=== PATIENT | male | born 1980 | race Caucasian/White ===

== ENCOUNTER 2019-12-21 23:02 | Inpatient (IN) | payer OTHER, SELFPAY ==
[2019-12-21 23:05] VITALS: BP 112/68; PULSE 104; RESP 32; TEMP 37; O2SAT 100; BMI 29.2
--- NOTE | 2019-12-21 23:09 | XR_ITS ---
EXAMINATION: XR CHEST CLINICAL INFORMATION: Shortness of breath. COMPARISON: CT chest 10/17/2019. Chest x-ray 10/16/2019 TECHNIQUE: Frontal view of the chest was obtained. 11:27 PM FINDINGS: There are vague rounded and linear opacities over the right upper lung which also has a metallic disc like object that is likely external to the patient. This is likely related to the oxygenation tubing which is seen crossing the right upper chest. The lungs are otherwise normally aerated. No pleural effusion. No pulmonary vascular congestion. Cardiac and mediastinal contours are normal. IMPRESSION: Radiopacities over the right upper lung suspected to be external to the patient. Repeat PA lateral chest would be helpful for further evaluation.
[2019-12-21 23:26] LABS: Basophils Absolute Auto 0.2 X10*3/uL (0.0-0.2); Basophils Percent Auto 1.4 % (0-2); Eosinophils Absolute Auto 1.7 X10*3/uL (0.0-0.4); Hematocrit 46.9 % (42-52); Hemoglobin 15.7 g/dl (14.0-18.0); Imm Gran Abs Auto 0.06 X10*3/uL (0.00-0.03); Imm Gran Pct Auto 0.5 % (0.0-0.4); Lymphocytes Absolute Auto 2.8 X10*3/uL (1.2-4.9); Lymphocytes Percent Auto 24.3 % (20-40); MANUAL DIFF FLAG NO; Mean Corpuscular HGB Conc 33.5 g/dl (31.0-36.0); Mean Corpuscular Hemoglobin 29.5 pg (27.0-33.0); Mean Platelet Volume 10.2 fL (9.4-12.4); Monocytes Absolute Auto 0.8 X10*3/uL (0.1-1.2); Monocytes Percent Auto 6.8 % (2-11); Platelet Count 315 X10*3/uL (160-400); Red Blood Count 5.33 X10*6/uL (4.60-5.80); Red Cell Distribution Width 12.6 % (11.0-16.0); White Blood Count 11.6 X10*3/uL (4.8-10.8)
[2019-12-21 23:48] VITALS: O2SAT 99
[2019-12-22] VITALS (7 sets, daily range): BP systolic 102–149; BP diastolic 60–80; PULSE 87–131; RESP 16–28; TEMP 36.3–36.8; O2SAT 94–98
[2019-12-22] MEDS: levalbuterol HCL 1.25 MG/3 ML VIAL.NEB 5 MG INHALE (00:19)
--- NOTE | 2019-12-22 00:23 | ED_ITS ---
HPI - Chest Pain General Chief Complaint: Dyspnea Stated Complaint: Sob Time Seen by Provider: 12/21/19 23:09 Source: patient and EMS Mode of arrival: EMS Limitations: no limitations History of Present Illness HPI narrative: patient's history of severe asthma been here frequently for status asthmaticus today he was doing fine just prior to arrival felt very short of breath tripoding at home EMS gave him 3 DuoNeb treatments back to back and 0.3 mg of epinephrine IM and placed on CPAP complaint: chest discomfort Onset: during rest Quality: tightness Relieving factors: nothing Related Data Allergies Allergy/AdvReac Type Severity Reaction Status Date / Time ibuprofen [IBUPROFEN] Allergy Intermediate ASTHMA Unverified 11/25/19 18:18 EXACERBATION shellfish derived Allergy Mild SWELLING Unverified 11/25/19 18:18 aspirin [ASA] Allergy Unknown DIFFICULTY Unverified 11/25/19 18:18 BREATHING nsaids Allergy Unknown Uncoded 09/23/19 00:00 nucala Allergy Unknown shortness Uncoded 09/23/19 00:00 of breath shellfish Allergy Unknown anaphylaxis Uncoded 09/23/19 00:00 Review of Systems Review of Systems: REVIEW OF SYSTEMS: Pertinent positives and negatives are stated above in the history. GEN: no fevers, chills, fatigue HEENT: no nasal congestion, sore throat, ear pain NEURO: no headache, dizziness, focal weakness PULM: for HPI CV: no chest pain, palpitations, LE edema ABD: no abdominal pain, nausea, vomiting, diarrhea : no dysuria, urgency, frequency SKIN: no rash ROS otherwise negative x 10 PMFSH Past Medical History Medical History Anxiety Asthma PTSD (post-traumatic stress disorder) Surgical History History of amputation Social History Social History Advance Directives: No Advance Directives Information Provided: No Physical Exam Vital Signs: Vital Signs: Vital Signs Temp Pulse Resp BP Pulse Ox 12/22/19 00:06 107 H 16 102/78 98 12/21/19 23:05 98.6 F 104 H 32 H 112/68 100 Body Mass Index 29.2 Appearance: Alert. Oriented X3. severe respiratory distress. using accessory respiratory muscle Eyes: Pupils equal, round and reactive to light. ENT: Pharynx normal. Neck: Normal inspection. Neck supple. CVS: Normal heart rate and rhythm. Pulses normal. Respiratory: severe respiratory distress on CPAP unable to speak very poor air entry with wheezing and rhonchi no rales Abdomen: Soft and nontender. Skin: Skin warm and dry. Normal skin color. Normal skin turgor. Extremities: No lower extremity edema. Good range of movement left BKA Neuro: Oriented X 3. No motor deficit. No sensory deficit. Course Course Course Narrative: patient received 3 DuoNeb treatments by EMS and 0.3 mg of epi and placed on CPAP prior to arrival after this treatment patient felt started feeling much better placed on CPAP on 30% when he arrived to the ER was given IV Decadron 10 mg Xopenex 5 mg and feeling much better now on 3 L of nasal cannula oxygen saturating 97% will admit patient for further evaluation. Patient's chest x-ray is negative for any infiltrate. Will do the COVID testing although patient does not have any recent contact with any sick patient and previous COVID testing x2 were negative MDM - Chest Pain Lab Data Result diagrams: 12/21/19 23:19 12/22/19 00:31 Labs: Lab Results 12/21/19 12/21/19 Range/Units 23:19 23:19 WBC 11.6 H (4.8-10.8) X10*3/uL RBC 5.33 (4.60-5.80) X10*6/uL Hgb 15.7 (14.0-18.0) g/dl Hct 46.9 (42-52) % MCV 88.0 (80-98) fL MCH 29.5 (27.0-33.0) pg MCHC 33.5 (31.0-36.0) g/dl RDW 12.6 (11.0-16.0) % Plt Count 315 (160-400) X10*3/uL MPV 10.2 (9.4-12.4) fL Immature Gran % (Auto) 0.5 H (0.0-0.4) % Neut % (Auto) 52.0 (45-73) % Lymph % (Auto) 24.3 (20-40) % [place] % (Auto) 6.8 (2-11) % Eos % (Auto) 15.0 H (0-4) % Baso % (Auto) 1.4 (0-2) % Lymph # (Auto) 2.8 (1.2-4.9) X10*3/uL [place] # (Auto) 0.8 (0.1-1.2) X10*3/uL Eos # (Auto) 1.7 H (0.0-0.4) X10*3/uL Baso # (Auto) 0.2 (0.0-0.2) X10*3/uL Abs Immat Gran (auto) 0.06 H (0.00-0.03) X10*3/uL Absolute Neuts (auto) 6.0 (2.0-8.3) X10*3/uL Absolute Nucleated RBC 0.000 (0.0-0.012) X10*3/uL Nucleated RBC % (auto) 0.0 (0.0-0.2) /100WBC Sodium Cancelled Potassium Cancelled Chloride Cancelled Carbon Dioxide Cancelled Anion Gap Cancelled BUN Cancelled Creatinine Cancelled Estim Creat Clear Calc Cancelled Estimated GFR Cancelled Random Glucose Cancelled Calcium Cancelled Critical Care Time Critical Care Time Critical Care Time: Yes Total Critical Care Time: 35 Attestation: Time is exclusive of separately billable procedures. Time includes: direct pa tient care, patient reassessment, coordination of patient care, interpretation of data (laboratory data, pulse oximetry, arterial blood gases and chest xrays), review of patient's medical records, medical consultation and documentation of patient care. Procedures excluded from critical care time: central intravenous line placement and electrocardiography. Discharge Plan Discharge Clinical Impression: Asthmaticus, status Qualifiers: Asthma severity: severe Asthma persistence: unspecified Qualified Code(s): J45.902 - Unspecified asthma with status asthmaticus Patient Disposition: Admitted As Inpatient
[2019-12-22] MEDS: Magnesium Sulfate/H2O 2 GM/50 ML PIGGYBACK IV (00:35)
[2019-12-22] MEDS: 0.9 % Sodium Chloride 1,000 ML 999 ML IVCONT ×2 (00:35)
[2019-12-22] MEDS: dexAMETHasone sod phosphate 4 MG/ML VIAL 10 MG IVPUSH (00:38)
[2019-12-22 01:27] LABS: Anion Gap 15 (12-20); Blood Urea Nitrogen 17 mg/dL (9-16); Calcium 9.4 mg/dL (8.4-10.2); Carbon Dioxide 23 mmol/L (22-29); Chloride 104 mmol/L (96-108); Creatinine Clr Calc Pharmacy 128.7; Estimated Glomerular Filt Rate > 60; Glucose Random 107 mg/dL (60-115); Potassium 3.7 mmol/l (3.3-5.1); Sodium 138 mmol/L (135-145)
--- NOTE | 2019-12-22 04:02 | PC.NURSE ---
patient sleeping at this time. skin p/w/d. airway patent.
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
[2019-12-22] MEDS: cefTRIAXone sodium 1 GM in 0.9 % Sodium Chloride 100 ML IV (09:03)
--- NOTE | 2019-12-22 09:09 | MHC.CM.PN ---
Male 39 DX Asthma exacerbation. Lives alone. WC bound. Independent ADLs father assists PRN. DP home no services family transport.
[2019-12-22] MEDS: ondansetron HCL 4 MG/2 ML VIAL IVPUSH (09:10)
[2019-12-22] MEDS: levalbuterol HCL 1.25 MG/3 ML VIAL.NEB INHALE ×4 (11:35→19:11)
--- NOTE | 2019-12-22 13:10 | PM.EVENT ---
Event Note Event Note: patient came with shortness of breath and found to have asthma exacerbation: seen and examined today patient says shortness of breath improving, seems slightly anxious. Physical exam: Cvs: rrr, [id number] , no murmur res: Fair air entry, still has some wheezing abd: no rebound or guarding ,nt, bs present. ext pulses present , no cyanosis neuro: axo3 , nonfocal. assessment and plan coordinated in H&P: asthma exacerbation/ continue nebs, steroids Anxiety shaw: P.r.n. ati ativan if needed
[2019-12-22] MEDS: LORazepam 2 MG/ML VIAL 0.5 MG IVPUSH (13:57)
[2019-12-22 15:17] LABS: SARS COV2 PCR INHOUSE NEGATIVE (Negative)
[2019-12-22] MEDS: LORazepam 2 MG/ML VIAL 1 MG IVPUSH (19:40)
[2019-12-22] MEDS: Morphine Sulfate 4 MG/ML CARTRIDGE IVPUSH (20:15)
[2019-12-22] MEDS: Albuterol Sulfate (0.083%) 2.5 MG/3 ML VIAL.NEB INHALE (20:41)
[2019-12-23] VITALS (10 sets, daily range): BP systolic 108–138; BP diastolic 68–98; PULSE 68–119; RESP 18–22; TEMP 36.3–36.6; O2SAT 94–100
[2019-12-23] MEDS: LORazepam 2 MG/ML VIAL 0.5 MG IVPUSH ×4 (00:48→22:15)
[2019-12-23] MEDS: levalbuterol HCL 1.25 MG/3 ML VIAL.NEB INHALE ×5 (00:53→20:47)
[2019-12-23] MEDS: Morphine Sulfate 4 MG/ML CARTRIDGE 3 MG IVPUSH (04:42)
[2019-12-23 05:38] LABS: ABG PCO2 42 mmhg (32-45); HCO3 ABG 27 mmol/l (22-26); PO2 ABG 54 mmhg (83-108); Pt Ventilation O2% 40%; pH ABG 7.41 (7.35-7.45)
[2019-12-23 05:39] LABS: Base Excess ABG 1.4; Blood Gas Serial # 5396
--- NOTE | 2019-12-23 06:28 | PC.NURSE ---
PATIENT VERY ANXIOUS AND C/O DIFFICULTY BREATHING THROUGHOUT SHIFT. DR KEANE NOTIFIED. PT GIVEN ATIVAN FOR ANXIETY AND MORPHINE FOR BREATHING, BOTH WITH POSITIVE EFFECT. PT ALSO REQUESTING IV FLUIDS AND ABG'S DURING THE NIGHT. ABG'S ORDERED THIS MORNING - PT UPDATED ON RESULTS. PT IS VERY ANXIOUS/FEARFUL ABOUT HIS POTENTIAL DECLINE.
[2019-12-23 06:33] LABS: MANUAL DIFF FLAG NO
[2019-12-23 06:50] LABS: Basophils Absolute Auto 0.1 X10*3/uL (0.0-0.2); Basophils Percent Auto 0.6 % (0-2); Eosinophils Absolute Auto 0.3 X10*3/uL (0.0-0.4); Hematocrit 46.1 % (42-52); Hemoglobin 15.2 g/dl (14.0-18.0); Imm Gran Abs Auto 0.09 X10*3/uL (0.00-0.03); Imm Gran Pct Auto 0.7 % (0.0-0.4); Lymphocytes Absolute Auto 3.8 X10*3/uL (1.2-4.9); Lymphocytes Percent Auto 30.2 % (20-40); Mean Corpuscular Hemoglobin 29.5 pg (27.0-33.0); Mean Corpuscular Volume 89.5 fL (80-98); Mean Platelet Volume 10.6 fL (9.4-12.4); Monocytes Absolute Auto 1.1 X10*3/uL (0.1-1.2); Monocytes Percent Auto 8.6 % (2-11); Neutrophils Absolute Auto 7.2 X10*3/uL (2.0-8.3); Neutrophils Percent Auto 57.9 % (45-73); Platelet Count 310 X10*3/uL (160-400); Red Blood Count 5.15 X10*6/uL (4.60-5.80); White Blood Count 12.4 X10*3/uL (4.8-10.8)
[2019-12-23 07:08] LABS: Anion Gap 14 (12-20); Blood Urea Nitrogen 11 mg/dL (9-16); Calcium 9.4 mg/dL (8.4-10.2); Carbon Dioxide 26 mmol/L (22-29); Chloride 109 mmol/L (96-108); Creatinine Clr Calc Pharmacy 133.8; Estimated Glomerular Filt Rate > 60; Glucose Random 86 mg/dL (60-115); Sodium 145 mmol/L (135-145)
[2019-12-23] MEDS: cefTRIAXone sodium 1 GM in 0.9 % Sodium Chloride 100 ML IV (07:41)
[2019-12-23 10:21] LABS: Procalcitonin 0.05 ng/mL
[2019-12-23] MEDS: Loratadine 10 MG TABLET PO (11:38)
--- NOTE | 2019-12-23 11:54 | MHC.CLN ---
WILL START REGULAR DIET PT WITHOUT HX DM
--- NOTE | 2019-12-23 12:26 | PM.IMPN ---
Subjective Subjective Date of Service: 12/23/19 Interval History: Dyspnea improved Undergoing lung biopsy at [facility] next week. 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 Improved on CPAP overnight. Still does not have home CPAP Constitutional Constitutional: Denies fever(s) Cardiovascular Cardiovascular: Denies chest pain and Reports dyspnea Respiratory Respiratory: Reports cough, Reports dyspnea and Reports wheezing Gastrointestinal Gastrointestinal: Denies abdominal pain Allergic/Immunologic Allergic/Immunologic: Reports wheezing Physical Exam Vital Signs: Vital Signs: Vital Signs Temp Pulse Resp BP Pulse Ox 12/23/19 11:27 87 18 129/76 97 12/23/19 08:05 97.4 F 12/23/19 07:14 114 H 20 132/98 H 94 12/23/19 04:42 22 H 12/23/19 03:29 97.5 F 90 20 128/85 96 12/23/19 00:00 97.7 F 119 H 20 138/75 97 12/22/19 20:25 97.9 F 122 H 20 136/79 94 12/22/19 20:15 20 12/22/19 19:27 98.1 F 131 H 28 H 149/66 H 95 12/22/19 15:15 98.2 F 103 H 18 126/60 95 Body Mass Index 29.2 Const: General: no acute distress Chest: Chest palpation & inspection: normal inspection of the chest Resp: Effort & Inspection: normal respiratory effort, audible wheezes and no respiratory distress Cardio: Rate: regular rate Rhythm: regular rhythm GI: Inspection: Yes normal to inspection Palpation (GI): Soft to palpation and nontender Extrem: General: Yes no clubbing, cyanosis or edema Objective Data Current Medications Generic Name Dose Route Start Last Admin Trade Name Freq PRN Reason Stop Dose Admin Ceftriaxone Sodium 1 gm/ 100 mls @ 200 mls/hr 12/22/19 08:00 12/23/19 08:50 Sodium Chloride IV Infused Q24H [facility] Infusion Ipratropium [place] 2 puff 12/22/19 20:00 12/23/19 11:31 Ipratropium [place] 1 Puff/17 Mcg Inhaler INHALE Not Given RQ4H WHILE AWAKE [facility] Levalbuterol HCl 1.25 mg 12/22/19 12:00 12/23/19 11:24 Levalbuterol Hcl 1.25 Mg/3 Ml Vial.Neb INHALE 1.25 mg RQ4H WHILE AWAKE [facility] Administration Levalbuterol HCl 1.25 mg 12/22/19 08:09 12/23/19 00:53 Levalbuterol Hcl 1.25 Mg/3 Ml Vial.Neb INHALE 1.25 mg Q3H PRN Administration Shortness of Breath/Wheezing Loratadine 10 mg 12/23/19 11:15 12/23/19 11:38 Loratadine 10 Mg Tablet PO 10 mg DAILY BATSHEVA Administration Lorazepam 0.5 mg 12/23/19 00:29 12/23/19 07:43 Lorazepam 2 Mg/Ml Vial IVPUSH 0.5 mg Q6H PRN Administration Anxiety Methylprednisolone Sodium Succinate 40 mg 12/23/19 11:15 12/23/19 11:38 Methylprednisolone Sod Succ/Pf 40 Mg/Ml Vial IVPUSH 40 mg Q12H [facility]ATSHEVA Administration Tiotropium [place] 1 puff 12/23/19 11:20 Tiotropium [place] 18 Mcg Cap.W.Dev INHALE RDAILY [facility] Labs CBC & Chem 7: 12/23/19 05:42 12/23/19 05:42 Labs: Laboratory Results - last 24 hr 12/22/19 12/23/19 12/23/19 14:07 05:20 05:42 MCV 89.5 MCH 29.5 MCHC 33.0 RDW 13.0 Plt Count 310 MPV 10.6 Immature Gran % (Auto) 0.7 H Neut % (Auto) 57.9 Lymph % (Auto) 30.2 [place] % (Auto) 8.6 Eos % (Auto) 2.0 Baso % (Auto) 0.6 Lymph # (Auto) 3.8 [place] # (Auto) 1.1 Eos # (Auto) 0.3 Baso # (Auto) 0.1 Abs Immat Gran (auto) 0.09 H Absolute Neuts (auto) 7.2 Absolute Nucleated RBC 0.000 Nucleated RBC % (auto) 0.0 ABG pH 7.41 ABG pCO2 42 ABG pO2 54 L ABG HCO3 27 H ABG O2 Saturation 90.0 ABG Base Excess 1.4 Oxygen Given 40% Anion Gap Estim Creat Clear Calc Estimated GFR Random Glucose Calcium Procalcitonin Coronavirus (PCR) NEGATIVE 12/23/19 12/23/19 05:42 05:42 MCV MCH MCHC RDW Plt Count MPV Immature Gran % (Auto) Neut % (Auto) Lymph % (Auto) [place] % (Auto) Eos % (Auto) Baso % (Auto) Lymph # (Auto) [place] # (Auto) Eos # (Auto) Baso # (Auto) Abs Immat Gran (auto) Absolute Neuts (auto) Absolute Nucleated RBC Nucleated RBC % (auto) ABG pH ABG pCO2 ABG pO2 ABG HCO3 ABG O2 Saturation ABG Base Excess Oxygen Given Anion Gap 14 Estim Creat Clear Calc 133.8 Estimated GFR > 60 Random Glucose 86 Calcium 9.4 Procalcitonin 0.05 Coronavirus (PCR) Progress Note: A&P (1) Asthma exacerbation: Status: Acute Assessment and Plan: hospital d#3 39yo M c paraparesis, neurogenic bladder, severe allergic asthma admitted for exacerbation # severe asthma exacerbation - IV glucocorticoid, nebulized KATHERYN/SAHIL, antihistamine; continue inhaled LAMA - no evidence of bacterial PNA, will d/c ceftriaxone # acute/chronic hypoxic respiratory failure - try to get qualified for CPAP while inpt # possible bronchiolitis - planned lung biopsy at [facility] next week # anxiety - prn lorazepam
[2019-12-24 04:00] VITALS: BP 128/79; PULSE 76; RESP 18; TEMP 36.4; O2SAT 98
[2019-12-24] MEDS: levalbuterol HCL 1.25 MG/3 ML VIAL.NEB INHALE ×2 (05:21→08:34)
[2019-12-24] MEDS: LORazepam 2 MG/ML VIAL 0.5 MG IVPUSH ×2 (05:31→17:10)
[2019-12-24 07:43] VITALS: BP 123/83; PULSE 99; RESP 20; TEMP 36.6; O2SAT 98
[2019-12-24] MEDS: Loratadine 10 MG TABLET PO (09:10)
--- NOTE | 2019-12-24 11:05 | P.PNIM_ITS ---
Subjective Subjective Date of Service: 12/24/19 Interval History: Dyspnea improved, still wheezing. Constitutional Constitutional: Denies fever(s) Cardiovascular Cardiovascular: Denies chest pain and Reports dyspnea Respiratory Respiratory: Reports cough, Reports dyspnea and Reports wheezing Gastrointestinal Gastrointestinal: Denies abdominal pain Allergic/Immunologic Allergic/Immunologic: Reports wheezing Physical Exam Vital Signs: Vital Signs: Vital Signs Temp Pulse Resp BP Pulse Ox 12/24/19 07:43 97.8 F 99 20 123/83 98 12/24/19 04:00 97.6 F 76 18 128/79 98 12/23/19 23:37 97.7 F 68 18 108/68 100 12/23/19 19:57 97.8 F 77 18 130/78 98 12/23/19 15:26 79 18 134/83 98 12/23/19 11:27 87 18 129/76 97 Body Mass Index 29.2 Const: General: no acute distress Chest: Chest palpation & inspection: normal inspection of the chest Resp: Effort & Inspection: normal respiratory effort, audible wheezes and no respiratory distress; prolonged expiratory phase Cardio: Rate: regular rate Rhythm: regular rhythm GI: Inspection: Yes normal to inspection Palpation (GI): Soft to palpation and nontender Extrem: General: Yes no clubbing, cyanosis or edema Objective Data Current Medications Generic Name Dose Route Start Last Admin Trade Name Freq PRN Reason Stop Dose Admin Ipratropium [place] 2 puff 12/22/19 20:00 12/24/19 09:56 Ipratropium [place] 1 Puff/17 Mcg Inhaler INHALE Not Given RQ4H WHILE AWAKE [facility]HE[facility] Levalbuterol HCl 1.25 mg 12/22/19 12:00 12/24/19 08:34 Levalbuterol Hcl 1.25 Mg/3 Ml Vial.Neb INHALE 1.25 mg RQ4H WHILE AWAKE BATSHEVA Administration Levalbuterol HCl 1.25 mg 12/22/19 08:09 12/24/19 05:21 Levalbuterol Hcl 1.25 Mg/3 Ml Vial.Neb INHALE 1.25 mg Q3H PRN Administration Shortness of Breath/Wheezing Loratadine 10 mg 12/23/19 11:15 12/24/19 09:10 Loratadine 10 Mg Tablet PO 10 mg DAILY BATSHEVA Administration Lorazepam 0.5 mg 12/23/19 00:29 12/24/19 05:31 Lorazepam 2 Mg/Ml Vial IVPUSH 0.5 mg Q6H PRN Administration Anxiety Methylprednisolone Sodium Succinate 40 mg 12/23/19 11:15 12/23/19 22:16 Methylprednisolone Sod Succ/Pf 40 Mg/Ml Vial IVPUSH 40 mg Q12H BATSHEVA Administration Tiotropium [place] 1 puff 12/23/19 11:20 12/24/19 08:37 Tiotropium [place] 18 Mcg Cap.W.Dev INHALE Not Given RDAILY [facility] Labs CBC & Chem 7: 12/23/19 05:42 12/23/19 05:42 Assessment and Plan (1) Asthma exacerbation: Status: Acute Assessment and Plan: hospital d#34 39yo M c paraparesis, neurogenic bladder, severe allergic asthma, 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
[2019-12-24 11:50] VITALS: BP 122/80; PULSE 85; RESP 20; TEMP 36.4; O2SAT 94
--- NOTE | 2019-12-24 13:06 | MHC.CM.PN ---
DP Home no services family transfer
[2019-12-24 14:59] VITALS: BP 116/71; PULSE 96; RESP 18; TEMP 36.6; O2SAT 96
[2019-12-24] MEDS: Ipratropium Bromide 1 PUFF/17 MCG INHALER 2 PUFF INHALE (19:37)
[2019-12-24 19:48] VITALS: BP 126/75; PULSE 80; RESP 16; TEMP 36.6; O2SAT 97
--- NOTE | 2019-12-24 22:25 | PC.NURSE ---
Overnight oximetry started at 2200.
[2019-12-25] VITALS (7 sets, daily range): BP systolic 127–137; BP diastolic 67–84; PULSE 60–85; RESP 18–20; TEMP 36.2–36.7; O2SAT 92–97
[2019-12-25] MEDS: LORazepam 2 MG/ML VIAL 0.5 MG IVPUSH ×2 (06:23→22:51)
[2019-12-25] MEDS: Loratadine 10 MG TABLET PO (08:14)
[2019-12-25] MEDS: predniSONE 20 MG TABLET 40 MG PO ×2 (10:54→17:12)
[2019-12-25] MEDS: levalbuterol HCL 1.25 MG/3 ML VIAL.NEB INHALE ×3 (11:23→19:16)
--- NOTE | 2019-12-25 14:02 | HO.PM.IMPN ---
Subjective Subjective Date of Service: 12/25/19 Interval History: Dyspnea and wheezing improved. Constitutional Constitutional: Denies fever(s) Cardiovascular Cardiovascular: Denies chest pain and Reports dyspnea Respiratory Respiratory: Reports cough, Reports dyspnea and Reports wheezing Gastrointestinal Gastrointestinal: Denies abdominal pain Allergic/Immunologic Allergic/Immunologic: Reports wheezing Physical Exam Vital Signs: Vital Signs: Vital Signs Temp Pulse Resp BP Pulse Ox 12/25/19 12:00 97.2 F 60 18 133/76 97 12/25/19 07:42 98.1 F 78 20 134/84 95 12/25/19 04:00 97.5 F 73 18 132/84 94 12/25/19 00:00 97.5 F 76 18 127/71 92 12/24/19 19:48 97.8 F 80 16 126/75 97 12/24/19 14:59 97.9 F 96 18 116/71 96 Body Mass Index 29.2 Const: General: no acute distress Chest: Chest palpation & inspection: normal inspection of the chest Resp: Effort & Inspection: normal respiratory effort, very soft end-exp wheeze bilateral upper lung busch; prolonged expiratory phase Cardio: Rate: regular rate Rhythm: regular rhythm GI: Inspection: Yes normal to inspection Palpation (GI): Soft to palpation and nontender Extrem: General: Yes no clubbing, cyanosis or edema Objective Data Current Medications Generic Name Dose Route Start Last Admin Trade Name Freq PRN Reason Stop Dose Admin Ipratropium [place] 2 puff 12/22/19 20:00 12/25/19 11:38 Ipratropium [place] 1 Puff/17 Mcg Inhaler INHALE Not Given RQ4H WHILE AWAKE [facility] Levalbuterol HCl 1.25 mg 12/22/19 12:00 12/25/19 11:23 Levalbuterol Hcl 1.25 Mg/3 Ml Vial.Neb INHALE 1.25 mg RQ4H WHILE AWAKE BATSHEVA Administration Levalbuterol HCl 1.25 mg 12/22/19 08:09 12/24/19 05:21 Levalbuterol Hcl 1.25 Mg/3 Ml Vial.Neb INHALE 1.25 mg Q3H PRN Administration Shortness of Breath/Wheezing Loratadine 10 mg 12/23/19 11:15 12/25/19 08:14 Loratadine 10 Mg Tablet PO 10 mg DAILY BATSHEVA Administration Lorazepam 0.5 mg 12/23/19 00:29 12/25/19 06:23 Lorazepam 2 Mg/Ml Vial IVPUSH 0.5 mg Q6H PRN Administration Anxiety Prednisone 40 mg 12/25/19 10:05 12/25/19 10:54 Prednisone 20 Mg Tablet PO 40 mg BIDWM BATSHEVA Administration Tiotropium [place] 1 puff 12/23/19 11:20 12/25/19 11:32 Tiotropium [place] 18 Mcg Cap.W.Dev INHALE 1 puff RDAILY BATSHEVA Administration Labs CBC & Chem 7: 12/23/19 05:42 12/23/19 05:42 Assessment and Plan (1) Asthma exacerbation: Status: Acute Assessment and Plan: hospital d#4 39yo M c paraparesis, neurogenic bladder, severe allergic asthma, 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
[2019-12-26 03:34] VITALS: BP 137/79; PULSE 71; RESP 20; TEMP 36.6; O2SAT 94
[2019-12-26] MEDS: levalbuterol HCL 1.25 MG/3 ML VIAL.NEB INHALE (07:08)
[2019-12-26] MEDS: Ipratropium Bromide 1 PUFF/17 MCG INHALER 2 PUFF INHALE (07:52)
[2019-12-26 08:00] VITALS: BP 126/88; PULSE 86; RESP 20; TEMP 36.5; O2SAT 98
[2019-12-26] MEDS: Loratadine 10 MG TABLET PO (08:59)
[2019-12-26] MEDS: predniSONE 20 MG TABLET 40 MG PO (08:59)
--- NOTE | 2019-12-26 10:02 | P.DS_ITS ---
DS: Providers Provider Date of admission: 12/22/19 03:57 Primary care physician: Madhu Rascon MD DS: Diagnosis Discharge Diagnosis (1) Asthma exacerbation: Status: Acute Problem details: resolved (2) Allergic asthma: Status: Acute (3) Acute respiratory failure with hypoxia: Status: Acute DS: Summary Hospital Course Hospital Course: from admission history and physical by hospitalist Isabella Mccray MD, 12/22/19: This is a 39-year-old male with recurrent frequent admissions for asthma exacerbation, with past medical history of asthma, chemical lung injury, spinal cord injury with paraplegia, anxiety who presents to the hospital with complaints of shortness of breath and wheezing. pt reports sx started later in the day, associated with wheezing, coughing and sputum production. no fever or chills, no n/v, abd pain, diarrhea or constipation,no urinary sx. pt reports that he also had a panic attack when he reallized he had difficulty breathing and couldnt reach his phone or find it to call ambulance. he was placed on CPAP in ED and reports his sx to have significantly improved. On arrival to the ED, pt had a temp of 98.6, pulse... ...of 104, rr of 32, bp of 112/68, on bipap The patient was admitted to the [facility] [place] and placed on IV steroid and nebulized bronchodilators and weaned off of BiPAP support to room air. Overnight oximetry was performed and the patient did not have desaturations that met qualifications for outpatient CPAP/BiPAP but a formal PSG is recommended to be done as an outpatient off of steroids. The patient improved to point where his breathing was unlabored and there was no wheezing. Steroids were tapered and the patient was discharged home on 6 more days of prednisone taper. 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 Time Spent with Patient Time attestation: Total time spent providing and/or coordinating discharge services: 40 Physical Exam Vital Signs: Vital Signs: Vital Signs Temp Pulse Resp BP Pulse Ox 12/26/19 08:00 97.7 F 86 20 126/88 98 12/26/19 03:34 97.9 F 71 20 137/79 94 12/25/19 23:11 98.1 F 79 20 135/78 95 12/25/19 19:36 97.6 F 85 18 132/67 96 12/25/19 15:29 98.1 F 68 18 137/81 97 12/25/19 12:00 97.2 F 60 18 133/76 97 Body Mass Index 29.2 Const: General: no acute distress and acute distress Resp: Effort & Inspection: normal respiratory effort and able to speak in complete sentences Auscultation: no rales and no wheezes Cardio: Rate: regular rate Rhythm: regular rhythm Neuro: Other: paraplegia Extrem: Other: L BKA Discharge Plan Discharge Patient Disposition: Home, Self-Care Referrals: Madhu Rascon MD [Primary Care Provider] - Discharge Medications: New Spiriva with HandiHaler 18 mcg Capsule, W/Inhalation Device 18 mcg inhalation RDAILY Qty: 30 RF: 0 prednisone 20 mg Tablet 40 mg PO .see instructions Qty: 7 RF: 0 Banophen Anti-Itch 2-0.1 % Cream 1 appl topical TID PRN (Reason: itching) Qty: 60 RF: 0 cetirizine 10 mg tablet 10 mg PO DAILY Qty: 30 RF: 0 prazosin 1 mg capsule 1 mg PO BEDTIME Qty: 30 RF: 0 albuterol sulfate 2.5 mg /3 mL (0.083 %) solution for nebulization 2.5 mg inhalation Q4-6H PRN (Reason: shortness of breath or wheezing) Qty: 3 RF: 0 albuterol sulfate 90 mcg/actuation HFA aerosol inhaler 2 puff inhalation Q4-6H PRN (Reason: shortness of breath or wheezing) Qty: 8.5 RF: 0 sertraline 25 mg tablet 25 mg PO DAILY Qty: 30 RF: 0 Benadryl Extra Strength 2-0.1 % cream 1 applic topical TID PRN (Reason: itching) Qty: 28.3 RF: 0 Discharge Orders: Discharge Order (Routine); Ordered 12/26/19 Ordered By: Kennedy Perez Diet: advance to your usual diet Activity on Discharge: As tolerated Stand Alone Forms: Community Support Visit Report Forms: Patient Portal Discharge page Care Plan Goals: relief of shortness of breath and wheezing Health Concerns: allergic asthma, 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
== END 2019-12-26 11:00 | disposition home or self-care (01) | DRG 202 ==
LOC: HO.ED 12-22 04:34 → HO.IMC 12-22 06:06
PROVIDERS: Internal Medicine; Admitting Provider Internal Medicine; Emergency Provider Internal Medicine; PCP Internal Medicine Endocrinology, Diabetes & Metabolism; Visit Provider Family Medicine
DX: J45.901 Unspecified asthma with (acute) exacerbation (principal); J96.21 Acute and chronic respiratory failure with hypoxia; G82.20 Paraplegia, unspecified; Z20.828 Contact with and (suspected) exposure to other viral communicable diseases; F43.10 Post-traumatic stress disorder, unspecified; J42 Unspecified chronic bronchitis; Z88.6 Allergy status to analgesic agent
CPT/HCPCS: 36415; 36600; 71045; 80048; 82803; 84145; 85025; 87635; 94660; 94664; 96361; 96365; 96375; 99285; J1100; J2060; J2270; J2405; J2920; J3475

== ENCOUNTER 2020-11-02 16:33 | Inpatient (IN) | payer OTHER, MEDICARE, SELFPAY ==
[2020-11-02] VITALS (8 sets, daily range): BP systolic 102–149; BP diastolic 63–76; PULSE 78–135; RESP 10–18; TEMP 36–36.4; O2SAT 89–97; BMI 26.4
--- NOTE | ~2020-11-02 | XR_ITS ---
EXAMINATION: XR CHEST CLINICAL INFORMATION: Shortness of breath COMPARISON: Chest x-ray December 21, 2019. CT of chest October 17, 2019 TECHNIQUE: Frontal portable view of the chest was obtained. 5:00 PM FINDINGS: Surgical suture chain in the right midlung. Blunting of right costophrenic angle probably due to pleural thickening. No acute airspace disease. No pulmonary vascular congestion. The cardiac and mediastinal contours are normal. Heart size is normal. Orthopedic hardware in the lower thoracic upper lumbar spine. XR/XR chest 1V IMPRESSION: Postsurgical changes of right lung. No acute abnormality of the chest.
--- NOTE | ~2020-11-02 | CT_ITS ---
EXAMINATION: CT CHEST WITHOUT CONTRAST CLINICAL INFORMATION: Shortness of breath. Low O2 saturation. COMPARISON: Most recent chest radiograph done earlier the same day. CT chest dated 10/17/2019. TECHNIQUE: Multidetector volumetric CT imaging of the chest was done. Axial MIP volume rendering provided. Sagittal and coronal reformatted images were obtained. This CT examination was performed using dose optimization techniques as appropriate, variously including the following: *Automated exposure control *Adjustment of mA and/or kV according to patient size (this includes techniques or standardized protocols for targeted exams where dose is matched to indication/reason for exam; i.e. 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 No associated soft tissue mass or fluid collection. Stable linear scarring versus atelectasis within the posterior right lung base. There is new focal tree-in-bud nodularity within the medial aspect of the left upper lobe (axial image 104/603). Stable 0.3 cm subpleural nodule along the apex of the left major fissure. Stable 0.4 cm subpleural nodule medially within the right upper lobe (axial image 196/603). Multiple additional stable bilateral subpleural pulmonary nodules. The central airways are patent. MEDIASTINUM: No cardiomegaly. No pericardial effusion. No thoracic aortic dilatation. No superior mediastinal or hilar lymphadenopathy. PLEURA: No pleural effusion or pneumothorax. AXILLA: No lymphadenopathy. UPPER ABDOMEN: Unremarkable. OSSEOUS STRUCTURES: Unremarkable. CT/CT chest wo con IMPRESSION: 1. Postsurgical change within the lateral aspect of the right lower lobe. No associated soft tissue mass or fluid collection. 2. Stable linear scarring versus atelectasis within the posterior right lower lobe. Stable bilateral small pulmonary nodules, unchanged. No new large pulmonary nodule or mass. 3. New focal tree-in-bud nodularity within the medial aspect of the left upper lobe. Findings could represent an infectious or inflammatory process and continued attention on follow-up is recommended. 4. No lymphadenopathy.
--- NOTE | 2020-11-02 16:44 | ECG_ITS ---
Test Reason : DYSPNEA Blood Pressure : / mmHG Vent. Rate : 132 BPM Atrial Rate : 132 BPM P-R Int : 152 ms QRS Dur : 072 ms QT Int : 288 ms P-R-T Axes : 084 020 056 degrees QTc Int : 426 ms Sinus tachycardia Otherwise normal ECG When compared with ECG of 13-OCT-2019 01:35, No significant change was found Referred By: Margarette Hill Electronically Signed By:SAMI VOSS
[2020-11-02 16:57] LABS: MANUAL DIFF FLAG NO
[2020-11-02 17:04] LABS: Basophils Absolute Auto 0.1 X10*3/uL (0.0-0.2); Basophils Percent Auto 1.1 % (0-2); Eosinophils Absolute Auto 0.7 X10*3/uL (0.0-0.4); Eosinophils Percent Auto 6.7 % (0-4); Hemoglobin 15.6 g/dl (14.0-18.0); Imm Gran Abs Auto 0.06 X10*3/uL (0.00-0.03); Imm Gran Pct Auto 0.6 % (0.0-0.4); Lymphocytes Absolute Auto 2.1 X10*3/uL (1.2-4.9); Lymphocytes Percent Auto 20.4 % (20-40); Mean Corpuscular HGB Conc 34.7 g/dl (31.0-36.0); Mean Corpuscular Hemoglobin 29.6 pg (27.0-33.0); Mean Corpuscular Volume 85.4 fL (80-98); Mean Platelet Volume 10.1 fL (9.4-12.4); Monocytes Absolute Auto 0.5 X10*3/uL (0.1-1.2); Neutrophils Percent Auto 66.2 % (45-73); Platelet Count 271 X10*3/uL (160-400); Red Blood Count 5.27 X10*6/uL (4.60-5.80); Red Cell Distribution Width 12.6 % (11.0-16.0); White Blood Count 10.5 X10*3/uL (4.8-10.8)
--- NOTE | 2020-11-02 17:05 | ED.SOB ---
HPI - SOB/Dyspnea General Chief Complaint: Dyspnea Stated Complaint: asthma Time Seen by Provider: 11/02/20 16:52 Source: patient Mode of arrival: EMS Limitations: physical limitation (LLE BKA amputee) History of Present Illness HPI Narrative: Patient is a 40-year-old male with a past medical history of left lower extremity BKA, severe allergic asthma with multiple intubations, neurogenic bladder and anxiety who presents with shortness of breath. Patient states he is not vaccinated for COVID. Patient states he has at home this afternoon inside and outside, very humid today, he suddenly started getting short of breath. He tried all of his at home medications, albuterol inhaler x3, Atrovent x1, with no relief so he called 911. In the ambulance, the patient was given 4 g of magnesium, 160 Solu-Medrol, and a neb tx, was placed on 10L non rebreather and came in satting at 93%. Patient denies chest pain but feels tight , he states he feels he has his anxiety under control. He denies any cough, fevers or congestion. Related Data Home Medications Medication Instructions Recorded Confirmed hydroxyzine HCl 50 mg tablet 50 mg PO TID PRN 11/02/20 11/02/20 mometasone 1 inh INHALATION DAILY 11/02/20 11/02/20 prednisone 10 mg tablet 10 mg PO DAILY 11/02/20 11/02/20 tiotropium bromide 1.25 2 puff INHALATION DAILY 11/02/20 11/02/20 mcg/actuation mist for inhalation Previous Rx's Medication Instructions Recorded albuterol sulfate 90 mcg/actuation 2 puff INHALATION Q4-6H PRN #8.5 g 12/26/19 aerosol inhaler cetirizine 10 mg tablet 10 mg PO DAILY #30 tab 12/26/19 Allergies Allergy/AdvReac Type Severity Reaction Status Date / Time ibuprofen [IBUPROFEN] Allergy Intermediate Difficulty Verified 11/02/20 19:52 Breathing shellfish derived Allergy Mild SWELLING Verified 11/02/20 19:52 aspirin [ASA] Allergy Unknown DIFFICULTY Verified 11/02/20 19:52 BREATHING albuterol AdvReac Mild Gas Verified 11/02/20 19:52 exchange problems sertraline AdvReac Nausea Verified 11/02/20 20:15 nsaids Allergy Unknown Difficulty Uncoded 11/02/20 19:52 Breathing nucala Allergy Unknown shortness Uncoded 11/02/20 19:52 of breath Review of Systems Review of Systems: Yes all other systems are reviewed and are negative [facility] Past Medical History Medical History Acute respiratory failure with hypoxia Allergic asthma Anxiety Asthma Asthmaticus, status PTSD (post-traumatic stress disorder) Surgical History History of amputation Social History Social History Household Members: Other Housing: House Do you presently have visiting nurse or other home services: No Patient Tobacco Use Status: Never used Tobacco Second Hand Smoke Exposure: Yes Substance Use Type: Marijuana Advance Directives: No Advance Directives Information Provided: No service: Yes Current occupational status: unemployed Physical Exam Vital Signs: Vital Signs: Last Vital Signs Temp 97.6 F 11/02/20 22:33 Pulse 90 11/02/20 22:33 Resp 13 11/02/20 22:33 BP 102/69 11/02/20 20:32 Pulse Ox 94 11/02/20 22:33 Oxygen Flow Rate 10 11/02/20 16:37 Body Mass Index 26.4 Const: General: cooperative, healthy appearing, comfortable and anxious Nutritional Appearance: average body habitus Orientation/consciousness: patient oriented x3 Limitations: physical limitations HENMT: Head: Yes normal to inspection Eyes: General: appearance normal, both eyes and all related structures Pupils: Equal, round and reactive pupils present EOM: EOMs intact bilaterally Neck: Neck: Yes normal visual inspection, Yes full ROM, Yes trachea midline and Yes supple Chest: Chest palpation & inspection: normal inspection of the chest Resp: Other: During my exam, patient was on 8 L NRB satting at 92% Effort & Inspection: abnormal respiratory effort (Minimally increased effort) and able to speak in complete sentences Auscultation: wheezes and diminished lung sounds (tight) diffuse Cardio: Rate: tachycardic Rhythm: regular rhythm Heart sounds: normal S1 and S2 GI: Inspection: Yes normal to inspection Palpation (GI): Soft to palpation and nontender Neuro: General: patient oriented x3 Cranial nerves: Yes Equal, round and reactive pupils present Extrem: General: Yes normal to inspection (LLE BKA) and Yes no pedal edema Course Course Course Narrative: Patient is a 40-year-old male with a past medical history of left lower extremity BKA, severe allergic asthma with multiple intubations, neurogenic bladder and anxiety who presents with shortness of breath. Vital Signs revealed tachycardic at 01:35, respiratory rate 18, 93% on 8 L NRB, minimal respiratory effort, likely underlying anxiety component. Will give additional Solu-Medrol dose as well as 50 mcg fentnyl and get labs, EKG, ABG and chest x-ray. Reevaluation(s) Reevaluation #1: Patient is satting at 88% on 2 L nasal cannula, heart rate has come down to 115 beats per minute, will give patient hour long treatment and reassess. Time: 17:58 Reevaluation #2: Will get dry CT of chest patient has slightly bumped white blood cell count but the first one was WNL then pt was given solumedrol and it went up. It is unclear why a 2nd CBC was drawn, duplicate. Other labs notable for D-dimer negative, ABG 7.46/31/55/22/-0.2, chemistry within normal limits, troponin negative, BNP negative, UA negative, covid negative, flu negative, RSV negative. Time: 18:51 Reevaluation #3: Lactate is bumped however, could be due to low O2 saturation. I do not believe this is sepsis, I am not giving sepsis fluids or antibiotics at this time. Patient is lying in bed, breathing easily, relaxed, satting at 94% on 2 L. I will await the results of the CT scan as long as there is no pneumonia, I will discharge. Time: 19:49 Additional Reevaluation(s): 8:05pm: CT scan resulted, shows pneumonia, will give 1 g of ceftriaxone but I am not giving sepsis fluids because I still do not believe this is true sepsis. Pt unable to tolerate being off oxygen, due to this and his history of multiple intubations, plan is for admission. Text to hospitalist for admission. 10:09pm repeat lactate is 5.0, relayed information to Dr José, she will start fluids now. MDM - SOB/Dyspnea Lab Data Attestation: I reviewed the patient's lab results. Result diagrams: 11/02/20 18:11 11/02/20 16:52 Labs: Lab Results 11/02/20 11/02/20 11/02/20 Range/Units 16:49 16:52 16:52 WBC 10.5 (4.8-10.8) X10*3/uL RBC 5.27 (4.60-5.80) X10*6/uL Hgb 15.6 (14.0-18.0) g/dl Hct 45.0 (42-52) % MCV 85.4 (80-98) fL MCH 29.6 (27.0-33.0) pg MCHC 34.7 (31.0-36.0) g/dl RDW 12.6 (11.0-16.0) % Plt Count 271 (160-400) X10*3/uL MPV 10.1 (9.4-12.4) fL Immature Gran % (Auto) 0.6 H (0.0-0.4) % Neut % (Auto) 66.2 (45-73) % Lymph % (Auto) 20.4 (20-40) % [place] % (Auto) 5.0 (2-11) % Eos % (Auto) 6.7 H (0-4) % Baso % (Auto) 1.1 (0-2) % Lymph # (Auto) 2.1 (1.2-4.9) X10*3/uL [place] # (Auto) 0.5 (0.1-1.2) X10*3/uL Eos # (Auto) 0.7 H (0.0-0.4) X10*3/uL Baso # (Auto) 0.1 (0.0-0.2) X10*3/uL Abs Immat Gran (auto) 0.06 H (0.00-0.03) X10*3/uL Absolute Neuts (auto) 7.0 (2.0-8.3) X10*3/uL Absolute Nucleated RBC 0.000 (0.0-0.012) X10*3/uL Nucleated RBC % (auto) 0.0 (0.0-0.2) /100WBC PT (9.9-13.0) SEC INR (0.9-1.1) APTT (24.1-38.0) SEC D-Dimer NG/ML O2 Saturation % ABG pH at Pt Temp (7.35-7.45) ABG pH (Temp Correct) (7.35-7.45) ABG pCO2 at Pt Temp (32-45) mmHg ABG pCO2 (Temp Corrct (32-45) mmHg ABG pO2 at Pt Temp (83-108) mmHg ABG pO2 (Temp Correct (83-108) ABG HCO3 (22-26) mmol/L ABG Base Excess (Actual) mmol/L Sodium 142 (135-145) mmol/L Potassium 3.9 (3.3-5.1) mmol/L Chloride 110 H (96-108) mmol/L Carbon Dioxide 22 (22-29) mmol/L Anion Gap 14 (12-20) BUN 14 (9-16) mg/dL Creatinine 0.83 (0.5-1.4) mg/dL Estim Creat Clear Calc 144.2 Estimated GFR > 60 Random Glucose 131 H D (60-115) mg/dL Lactic Acid (0.5-2.0) mmol/L Lactic Acid Fup @ 2Hr (0.5-2.0) mmol/L Calcium 8.9 (8.4-10.2) mg/dL Troponin I High Sens (<3.5-35.0) ng/L B-Natriuretic Peptide (<100) pg/mL Urine Color Urine Appearance Urine pH (5.0-8.0) Ur Specific [place] (1.005-1.025) Urine Protein (NEG-TRACE) MG/DL Urine Glucose (UA) (NEG) MG/DL Urine Ketones (NEG) MG/DL Urine Blood (NEG) Urine Nitrite (NEG) Ur Leukocyte Esterase (NEG) Coronavirus (PCR) NEGATIVE (Negative) Influenza Type A (PCR) NEGATIVE (Negative) Influenza Type B (PCR) NEGATIVE (Negative) RSV RNA Qual (PCR) NEGATIVE (Negative) 11/02/20 11/02/20 11/02/20 Range/Units 16:52 17:53 18:11 WBC 13.3 H (4.8-10.8) X10*3/uL RBC 5.23 (4.60-5.80) X10*6/uL Hgb 15.8 (14.0-18.0) g/dl Hct 44.8 (42-52) % MCV 85.7 (80-98) fL MCH 30.2 (27.0-33.0) pg MCHC 35.3 (31.0-36.0) g/dl RDW 12.8 (11.0-16.0) % Plt Count 268 (160-400) X10*3/uL MPV 10.1 (9.4-12.4) fL Immature Gran % (Auto) 0.7 H (0.0-0.4) % Neut % (Auto) 87.5 H (45-73) % Lymph % (Auto) 6.5 L (20-40) % [place] % (Auto) 2.6 (2-11) % Eos % (Auto) 1.9 (0-4) % Baso % (Auto) 0.8 (0-2) % Lymph # (Auto) 0.9 L (1.2-4.9) X10*3/uL [place] # (Auto) 0.3 (0.1-1.2) X10*3/uL Eos # (Auto) 0.3 (0.0-0.4) X10*3/uL Baso # (Auto) 0.1 (0.0-0.2) X10*3/uL Abs Immat Gran (auto) 0.09 H (0.00-0.03) X10*3/uL Absolute Neuts (auto) 11.6 H (2.0-8.3) X10*3/uL Absolute Nucleated RBC 0.000 (0.0-0.012) X10*3/uL Nucleated RBC % (auto) 0.0 (0.0-0.2) /100WBC PT (9.9-13.0) SEC INR (0.9-1.1) APTT (24.1-38.0) SEC D-Dimer NG/ML O2 Saturation 88.0 % ABG pH at Pt Temp 7.45 (7.35-7.45) ABG pH (Temp Correct) 7.46 H (7.35-7.45) ABG pCO2 at Pt Temp 31 L (32-45) mmHg ABG pCO2 (Temp Corrct 31 L (32-45) mmHg ABG pO2 at Pt Temp 55 L (83-108) mmHg ABG pO2 (Temp Correct 55 L (83-108) ABG HCO3 22 (22-26) mmol/L ABG Base Excess (Actual) -0.2 mmol/L Sodium (135-145) mmol/L Potassium (3.3-5.1) mmol/L Chloride (96-108) mmol/L Carbon Dioxide (22-29) mmol/L Anion Gap (12-20) BUN (9-16) mg/dL Creatinine (0.5-1.4) mg/dL Estim Creat Clear Calc Estimated GFR Random Glucose (60-115) mg/dL Lactic Acid (0.5-2.0) mmol/L Lactic Acid Fup @ 2Hr (0.5-2.0) mmol/L Calcium (8.4-10.2) mg/dL Troponin I High Sens < 3.5 (<3.5-35.0) ng/L B-Natriuretic Peptide 19 (<100) pg/mL Urine Color Urine Appearance Urine pH (5.0-8.0) Ur Specific [place] (1.005-1.025) Urine Protein (NEG-TRACE) MG/DL Urine Glucose (UA) (NEG) MG/DL Urine Ketones (NEG) MG/DL Urine Blood (NEG) Urine Nitrite (NEG) Ur Leukocyte Esterase (NEG) Coronavirus (PCR) (Negative) Influenza Type A (PCR) (Negative) Influenza Type B (PCR) (Negative) RSV RNA Qual (PCR) (Negative) 11/02/20 11/02/20 11/02/20 Range/Units 18:11 19:10 20:48 WBC (4.8-10.8) X10*3/uL RBC (4.60-5.80) X10*6/uL Hgb (14.0-18.0) g/dl Hct (42-52) % MCV (80-98) fL MCH (27.0-33.0) pg MCHC (31.0-36.0) g/dl RDW (11.0-16.0) % Plt Count (160-400) X10*3/uL MPV (9.4-12.4) fL Immature Gran % (Auto) (0.0-0.4) % Neut % (Auto) (45-73) % Lymph % (Auto) (20-40) % [place] % (Auto) (2-11) % Eos % (Auto) (0-4) % Baso % (Auto) (0-2) % Lymph # (Auto) (1.2-4.9) X10*3/uL [place] # (Auto) (0.1-1.2) X10*3/uL Eos # (Auto) (0.0-0.4) X10*3/uL Baso # (Auto) (0.0-0.2) X10*3/uL Abs Immat Gran (auto) (0.00-0.03) X10*3/uL Absolute Neuts (auto) (2.0-8.3) X10*3/uL Absolute Nucleated RBC (0.0-0.012) X10*3/uL Nucleated RBC % (auto) (0.0-0.2) /100WBC PT 11.0 (9.9-13.0) SEC INR 1.0 (0.9-1.1) APTT 32.4 (24.1-38.0) SEC D-Dimer < 200 NG/ML O2 Saturation % ABG pH at Pt Temp (7.35-7.45) ABG pH (Temp Correct) (7.35-7.45) ABG pCO2 at Pt Temp (32-45) mmHg ABG pCO2 (Temp Corrct (32-45) mmHg ABG pO2 at Pt Temp (83-108) mmHg ABG pO2 (Temp Correct (83-108) ABG HCO3 (22-26) mmol/L ABG Base Excess (Actual) mmol/L Sodium (135-145) mmol/L Potassium (3.3-5.1) mmol/L Chloride (96-108) mmol/L Carbon Dioxide (22-29) mmol/L Anion Gap (12-20) BUN (9-16) mg/dL Creatinine (0.5-1.4) mg/dL Estim Creat Clear Calc Estimated GFR Random Glucose (60-115) mg/dL Lactic Acid 2.2 H* (0.5-2.0) mmol/L Lactic Acid Fup @ 2Hr (0.5-2.0) mmol/L Calcium (8.4-10.2) mg/dL Troponin I High Sens (<3.5-35.0) ng/L B-Natriuretic Peptide (<100) pg/mL Urine Color YELLOW Urine Appearance CLEAR Urine pH 5.5 (5.0-8.0) Ur Specific [place] >= 1.030 H (1.005-1.025) Urine Protein NEG (NEG-TRACE) MG/DL Urine Glucose (UA) NEG (NEG) MG/DL Urine Ketones NEG (NEG) MG/DL Urine Blood NEG (NEG) Urine Nitrite NEG (NEG) Ur Leukocyte Esterase NEG (NEG) Coronavirus (PCR) (Negative) Influenza Type A (PCR) (Negative) Influenza Type B (PCR) (Negative) RSV RNA Qual (PCR) (Negative) 11/02/20 Range/Units 21:24 WBC (4.8-10.8) X10*3/uL RBC (4.60-5.80) X10*6/uL Hgb (14.0-18.0) g/dl Hct (42-52) % MCV (80-98) fL MCH (27.0-33.0) pg MCHC (31.0-36.0) g/dl RDW (11.0-16.0) % Plt Count (160-400) X10*3/uL MPV (9.4-12.4) fL Immature Gran % (Auto) (0.0-0.4) % Neut % (Auto) (45-73) % Lymph % (Auto) (20-40) % [place] % (Auto) (2-11) % Eos % (Auto) (0-4) % Baso % (Auto) (0-2) % Lymph # (Auto) (1.2-4.9) X10*3/uL [place] # (Auto) (0.1-1.2) X10*3/uL Eos # (Auto) (0.0-0.4) X10*3/uL Baso # (Auto) (0.0-0.2) X10*3/uL Abs Immat Gran (auto) (0.00-0.03) X10*3/uL Absolute Neuts (auto) (2.0-8.3) X10*3/uL Absolute Nucleated RBC (0.0-0.012) X10*3/uL Nucleated RBC % (auto) (0.0-0.2) /100WBC PT (9.9-13.0) SEC INR (0.9-1.1) APTT (24.1-38.0) SEC D-Dimer NG/ML O2 Saturation % ABG pH at Pt Temp (7.35-7.45) ABG pH (Temp Correct) (7.35-7.45) ABG pCO2 at Pt Temp (32-45) mmHg ABG pCO2 (Temp Corrct (32-45) mmHg ABG pO2 at Pt Temp (83-108) mmHg ABG pO2 (Temp Correct (83-108) ABG HCO3 (22-26) mmol/L ABG Base Excess (Actual) mmol/L Sodium (135-145) mmol/L Potassium (3.3-5.1) mmol/L Chloride (96-108) mmol/L Carbon Dioxide (22-29) mmol/L Anion Gap (12-20) BUN (9-16) mg/dL Creatinine (0.5-1.4) mg/dL Estim Creat Clear Calc Estimated GFR Random Glucose (60-115) mg/dL Lactic Acid (0.5-2.0) mmol/L Lactic Acid Fup @ 2Hr 5.0 H* (0.5-2.0) mmol/L Calcium (8.4-10.2) mg/dL Troponin I High Sens (<3.5-35.0) ng/L B-Natriuretic Peptide (<100) pg/mL Urine Color Urine Appearance Urine pH (5.0-8.0) Ur Specific [place] (1.005-1.025) Urine Protein (NEG-TRACE) MG/DL Urine Glucose (UA) (NEG) MG/DL Urine Ketones (NEG) MG/DL Urine Blood (NEG) Urine Nitrite (NEG) Ur Leukocyte Esterase (NEG) Coronavirus (PCR) (Negative) Influenza Type A (PCR) (Negative) Influenza Type B (PCR) (Negative) RSV RNA Qual (PCR) (Negative) Imaging Data Chest x-ray: Attestation: I personally reviewed and interpreted this imaging study as follows: Radiologist's impression: [address] [address] XRay Report Signed Patient: Tk Castro MR#: [id number] : 1980 Acct:[id number] Age/Sex: 40 / M ADM Date: 11/02/20 Loc: HO.ED Attending Dr: Ordering Physician: Margarette Hill PA-C Date of Service: 11/02/20 Procedure(s): XR chest 1V Accession Number(s): [id number] cc: Margarette Hill PA-C~ EXAMINATION: XR CHEST CLINICAL INFORMATION: Shortness of breath COMPARISON: Chest x-ray December 21, 2019. CT of chest October 17, 2019 TECHNIQUE: Frontal portable view of the chest was obtained. 5:00 PM FINDINGS: Surgical suture chain in the right midlung. Blunting of right costophrenic angle probably due to pleural thickening. No acute airspace disease. No pulmonary vascular congestion. The cardiac and mediastinal contours are normal. Heart size is normal. Orthopedic hardware in the lower thoracic upper lumbar spine. XR/XR chest 1V IMPRESSION: Postsurgical changes of right lung. No acute abnormality of the chest. ? Dictated By: SUNSHINE REED MD Signed By: <Electronically signed by SUNSHINE REED MD in OV> 11/02/20 1724 DD/ 1644 TD/TT:? Rig Operator: GUERA ECG Data Attestation: I personally reviewed and interpreted this ECG as follows: Interpretation: Sinus tachycardia with a rate of 136 beats per minute, no ST elevation or T-wave changes Discharge Plan Discharge Clinical Impression: Asthma exacerbation, Acute respiratory failure with hypoxia, Community acquired pneumonia Patient Disposition: Admitted As Inpatient Interventions: Admission Worksheet (ED) Last Done: 11/02/20 23:14 Discharge Date/Time: 11/02/20 23:43
[2020-11-02] MEDS: methylPREDNISolone Sod Succ 125 MG/2 ML VIAL IVPUSH (17:19)
[2020-11-02 17:20] LABS: Anion Gap 14 (12-20); Blood Urea Nitrogen 14 mg/dL (9-16); Calcium 8.9 mg/dL (8.4-10.2); Carbon Dioxide 22 mmol/L (22-29); Chloride 110 mmol/L (96-108); Creatinine Clr Calc Pharmacy 144.2; Estimated Glomerular Filt Rate > 60; Glucose Random 131 mg/dL (60-115); Potassium 3.9 mmol/L (3.3-5.1); Sodium 142 mmol/L (135-145)
[2020-11-02] MEDS: fentaNYL citrate/PF 100 MCG/2 ML VIAL 50 MCG IVPUSH (17:20)
[2020-11-02 17:28] LABS: B Type Natriuretic Peptide 19 pg/mL (<100); Troponin-I High Sensitivity < 3.5 ng/L (<3.5-35.0)
[2020-11-02] MEDS: Albuterol Sulfate (0.083%) 2.5 MG/3 ML VIAL.NEB 10 MG INHALE (17:50)
[2020-11-02 17:57] LABS: ABG Refer to POC result
[2020-11-02 17:58] LABS: ABG Base Excess -0.2 mmol/L; ABG HCO3 22 mmol/L (22-26); ABG pCO2 31 mmHg (32-45); ABG pCO2 TC 31 mmHg (32-45); ABG pH 7.45 (7.35-7.45); ABG pH TC 7.46 (7.35-7.45); ABG pO2 55 mmHg (83-108); ABG pO2 TC 55 (83-108)
[2020-11-02 18:16] LABS: MANUAL DIFF FLAG NO
[2020-11-02 18:23] LABS: Basophils Absolute Auto 0.1 X10*3/uL (0.0-0.2); Basophils Percent Auto 0.8 % (0-2); Eosinophils Absolute Auto 0.3 X10*3/uL (0.0-0.4); Eosinophils Percent Auto 1.9 % (0-4); Hematocrit 44.8 % (42-52); Hemoglobin 15.8 g/dl (14.0-18.0); Imm Gran Abs Auto 0.09 X10*3/uL (0.00-0.03); Imm Gran Pct Auto 0.7 % (0.0-0.4); Lymphocytes Absolute Auto 0.9 X10*3/uL (1.2-4.9); Lymphocytes Percent Auto 6.5 % (20-40); Mean Corpuscular HGB Conc 35.3 g/dl (31.0-36.0); Mean Corpuscular Hemoglobin 30.2 pg (27.0-33.0); Mean Corpuscular Volume 85.7 fL (80-98); Mean Platelet Volume 10.1 fL (9.4-12.4); Monocytes Absolute Auto 0.3 X10*3/uL (0.1-1.2); Monocytes Percent Auto 2.6 % (2-11); Neutrophils Absolute Auto 11.6 X10*3/uL (2.0-8.3); Neutrophils Percent Auto 87.5 % (45-73); Platelet Count 268 X10*3/uL (160-400); Red Blood Count 5.23 X10*6/uL (4.60-5.80); Red Cell Distribution Width 12.8 % (11.0-16.0); White Blood Count 13.3 X10*3/uL (4.8-10.8)
[2020-11-02 18:34] LABS: Partial Thromboplastin Time 32.4 SEC (24.1-38.0)
[2020-11-02 18:43] LABS: Influenza A PCR NEGATIVE (Negative); Influenza B PCR NEGATIVE (Negative); Resp Syncy Virus RNA Qual PCR NEGATIVE (Negative); SARS COV2 PCR INHOUSE NEGATIVE (Negative)
[2020-11-02 18:54] LABS: D Dimer < 200 NG/ML
[2020-11-02 19:41] LABS: Lactic Acid 2.2 mmol/L (0.5-2.0)
--- NOTE | 2020-11-02 19:47 | PC.NURSE ---
Pt aaox4, resting on stretcher in NAD, breathing with ease on RA but O2 sats 90% on RA. Pt placed on NC at 3L and sats 94% on this. Melinda PA to bedside and titrates pt to 2L NC and sats at 93%, Melinda aware and is ok with this O2 sat, states she is ok with pt O2 sat 92% or greater. Pt reports he feels significantly better than on arrival. Pt denies pain/discomfort. Pt requesting PO fluids, this RN to provide per request. Pt stretcher in low locked position, rails raised, call azevedo within reach. Pt ST on bedside gang tailer.
--- NOTE | 2020-11-02 20:21 | PHA.MEDREC ---
Pharmacy Consult ? Medication Reconciliation Pharmacy has completed the medication reconciliation using the external [facility] history. Serene Levy, PharmD [phone]
[2020-11-02] MEDS: cefTRIAXone sodium 1 GM in 0.9 % Sodium Chloride 50 ML IV (20:33)
[2020-11-02 20:59] LABS: Glucose Urine UA NEG (NEG); Leukocyte Esterase Urine NEG (NEG); Nitrite Urine NEG (NEG); PH 5.5 (5.0-8.0); Specific Gravity - Urine >= 1.030 (1.005-1.025); Urine Blood NEG (NEG); Urine Ketones NEG (NEG); Urine Protein NEG (NEG-TRACE)
[2020-11-02 21:01] LABS: Appearance Urine CLEAR; Color Urine YELLOW
[2020-11-02 21:15] LABS: Reflex Lactate? Lactic Acid Added
--- NOTE | 2020-11-02 22:30 | P.HPHOSP_ITS ---
History of Present Illness Date of Service: 11/02/20 Chief Complaint: asthma exacerbation This is a 32-year-old male with past medical history of asthma exacerbation, and acute on chronic respiratory failure presents to the hospital with complaints of shortness of breath. Patient reports shortness of breath, cough, sputum production that started today. He reports that his asthma is been control for the past 8 months but he had exacerbation today. Has fever with no chills, no abdominal pain nausea or vomiting, no diarrhea constipation, no urinary symptoms. No weakness numbness or tingling. No headache or change in vision. No chest pain, no palpitations. On arrival to the ED patient found to have temp of 97.6?, heart rate of 135, respiratory rate of 18, blood pressure 149/76, satting 93% on non-rebreather, For WBC count of 10.5 initially, pH of 7.46, lactic acid of 2.2, UA negative, COVID-19 RSV, and influenza negative Chest CT shows a postsurgical change within the lateral aspect of the mole right lower lobe, new focal tree-in-bud nodularity within the medial aspect of the left upper lobe, findings could represent an infectious or inflammatory process Given his history of severe asthma exacerbation needing intubation in the past patient will be admitted for management and monitoring Review of Systems Review of Systems: Yes all other systems are reviewed and are negative [facility] Medical History Acute respiratory failure with hypoxia Allergic asthma Anxiety Asthma Asthmaticus, status PTSD (post-traumatic stress disorder) Surgical History History of amputation Social History Household Members: None Housing: House Do you presently have visiting nurse or other home services: No Patient Tobacco Use Status: Never used Tobacco Smoked in Last 30 Days: No Second Hand Smoke Exposure: No Substance Use Type: Marijuana Substance Use Frequency: Occasionally Currently Displaying Signs/Symptoms of Drug Intoxication Withdrawal: No Any prior treatment program specific to substance use: No Have you been hit, kicked, punched, or otherwise hurt by someone within the past year? If so, by whom?: No Do you feel safe in your current relationship?: Yes Is there a partner from a previous relationship who is making you feel unsafe now?: No Are you made to feel afraid or neglected: No Advance Directives: No Advance Directives Information Provided: No Do you have thoughts of harming others: None Do you have a plan to hurt others: No Plan Recently lost weight without trying: No Eating poorly because of decreased appetite: No Nutrition Risks: No Nutritional Risk Poor oral hygiene: No service: Yes Current occupational status: unemployed Meds Allergies Allergy/AdvReac Type Severity Reaction Status Date / Time ibuprofen [IBUPROFEN] Allergy Intermediate Difficulty Verified 11/02/20 19:52 Breathing shellfish derived Allergy Mild SWELLING Verified 11/02/20 19:52 aspirin [ASA] Allergy Unknown DIFFICULTY Verified 11/02/20 19:52 BREATHING albuterol AdvReac Mild Gas Verified 11/02/20 19:52 exchange problems sertraline AdvReac Nausea Verified 11/02/20 20:15 nsaids Allergy Unknown Difficulty Uncoded 11/02/20 19:52 Breathing nucala Allergy Unknown shortness Uncoded 11/02/20 19:52 of breath Active Medications: Current Medications Generic Name Dose Route Start Last Admin Trade Name Freq PRN Reason Stop Dose Admin Acetaminophen 650 mg 11/02/20 22:11 Acetaminophen 325 Mg Tablet PO Q6H PRN Pain, Mild (Pain Scale 1-3) Albuterol Sulfate 2 puff 11/02/20 22:11 Albuterol Sulfate 90 Mcg 8 Gm Inhaler INHALE Q4H PRN shortness of breath or wheezing Albuterol/Ipratropium 3 ml 11/03/20 08:00 Albuterol/Iprat 2.5/0.5mg 3 Ml Ampul.Neb INHALE RQ4H WHILE AWAKE BATSHEVA Albuterol/Ipratropium 3 ml 11/02/20 22:11 Albuterol/Iprat 2.5/0.5mg 3 Ml Ampul.Neb INHALE RQ4H PRN Shortness of Breath/Wheezing Docusate Sodium 100 mg 11/02/20 22:11 Docusate Sodium 100 Mg Capsule PO DAILY PRN Constipation Enoxaparin Sodium 40 mg 11/02/20 22:15 Enoxaparin Sodium 40 Mg/0.4 Ml Syringe SUBCUT Q24H [facility]ATSHE[facility] Hydroxyzine HCl 50 mg 11/02/20 22:11 Hydroxyzine Hcl 50 Mg Tablet PO TID PRN Itching Lactated Ringer's 1,000 mls @ 100 mls/hr 11/02/20 22:15 Lr IVCONT .Q10H [facility] Ceftriaxone Sodium 1 gm/ 50 mls @ 100 mls/hr 11/03/20 20:00 Sodium Chloride IV Q24H [facility] Azithromycin 500 mg/ Sodium 250 mls @ 125 mls/hr 11/02/20 22:15 Chloride IV Q24H [facility] Loratadine 10 mg 11/03/20 09:00 Loratadine 10 Mg Tablet PO DAILY [facility] Methylprednisolone Sodium Succinate 40 mg 11/02/20 22:15 Methylprednisolone Sod Succ 40 Mg/Ml Vial IVPUSH Q12H [facility] Non-Formulary Medication 1 inhalation 11/03/20 09:00 Mometasone INHALE DAILY [facility] Ondansetron HCl 4 mg 11/02/20 22:11 Ondansetron Hcl 4 Mg/2 Ml Vial IVPUSH Q8H PRN Nausea and Vomiting Pharmacy Consult 1 each 11/02/20 19:53 Consult Rx Perform Med Rec MISCELLANE ONCE PRN Consult order Sodium Chloride 3 ml 11/03/20 00:00 0.9 % Sodium Chloride Flush 3 Ml Syringe IVFLUSH QSHIFT [facility] Tiotropium [place] 2 puff 11/03/20 08:00 Tiotropium [place] 18 Mcg Cap.W.Dev INHALE RDAILY [facility] Home Medications Medication Instructions Recorded Confirmed Last Taken Type hydroxyzine HCl 50 mg tablet 50 mg PO TID PRN 11/02/20 11/02/20 Unknown History mometasone 1 inh INHALATION DAILY 11/02/20 11/02/20 Unknown History prednisone 10 mg tablet 10 mg PO DAILY 11/02/20 11/02/20 Unknown History tiotropium bromide 1.25 2 puff INHALATION DAILY 11/02/20 11/02/20 Unknown History mcg/actuation mist for inhalation Physical Exam Vital Signs and Narrative: Vital Signs: Last Vital Signs Pulse 100 11/02/20 20:32 Resp 12 11/02/20 20:32 BP 102/69 11/02/20 20:32 Pulse Ox 95 11/02/20 20:32 Oxygen Flow Rate 10 11/02/20 16:37 Body Mass Index 26.4 Const: General: cooperative and no acute distress Orientation/consciousnes s: patient oriented x3 Eyes: General: appearance normal, both eyes and all related structures Pupils: Equal, round and reactive pupils present Resp: Other: Minimal expiratory wheezing Effort & Inspection: normal respiratory effort and abnormal respiratory pattern Cardio: Rate: regular rate Rhythm: regular rhythm GI: Palpation (GI): Soft to palpation Auscultation: normal bowel sounds Skin: General skin exam: no rashes or lesions noted Neuro: General: patient oriented x3 Cranial nerves: Yes Equal, round and reactive pupils present Cognition (Neuro): normal cognition Extrem: Other: Bilateral lower extremity amputation Results Labs CBC and Chem 7: 11/02/20 18:11 11/02/20 16:52 Labs: Laboratory Results - last 24 hr 11/02/20 11/02/20 11/02/20 16:49 16:52 16:52 MCV 85.4 MCH 29.6 MCHC 34.7 RDW 12.6 Plt Count 271 MPV 10.1 Immature Gran % (Auto) 0.6 H Neut % (Auto) 66.2 Lymph % (Auto) 20.4 [place] % (Auto) 5.0 Eos % (Auto) 6.7 H Baso % (Auto) 1.1 Lymph # (Auto) 2.1 [place] # (Auto) 0.5 Eos # (Auto) 0.7 H Baso # (Auto) 0.1 Abs Immat Gran (auto) 0.06 H Absolute Neuts (auto) 7.0 Absolute Nucleated RBC 0.000 Nucleated RBC % (auto) 0.0 PT INR APTT D-Dimer O2 Saturation ABG pH at Pt Temp ABG pH (Temp Correct) ABG pCO2 at Pt Temp ABG pCO2 (Temp Corrct ABG pO2 at Pt Temp ABG pO2 (Temp Correct ABG HCO3 ABG Base Excess (Actual) Anion Gap 14 Estim Creat Clear Calc 144.2 Estimated GFR > 60 Random Glucose 131 H D Lactic Acid Lactic Acid Fup @ 2Hr Calcium 8.9 Troponin I High Sens B-Natriuretic Peptide Urine Color Urine Appearance Urine pH Ur Specific [place] Urine Protein Urine Glucose (UA) Urine Ketones Urine Blood Urine Nitrite Ur Leukocyte Esterase Coronavirus (PCR) NEGATIVE Influenza Type A (PCR) NEGATIVE Influenza Type B (PCR) NEGATIVE RSV RNA Qual (PCR) NEGATIVE 11/02/20 11/02/20 11/02/20 16:52 17:53 18:11 MCV 85.7 MCH 30.2 MCHC 35.3 RDW 12.8 Plt Count 268 MPV 10.1 Immature Gran % (Auto) 0.7 H Neut % (Auto) 87.5 H Lymph % (Auto) 6.5 L [place] % (Auto) 2.6 Eos % (Auto) 1.9 Baso % (Auto) 0.8 Lymph # (Auto) 0.9 L [place] # (Auto) 0.3 Eos # (Auto) 0.3 Baso # (Auto) 0.1 Abs Immat Gran (auto) 0.09 H Absolute Neuts (auto) 11.6 H Absolute Nucleated RBC 0.000 Nucleated RBC % (auto) 0.0 PT INR APTT D-Dimer O2 Saturation 88.0 ABG pH at Pt Temp 7.45 ABG pH (Temp Correct) 7.46 H ABG pCO2 at Pt Temp 31 L ABG pCO2 (Temp Corrct 31 L ABG pO2 at Pt Temp 55 L ABG pO2 (Temp Correct 55 L ABG HCO3 22 ABG Base Excess (Actual) -0.2 Anion Gap Estim Creat Clear Calc Estimated GFR Random Glucose Lactic Acid Lactic Acid Fup @ 2Hr Calcium Troponin I High Sens < 3.5 B-Natriuretic Peptide 19 Urine Color Urine Appearance Urine pH Ur Specific [place] Urine Protein Urine Glucose (UA) Urine Ketones Urine Blood Urine Nitrite Ur Leukocyte Esterase Coronavirus (PCR) Influenza Type A (PCR) Influenza Type B (PCR) RSV RNA Qual (PCR) 11/02/20 11/02/20 11/02/20 18:11 19:10 20:48 MCV MCH MCHC RDW Plt Count MPV Immature Gran % (Auto) Neut % (Auto) Lymph % (Auto) [place] % (Auto) Eos % (Auto) Baso % (Auto) Lymph # (Auto) [place] # (Auto) Eos # (Auto) Baso # (Auto) Abs Immat Gran (auto) Absolute Neuts (auto) Absolute Nucleated RBC Nucleated RBC % (auto) PT 11.0 INR 1.0 APTT 32.4 D-Dimer < 200 O2 Saturation ABG pH at Pt Temp ABG pH (Temp Correct) ABG pCO2 at Pt Temp ABG pCO2 (Temp Corrct ABG pO2 at Pt Temp ABG pO2 (Temp Correct ABG HCO3 ABG Base Excess (Actual) Anion Gap Estim Creat Clear Calc Estimated GFR Random Glucose Lactic Acid 2.2 H* Lactic Acid Fup @ 2Hr Calcium Troponin I High Sens B-Natriuretic Peptide Urine Color YELLOW Urine Appearance CLEAR Urine pH 5.5 Ur Specific [place] >= 1.030 H Urine Protein NEG Urine Glucose (UA) NEG Urine Ketones NEG Urine Blood NEG Urine Nitrite NEG Ur Leukocyte Esterase NEG Coronavirus (PCR) Influenza Type A (PCR) Influenza Type B (PCR) RSV RNA Qual (PCR) 11/02/20 21:24 MCV MCH MCHC RDW Plt Count MPV Immature Gran % (Auto) Neut % (Auto) Lymph % (Auto) [place] % (Auto) Eos % (Auto) Baso % (Auto) Lymph # (Auto) [place] # (Auto) Eos # (Auto) Baso # (Auto) Abs Immat Gran (auto) Absolute Neuts (auto) Absolute Nucleated RBC Nucleated RBC % (auto) PT INR APTT D-Dimer O2 Saturation ABG pH at Pt Temp ABG pH (Temp Correct) ABG pCO2 at Pt Temp ABG pCO2 (Temp Corrct ABG pO2 at Pt Temp ABG pO2 (Temp Correct ABG HCO3 ABG Base Excess (Actual) Anion Gap Estim Creat Clear Calc Estimated GFR Random Glucose Lactic Acid Lactic Acid Fup @ 2Hr 5.0 H* Calcium Troponin I High Sens B-Natriuretic Peptide Urine Color Urine Appearance Urine pH Ur Specific [place] Urine Protein Urine Glucose (UA) Urine Ketones Urine Blood Urine Nitrite Ur Leukocyte Esterase Coronavirus (PCR) Influenza Type A (PCR) Influenza Type B (PCR) RSV RNA Qual (PCR) Imaging Radiologist's Impressions: Impressions Chest X-Ray 11/02/20 16:44 IMPRESSION: Postsurgical changes of right lung. No acute abnormality of the chest. Chest CT 11/02/20 18:49 IMPRESSION: 1. Postsurgical change within the lateral aspect of the right lower lobe. No associated soft tissue mass or fluid collection. 2. Stable linear scarring versus atelectasis within the posterior right lower lobe. Stable bilateral small pulmonary nodules, unchanged. No new large pulmonary nodule or mass. 3. New focal tree-in-bud nodularity within the medial aspect of the left upper lobe. Findings could represent an infectious or inflammatory process and continued attention on follow-up is recommended. 4. No lymphadenopathy. Assessment and Plan (1) Community acquired pneumonia: Status: Acute (2) Acute respiratory failure with hypoxia: Status: Acute (3) Allergic asthma: Status: Acute (4) Anxiety: Status: Acute 40-year-old male with past medical history of asthma who presents to the hospital with complaints of shortness of breath, cough, sputum production found to have pneumonia # acute hypoxic respiratory failure - secondary to pneumonia as well as asthma exacerbation - will start him on IV antibiotics - Solu-Medrol - DuoNeb - titrate oxygen office tolerated # community-acquired pneumonia - has mild leukocytosis, afebrile, elevated lactic acid most likely secondary to breathing treatment - IV antibiotics - follow cultures # asthma exacerbation - has history of severe asthma exacerbations eating and patient in the past - will start him on Solu-Medrol 40 b.i.d. - DuoNeb p.r.n. and scheduled - patient also has history of severe anxiety during and around his asthma attack will give morphine and Ativan p.r.n. as appropriate # anxiety - continue Atarax - p.r.n. Ativan if needed DVT prophylaxis: Lovenox Quality Stroke Does the patient have a stroke diagnosis?: No VTE Prior VTE?: No VTE Risk Level:: Medical - moderate - high VTE Device Contraindication: Treatment Not Indicated VTE Drug Contraindication: N/A - Med Ordered
[2020-11-02] MEDS: Azithromycin 500 MG in 0.9 % Sodium Chloride 250 ML 125 MG IV (22:39)
[2020-11-02] MEDS: methylPREDNISolone Sod Succ 40 MG/ML VIAL IVPUSH (22:39)
[2020-11-02 23:28] LABS: Reflex Lactate? 2 Y
[2020-11-03] VITALS (19 sets, daily range): BP systolic 112–157; BP diastolic 64–93; PULSE 69–141; RESP 18–24; TEMP 36.2–36.9; O2SAT 87–98
[2020-11-03] MEDS: Lactated Ringers 1,000 ML 100 ML IVCONT ×2 (00:31→10:21)
[2020-11-03 00:45] LABS: ~Lactic Acid-LAB USE ONLY 4.4 mmol/L (0.5-2.0)
[2020-11-03] MEDS: Albuterol/Iprat 2.5/0.5MG 3 ML AMPUL.NEB INHALE ×3 (03:47→11:37)
[2020-11-03] MEDS: hydrOXYzine HCL 50 MG TABLET PO ×2 (04:16→19:36)
[2020-11-03] MEDS: Morphine Sulfate 4 MG/ML CARTRIDGE IVPUSH ×2 (04:40→05:54)
[2020-11-03] MEDS: LORazepam 2 MG/ML VIAL 0.5 MG IVPUSH (04:40)
[2020-11-03] MEDS: methylPREDNISolone Sod Succ 40 MG/ML VIAL IVPUSH ×3 (05:58→22:30)
[2020-11-03 06:16] LABS: MANUAL DIFF FLAG NO
[2020-11-03] MEDS: LORazepam 2 MG/ML VIAL 1 MG IVPUSH (06:37)
[2020-11-03 06:38] LABS: Basophils Percent Auto 0.2 % (0-2); Hematocrit 45.2 % (42-52); Hemoglobin 15.3 g/dl (14.0-18.0); Imm Gran Pct Auto 1.1 % (0.0-0.4); Lymphocytes Absolute Auto 0.7 X10*3/uL (1.2-4.9); Lymphocytes Percent Auto 8.3 % (20-40); Mean Corpuscular HGB Conc 33.8 g/dl (31.0-36.0); Mean Corpuscular Hemoglobin 29.4 pg (27.0-33.0); Mean Corpuscular Volume 86.8 fL (80-98); Mean Platelet Volume 10.1 fL (9.4-12.4); Monocytes Absolute Auto 0.3 X10*3/uL (0.1-1.2); Monocytes Percent Auto 2.8 % (2-11); Neutrophils Absolute Auto 7.7 X10*3/uL (2.0-8.3); Neutrophils Percent Auto 87.6 % (45-73); Platelet Count 292 X10*3/uL (160-400); Red Blood Count 5.21 X10*6/uL (4.60-5.80); White Blood Count 8.8 X10*3/uL (4.8-10.8)
[2020-11-03 07:03] LABS: Anion Gap 13 (12-20); Blood Urea Nitrogen 16 mg/dL (9-16); Calcium 9.4 mg/dL (8.4-10.2); Carbon Dioxide 22 mmol/L (22-29); Chloride 114 mmol/L (96-108); Creatinine Clr Calc Pharmacy 153.4; Estimated Glomerular Filt Rate > 60; Glucose Random 124 mg/dL (60-115); Potassium 4.4 mmol/L (3.3-5.1); Sodium 145 mmol/L (135-145)
[2020-11-03] MEDS: Morphine Sulfate 2 MG/ML CARTRIDGE IVPUSH ×3 (08:24→17:31)
[2020-11-03] MEDS: Loratadine 10 MG TABLET PO (08:25)
[2020-11-03 10:56] LABS: ABG Base Excess -2.9 mmol/L; ABG HCO3 21 mmol/L (22-26); ABG pCO2 36 mmHg (32-45); ABG pCO2 TC 41 mmHg (32-45); ABG pH 7.37 (7.35-7.45); ABG pH TC 7.33 (7.35-7.45); ABG pO2 83 mmHg (83-108); ABG pO2 TC 100 (83-108)
--- NOTE | 2020-11-03 11:41 | P.PNIM_ITS ---
Subjective Subjective Date of Service: 11/03/20 Interval History: Seen and examined this morning Reports shortness of breath, productive cough Denies fever, chills Review of Systems Review of Systems: Yes all other systems are reviewed and are negative Constitutional Constitutional: Denies chills and Denies fever(s) Cardiovascular Cardiovascular: Denies chest pain and Reports dyspnea Respiratory Respiratory: Reports cough and Reports dyspnea Gastrointestinal Gastrointestinal: Denies abdominal pain Physical Exam Vital Signs: Vital Signs: Last Vital Signs Temp 98.5 F 11/03/20 07:47 Pulse 132 H 11/03/20 11:40 Resp 24 H 11/03/20 07:47 BP 120/93 H 11/03/20 07:47 Pulse Ox 90 L 11/03/20 10:00 Oxygen Flow Rate 10 11/02/20 16:37 Body Mass Index 26.4 Const: General: alert and awake Nutritional Appearance: well nourished Orientation/consciousness: patient oriented x3 HENMT: Head: Yes normocephalic and Yes atraumatic Eyes: Sclerae: sclerae normal Resp: Other: b/l diffuse wheezing Effort & Inspection: tachypneic Cardio: Rate: tachycardic Heart sounds: S1 normal heart sound present and S2 normal heart sound present GI: Palpation (GI): Soft to palpation and nontender Neuro: General: patient oriented x3 Cranial nerves: Yes CN's II-XII intact bilaterally and Yes Bilaterally intact EOM present Objective Data Current Medications Generic Name Dose Route Start Last Admin Trade Name Freq PRN Reason Stop Dose Admin Acetaminophen 650 mg 11/02/20 22:11 Acetaminophen 325 Mg Tablet PO Q6H PRN Pain, Mild (Pain Scale 1-3) Albuterol Sulfate 2 puff 11/02/20 22:11 Albuterol Sulfate 90 Mcg 8 Gm Inhaler INHALE Q4H PRN shortness of breath or wheezing Albuterol/Ipratropium 3 ml 11/03/20 08:00 11/03/20 11:37 Albuterol/Iprat 2.5/0.5mg 3 Ml Ampul.Neb INHALE 3 ml RQ4H WHILE AWAKE BATSHEVA Administration Albuterol/Ipratropium 3 ml 11/02/20 22:11 Albuterol/Iprat 2.5/0.5mg 3 Ml Ampul.Neb INHALE RQ4H PRN Shortness of Breath/Wheezing Docusate Sodium 100 mg 11/02/20 22:11 Docusate Sodium 100 Mg Capsule PO DAILY PRN Constipation Enoxaparin Sodium 40 mg 11/02/20 22:15 11/02/20 22:39 Enoxaparin Sodium 40 Mg/0.4 Ml Syringe SUBCUT Not Given Q24H BATSHEVA Guaifenesin/Dextromethorphan 10 ml 11/03/20 08:23 Guaifenesin Dm 200/20/10 Ml 10 Ml Syrup PO Q6H PRN cough Hydroxyzine HCl 50 mg 11/02/20 22:11 11/03/20 04:16 Hydroxyzine Hcl 50 Mg Tablet PO 50 mg TID PRN Administration Itching Lactated Ringer's 1,000 mls @ 100 mls/hr 11/02/20 22:15 11/03/20 10:21 Lr IVCONT 100 mls/hr .Q10H BATSHEVA Administration Ceftriaxone Sodium 1 gm/ 50 mls @ 100 mls/hr 11/03/20 20:00 Sodium Chloride IV Q24H BATSHEVA Azithromycin 500 mg/ Sodium 250 mls @ 125 mls/hr 11/02/20 22:15 11/03/20 01:09 Chloride IV Infused Q24H [facility] Infusion Loratadine 10 mg 11/03/20 09:00 11/03/20 08:25 Loratadine 10 Mg Tablet PO 10 mg DAILY BATSHEVA Administration Methylprednisolone Sodium Succinate 40 mg 11/03/20 14:00 Methylprednisolone Sod Succ 40 Mg/Ml Vial IVPUSH Q8H [facility] Morphine Sulfate 2 mg 11/03/20 11:07 11/03/20 11:30 Morphine Sulfate 2 Mg/Ml Cartridge IVPUSH 2 mg Q2H PRN Administration respiratory distress Protocol Non-Formulary Medication 1 inhalation 11/03/20 09:00 Mometasone INHALE DAILY [facility] Ondansetron HCl 4 mg 11/02/20 22:11 Ondansetron Hcl 4 Mg/2 Ml Vial IVPUSH Q8H PRN Nausea and Vomiting Pharmacy Consult 1 each 11/02/20 19:53 Consult Rx Perform Med Rec MISCELLANE ONCE PRN Consult order Sodium Chloride 3 ml 11/03/20 00:00 11/03/20 07:34 0.9 % Sodium Chloride Flush 3 Ml Syringe IVFLUSH Not Given QSHIFT [facility] Tiotropium [place] 2 puff 11/03/20 08:00 11/03/20 07:47 Tiotropium [place] 18 Mcg Cap.W.Dev INHALE 2 puff RDAILY BATSHEVA Administration Labs CBC & Chem 7: 11/03/20 05:59 11/03/20 05:59 Labs: Laboratory Results - last 24 hr 11/02/20 11/02/20 11/02/20 16:49 16:52 16:52 MCV 85.4 MCH 29.6 MCHC 34.7 RDW 12.6 Plt Count 271 MPV 10.1 Immature Gran % (Auto) 0.6 H Neut % (Auto) 66.2 Lymph % (Auto) 20.4 [place] % (Auto) 5.0 Eos % (Auto) 6.7 H Baso % (Auto) 1.1 Lymph # (Auto) 2.1 [place] # (Auto) 0.5 Eos # (Auto) 0.7 H Baso # (Auto) 0.1 Abs Immat Gran (auto) 0.06 H Absolute Neuts (auto) 7.0 Absolute Nucleated RBC 0.000 Nucleated RBC % (auto) 0.0 PT INR APTT D-Dimer O2 Saturation ABG pH at Pt Temp ABG pH (Temp Correct) ABG pCO2 at Pt Temp ABG pCO2 (Temp Corrct ABG pO2 at Pt Temp ABG pO2 (Temp Correct ABG HCO3 ABG Base Excess (Actual) Anion Gap 14 Estim Creat Clear Calc 144.2 Estimated GFR > 60 Random Glucose 131 H D Lactic Acid Lactic Acid Fup @ 2Hr Lactic Acid Fup @ 4Hr Calcium 8.9 Troponin I High Sens B-Natriuretic Peptide Urine Color Urine Appearance Urine pH Ur Specific [place] Urine Protein Urine Glucose (UA) Urine Ketones Urine Blood Urine Nitrite Ur Leukocyte Esterase Coronavirus (PCR) NEGATIVE Influenza Type A (PCR) NEGATIVE Influenza Type B (PCR) NEGATIVE RSV RNA Qual (PCR) NEGATIVE 11/02/20 11/02/20 11/02/20 16:52 17:53 18:11 MCV 85.7 MCH 30.2 MCHC 35.3 RDW 12.8 Plt Count 268 MPV 10.1 Immature Gran % (Auto) 0.7 H Neut % (Auto) 87.5 H Lymph % (Auto) 6.5 L [place] % (Auto) 2.6 Eos % (Auto) 1.9 Baso % (Auto) 0.8 Lymph # (Auto) 0.9 L [place] # (Auto) 0.3 Eos # (Auto) 0.3 Baso # (Auto) 0.1 Abs Immat Gran (auto) 0.09 H Absolute Neuts (auto) 11.6 H Absolute Nucleated RBC 0.000 Nucleated RBC % (auto) 0.0 PT INR APTT D-Dimer O2 Saturation 88.0 ABG pH at Pt Temp 7.45 ABG pH (Temp Correct) 7.46 H ABG pCO2 at Pt Temp 31 L ABG pCO2 (Temp Corrct 31 L ABG pO2 at Pt Temp 55 L ABG pO2 (Temp Correct 55 L ABG HCO3 22 ABG Base Excess (Actual) -0.2 Anion Gap Estim Creat Clear Calc Estimated GFR Random Glucose Lactic Acid Lactic Acid Fup @ 2Hr Lactic Acid Fup @ 4Hr Calcium Troponin I High Sens < 3.5 B-Natriuretic Peptide 19 Urine Color Urine Appearance Urine pH Ur Specific [place] Urine Protein Urine Glucose (UA) Urine Ketones Urine Blood Urine Nitrite Ur Leukocyte Esterase Coronavirus (PCR) Influenza Type A (PCR) Influenza Type B (PCR) RSV RNA Qual (PCR) 11/02/20 11/02/20 11/02/20 18:11 19:10 20:48 MCV MCH MCHC RDW Plt Count MPV Immature Gran % (Auto) Neut % (Auto) Lymph % (Auto) [place] % (Auto) Eos % (Auto) Baso % (Auto) Lymph # (Auto) [place] # (Auto) Eos # (Auto) Baso # (Auto) Abs Immat Gran (auto) Absolute Neuts (auto) Absolute Nucleated RBC Nucleated RBC % (auto) PT 11.0 INR 1.0 APTT 32.4 D-Dimer < 200 O2 Saturation ABG pH at Pt Temp ABG pH (Temp Correct) ABG pCO2 at Pt Temp ABG pCO2 (Temp Corrct ABG pO2 at Pt Temp ABG pO2 (Temp Correct ABG HCO3 ABG Base Excess (Actual) Anion Gap Estim Creat Clear Calc Estimated GFR Random Glucose Lactic Acid 2.2 H* Lactic Acid Fup @ 2Hr Lactic Acid Fup @ 4Hr Calcium Troponin I High Sens B-Natriuretic Peptide Urine Color YELLOW Urine Appearance CLEAR Urine pH 5.5 Ur Specific [place] >= 1.030 H Urine Protein NEG Urine Glucose (UA) NEG Urine Ketones NEG Urine Blood NEG Urine Nitrite NEG Ur Leukocyte Esterase NEG Coronavirus (PCR) Influenza Type A (PCR) Influenza Type B (PCR) RSV RNA Qual (PCR) 11/02/20 11/02/20 11/03/20 21:24 23:58 05:59 MCV 86.8 MCH 29.4 MCHC 33.8 RDW 13.0 Plt Count 292 MPV 10.1 Immature Gran % (Auto) 1.1 H Neut % (Auto) 87.6 H Lymph % (Auto) 8.3 L [place] % (Auto) 2.8 Eos % (Auto) 0.0 Baso % (Auto) 0.2 Lymph # (Auto) 0.7 L [place] # (Auto) 0.3 Eos # (Auto) 0.0 Baso # (Auto) 0.0 Abs Immat Gran (auto) 0.10 H Absolute Neuts (auto) 7.7 Absolute Nucleated RBC 0.000 Nucleated RBC % (auto) 0.0 PT INR APTT D-Dimer O2 Saturation ABG pH at Pt Temp ABG pH (Temp Correct) ABG pCO2 at Pt Temp ABG pCO2 (Temp Corrct ABG pO2 at Pt Temp ABG pO2 (Temp Correct ABG HCO3 ABG Base Excess (Actual) Anion Gap Estim Creat Clear Calc Estimated GFR Random Glucose Lactic Acid Lactic Acid Fup @ 2Hr 5.0 H* Lactic Acid Fup @ 4Hr 4.4 H* Calcium Troponin I High Sens B-Natriuretic Peptide Urine Color Urine Appearance Urine pH Ur Specific [place] Urine Protein Urine Glucose (UA) Urine Ketones Urine Blood Urine Nitrite Ur Leukocyte Esterase Coronavirus (PCR) Influenza Type A (PCR) Influenza Type B (PCR) RSV RNA Qual (PCR) 11/03/20 11/03/20 05:59 10:49 MCV MCH MCHC RDW Plt Count MPV Immature Gran % (Auto) Neut % (Auto) Lymph % (Auto) [place] % (Auto) Eos % (Auto) Baso % (Auto) Lymph # (Auto) [place] # (Auto) Eos # (Auto) Baso # (Auto) Abs Immat Gran (auto) Absolute Neuts (auto) Absolute Nucleated RBC Nucleated RBC % (auto) PT INR APTT D-Dimer O2 Saturation 95.0 ABG pH at Pt Temp 7.37 ABG pH (Temp Correct) 7.33 L ABG pCO2 at Pt Temp 36 ABG pCO2 (Temp Corrct 41 ABG pO2 at Pt Temp 83 ABG pO2 (Temp Correct 100 ABG HCO3 21 L ABG Base Excess (Actual) -2.9 Anion Gap 13 Estim Creat Clear Calc 153.4 Estimated GFR > 60 Random Glucose 124 H Lactic Acid Lactic Acid Fup @ 2Hr Lactic Acid Fup @ 4Hr Calcium 9.4 Troponin I High Sens B-Natriuretic Peptide Urine Color Urine Appearance Urine pH Ur Specific [place] Urine Protein Urine Glucose (UA) Urine Ketones Urine Blood Urine Nitrite Ur Leukocyte Esterase Coronavirus (PCR) Influenza Type A (PCR) Influenza Type B (PCR) RSV RNA Qual (PCR) Assessment and Plan (1) Community acquired pneumonia: Status: Acute (2) Acute respiratory failure with hypoxia: Status: Acute Assessment and Plan: 40-year-old male with 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 r/t service in [facility] who presents to the hospital with complaints of shortness of breath, cough, sputum production found to have pneumonia sepsis secondary to pneumonia meets sepsis criteria with leukocytosis and tachycardia elevated lactic acid secondary to breathing treatments not sepsis sepsis focused exam completed Follow-up blood cultures acute hypoxic respiratory failure r/t community-acquired pneumonia and asthma exacerbation currently on 8L NC -Wean oxygen as tolerated Acute exacerbation of asthma/constrictive bronchiolitis past h/o severe exacerbation requiring intubation s/p lung bx at [facility] last year - will increase frequency of Solu-Medrol from bid to q8h - DuoNeb p.r.n. and scheduled - prn morphine for work of breathing - close monitoring of respiratory status CAP -continue IV ceftriaxone/azithromycin anxiety - continue Atarax DVT prophylaxis: Lovenox attending: Dr. Dodd Quality Stroke Does the patient have a stroke diagnosis?: No VTE Prior VTE?: No VTE Risk Level:: Medical - moderate - high VTE Device Contraindication: Treatment Not Indicated VTE Drug Contraindication: N/A - Med Ordered
--- NOTE | 2020-11-03 12:19 | PC.NURSE ---
Addendum entered by Lety Dennis RN 11/03/20 18:19: 1300- Pt O2 80-85% on CPAP at 9L, HR 137. Pt does not feel like he is in increased respiratory distress. Overall pt feels that the CPAP has improved his breathing. Renea Valente made aware. Dr. Dodd at bedside. Respiratory at bedside to attempt to transition to high flow. Pt did not tolerate high flow. Placed back on CPAP, given scheduled breathing treatment. Pt resting comfortably now. Original Note: 0730- Pt c/o of SOB and increased trouble breathing. Pt stated, starting to see stars . Pt given scheduled updraft treatment. Respiratory at bedside. After treatment, vitals as followed temp 98.5, pulse 131, resp rate 24, BP 120/93, O2 88% 2L NC. Pt feeling slightly better after breathing treatment. Renea Valente [employer] made aware. O2 increased to 3L and one time dose of morphine given for respiratory distress. Renea Valente and Dr. Dodd at bedside. O2 low 80s 3L, increased to 6L via NC stating 86%. Pt placed on continouous O2 monitoring. Respiratory in the room, placed oxymizer 8L pt at 90%. Pt feeling better at this time. 1030- Pt still struggling to breath, SOB. Per patient. doesn't feel worse but minimal improvement . 91/93% on 8L oxymizer. Not due for morpine or updraft treatment. Renea Valente updated. Dr. Dodd at bedside. ABGs ordered. Respiratory to complete. Pts HR 130s, Dr. Dodd aware, no new orders. 1100- Respiratory placed pt on CPAP. Pt given PRN morphine at 1130. Pt O2 88-90% on CPAP. 1230- Pt still appears SOB, HR 125, O2 90% on CPAP. Pt has no complaints at this time.
[2020-11-03 13:58] LABS: ABG Refer to POC result
[2020-11-03] MEDS: 0.9 % Sodium Chloride Flush 3 ML SYRINGE IVFLUSH ×2 (14:32→22:31)
[2020-11-03] MEDS: Ipratropium Bromide 0.5 MG/2.5 ML SOLUTION INHALE ×2 (15:11→20:21)
--- NOTE | 2020-11-03 16:19 | MHC.CM.PN ---
EMR REVIWED, PT ADMITTED W/CAP, ACUTE RESPIRATORY FAILURE AND ACUTE EXAC OF ASTHMA/BRONCHIOLITIS. CM MET W/PT WHO REPORTS HE LIVES ALONE, IS INDEPENDENT W/ALL CARE, HAS A RIGHT BKA W/PROSTHETIC, A W/C AND HOME MODIFICATIONS, NO HOME SERVICES. 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 PT DOES NOT HAVE A NEBULIZER AT HOME, IF TX'S ARE ORDERED UPON D/C PT WILL NEED RESPIRATORY TO SET PT UP W/EQUIPMENT. D/C PLAN: HOME SELF-CARE, PT TO ARRANGE TRANSPORT PCP: REY LORA AT [facility] PULMONOLGIST: [facility]: AT [facility] NEEDED
[2020-11-03] MEDS: cefTRIAXone sodium 1 GM in 0.9 % Sodium Chloride 50 ML IV (19:36)
[2020-11-03] MEDS: Azithromycin 500 MG in 0.9 % Sodium Chloride 250 ML 125 MG IV (22:30)
[2020-11-04] VITALS (15 sets, daily range): BP systolic 117–139; BP diastolic 68–83; PULSE 54–120; RESP 16–95; TEMP 36.3–37.3; O2SAT 18–99
[2020-11-04] MEDS: methylPREDNISolone Sod Succ 40 MG/ML VIAL IVPUSH ×3 (05:51→22:28)
[2020-11-04] MEDS: Morphine Sulfate 2 MG/ML CARTRIDGE IVPUSH ×3 (05:51→19:28)
[2020-11-04] MEDS: Lactated Ringers 1,000 ML 100 ML IVCONT ×3 (05:51→14:28)
[2020-11-04] MEDS: Ipratropium Bromide 0.5 MG/2.5 ML SOLUTION INHALE ×4 (05:52→19:23)
[2020-11-04 07:10] LABS: Hematocrit 42.2 % (42-52); Mean Corpuscular HGB Conc 33.2 g/dl (31.0-36.0); Mean Corpuscular Hemoglobin 29.3 pg (27.0-33.0); Mean Corpuscular Volume 88.3 fL (80-98); Mean Platelet Volume 10.5 fL (9.4-12.4); Platelet Count 252 X10*3/uL (160-400); Red Blood Count 4.78 X10*6/uL (4.60-5.80); Red Cell Distribution Width 13.2 % (11.0-16.0); White Blood Count 13.4 X10*3/uL (4.8-10.8)
[2020-11-04 07:24] LABS: Anion Gap 15 (12-20); Blood Urea Nitrogen 17 mg/dL (9-16); Calcium 8.8 mg/dL (8.4-10.2); Carbon Dioxide 21 mmol/L (22-29); Chloride 109 mmol/L (96-108); Creatinine Clr Calc Pharmacy 153.4; Estimated Glomerular Filt Rate > 60; Glucose Random 113 mg/dL (60-115); Potassium 4.2 mmol/L (3.3-5.1); Sodium 141 mmol/L (135-145)
[2020-11-04] MEDS: hydrOXYzine HCL 50 MG TABLET PO ×2 (09:25→20:08)
[2020-11-04] MEDS: Loratadine 10 MG TABLET PO (09:25)
--- NOTE | 2020-11-04 12:30 | P.PNIM_ITS ---
Subjective Subjective Date of Service: 11/04/20 Interval History: Seen and examined this morning Tolerated CPAP overnight. Reports improvement in shortness of breath. No significant coughing Review of Systems Review of Systems: Yes all other systems are reviewed and are negative Constitutional Constitutional: Denies chills and Denies fever(s) Cardiovascular Cardiovascular: Denies chest pain Respiratory Respiratory: Denies cough Gastrointestinal Gastrointestinal: Denies abdominal pain Physical Exam Vital Signs: Vital Signs: Last Vital Signs Temp 97.3 F 11/04/20 11:49 Pulse 75 11/04/20 11:49 Resp 20 11/04/20 11:49 BP 119/72 11/04/20 11:49 Pulse Ox 96 11/04/20 11:49 Oxygen Flow Rate 10 11/02/20 16:37 Body Mass Index 26.4 Const: General: alert and awake Nutritional Appearance: well nourished Orientation/consciousness: patient oriented x3 HENMT: Head: Yes normocephalic and Yes atraumatic Eyes: Sclerae: sclerae normal Resp: Other: Still with significant b/l wheezing but improved from yesterday. appears more comfortable Cardio: Rate: tachycardic Heart sounds: S1 normal heart sound present and S2 normal heart sound present GI: Palpation (GI): Soft to palpation and nontender Neuro: General: patient oriented x3 Cranial nerves: Yes CN's II-XII intact bilaterally and Yes Bilaterally intact EOM present Extrem: Other: left bka Objective Data Current Medications Generic Name Dose Route Start Last Admin Trade Name Freq PRN Reason Stop Dose Admin Acetaminophen 650 mg 11/02/20 22:11 Acetaminophen 325 Mg Tablet PO Q6H PRN Pain, Mild (Pain Scale 1-3) Albuterol Sulfate 2 puff 11/02/20 22:11 Albuterol Sulfate 90 Mcg 8 Gm Inhaler INHALE Q4H PRN shortness of breath or wheezing Albuterol/Ipratropium 3 ml 11/02/20 22:11 Albuterol/Iprat 2.5/0.5mg 3 Ml Ampul.Neb INHALE RQ4H PRN Shortness of Breath/Wheezing Docusate Sodium 100 mg 11/02/20 22:11 Docusate Sodium 100 Mg Capsule PO DAILY PRN Constipation Enoxaparin Sodium 40 mg 11/02/20 22:15 11/03/20 22:35 Enoxaparin Sodium 40 Mg/0.4 Ml Syringe SUBCUT Not Given Q24H BATSHEVA Guaifenesin/Dextromethorphan 10 ml 11/03/20 08:23 Guaifenesin Dm 200/20/10 Ml 10 Ml Syrup PO Q6H PRN cough Hydroxyzine HCl 50 mg 11/02/20 22:11 11/04/20 09:25 Hydroxyzine Hcl 50 Mg Tablet PO 50 mg TID PRN Administration Itching Lactated Ringer's 1,000 mls @ 100 mls/hr 11/02/20 22:15 11/04/20 09:25 Lr IVCONT 100 mls/hr .Q10H BATSHEVA Administration Ceftriaxone Sodium 1 gm/ 50 mls @ 100 mls/hr 11/03/20 20:00 11/03/20 21:08 Sodium Chloride IV Infused Q24H BATSHEVA Infusion Azithromycin 500 mg/ Sodium 250 mls @ 125 mls/hr 11/02/20 22:15 11/04/20 01:02 Chloride IV Infused Q24H BATSHEVA Infusion Ipratropium [place] 0.5 mg 11/03/20 16:00 11/04/20 11:18 Ipratropium [place] 0.5 Mg/2.5 Ml Solution INHALE 0.5 mg RQ4H WHILE AWAKE BATSHEVA Administration Levalbuterol HCl 1.25 mg 11/03/20 16:00 11/04/20 11:18 Levalbuterol Hcl 1.25 Mg/0.5 Ml Vial.Neb INHALE 1.25 mg RQ4H WHILE AWAKE BATSHEVA Administration Loratadine 10 mg 11/03/20 09:00 11/04/20 09:25 Loratadine 10 Mg Tablet PO 10 mg DAILY BATSHEVA Administration Methylprednisolone Sodium Succinate 40 mg 11/03/20 14:00 11/04/20 05:51 Methylprednisolone Sod Succ 40 Mg/Ml Vial IVPUSH 40 mg Q8H BATSHEVA Administration Morphine Sulfate 2 mg 11/03/20 11:07 11/04/20 10:48 Morphine Sulfate 2 Mg/Ml Cartridge IVPUSH 2 mg Q2H PRN Administration respiratory distress Protocol Non-Formulary Medication 1 inhalation 11/03/20 09:00 Mometasone INHALE DAILY BATSHEVA Ondansetron HCl 4 mg 11/02/20 22:11 Ondansetron Hcl 4 Mg/2 Ml Vial IVPUSH Q8H PRN Nausea and Vomiting Pharmacy Consult 1 each 11/02/20 19:53 Consult Rx Perform Med Rec MISCELLANE ONCE PRN Consult order Sodium Chloride 3 ml 11/03/20 00:00 11/04/20 09:22 0.9 % Sodium Chloride Flush 3 Ml Syringe IVFLUSH Not Given QSHIFT [facility] Tiotropium [place] 2 puff 11/03/20 08:00 11/04/20 08:46 Tiotropium [place] 18 Mcg Cap.W.Dev INHALE 2 puff RDAILY [facility] Administration Labs CBC & Chem 7: 11/04/20 06:21 11/04/20 06:21 Labs: Laboratory Results - last 24 hr 11/04/20 11/04/20 06:21 06:21 MCV 88.3 MCH 29.3 MCHC 33.2 RDW 13.2 Plt Count 252 MPV 10.5 Absolute Nucleated RBC 0.000 Nucleated RBC % (auto) 0.0 Anion Gap 15 Estim Creat Clear Calc 153.4 Estimated GFR > 60 Random Glucose 113 Calcium 8.8 D Microbiology Microbiology Results: Microbiology 11/02/20 19:10 Blood Culture - Preliminary Blood - Venous No growth after 24 hours. 11/02/20 19:10 Blood Culture - Preliminary Blood - Venous No growth after 24 hours. 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 r/t service in [facility] who presents to the hospital with complaints of shortness of breath, cough, sputum production found to have pneumonia sepsis secondary to pneumonia meets sepsis criteria with leukocytosis and tachycardia elevated lactic acid secondary to breathing treatments not sepsis sepsis focused exam completed BCx neg x 24 hours acute hypoxic respiratory failure r/t community-acquired pneumonia and asthma exacerbation required CPAP overnight, now on 7L NC -Wean oxygen as tolerated Acute exacerbation of asthma/constrictive bronchiolitis past h/o severe exacerbation requiring intubation s/p lung bx at [facility] last year - continue Solu-Medrol - breathing treatments changed to Xopenex, Atrovent - prn morphine for work of breathing - close monitoring of respiratory status CAP -continue IV ceftriaxone/azithromycin started on 11/02 -bcx neg to date anxiety - continue Atarax prn DVT prophylaxis: Lovenox attending: Dr. Patterson Quality Stroke Does the patient have a stroke diagnosis?: No VTE Prior VTE?: No VTE Risk Level:: Medical - moderate - high VTE Device Contraindication: Treatment Not Indicated VTE Drug Contraindication: N/A - Med Ordered
[2020-11-04 13:41] LABS: Lactic Acid 3.2 mmol/L (0.5-2.0)
[2020-11-04 15:14] LABS: Reflex Lactate? Lactic Acid Added
[2020-11-04 16:09] LABS: ~Lactic Acid-LAB USE ONLY 2.1 mmol/L (0.5-2.0)
[2020-11-04 16:11] LABS: Cancel Lactic Acid Canceled
[2020-11-04 16:12] LABS: Reflex Lactate? 2 N
[2020-11-04] MEDS: cefTRIAXone sodium 1 GM in 0.9 % Sodium Chloride 50 ML IV (19:28)
[2020-11-04] MEDS: 0.9 % Sodium Chloride Flush 3 ML SYRINGE IVFLUSH (20:10)
[2020-11-04] MEDS: Azithromycin 500 MG in 0.9 % Sodium Chloride 250 ML 125 MG IV (22:28)
[2020-11-05] VITALS (12 sets, daily range): BP systolic 122–149; BP diastolic 60–80; PULSE 85–117; RESP 14–21; TEMP 36.3–36.9; O2SAT 90–100
[2020-11-05] MEDS: Lactated Ringers 1,000 ML 100 ML IVCONT (01:12)
[2020-11-05] MEDS: Morphine Sulfate 2 MG/ML CARTRIDGE IVPUSH ×4 (03:38→22:32)
[2020-11-05] MEDS: hydrOXYzine HCL 50 MG TABLET PO ×3 (03:45→22:32)
[2020-11-05] MEDS: Albuterol/Iprat 2.5/0.5MG 3 ML AMPUL.NEB INHALE (03:48)
--- NOTE | 2020-11-05 04:47 | PC.NURSE ---
Pt was had 02 sat of 88% Respiratory was contacted. Respiratory said that it was ok for him to be at that level and will notify morning doctor
[2020-11-05] MEDS: methylPREDNISolone Sod Succ 40 MG/ML VIAL IVPUSH ×2 (05:58→20:43)
[2020-11-05] MEDS: Ipratropium Bromide 0.5 MG/2.5 ML SOLUTION INHALE ×4 (08:22→20:31)
[2020-11-05] MEDS: 0.9 % Sodium Chloride Flush 3 ML SYRINGE IVFLUSH ×2 (09:03→16:41)
[2020-11-05] MEDS: Fluticasone Propionate Nasal 16 GM SPRAY 1 SPRAY NOSTRIL-B (09:03)
[2020-11-05] MEDS: Loratadine 10 MG TABLET PO (09:03)
--- NOTE | 2020-11-05 11:07 | HO.PM.IMPN ---
Subjective Subjective Date of Service: 11/05/20 Interval History: Seen and examined this morning pt reports having panic attack overnight. feeling better this morning Review of Systems Review of Systems: Yes all other systems are reviewed and are negative Constitutional Constitutional: Denies chills and Denies fever(s) Cardiovascular Cardiovascular: Denies chest pain Gastrointestinal Gastrointestinal: Denies abdominal pain Physical Exam Vital Signs: Vital Signs: Last Vital Signs Temp 98.5 F 11/05/20 07:42 Pulse 98 11/05/20 08:25 Resp 21 H 11/05/20 07:42 BP 137/73 11/05/20 07:42 Pulse Ox 94 11/05/20 07:42 Oxygen Flow Rate 10 11/02/20 16:37 Body Mass Index 26.4 Const: General: alert and awake Nutritional Appearance: well nourished Orientation/consciousness: patient oriented x3 HENMT: Head: Yes normocephalic and Yes atraumatic Eyes: Sclerae: sclerae normal Resp: Other: still with b/l wheezing, prolonged expiratory phase, improving Effort & Inspection: tachypneic Cardio: Rate: tachycardic Heart sounds: S1 normal heart sound present and S2 normal heart sound present GI: Palpation (GI): Soft to palpation and nontender Neuro: General: patient oriented x3 Cranial nerves: Yes CN's II-XII intact bilaterally and Yes Bilaterally intact EOM present Extrem: Other: left bka Objective Data Current Medications Generic Name Dose Route Start Last Admin Trade Name Freq PRN Reason Stop Dose Admin Acetaminophen 650 mg 11/02/20 22:11 Acetaminophen 325 Mg Tablet PO Q6H PRN Pain, Mild (Pain Scale 1-3) Albuterol Sulfate 2 puff 11/02/20 22:11 Albuterol Sulfate 90 Mcg 8 Gm Inhaler INHALE Q4H PRN shortness of breath or wheezing Albuterol/Ipratropium 3 ml 11/02/20 22:11 11/05/20 03:48 Albuterol/Iprat 2.5/0.5mg 3 Ml Ampul.Neb INHALE 3 ml RQ4H PRN Administration Shortness of Breath/Wheezing Docusate Sodium 100 mg 11/02/20 22:11 Docusate Sodium 100 Mg Capsule PO DAILY PRN Constipation Enoxaparin Sodium 40 mg 11/02/20 22:15 11/04/20 22:28 Enoxaparin Sodium 40 Mg/0.4 Ml Syringe SUBCUT Not Given Q24H BATSHEVA Fluticasone Propionate 1 spray 11/04/20 12:40 11/05/20 09:03 Fluticasone Propionate Nasal 16 Gm [place] NOSTRIL-B 1 spray DAILY PRN Administration Congestion Guaifenesin/Dextromethorphan 10 ml 11/03/20 08:23 Guaifenesin Dm 200/20/10 Ml 10 Ml Syrup PO Q6H PRN cough Hydroxyzine HCl 50 mg 11/02/20 22:11 11/05/20 03:45 Hydroxyzine Hcl 50 Mg Tablet PO 50 mg TID PRN Administration Itching Ceftriaxone Sodium 1 gm/ 50 mls @ 100 mls/hr 11/03/20 20:00 11/04/20 20:10 Sodium Chloride IV Infused Q24H BATSHEVA Infusion Azithromycin 500 mg/ Sodium 250 mls @ 125 mls/hr 11/02/20 22:15 11/05/20 01:12 Chloride IV Infused Q24H BATSHEVA Infusion Ipratropium [place] 0.5 mg 11/03/20 16:00 11/05/20 08:22 Ipratropium [place] 0.5 Mg/2.5 Ml Solution INHALE 0.5 mg RQ4H WHILE AWAKE BATSHEVA Administration Levalbuterol HCl 1.25 mg 11/03/20 16:00 11/05/20 08:22 Levalbuterol Hcl 1.25 Mg/0.5 Ml Vial.Neb INHALE 1.25 mg RQ4H WHILE AWAKE BATSHEVA Administration Loratadine 10 mg 11/03/20 09:00 11/05/20 09:03 Loratadine 10 Mg Tablet PO 10 mg DAILY BATSHEVA Administration Morphine Sulfate 2 mg 11/03/20 11:07 11/05/20 09:03 Morphine Sulfate 2 Mg/Ml Cartridge IVPUSH 2 mg Q2H PRN Administration respiratory distress Protocol Non-Formulary Medication 1 inhalation 11/03/20 09:00 Mometasone INHALE DAILY BATSHEVA Ondansetron HCl 4 mg 11/02/20 22:11 Ondansetron Hcl 4 Mg/2 Ml Vial IVPUSH Q8H PRN Nausea and Vomiting Pharmacy Consult 1 each 11/02/20 19:53 Consult Rx Perform Med Rec MISCELLANE ONCE PRN Consult order Sodium Chloride 3 ml 11/03/20 00:00 08/29/21 09:03 0.9 % Sodium Chloride Flush 3 Ml Syringe IVFLUSH 3 ml QSHIFT BATSHEVA Administration Tiotropium [place] 2 puff 11/03/20 08:00 11/05/20 08:26 Tiotropium [place] 18 Mcg Cap.W.Dev INHALE 2 puff RDAILY BATSHEVA Administration Labs CBC & Chem 7: 11/04/20 06:21 11/04/20 06:21 Labs: Laboratory Results - last 24 hr 11/04/20 11/04/20 13:02 15:36 Lactic Acid 3.2 H* Lactic Acid Fup @ 2Hr 2.1 H* Microbiology Microbiology Results: Microbiology 11/02/20 19:10 Blood Culture - Preliminary Blood - Venous No growth after 48 hours. 11/02/20 19:10 Blood Culture - Preliminary Blood - Venous No growth after 48 hours. 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 slowly improving past h/o severe exacerbation requiring intubation s/p lung bx at [facility] last year - will titrate down Solu-Medrol from q8h to q12h - continue Xopenex, Atrovent breathing treatments - prn morphine for work of breathing - close monitoring of respiratory status CAP -continue IV ceftriaxone/azithromycin started on 11/02 -bcx neg to date anxiety - continue Atarax prn DVT prophylaxis: Lovenox attending: Dr. Patterson Quality Stroke Does the patient have a stroke diagnosis?: No VTE Prior VTE?: No VTE Risk Level:: Medical - moderate - high VTE Device Contraindication: Treatment Not Indicated VTE Drug Contraindication: N/A - Med Ordered
[2020-11-05] MEDS: cefTRIAXone sodium 1 GM in 0.9 % Sodium Chloride 50 ML IV (20:36)
[2020-11-05] MEDS: Azithromycin 500 MG in 0.9 % Sodium Chloride 250 ML 125 MG IV (22:32)
[2020-11-06 03:38] VITALS: BP 133/74; PULSE 74; RESP 14; TEMP 36.1; O2SAT 94
[2020-11-06] MEDS: guaiFENesin DM 200/20/10 ML 10 ML SYRUP PO (07:14)
[2020-11-06] MEDS: Ipratropium Bromide 0.5 MG/2.5 ML SOLUTION INHALE ×2 (07:14→11:09)
[2020-11-06] MEDS: Morphine Sulfate 2 MG/ML CARTRIDGE IVPUSH (07:14)
[2020-11-06] MEDS: Loratadine 10 MG TABLET PO (07:15)
[2020-11-06] MEDS: 0.9 % Sodium Chloride Flush 3 ML SYRINGE IVFLUSH (07:15)
[2020-11-06] MEDS: methylPREDNISolone Sod Succ 40 MG/ML VIAL IVPUSH (07:15)
[2020-11-06] MEDS: hydrOXYzine HCL 50 MG TABLET PO (07:15)
[2020-11-06 07:17] VITALS: PULSE 92; RESP 22; O2SAT 89
[2020-11-06 07:49] VITALS: BP 130/86; PULSE 99; RESP 16; TEMP 36.4; O2SAT 96
--- NOTE | 2020-11-06 10:11 | PM.DS ---
DS: Providers Provider Date of Service: 11/06/20 Date of admission: 11/02/20 22:07 Primary care physician: Unknown Physician Attending physician on discharge: Kirk Dodd Discharging clinician: Candi Khalil DS: Diagnosis Discharge Diagnosis (1) Community acquired pneumonia: Status: Acute (2) Acute respiratory failure with hypoxia: Status: Acute (3) Allergic asthma: Status: Acute DS: Medications Discharge Medications Home Medications: Home Medications Medication Instructions Recorded Confirmed hydroxyzine HCl 50 mg tablet 50 mg PO TID PRN 11/02/20 11/02/20 mometasone 1 inh INHALATION DAILY 11/02/20 11/02/20 tiotropium bromide 1.25 2 puff INHALATION DAILY 11/02/20 11/02/20 mcg/actuation mist for inhalation Previous Rx's Medication Instructions Recorded albuterol sulfate 90 mcg/actuation 2 puff INHALATION Q4-6H PRN #8.5 g 12/26/19 aerosol inhaler cetirizine 10 mg tablet 10 mg PO DAILY #30 tab 12/26/19 azithromycin 500 mg tablet 500 mg PO DAILY 5 Days #5 tab 11/06/20 cefuroxime axetil 500 mg tablet 500 mg PO BID #10 tab 11/06/20 prednisone 10 mg tablet 40 mg PO DAILY #16 tab 11/06/20 DS: Summary Hospital Course Hospital Course: HP as per admitting provider This is a 32-year-old male with past medical history of asthma exacerbation, and acute on chronic respiratory failure presents to the hospital with complaints of shortness of breath.? Patient reports shortness of breath, cough, sputum production that started today.? He reports that his asthma is been control for the past 8 months but he had exacerbation today.? Has fever with no chills, no abdominal pain nausea or vomiting, no diarrhea constipation, no urinary symptoms.? No weakness numbness or tingling.? No headache or change in vision.? No chest pain, no palpitations. On arrival to the ED patient found to have temp of 97.6?, heart rate of 135, respiratory rate of 18, blood pressure 149/76, satting 93% on non-rebreather, For WBC count of 10.5 initially, pH of 7.46, lactic acid of 2.2, UA negative, COVID-19 RSV, and influenza negative Chest CT shows a postsurgical change within the lateral aspect of the mole right lower lobe, new focal tree-in-bud nodularity within the medial aspect of the left upper lobe, findings could represent an infectious or inflammatory process Given his history of severe asthma exacerbation needing intubation in the past patient will be admitted for management and monitoring . Patient was admitted with acute hypoxic respiratory failure secondary to community-acquired pneumonia and asthma exacerbation. He was initially placed on a non-rebreather, COVID, RSV and influenza was negative. Chest CT showed new focal tree-in-bud nodularities in the left upper lobe. He was started on Rocephin and azithromycin, scheduled IV steroids and DuoNebs. Patient did well and was subsequently taken off oxygen and maintain his oxygen saturation above 93%. Patient reported that he is feeling better and he is comfortable going home today. Will send home on short prednisone taper and he will complete 5 more days of antibiotics for community-acquired pneumonia. Time Spent with Patient Time attestation: Total time spent providing and/or coordinating discharge services: Discharge coordination time: Greater than 30 minutes Quality: Stroke Does the patient have a stroke diagnosis?: No Physical Exam Vital Signs: Vital Signs: Last Vital Signs Temp 97.5 F 11/06/20 07:49 Pulse 99 11/06/20 07:49 Resp 16 11/06/20 07:49 BP 130/86 11/06/20 07:49 Pulse Ox 96 11/06/20 07:49 Oxygen Flow Rate 10 11/02/20 16:37 Body Mass Index 26.4 Appearing in no acute distress head is normocephalic atraumatic eyes pupils are PERRLA sclera is anicteric mouth throat mucous membranes are intact and moist neck is supple no lymphadenopathy, no JVD noted lung sounds ezp wheezes heart regular rate rhythm, clear S1, S2 positive bowel sounds, abdomen is soft, nontender neuro patient is alert x3, no focal deficits DS: Data Data Completed and Pending Completed studies during hospitalization [Text1]: Procedures Assistance with Respiratory Ventilation, Less than 24 Consecutive Hours, Continuous Positive Airway Pressure (12/22/19) Labs on day of discharge: Preliminary micro results at discharge 11/02/20 19:10 Blood Culture - Preliminary Blood - Venous No growth after 48 hours. 11/02/20 19:10 Blood Culture - Preliminary Blood - Venous No growth after 48 hours. Discharge Plan Discharge Anticipated Discharge Date/Time: 11/06/20 10:02 Patient Disposition: Home, Self-Care Discharge Diagnosis: Community-acquired pneumonia Asthma exacerbation Referrals: Physician,Unknown [Primary Care Provider] - 1 Week Discharge Medications: New azithromycin 500 mg tablet 500 mg PO DAILY 5 Days Qty: 5 RF: 0 cefuroxime axetil 500 mg tablet 500 mg PO BID Qty: 10 RF: 0 prednisone 10 mg tablet 40 mg PO DAILY Qty: 16 RF: 0 Continued cetirizine 10 mg tablet 10 mg PO DAILY Qty: 30 RF: 0 albuterol sulfate 90 mcg/actuation HFA aerosol inhaler 2 puff inhalation Q4-6H PRN (Reason: shortness of breath or wheezing) Qty: 8.5 RF: 0 hydroxyzine HCl 50 mg Tablet 50 mg PO TID PRN (Reason: Itching) RF: 0 mometasone 220 mcg/ actuation (30) Aerosol Powdr Breath Activated 1 inh INHALATION DAILY RF: 0 tiotropium bromide 1.25 mcg/actuation Mist 2 puff INHALATION DAILY RF: 0 Discontinued prednisone 10 mg Tablet 10 mg PO DAILY RF: 0 Discharge Orders: Discharge Order (Routine); Ordered 11/06/20 Ordered By: Candi Khalil Diet: advance to usual diet Activity on Discharge: As tolerated Stand Alone Forms: Patient Portal Discharge page Care Plan Goals: complete resolution of asthma exacerbation symptoms Health Concerns: community-acquired pneumonia, asthma exacerbation Plan of Treatment: continue taking antibiotics as prescribed for 5 more days take prednisone taper for 4 days Assessment: see discharge summary
[2020-11-06 11:12] VITALS: PULSE 67; O2SAT 97
--- NOTE | 2020-11-06 11:20 | MHC.CM.PN ---
PT CLEARED TO MO HOME WITH NO SERVICES HOWEVER HE WILL NEED ALBUTEROL TREATMENTS AND DOES NOT HAVE A NEBULIZER. MINDY CONTACTED RT WHO REPORTED THEY USUALLY SET IT UP THROUGH [facility] HOWEVER THE PT ONLY HAS [facility] INS[facility] LISTED WHICH WOULD NOT COVER THIS THROUGH THAT COMPANY. PER PT CHART, HE US[facility]. MINDY MET WITH PT WHO CONFIRMS HE DOES USE THAT PHARMACY. HE SAYS HE BELIEVES HE ALSO HAS ANOTHER TYPE OF INSURANCE BUT DOES NOT KNOW FOR SURE WHAT IT IS. MINDY CALLED MAYRA IN REGISTRATION AND SHE WAS ABLE TO FIND PTS MEDICARE INFORMATION. MINDY CALLED RT BACK TO INFORM THEM OF ABOVE AND THEY INDICATED THEY WOULD ARRANGE THE NEBULIZER BUT IT COULD BE UP TO TWO DAYS TO HAVE IT DELIVERED TO THE PTS HOME. THIS INFORMATION WAS RELAYED TO PA.
== END 2020-11-06 11:55 | disposition home or self-care (01) | DRG 193 ==
LOC: HO.ED 20:02 → HO.S3 22:30
PROVIDERS: Physician Assistant; Physician Assistant Medical; Admitting Provider Internal Medicine; Emergency Provider Emergency Medicine; Visit Provider Family Medicine
DX: J18.9 Pneumonia, unspecified organism (principal); J96.01 Acute respiratory failure with hypoxia; J45.901 Unspecified asthma with (acute) exacerbation; D72.829 Elevated white blood cell count, unspecified; F41.9 Anxiety disorder, unspecified; Z89.512 Acquired absence of left leg below knee; Z20.822 Contact with and (suspected) exposure to COVID-19; Z88.6 Allergy status to analgesic agent; Z79.52 Long term (current) use of systemic steroids; Z79.899 Other long term (current) drug therapy
CPT/HCPCS: 0241U; 36415; 36600; 71045; 71250; 80048; 81003; 82803; 83605; 83880; 84484; 85025; 85027; 85379; 85610; 85730; 87040; 93005; 94640; 94644; 94660; 99285; J0456; J0696; J2060; J2270; J2920; J2930; J3010

== ENCOUNTER 2020-12-21 16:00 | Inpatient (IN) | payer OTHER, SELFPAY ==
[2020-12-21] VITALS (8 sets, daily range): BP systolic 96–130; BP diastolic 64–87; PULSE 105–124; RESP 10–16; TEMP 37.1; O2SAT 89–99; BMI 26.4
--- NOTE | ~2020-12-21 | XR_ITS ---
EXAMINATION: XR CHEST CLINICAL INFORMATION: Dyspnea COMPARISON: November 02, 2020 TECHNIQUE: AP portable view of the chest was obtained. FINDINGS: There is hyperinflation of the lungs with flattening of the diaphragms. There is prominence of the central vessels with diminished vascularity peripherally within the lungs consistent with COPD. Status post previous right lung surgery with suture line in place. No acute parenchymal disease identified. There is chronic pleural-parenchymal disease at the right base. Heart normal size. No evidence of pulmonary edema. Metallic hardware seen within the lumbar spine. XR/XR chest 1V IMPRESSION: COPD. No acute disease.
--- NOTE | 2020-12-21 16:05 | ECG_ITS ---
Test Reason : DYSPNEA Blood Pressure : / mmHG Vent. Rate : 112 BPM Atrial Rate : 112 BPM P-R Int : 152 ms QRS Dur : 084 ms QT Int : 342 ms P-R-T Axes : 076 031 061 degrees QTc Int : 466 ms Sinus tachycardia RSR' or QR pattern in V1 suggests right ventricular conduction delay Low voltage QRS Borderline ECG Heart rate has decreased Referred By: Park Cody Electronically Signed By:KENDELL QIU MD
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
[2020-12-21] MEDS: 0.9 % Sodium Chloride 500 ML IV (16:42)
[2020-12-21] MEDS: fentaNYL citrate/PF 100 MCG/2 ML VIAL 50 MCG IVPUSH (16:42)
--- NOTE | 2020-12-21 16:50 | PC.NURSE ---
Pt states he's feeling better but that he'll likely want to stay overnight. requesting that NRB continue because he feels the O2 more . RR is deep and unlabored. pt is calm. skin pwd. st on monitor.
[2020-12-21 17:13] LABS: MANUAL DIFF FLAG NO
[2020-12-21 17:20] LABS: Basophils Absolute Auto 0.1 X10*3/uL (0.0-0.2); Basophils Percent Auto 1.5 % (0-2); Eosinophils Absolute Auto 0.8 X10*3/uL (0.0-0.4); Hematocrit 36.9 % (42-52); Hemoglobin 12.5 g/dl (14.0-18.0); Imm Gran Abs Auto 0.06 X10*3/uL (0.00-0.03); Imm Gran Pct Auto 0.7 % (0.0-0.4); Lymphocytes Absolute Auto 0.9 X10*3/uL (1.2-4.9); Lymphocytes Percent Auto 10.9 % (20-40); Mean Corpuscular HGB Conc 33.9 g/dl (31.0-36.0); Mean Corpuscular Hemoglobin 29.4 pg (27.0-33.0); Mean Corpuscular Volume 86.8 fL (80-98); Mean Platelet Volume 10.5 fL (9.4-12.4); Monocytes Absolute Auto 0.3 X10*3/uL (0.1-1.2); Monocytes Percent Auto 3.7 % (2-11); Neutrophils Percent Auto 73.2 % (45-73); Platelet Count 178 X10*3/uL (160-400); Red Blood Count 4.25 X10*6/uL (4.60-5.80); Red Cell Distribution Width 12.2 % (11.0-16.0); White Blood Count 8.2 X10*3/uL (4.8-10.8)
[2020-12-21 17:30] LABS: COVID-19 Test Negative (Negative)
[2020-12-21 17:32] LABS: Alanine Aminotransferase 12 U/L (0-40); Albumin Level 3.5 g/dL (3.5-5.0); Alkaline Phosphatase 55 U/L (39-117); Anion Gap 8 (12-20); Aspartate Amino Transferase 11 U/L (5-37); Bilirubin Direct 0.2 mg/dL (0.0-0.5); Bilirubin Total 0.3 mg/dL (0.0-1.0); Blood Urea Nitrogen 9 mg/dL (9-16); Carbon Dioxide 22 mmol/L (22-29); Chloride 116 mmol/L (96-108); Estimated Glomerular Filt Rate > 60; Glucose Random 96 mg/dL (60-115); Potassium 3.1 mmol/L (3.3-5.1); Sodium 143 mmol/L (135-145); Total Protein 5.2 g/dL (6.5-8.0)
[2020-12-21 17:39] LABS: Calcium 7.3 mg/dL (8.4-10.2)
[2020-12-21 17:56] LABS: Venous Blood Gas Refer to POC result
[2020-12-21 17:56] LABS: VBG Base Excess -1.7 mmol/L; VBG HCO3 21 mmol/L (22-26); VBG pCO2 33 mmHg; VBG pH 7.41 (7.32-7.43); VBG pO2 88 mmHg
[2020-12-21] MEDS: Potassium Chloride ER 20 MEQ TAB.ER.PRT 40 MEQ PO (18:13)
[2020-12-21] MEDS: cefTRIAXone sodium 1 GM in 0.9 % Sodium Chloride 50 ML IV (18:15)
[2020-12-21] MEDS: LORazepam 2 MG/ML VIAL 1 MG IVPUSH (18:28)
[2020-12-21] MEDS: Doxycycline Hyclate 100 MG in 0.9 % Sodium Chloride 250 ML 166.67 MG IV (19:31)
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
[2020-12-21] MEDS: Enoxaparin Sodium 40 MG/0.4 ML SYRINGE SUBCUT (20:34)
[2020-12-21] MEDS: Azithromycin 500 MG TABLET PO (20:34)
--- NOTE | 2020-12-21 21:06 | PC.NURSE ---
Hospitalist at bed side.
[2020-12-21] MEDS: Albuterol/Iprat 2.5/0.5MG 3 ML AMPUL.NEB INHALE (21:09)
--- NOTE | 2020-12-21 21:18 | PC.NURSE ---
RT at bed side to give duoneb.
[2020-12-21] MEDS: methylPREDNISolone Sod Succ 40 MG/ML VIAL IVPUSH (22:04)
[2020-12-22] VITALS (27 sets, daily range): BP systolic 90–163; BP diastolic 61–98; PULSE 97–154; RESP 10–48; TEMP 36.2–36.7; O2SAT 85–99; BMI 26.4
[2020-12-22] MEDS: Morphine Sulfate 2 MG/ML CARTRIDGE IVPUSH ×4 (04:23→23:07)
[2020-12-22] MEDS: methylPREDNISolone Sod Succ 40 MG/ML VIAL 60 MG IVPUSH ×4 (04:30→22:38)
[2020-12-22] MEDS: fentaNYL citrate/PF 100 MCG/2 ML VIAL 25 MCG IVPUSH ×2 (04:33→04:36)
[2020-12-22] MEDS: Magnesium Sulfate/D5W 1 GM/100 ML PIGGYBACK IV (04:33)
[2020-12-22] MEDS: 0.9 % Sodium Chloride 1,000 ML 999 ML IV (04:38)
--- NOTE | 2020-12-22 05:07 | PC.NURSE ---
Late entry: This RN was notified @ 0415 that pt was reporting severe SOB. Initial attempts to contact the hospitalist via phone were unsuccessful. RT immediately notified. ER MD notified. Pt tripoding in bed, tachypneic @ 48, tachycardic @ 150 bpm, hypoxic @ 80% while on NC, diaphoretic, unable to speak at all. Pt placed on a NRB @ 15 lpm. Lung sounds extremely tight with poor air movement and expiratory wheezing. Per ER MD, to prepare for intubation in case pt did not turn around with other interventions. (RSI medications pulled and drawn up, later wasted and documented as not given in MAR) Pt medicated with: 0423 Morphine 2 mg IVP 0430 Solumedrol 60 mg IVP (0400 scheduled dose documented against as pt received this order) 0433 Magnesium 1 gm IV infusion 0433 Fentanyl 25 mcg 0436 Fentanyl 25 mcg 0438 NS 1 li bolus @ 0500, pt able to speak in full sentences, reports mostly relief of SOB. RT switching pt to a venti mask @ 55%, pt maintaining an O2 sat of 99% at this time. Pt explains that despite resting throughout the night on a NC in no respiratory distress, he woke suddenly @ 0415 with severe SOB. Pt states that he has a hx of severe bronchospasm while sleeping. Hospitalist to enter all orders for verbal medications. Pt aware of plan to continue awaiting bed assignment. Continue to monitor.
--- NOTE | 2020-12-22 05:50 | PC.NURSE ---
PT rang call azevedo at appox 0410. This nurse came to the room to find the PT hunched over with labored and rapid breathing. PT was tachycardic and diaphoretic. Reported SOB and dyspnea. PT O2 was found to be at 80% on 3 L/min via NC. PT stated that he could not breathe. PT switched to nonrebreather at 15 L/min. Hospitalist and ED provider were called to the room. This nurse went to the [facility] to override and pull 2 mg Morphine, 1 mg magnesium, and 60 mg Solu-Medrol. PT O2 sat continued to improve with multiple breathing treatments delivered by RT. PT current O2 sat is 94% on venturi mask with 14-55 flow rate. PT resting comfortably in bed. Denies any pain or SOB.
[2020-12-22 07:29] LABS: Basophils Percent Auto 0.2 % (0-2); Eosinophils Percent Auto 0.1 % (0-4); Hematocrit 42.2 % (42-52); Hemoglobin 14.4 g/dl (14.0-18.0); Imm Gran Abs Auto 0.16 X10*3/uL (0.00-0.03); Imm Gran Pct Auto 0.9 % (0.0-0.4); Lymphocytes Absolute Auto 0.7 X10*3/uL (1.2-4.9); Lymphocytes Percent Auto 3.7 % (20-40); MANUAL DIFF FLAG SCAN; Mean Corpuscular HGB Conc 34.1 g/dl (31.0-36.0); Mean Corpuscular Hemoglobin 29.6 pg (27.0-33.0); Mean Corpuscular Volume 86.7 fL (80-98); Mean Platelet Volume 10.5 fL (9.4-12.4); Monocytes Absolute Auto 0.7 X10*3/uL (0.1-1.2); Neutrophils Absolute Auto 16.4 X10*3/uL (2.0-8.3); Neutrophils Percent Auto 91.1 % (45-73); Platelet Count 199 X10*3/uL (160-400); Red Blood Count 4.87 X10*6/uL (4.60-5.80); Red Cell Distribution Width 12.3 % (11.0-16.0); SCAN SMEAR FLAG 1
[2020-12-22 07:57] LABS: Anion Gap 14 (12-20); Blood Urea Nitrogen 14 mg/dL (9-16); Calcium 8.8 mg/dL (8.4-10.2); Carbon Dioxide 19 mmol/L (22-29); Chloride 111 mmol/L (96-108); Creatinine Clr Calc Pharmacy 163.9; Estimated Glomerular Filt Rate > 60; Glucose Random 145 mg/dL (60-115); Potassium 3.8 mmol/L (3.3-5.1); Sodium 140 mmol/L (135-145)
[2020-12-22 08:09] LABS: SLIDE REVIEW VERIFIED
[2020-12-22] MEDS: Albuterol/Iprat 2.5/0.5MG 3 ML AMPUL.NEB INHALE ×6 (08:36→22:59)
[2020-12-22] MEDS: Cholecalciferol (Vitamin D3) 25 MCG TABLET PO (10:35)
[2020-12-22] MEDS: Ascorbic Acid 500 MG TABLET PO (10:35)
[2020-12-22] MEDS: Magnesium Oxide 400 MG TABLET PO (10:35)
[2020-12-22] MEDS: Loratadine 10 MG TABLET PO (10:36)
[2020-12-22] MEDS: 0.9 % Sodium Chloride Flush 3 ML SYRINGE IVFLUSH ×2 (10:45→18:19)
[2020-12-22] MEDS: hydrOXYzine HCL 50 MG TABLET PO (10:54)
--- NOTE | 2020-12-22 11:27 | PC.NURSE ---
pt reports feeling really sob, ls tight in all busch, no improvement after the morphine/atarax, on his second breathing tx sinus tach on the monitor, sating at 94% with due neb, trie-poding, breathing at 16, abd muscle using as well srephaine pa aware
--- NOTE | 2020-12-22 11:47 | PC.NURSE ---
respiratory at bedside attempting bipap, pt not responding to bipap at this time, volume levels high dr stemp at bedside
[2020-12-22] MEDS: Midazolam HCl/PF 2 MG/2 ML VIAL 1 MG IVPUSH (12:01)
--- NOTE | 2020-12-22 12:02 | PC.NURSE ---
pt on bipb at 01/01/15peep/90% oxygen pt reports feeling better, more relaxed, he still elevated at 136, sating at 98%, still trie-poding
--- NOTE | 2020-12-22 12:05 | PC.NURSE ---
new bipap settings 25/10/15/70% pt tolerating well
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
--- NOTE | 2020-12-22 13:00 | PC.NURSE ---
pj from respiratory attempted to take the pt off the bipap, off did not tolerate well, plan to admit to icu now current bipap settings 25/10/15/30% oxygen
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
--- NOTE | 2020-12-22 14:38 | PC.NURSE ---
report given to jen yeh rn
[2020-12-22] MEDS: LORazepam 2 MG/ML VIAL 1 MG IVPUSH ×2 (18:21→18:52)
[2020-12-22] MEDS: hydrOXYzine HCL 50 MG/ML VIAL 25 MG IM (19:44)
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
[2020-12-22] MEDS: Enoxaparin Sodium 40 MG/0.4 ML SYRINGE SUBCUT (22:39)
[2020-12-22] MEDS: Azithromycin 500 MG TABLET PO (22:39)
[2020-12-23] VITALS (26 sets, daily range): BP systolic 108–151; BP diastolic 70–97; PULSE 75–132; RESP 12–22; TEMP 36.1–36.9; O2SAT 90–98
[2020-12-23] MEDS: 0.9 % Sodium Chloride Flush 3 ML SYRINGE IVFLUSH ×3 (03:57→20:25)
[2020-12-23] MEDS: methylPREDNISolone Sod Succ 40 MG/ML VIAL 60 MG IVPUSH ×4 (05:16→23:47)
[2020-12-23] MEDS: Morphine Sulfate 2 MG/ML CARTRIDGE IVPUSH ×3 (05:27→23:55)
[2020-12-23] MEDS: Albuterol/Iprat 2.5/0.5MG 3 ML AMPUL.NEB INHALE ×5 (05:38→19:19)
[2020-12-23] MEDS: Loratadine 10 MG TABLET PO (09:00)
[2020-12-23] MEDS: Cholecalciferol (Vitamin D3) 25 MCG TABLET PO (09:00)
[2020-12-23] MEDS: Magnesium Oxide 400 MG TABLET PO (09:00)
[2020-12-23] MEDS: Ascorbic Acid 500 MG TABLET PO (09:00)
[2020-12-23] MEDS: clonazePAM 0.5 MG TABLET 0.25 MG PO ×3 (10:43→20:24)
--- NOTE | 2020-12-23 11:35 | PC.NURSE ---
assumed care at approx 0700 pt alert on first contact, rr even unlabored on bipap, able to tolerate taking mask off intermittently. seen by customer success manager this am as well as public relations account supervisor. ?being downgraded to imc later today. pt able to 1 assist pivot to bedside recliner, advanced to nc w rt s/p breathing tx. tolerating po, took all hs meds. father at bedside for visitation. calm and cooperative w this rn, robin for dc needs.
[2020-12-23] MEDS: guaiFENesin 100 MG/5 ML LIQUID PO (13:43)
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
[2020-12-23] MEDS: Enoxaparin Sodium 40 MG/0.4 ML SYRINGE SUBCUT (20:24)
[2020-12-23] MEDS: Azithromycin 500 MG TABLET PO (20:24)
[2020-12-24] VITALS (12 sets, daily range): BP systolic 116–140; BP diastolic 67–85; PULSE 84–111; RESP 18–24; TEMP 36.2–37.2; O2SAT 90–99; BMI 25.4
[2020-12-24] MEDS: LORazepam 2 MG/ML VIAL 1 MG IVPUSH ×2 (01:14→16:19)
[2020-12-24] MEDS: methylPREDNISolone Sod Succ 40 MG/ML VIAL 60 MG IVPUSH ×4 (04:55→22:48)
[2020-12-24] MEDS: Morphine Sulfate 2 MG/ML CARTRIDGE IVPUSH ×2 (06:07→19:53)
[2020-12-24 07:21] LABS: Hematocrit 43.5 % (42-52); Hemoglobin 14.7 g/dl (14.0-18.0); Mean Corpuscular HGB Conc 33.8 g/dl (31.0-36.0); Mean Corpuscular Hemoglobin 29.1 pg (27.0-33.0); Mean Platelet Volume 10.9 fL (9.4-12.4); Platelet Count 240 X10*3/uL (160-400); Red Blood Count 5.06 X10*6/uL (4.60-5.80); Red Cell Distribution Width 12.5 % (11.0-16.0); White Blood Count 12.3 X10*3/uL (4.8-10.8)
[2020-12-24 07:48] LABS: Anion Gap 15 (12-20); Blood Urea Nitrogen 16 mg/dL (9-16); Calcium 9.6 mg/dL (8.4-10.2); Carbon Dioxide 25 mmol/L (22-29); Chloride 107 mmol/L (96-108); Creatinine Clr Calc Pharmacy 149.6; Estimated Glomerular Filt Rate > 60; Glucose Random 120 mg/dL (60-115); Potassium 3.8 mmol/L (3.3-5.1); Sodium 143 mmol/L (135-145)
[2020-12-24] MEDS: Albuterol/Iprat 2.5/0.5MG 3 ML AMPUL.NEB INHALE ×4 (08:47→20:01)
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
[2020-12-24] MEDS: Cholecalciferol (Vitamin D3) 25 MCG TABLET PO (09:33)
[2020-12-24] MEDS: Ascorbic Acid 500 MG TABLET PO (09:33)
[2020-12-24] MEDS: Loratadine 10 MG TABLET PO (09:33)
[2020-12-24] MEDS: clonazePAM 0.5 MG TABLET 0.25 MG PO ×3 (09:33→19:48)
[2020-12-24] MEDS: Magnesium Oxide 400 MG TABLET PO (09:33)
[2020-12-24] MEDS: 0.9 % Sodium Chloride Flush 3 ML SYRINGE IVFLUSH ×3 (09:34→22:49)
--- NOTE | 2020-12-24 11:34 | MHC.CM.PN ---
PT REPORTS HE LIVES ALONE AND IS INDEPENDENT WITH SELF CARE PT REPORTS HE HAS NO SERVICES PT HAS A WHEEL CHAIR, PROSTHETICS, AND HOME MODIFICATIONS. PT WAS SUPPOSED TO GET A NEBULIZER UPON HIS LAST DC HOWEVER REPORTS HE HAS NOT YET RECEIVED IT. CM WILL ADDRESS THIS WITH RT AND MD. PT HAS A HCP ON FILE AND CONFIRMS HIS PCP IS REY AKBAR. CURRENT DC PLAN IS HOME WITH NO SERVICES PT WILL SELF ARRANGE TRANSPORT
[2020-12-24] MEDS: Azithromycin 500 MG TABLET PO (19:48)
[2020-12-24] MEDS: Enoxaparin Sodium 40 MG/0.4 ML SYRINGE SUBCUT (19:48)
[2020-12-25] VITALS (8 sets, daily range): BP systolic 122–140; BP diastolic 73–87; PULSE 68–101; RESP 16–20; TEMP 36.5–37; O2SAT 96–98
[2020-12-25] MEDS: methylPREDNISolone Sod Succ 40 MG/ML VIAL 60 MG IVPUSH (04:19)
[2020-12-25] MEDS: Morphine Sulfate 2 MG/ML CARTRIDGE IVPUSH (04:19)
[2020-12-25] MEDS: Albuterol/Iprat 2.5/0.5MG 3 ML AMPUL.NEB INHALE ×3 (04:42→11:10)
--- NOTE | 2020-12-25 08:59 | P.DS_ITS ---
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 Patient reports that he started having shortness of breath this morning; unable to catch breath; denies any fever chills cough or sputum production. Denies any numbness tingling or focal weakness. Denies any chest pain palpitations. Review of all other systems is negative except mentioned above ER course: Per ER team and the patient was found by the EMS patient was saturating 89% on room air; patient was given nebulizations and subsequently brought to the hospital.? Patient noted to have wheezing, received steroids and magnesium.? Chest x-ray showed no acute findings; labs were essentially benign except for mild hypokalemia 3.1.? Which is been repleted. Admitted to the hospital for further management . Acute hypoxic respiratory failure secondary to asthma exacerbation Initially on Bipap in the ICU, switch to NRB then NC, now on room air. Treated with scheduled duonebs, solumedrol 60 QID, Azithromycin On prednisone 10mg daily at home, will add 40mg for 4 days then resume 10mg daily. Azithromycin for 3 more days Time Spent with Patient Time attestation: Total time spent providing and/or coordinating discharge services: Discharge coordination time: Greater than 30 minutes Quality: Stroke Does the patient have a stroke diagnosis?: No Physical Exam Vital Signs: Vital Signs: Last Vital Signs Temp 97.7 F 12/25/20 07:59 Pulse 98 12/25/20 08:49 Resp 20 12/25/20 07:59 BP 140/87 H 12/25/20 07:59 Pulse Ox 96 12/25/20 07:59 Body Mass Index 25.4 Appearing in no acute distress head is normocephalic atraumatic eyes pupils are PERRLA sclera is anicteric mouth throat mucous membranes are intact and moist neck is supple no lymphadenopathy, no JVD noted lung sounds mild expiratory wheeze heart regular rate rhythm, clear S1, S2 positive bowel sounds, abdomen is soft, nontender neuro patient is alert x3, no focal deficits DS: Data Data Completed and Pending Completed studies during hospitalization [Text1]: Procedures Assistance with Respiratory Ventilation, Less than 24 Consecutive Hours, Continuous Positive Airway Pressure (11/02/20) Labs on day of discharge: Preliminary micro results at discharge 12/21/20 17:39 Blood Culture - Preliminary Blood - Venous No growth after 48 hours. 12/21/20 17:06 Blood Culture - Preliminary Blood - Venous No growth after 48 hours. Discharge Plan Discharge Anticipated Discharge Date/Time: 12/25/20 08:50 Patient Disposition: Home, Self-Care Discharge Diagnosis: Asthma exacerbation Referrals: Madhu Rascon [employer] [Primary Care Provider] - 1 Week Discharge Medications: New azithromycin 500 mg Tablet 500 mg PO Q24H Qty: 3 RF: 0 Continued albuterol sulfate 90 mcg/actuation HFA aerosol inhaler 2 puff inhalation Q4-6H PRN (Reason: shortness of breath or wheezing) Qty: 8.5 RF: 0 hydroxyzine HCl 50 mg Tablet 50 mg PO TID PRN (Reason: Itching) RF: 0 mometasone 220 mcg/ actuation (30) Aerosol Powdr Breath Activated 1 inh INHALATION DAILY RF: 0 cetirizine 10 mg Tablet 10 mg PO DAILY RF: 0 ascorbic acid (vitamin C) [Vitamin C] 500 mg Tablet 500 mg PO DAILY RF: 0 zinc sulfate 220 mg Capsule 220 mg PO DAILY RF: 0 chlorpheniramine-acetaminophen 2-325 mg Tablet 2 tab PO Q4-6H PRN (Reason: Cold Symptoms) RF: 0 cholecalciferol (vitamin D3) [Vitamin D3] 25 mcg (1,000 unit) Tablet 25 mcg PO DAILY RF: 0 acetylcysteine [NAC] 600 mg Capsule 600 mg PO DAILY RF: 0 magnesium oxide 400 mg magnesium Tablet 400 mg PO DAILY RF: 0 albuterol sulfate 2.5 mg/0.5 mL solution for nebulization 2.5 mg inhalation QID PRN (Reason: bronchospasm) RF: 0 Spiriva Respimat 2.5 mcg/actuation Mist 2 puff INHALATION DAILY RF: 0 prednisone 10 mg Tablet 10 mg PO DAILY Qty: 42 RF: 0 Discharge Orders: Discharge Order (Routine); Ordered 12/25/20 Ordered By: Candi Khalil Diet: advance to usual diet Activity on Discharge: As tolerated Stand Alone Forms: Patient Portal Discharge page Care Plan Goals: Resolution of asthma symptoms Health Concerns: Follow-up with her primary care provider as needed Plan of Treatment: Take medications as prescribed Assessment: see discharge summary
--- NOTE | 2020-12-25 10:13 | MHC.CM.PN ---
pt dcd home no skillled services ordered by
[2020-12-25] MEDS: Ascorbic Acid 500 MG TABLET PO (10:18)
[2020-12-25] MEDS: clonazePAM 0.5 MG TABLET 0.25 MG PO (10:18)
[2020-12-25] MEDS: 0.9 % Sodium Chloride Flush 3 ML SYRINGE IVFLUSH (10:18)
[2020-12-25] MEDS: Cholecalciferol (Vitamin D3) 25 MCG TABLET PO (10:18)
[2020-12-25] MEDS: Magnesium Oxide 400 MG TABLET PO (10:19)
[2020-12-25] MEDS: Loratadine 10 MG TABLET PO (10:19)
== END 2020-12-25 12:30 | disposition home or self-care (01) | DRG 202 ==
LOC: HO.ED 18:19 → HO.EDOVER 20:04 → HO.S3 12-22 12:14 → HO.ICU 12-22 13:15 → HO.IMC 12-23 18:29
PROVIDERS: Anesthesiology; Admitting Provider Hospitalist; Emergency Provider Emergency Medicine; PCP Nurse Practitioner Family; Visit Provider Nurse Practitioner Acute Care
DX: J45.901 Unspecified asthma with (acute) exacerbation (principal); J96.01 Acute respiratory failure with hypoxia; F41.9 Anxiety disorder, unspecified; E87.6 Hypokalemia; J68.4 Chronic respiratory conditions due to chemicals, gases, fumes and vapors; Z89.512 Acquired absence of left leg below knee; Z20.822 Contact with and (suspected) exposure to COVID-19; Z88.6 Allergy status to analgesic agent; Z79.899 Other long term (current) drug therapy
CPT/HCPCS: 36415; 71045; 80048; 80076; 82803; 83605; 85025; 85027; 87040; 87635; 93005; 94640; 94660; 96361; 96365; 96367; 96375; 99285; 99291; J0696; J1650; J2060; J2250; J2270; J2920; J3010; J3475

== ENCOUNTER 2021-01-26 23:21 | Emergency (ER) | payer OTHER, MEDICARE, SELFPAY ==
--- NOTE | 2021-01-26 | ECG_ITS ---
Test Reason : SOB Blood Pressure : / mmHG Vent. Rate : 107 BPM Atrial Rate : 107 BPM P-R Int : 168 ms QRS Dur : 074 ms QT Int : 332 ms P-R-T Axes : 070 008 036 degrees QTc Int : 443 ms Sinus tachycardia RSR' or QR pattern in V1 suggests right ventricular conduction delay Otherwise normal ECG When compared with ECG of 21-DEC-2020 17:10, No significant change was found Referred By: Ruthie Rosales Electronically Signed By:KENDELL QIU MD
[2021-01-26 23:32] VITALS: BP 128/56; BP 132/86; PULSE 105; PULSE 112; RESP 20; TEMP 36.8; O2SAT 93; O2SAT 99; BMI 27.1
--- NOTE | 2021-01-26 23:33 | ED.SOB ---
HPI - SOB/Dyspnea General Chief Complaint: Dyspnea Stated Complaint: resp distress Time Seen by Provider: 01/26/21 23:29 Source: patient and EMS Mode of arrival: EMS Limitations: no limitations History of Present Illness HPI Narrative: Patient's emergency room complaining of an asthma exacerbation. Patient has been evaluated multiple times for asthma. Prior to arrival, patient tried albuterol treatments and nebulizations without any relief. EMS gave him Solu-Medrol, magnesium, several nebulization treatments. Patient now saturating 94% on arrival, speaking full sentences. Patient states that he feels much better than before the ambulance arrived. Patient denies any fever chills, no shortness of breath at this time, no chest pain. Related Data Home Medications Medication Instructions Recorded Confirmed hydroxyzine HCl 50 mg tablet 50 mg PO TID PRN 11/02/20 12/21/20 mometasone 1 inh INHALATION DAILY 11/02/20 12/21/20 acetylcysteine 600 mg capsule (NAC) 600 mg PO DAILY 12/21/20 12/21/20 albuterol sulfate 2.5 mg/0.5 mL 2.5 mg INHALATION QID PRN 12/21/20 12/21/20 solution for nebulization ascorbic acid (vitamin C) 500 mg 500 mg PO DAILY 12/21/20 12/21/20 tablet (Vitamin C) cetirizine 10 mg tablet 10 mg PO DAILY 12/21/20 12/21/20 chlorpheniramine-acetaminophen 2 2 tab PO Q4-6H PRN 12/21/20 12/21/20 mg-325 mg tablet cholecalciferol (vitamin D3) 25 25 mcg PO DAILY 12/21/20 12/21/20 mcg (1,000 unit) tablet (Vitamin D3) magnesium oxide 400 mg PO DAILY 12/21/20 12/21/20 tiotropium bromide 2.5 2 puff INHALATION DAILY 12/21/20 12/21/20 mcg/actuation mist for inhalation (Spiriva Respimat) zinc sulfate 220 mg capsule 220 mg PO DAILY 12/21/20 12/21/20 Previous Rx's Medication Instructions Recorded albuterol sulfate 90 mcg/actuation 2 puff INHALATION Q4-6H PRN #8.5 g 12/26/19 aerosol inhaler azithromycin 500 mg tablet 500 mg PO Q24H #3 tab 12/25/20 lorazepam 1 mg tablet 1 mg PO TID PRN #9 tab 12/25/20 prednisone 10 mg tablet 10 mg PO DAILY #42 tab 12/25/20 prednisone 50 mg tablet 50 mg PO DAILY #5 tab 01/27/21 Allergies Allergy/AdvReac Type Severity Reaction Status Date / Time ibuprofen [IBUPROFEN] Allergy Intermediate Difficulty Verified 01/26/21 23:36 Breathing shellfish derived Allergy Mild SWELLING Verified 01/26/21 23:36 aspirin [ASA] Allergy Unknown DIFFICULTY Verified 01/26/21 23:36 BREATHING albuterol AdvReac Mild Gas Verified 01/26/21 23:36 exchange problems sertraline AdvReac Nausea Verified 01/26/21 23:36 nsaids Allergy Unknown Difficulty Uncoded 01/26/21 23:36 Breathing nucala Allergy Unknown shortness Uncoded 01/26/21 23:36 of breath Review of Systems Review of Systems: Constitutional : No Weight loss, No Fever, No Chills, No Night Sweats, No Fatigue, No Malaise ENT/Mouth : No Hearing loss, No Ear Pain, No Nasal Congestion, No Sinus Pain, No Hoarseness, No sore throat, No Rhinorrhea, No Swallowing Difficulty Eyes: No Eye Pain, No Swelling, No Redness, No Foreign Body, No Discharge, No Vision Changes Cardiovascular : No Chest Pain, No SOB, No Dyspnea on Exertion, No Orthopnea, No Edema, No Palpitations Respiratory : No Cough, No Sputum, complaining of Wheezing, No Smoke Exposure, complaining of Dyspnea which improved Gastrointestinal : No Nausea, No Vomiting, No Diarrhea, No Constipation, No abdominal Pain, No Hematochezia, No Melena Genitourinary : no irregular bleeding, No Dysuria, No Urinary Frequency, No Hematuria, No Urinary Incontinence, No Urgency, No Flank Pain, No Urinary Flow Changes, No Hesitancy Musculoskeletal : No joint pain, No Myalgias, No Joint Swelling Skin : No Skin Lesions, No rash Neuro : No Weakness, No Numbness, No Paresthesias, No Loss of Consciousness, No Dizziness, No Headache Psych : No Anxiety/Panic, No Depression, No SI/HI/AH/VH, No Social Issues, Heme/Lymph: No Bruising, No Bleeding,No Lymphadenopathy Endocrine : No Polyuria, No Polydipsia, No Temperature Intolerance PMFSH Past Medical History Medical History Acute respiratory failure with hypoxia Allergic asthma Anxiety Asthma Asthmaticus, status PTSD (post-traumatic stress disorder) Surgical History History of amputation Social History Social History Household Members: Other Household Members Other:: 2 dogs Housing: House Do you presently have visiting nurse or other home services: No Alcohol intake: current Alcohol intake frequency: holidays/special occasions only Patient Tobacco Use Status: Never used Tobacco Second Hand Smoke Exposure: No Substance Use Type: Marijuana Advance Directives: No Advance Directives Information Provided: No service: Yes Current occupational status: retired and disabled Physical Exam Vital Signs: Vital Signs: Last Vital Signs Temp 98.3 F 01/26/21 23:32 Pulse 107 H 01/26/21 23:37 Resp 20 01/26/21 23:32 BP 132/86 01/26/21 23:32 Pulse Ox 93 01/26/21 23:32 Body Mass Index 27.1 Const: Other: Appearance: Alert. Oriented X3. No acute distress. Eyes: Pupils equal, round and reactive to light. ENT: Pharynx normal. Neck: Normal inspection. Neck supple. No lymph nodes noted. No crepitus CVS: Normal heart rate and rhythm. Pulses normal. Normal S1 and S2 Respiratory: No respiratory distress. Saturating 95% on room air, very mild bilateral wheezing, speaking in full sentences Abdomen: Soft and nontender. No rigidity. No distention. Skin: Skin warm and dry. Normal skin color. Normal skin turgor. Extremities: No lower extremity edema. No lower extremity edema. No Lacerations. No Rash Neuro: Oriented X 3. No motor deficit. No sensory deficit. Moving all extermities. No slurred speech. Course Course Course Narrative: In the emergency room patient received 3 treatments of DuoNeb and 1 of albuterol. Patient is now on room air, saturating 98%. Due to patient's amputation we cannot do an ambulation trial. Patient states that he feels much better, and states that he feels well enough to home. Patient states that he has enough albuterol both palms and nebulization treatments at home. MDM - SOB/Dyspnea ECG Data Attestation: I personally reviewed and interpreted this ECG as follows: (Heart rate 70, sinus rhythm, no ST segment depression or elevation, no T-wave inversion, QTC 443) Discharge Plan Discharge Clinical Impression: Asthma with exacerbation Qualifiers: Asthma severity: unspecified severity Asthma persistence: unspecified Qualified Code(s): J45.901 - Unspecified asthma with (acute) exacerbation Patient Disposition: Home, Self-Care Instructions: Asthma (ED) Additional Instructions: Please follow-up with your primary care physician tomorrow. Also, please follow up with pulmonology. you have any worsening or new symptoms, please return to the emergency room or call 911 Prescriptions: New prednisone 50 mg tablet 50 mg PO DAILY Qty: 5 RF: 0 No Action albuterol sulfate 90 mcg/actuation HFA aerosol inhaler 2 puff inhalation Q4-6H PRN (Reason: shortness of breath or wheezing) Qty: 8.5 RF: 0 hydroxyzine HCl 50 mg Tablet 50 mg PO TID PRN (Reason: Itching) RF: 0 mometasone 220 mcg/ actuation (30) Aerosol Powdr Breath Activated 1 inh INHALATION DAILY RF: 0 cetirizine 10 mg Tablet 10 mg PO DAILY RF: 0 ascorbic acid (vitamin C) [Vitamin C] 500 mg Tablet 500 mg PO DAILY RF: 0 zinc sulfate 220 mg Capsule 220 mg PO DAILY RF: 0 chlorpheniramine-acetaminophen 2-325 mg Tablet 2 tab PO Q4-6H PRN (Reason: Cold Symptoms) RF: 0 cholecalciferol (vitamin D3) [Vitamin D3] 25 mcg (1,000 unit) Tablet 25 mcg PO DAILY RF: 0 acetylcysteine [NAC] 600 mg Capsule 600 mg PO DAILY RF: 0 magnesium oxide 400 mg magnesium Tablet 400 mg PO DAILY RF: 0 albuterol sulfate 2.5 mg/0.5 mL solution for nebulization 2.5 mg inhalation QID PRN (Reason: bronchospasm) RF: 0 Spiriva Respimat 2.5 mcg/actuation Mist 2 puff INHALATION DAILY RF: 0 azithromycin 500 mg Tablet 500 mg PO Q24H Qty: 3 RF: 0 prednisone 10 mg Tablet 10 mg PO DAILY Qty: 42 RF: 0 lorazepam 1 mg tablet 1 mg PO TID PRN (Reason: anxiety) Qty: 9 RF: 0 Referrals: Marcus Khalil MD [Physician] - 2 days
[2021-01-26 23:37] VITALS: PULSE 107; O2SAT 94
[2021-01-27] MEDS: Albuterol Sulfate (0.083%) 2.5 MG/3 ML VIAL.NEB INHALE ×2 (00:39→00:40)
[2021-01-27] MEDS: Albuterol/Iprat 2.5/0.5MG 3 ML AMPUL.NEB INHALE (00:39)
[2021-01-27] MEDS: methylPREDNISolone Sod Succ 125 MG/2 ML VIAL IVPUSH (05:07)
== END 2021-01-27 05:10 | disposition home or self-care (01) ==
PROVIDERS: Emergency Provider Emergency Medicine; PCP Nurse Practitioner Family
DX: J45.901 Unspecified asthma with (acute) exacerbation (principal)
CPT/HCPCS: 93005; 94640; 94644; 96374; 99283; 99285; J2930

== ENCOUNTER 2021-01-27 17:38 | Inpatient (IN) | payer OTHER, SELFPAY ==
[2021-01-27] VITALS (7 sets, daily range): BP systolic 116–137; BP diastolic 73–88; PULSE 83–109; RESP 14–20; TEMP 36.3–36.6; O2SAT 88–96; BMI 27.1; BMI 25.6
--- NOTE | ~2021-01-27 | XR_ITS ---
EXAMINATION: XR chest 1V CLINICAL INFORMATION: Shortness of breath COMPARISON: December 2020 TECHNIQUE: XR chest 1V Tubes and lines: None Lungs and pleura: Blunting of right costophrenic angle suggesting small pleural effusion unchanged. Heart and mediastinum: The mediastinum is within normal limits.. Bones/soft tissue: Skeletal structures included are normal for patient's age. XR/XR chest 1V IMPRESSION: Redemonstration of blunting of right costophrenic angle suggesting small right pleural effusion. Lungs otherwise remain clear.
--- NOTE | 2021-01-27 17:46 | ED.SOB ---
HPI - SOB/Dyspnea General Chief Complaint: Dyspnea <RICHA Oliveira - Last Filed: 01/27/21 21:37> Stated Complaint: Diff Breathing <RICHA Oliveira - Last Filed: 01/27/21 21:37> Time Seen by Provider: 01/27/21 17:46 <RICHA Oliveira - Last Filed: 01/27/21 21:37> Source: patient <RICHA Oliveira - Last Filed: 01/27/21 21:37> Mode of arrival: ambulatory <RICHA Oliveira Last Filed: 01/27/21 21:37> Limitations: no limitations <RICHA Oliveira Last Filed: 01/27/21 21:37> History of Present Illness HPI Narrative: ?41-year-old male with a past medical history of left lower extremity BKA, severe allergic asthma with multiple intubations, constrictive bronchitis, neurogenic bladder, PTSD and anxiety who presents with shortness of breath X1 day .Prior to arrival, patient tried albuterol treatments and nebulizations without any relief. Patient also tells me he was seen here yesterday, for the same complaint. He states he felt better when he was discharged, but he started getting worse this morning. Patient also mentions that he is feeling extremely anxious at this time. Patient tells me that he had a little bit of a cough this morning, with no sputum production. He is not vaccinated against COVID-19. He denies fevers, chills, nausea, vomiting, abdominal pain, chest pain. <RICHA Oliveira - Last Filed: 01/27/21 21:37> MD elicited complaint: shortness of breath <RICHA Oliveira Last Filed: 01/27/21 21:37> Pertinent past history: asthma and other (constrictive bronchitis) <RICHA Oliveira Last Filed: 01/27/21 21:37> Onset (ago): day(s) (1) <RICHA Oliveira Last Filed: 01/27/21 21:37> Timing: constant <RICHA Oliveira Last Filed: 01/27/21 21:37> Severity: severe <RICHA Oliveira - Last Filed: 01/27/21 21:37> Exacerbating factors: nothing <RICHA Oliveira - Last Filed: 01/27/21 21:37> Relieving factors: nothing <RICHA Oliveira - Last Filed: 01/27/21 21:37> Known history of: asthma and other (constrictive bronchitis ) <RICHA Oliveira - Last Filed: 01/27/21 21:37> Associated symptoms: denies other symptoms <RICHA Oliveira - Last Filed: 01/27/21 21:37> Treatment prior to arrival: other (albuterol, nebulizing treatment ) <RICHA Oliveira - Last Filed: 01/27/21 21:37> Related Data Home Medications: Home Medications Medication Instructions Recorded Confirmed hydroxyzine HCl 50 mg tablet 50 mg PO TID PRN 11/02/20 01/27/21 mometasone 1 inh INHALATION DAILY 11/02/20 01/27/21 ascorbic acid (vitamin C) 500 mg 500 mg PO DAILY 12/21/20 01/27/21 tablet (Vitamin C) cetirizine 10 mg tablet 10 mg PO DAILY 12/21/20 01/27/21 cholecalciferol (vitamin D3) 25 25 mcg PO DAILY 12/21/20 01/27/21 mcg (1,000 unit) tablet (Vitamin D3) magnesium oxide 400 mg PO DAILY 12/21/20 01/27/21 zinc sulfate 220 mg capsule 220 mg PO DAILY 12/21/20 01/27/21 alprazolam 0.5 mg tablet 1 mg PO TID PRN 01/28/21 01/28/21 levalbuterol HCl 0.63 mg/3 mL 0.63 mg INHALATION Q4H PRN 01/28/21 01/28/21 solution for nebulization tiotropium bromide 18 mcg capsule 1 cap INHALATION DAILY 01/28/21 01/28/21 with inhalation device (Spiriva with HandiHaler) Previous Rx's Medication Instructions Recorded albuterol sulfate 90 mcg/actuation 2 puff INHALATION Q4-6H PRN #8.5 g 12/26/19 aerosol inhaler prednisone 10 mg tablet 10 mg PO DAILY #42 tab 12/25/20 <RICHA Oliveira Last Filed: 01/27/21 21:37> Allergies/Adverse Reactions: Allergies Allergy/AdvReac Type Severity Reaction Status Date / Time ibuprofen [IBUPROFEN] Allergy Intermediate Difficulty Verified 01/26/21 23:36 Breathing shellfish derived Allergy Mild SWELLING Verified 01/26/21 23:36 aspirin [ASA] Allergy Unknown DIFFICULTY Verified 01/26/21 23:36 BREATHING albuterol AdvReac Mild Gas Verified 01/26/21 23:36 exchange problems sertraline AdvReac Nausea Verified 01/26/21 23:36 nsaids Allergy Unknown Difficulty Uncoded 01/26/21 23:36 Breathing nucala Allergy Unknown shortness Uncoded 01/26/21 23:36 of breath <RICHA Oliveira Last Filed: 01/27/21 21:37> Review of Systems Review of Systems: Constitutional : No Fever, No Chills ENT/Mouth : No sore throat, No Rhinorrhea, No Swallowing Difficulty Eyes: No Eye Pain, No Swelling, No Redness Cardiovascular : No Chest Pain, positive SOB, No Orthopnea, positive Edema Respiratory : No Cough, No Sputum, No Wheezing, positive dyspnea Gastrointestinal : No Nausea, No Vomiting, No Diarrhea, No abdominal Pain, No Hematochezia, No Melena Genitourinary : No Dysuria, No Urinary Frequency, No Hematuria Musculoskeletal : No joint pain, No Myalgias Skin : No Skin Lesions, No rash Neuro : No Weakness, No Numbness, No Dizziness, No Headache Psych : + Anxiety/Panic, No Depression All other systems reviewed and are negative <RICHA Oliveira Last Filed: 01/27/21 21:37> PMF Past Medical History Attestation statement: The following information was validated with the patient. <RICHA Oliveira Last Filed: 01/27/21 21:37> Source: old records reviewed and nursing notes reviewed <RICHA Oliveira Last Filed: 01/27/21 21:37> Medical History: Medical History Acute respiratory failure with hypoxia Allergic asthma Anxiety Asthma Asthmaticus, status PTSD (post-traumatic stress disorder) <RICHA Oliveira - Last Filed: 01/27/21 21:37> Surgical History: Surgical History History of amputation <RICHA Oliveira - Last Filed: 01/27/21 21:37> Social History Social History: Social History Household Members: Other Household Members Other:: Dogs Housing: House Do you presently have visiting nurse or other home services: No Alcohol intake: current Alcohol intake frequency: holidays/special occasions only Patient Tobacco Use Status: Never used Tobacco Second Hand Smoke Exposure: No Use of substances other than those prescribed or required for medical reasons: Yes Substance Use Type: Marijuana Substance Use Frequency: Occasionally Last Used Substance: Just Prior to Admission Currently Displaying Signs/Symptoms of Drug Intoxication Withdrawal: No Have you been hit, kicked, punched, or otherwise hurt by someone within the past year? If so, by whom?: No Do you feel safe in your current relationship?: No Current Relationship Is there a partner from a previous relationship who is making you feel unsafe now?: No Are you made to feel afraid or neglected: No Advance Directives: No Advance Directives Information Provided: No Do you have thoughts of harming others: None Do you have a plan to hurt others: No Plan Recently lost weight without trying: No How much weight loss: Unsure Eating poorly because of decreased appetite: No Nutrition screen score: 2 Nutrition Risks: No Nutritional Risk service: Yes Current occupational status: retired and disabled <RICHA Oliveira - Last Filed: 01/27/21 21:37> Physical Exam Vital Signs: Vital Signs: Last Vital Signs Temp 98.5 F 01/28/21 08:00 Pulse 127 H 01/28/21 08:00 Resp 20 01/28/21 08:00 BP 156/90 H 01/28/21 08:00 Pulse Ox 95 01/28/21 08:00 Oxygen Flow Rate 2 01/27/21 17:46 Body Mass Index 27.1 Vital signs upon my examination reveal tachypnea 22, tachycardia 110 and hypoxia he is 94% on 2 L NC. Patient doesn't use oxygen at home. <RICHA Oliveira - Last Filed: 01/27/21 21:37> Vital Signs: Last Vital Signs Temp 98.5 F 01/28/21 08:00 Pulse 127 H 01/28/21 08:00 Resp 20 01/28/21 08:00 BP 156/90 H 01/28/21 08:00 Pulse Ox 95 01/28/21 08:00 Oxygen Flow Rate 2 01/27/21 17:46 Body Mass Index 27.1 <Stephon Klein MD - Last Filed: 01/27/21 22:10> Vital Signs: Last Vital Signs Temp 98.5 F 01/28/21 08:00 Pulse 127 H 01/28/21 08:00 Resp 01/28/21 08:00 BP 156/90 H 01/28/21 08:00 Pulse Ox 95 01/28/21 08:00 Oxygen Flow Rate 2 01/27/21 17:46 Body Mass Index 27.1 <RICHA Costa - Last Filed: 01/28/21 11:41> Appearance: Alert.? Oriented X3.? + mild respiratory distress.?+ anxious + accesory muscle use for breathing Head: Normocephalic, atraumatic, no step-offs or deformities Eyes: Pupils equal, round and reactive to light.? ENT: Pharynx normal.? Neck: Normal inspection.? Neck supple.? CVS: Normal heart rate and rhythm.? Pulses normal.? Respiratory: No respiratory distress.? + decreased breath sounds bilaterally + fine crackles in RLL + wheezing throughout all lung busch .? Abdomen: Soft and nontender.? Skin: Skin warm and dry.? Normal skin color.? Normal skin turgor.? Extremities: No lower extremity edema.? No calf ttp. 5/5 strength to bilateral upper and lower extremities Back: No midline tenderness, no C-spine tenderness, full range of motion, no CVA tenderness bilaterally Neuro: Oriented X 3.? No motor deficit.? No sensory deficit. <RICHA Oliveira - Last Filed: 01/27/21 21:37> Course Course Course Narrative: patient seen and examined - agree with assessment and plan <RICHA Costa - Last Filed: 01/28/21 11:41> Reevaluation(s) Reevaluation #1: Slight leukocytosis noted, no acute electrolyte abnormalities. COVID negative. Chest x-ray shows blunting of the right costophrenic angle, suggesting a small right pleural effusion. I will reach out to hospitalist for admission. As patient will likely require IV steroids. And he is still feeling very short of breath. <RICHA Oliveira - Last Filed: 01/27/21 21:37> Time: 19:29 <RICHA Oliveira - Last Filed: 01/27/21 21:37> Reevaluation #2: BNP 10, unlikley CHF. D-dimer negative will admit patient at this time for acute hypoxic respiratory failure <RICHA Oliveira - Last Filed: 01/27/21 21:37> Time: 20:17 <RICHA Oliveira - Last Filed: 01/27/21 21:37> MDM - SOB/Dyspnea MDM Narrative Medical decision making narrative: 1748 41-year-old M with a PMH of left lower extremity BKA, severe allergic asthma requiring multiple intubations, constrictive bronchitis, neurogenic bladder, PTSD and anxiety presents with SOB & anxiety X1 day .Prior to arrival, patient tried albuterol treatments and nebulizations without relief. Patient seen here yesterday, for the same complaint. Not vaccinated against COVID-19. Uses O2 at home mostly for nebulizing treatments, but not usually. Upon physical examination patient is in mild respiratory distress,w/ accessory muscle use he is tachypneic, and speaking in short sentences. He is saturating 94% on 2 L of oxygen. Bilateral lungs with wheezing throughout, fine crackles noted to the right lower lobe, diminished lung sounds bilaterally. S1 and S2 appreciated free of murmurs. Abdomen soft nontender nondistended. Bilateral upper extremities 5/5 strength. Pupils equal round and reactive to light. Extraocular movements intact. Pharynx normal with moist mucous membranes. Patient appears very anxious Plan at this time is to obtain basic labs, COVID, chest x-ray. He will be given Solu-Medrol, magnesium, albuterol. He will also be given 0.5 mg of Ativan for anxiety. <RICHA Oliveira - Last Filed: 01/27/21 21:37> Medical Records Attestation: I reviewed the patient's medical records. <RICHA Oliveira - Last Filed: 01/27/21 21:37> Lab Data Attestation: I reviewed the patient's lab results. <RICHA Oliveira - Last Filed: 01/27/21 21:37> Result diagrams: : 01/28/21 05:49 01/28/21 05:49 <RICHA Oliveira - Last Filed: 01/27/21 21:37> Labs: Lab Results 01/27/21 01/27/21 01/27/21 Range/Units 18:04 18:11 18:12 WBC 11.3 H (4.8-10.8) X10*3/uL RBC 5.15 (4.60-5.80) X10*6/uL Hgb 15.5 (14.0-18.0) g/dl Hct 44.3 (42.0-52.0) % MCV 86.0 (80.0-98.0) fL MCH 30.1 (27.0-33.0) pg MCHC 35.0 (31.0-36.0) g/dl RDW 12.8 (11.0-16.0) % Plt Count 289 (160-400) X10*3/uL MPV 10.2 (9.4-12.4) fL Immature Gran % (Auto) 1.4 H (0.0-0.4) % Neut % (Auto) 76.7 H (45-73) % Lymph % (Auto) 11.5 L (20-40) % Wheeler % (Auto) 10.0 (2-11) % Eos % (Auto) 0.2 (0-4) % Baso % (Auto) 0.2 (0-2) % Lymph # (Auto) 1.3 (1.2-4.9) X10*3/uL Wheeler # (Auto) 1.1 (0.1-1.2) X10*3/uL Eos # (Auto) 0.0 (0.0-0.4) X10*3/uL Baso # (Auto) 0.0 (0.0-0.2) X10*3/uL Abs Immat Gran (auto) 0.16 H (0.00-0.03) X10*3/uL Absolute Neuts (auto) 8.7 H (2.0-8.3) x10*3/uL Absolute Nucleated RBC 0.000 (0.0-0.012) X10*3/uL Nucleated RBC % (auto) 0.0 (0.0-0.2) /100WBC D-Dimer High Sensitivty NG/ML Sodium 140 (135-145) mmol/L Potassium 4.2 (3.3-5.1) mmol/L Chloride 107 (96-108) mmol/L Carbon Dioxide 22 (22-29) mmol/L Anion Gap 15 (12-20) BUN 10 (9-16) mg/dL Creatinine 0.77 (0.5-1.4) mg/dL Estim Creat Clear Calc 153.9 Estimated GFR > 60 Random Glucose 128 H (60-115) mg/dL Calcium 9.6 (8.4-10.2) mg/dL Magnesium 2.2 (1.6-2.6) mg/dL Total Bilirubin 0.4 (0.0-1.0) mg/dL AST 13 (5-37) U/L ALT 15 (0-40) U/L Alkaline Phosphatase 64 (39-117) U/L Lactate Dehydrogenase 213 (118-273) U/L B-Natriuretic Peptide (<100) pg/mL Total Protein 7.0 D (6.5-8.0) g/dL Albumin 4.6 D (3.5-5.0) g/dL COVID-19 ([facility]) Negative (Negative) COVID-19 Clin Com See Note 01/27/21 01/27/21 Range/Units 18:12 19:46 WBC (4.8-10.8) X10*3/uL RBC (4.60-5.80) X10*6/uL Hgb (14.0-18.0) g/dl Hct (42.0-52.0) % MCV (80.0-98.0) fL MCH (27.0-33.0) pg MCHC (31.0-36.0) g/dl RDW (11.0-16.0) % Plt Count (160-400) X10*3/uL MPV (9.4-12.4) fL Immature Gran % (Auto) (0.0-0.4) % Neut % (Auto) (45-73) % Lymph % (Auto) (20-40) % Wheeler % (Auto) (2-11) % Eos % (Auto) (0-4) % Baso % (Auto) (0-2) % Lymph # (Auto) (1.2-4.9) X10*3/uL Wheeler # (Auto) (0.1-1.2) X10*3/uL Eos # (Auto) (0.0-0.4) X10*3/uL Baso # (Auto) (0.0-0.2) X10*3/uL Abs Immat Gran (auto) (0.00-0.03) X10*3/uL Absolute Neuts (auto) (2.0-8.3) x10*3/uL Absolute Nucleated RBC (0.0-0.012) X10*3/uL Nucleated RBC % (auto) (0.0-0.2) /100WBC D-Dimer High Sensitivty < 150 NG/ML Sodium (135-145) mmol/L Potassium (3.3-5.1) mmol/L Chloride (96-108) mmol/L Carbon Dioxide (22-29) mmol/L Anion Gap (12-20) BUN (9-16) mg/dL Creatinine (0.5-1.4) mg/dL Estim Creat Clear Calc Estimated GFR Random Glucose (60-115) mg/dL Calcium (8.4-10.2) mg/dL Magnesium (1.6-2.6) mg/dL Total Bilirubin (0.0-1.0) mg/dL AST (5-37) U/L ALT (0-40) U/L Alkaline Phosphatase (39-117) U/L Lactate Dehydrogenase (118-273) U/L B-Natriuretic Peptide 10 (<100) pg/mL Total Protein (6.5-8.0) g/dL Albumin (3.5-5.0) g/dL COVID-19 ([facility]) (Negative) COVID-19 Clin Com <RICHA Oliveira - Last Filed: 01/27/21 21:37> Lab Results 01/27/21 01/27/21 01/27/21 Range/Units 18:04 18:11 18:12 WBC 11.3 H (4.8-10.8) X10*3/uL RBC 5.15 (4.60-5.80) X10*6/uL Hgb 15.5 (14.0-18.0) g/dl Hct 44.3 (42.0-52.0) % MCV 86.0 (80.0-98.0) fL MCH 30.1 (27.0-33.0) pg MCHC 35.0 (31.0-36.0) g/dl RDW 12.8 (11.0-16.0) % Plt Count 289 (160-400) X10*3/uL MPV 10.2 (9.4-12.4) fL Immature Gran % (Auto) 1.4 H (0.0-0.4) % Neut % (Auto) 76.7 H (45-73) % Lymph % (Auto) 11.5 L (20-40) % Wheeler % (Auto) 10.0 (2-11) % Eos % (Auto) 0.2 (0-4) % Baso % (Auto) 0.2 (0-2) % Lymph # (Auto) 1.3 (1.2-4.9) X10*3/uL Wheeler # (Auto) 1.1 (0.1-1.2) X10*3/uL Eos # (Auto) 0.0 (0.0-0.4) X10*3/uL Baso # (Auto) 0.0 (0.0-0.2) X10*3/uL Abs Immat Gran (auto) 0.16 H (0.00-0.03) X10*3/uL Absolute Neuts (auto) 8.7 H (2.0-8.3) x10*3/uL Absolute Nucleated RBC 0.000 (0.0-0.012) X10*3/uL Nucleated RBC % (auto) 0.0 (0.0-0.2) /100WBC D-Dimer High Sensitivty NG/ML Sodium 140 (135-145) mmol/L Potassium 4.2 (3.3-5.1) mmol/L Chloride 107 (96-108) mmol/L Carbon Dioxide 22 (22-29) mmol/L Anion Gap 15 (12-20) BUN 10 (9-16) mg/dL Creatinine 0.77 (0.5-1.4) mg/dL Estim Creat Clear Calc 153.9 Estimated GFR > 60 Random Glucose 128 H (60-115) mg/dL Calcium 9.6 (8.4-10.2) mg/dL Magnesium 2.2 (1.6-2.6) mg/dL Total Bilirubin 0.4 (0.0-1.0) mg/dL AST 13 (5-37) U/L ALT 15 (0-40) U/L Alkaline Phosphatase 64 (39-117) U/L Lactate Dehydrogenase 213 (118-273) U/L B-Natriuretic Peptide (<100) pg/mL Total Protein 7.0 D (6.5-8.0) g/dL Albumin 4.6 D (3.5-5.0) g/dL COVID-19 ([facility]) Negative (Negative) COVID-19 Clin Com See Note 01/27/21 01/27/21 Range/Units 18:12 19:46 WBC (4.8-10.8) X10*3/uL RBC (4.60-5.80) X10*6/uL Hgb (14.0-18.0) g/dl Hct (42.0-52.0) % MCV (80.0-98.0) fL MCH (27.0-33.0) pg MCHC (31.0-36.0) g/dl RDW (11.0-16.0) % Plt Count (160-400) X10*3/uL MPV (9.4-12.4) fL Immature Gran % (Auto) (0.0-0.4) % Neut % (Auto) (45-73) % Lymph % (Auto) (20-40) % Wheeler % (Auto) (2-11) % Eos % (Auto) (0-4) % Baso % (Auto) (0-2) % Lymph # (Auto) (1.2-4.9) X10*3/uL Wheeler # (Auto) (0.1-1.2) X10*3/uL Eos # (Auto) (0.0-0.4) X10*3/uL Baso # (Auto) (0.0-0.2) X10*3/uL Abs Immat Gran (auto) (0.00-0.03) X10*3/uL Absolute Neuts (auto) (2.0-8.3) x10*3/uL Absolute Nucleated RBC (0.0-0.012) X10*3/uL Nucleated RBC % (auto) (0.0-0.2) /100WBC D-Dimer High Sensitivty < 150 NG/ML Sodium (135-145) mmol/L Potassium (3.3-5.1) mmol/L Chloride (96-108) mmol/L Carbon Dioxide (22-29) mmol/L Anion Gap (12-20) BUN (9-16) mg/dL Creatinine (0.5-1.4) mg/dL Estim Creat Clear Calc Estimated GFR Random Glucose (60-115) mg/dL Calcium (8.4-10.2) mg/dL Magnesium (1.6-2.6) mg/dL Total Bilirubin (0.0-1.0) mg/dL AST (5-37) U/L ALT (0-40) U/L Alkaline Phosphatase (39-117) U/L Lactate Dehydrogenase (118-273) U/L B-Natriuretic Peptide 10 (<100) pg/mL Total Protein (6.5-8.0) g/dL Albumin (3.5-5.0) g/dL COVID-19 ([facility]) (Negative) COVID-19 Clin Com <Stephon Klein MD - Last Filed: 01/27/21 22:10> Lab Results 01/27/21 01/27/21 01/27/21 Range/Units 18:04 18:11 18:12 WBC 11.3 H (4.8-10.8) X10*3/uL RBC 5.15 (4.60-5.80) X10*6/uL Hgb 15.5 (14.0-18.0) g/dl Hct 44.3 (42.0-52.0) % MCV 86.0 (80.0-98.0) fL MCH 30.1 (27.0-33.0) pg MCHC 35.0 (31.0-36.0) g/dl RDW 12.8 (11.0-16.0) % Plt Count 289 (160-400) X10*3/uL MPV 10.2 (9.4-12.4) fL Immature Gran % (Auto) 1.4 H (0.0-0.4) % Neut % (Auto) 76.7 H (45-73) % Lymph % (Auto) 11.5 L (20-40) % Wheeler % (Auto) 10.0 (2-11) % Eos % (Auto) 0.2 (0-4) % Baso % (Auto) 0.2 (0-2) % Lymph # (Auto) 1.3 (1.2-4.9) X10*3/uL Wheeler # (Auto) 1.1 (0.1-1.2) X10*3/uL Eos # (Auto) 0.0 (0.0-0.4) X10*3/uL Baso # (Auto) 0.0 (0.0-0.2) X10*3/uL Abs Immat Gran (auto) 0.16 H (0.00-0.03) X10*3/uL Absolute Neuts (auto) 8.7 H (2.0-8.3) x10*3/uL Absolute Nucleated RBC 0.000 (0.0-0.012) X10*3/uL Nucleated RBC % (auto) 0.0 (0.0-0.2) /100WBC D-Dimer High Sensitivty NG/ML Sodium 140 (135-145) mmol/L Potassium 4.2 (3.3-5.1) mmol/L Chloride 107 (96-108) mmol/L Carbon Dioxide 22 (22-29) mmol/L Anion Gap 15 (12-20) BUN 10 (9-16) mg/dL Creatinine 0.77 (0.5-1.4) mg/dL Estim Creat Clear Calc 153.9 Estimated GFR > 60 Random Glucose 128 H (60-115) mg/dL Calcium 9.6 (8.4-10.2) mg/dL Magnesium 2.2 (1.6-2.6) mg/dL Total Bilirubin 0.4 (0.0-1.0) mg/dL AST 13 (5-37) U/L ALT 15 (0-40) U/L Alkaline Phosphatase 64 (39-117) U/L Lactate Dehydrogenase 213 (118-273) U/L B-Natriuretic Peptide (<100) pg/mL Total Protein 7.0 D (6.5-8.0) g/dL Albumin 4.6 D (3.5-5.0) g/dL COVID-19 ([facility]) Negative (Negative) COVID-19 Clin Com See Note 01/27/21 01/27/21 Range/Units 18:12 19:46 WBC (4.8-10.8) X10*3/uL RBC (4.60-5.80) X10*6/uL Hgb (14.0-18.0) g/dl Hct (42.0-52.0) % MCV (80.0-98.0) fL MCH (27.0-33.0) pg MCHC (31.0-36.0) g/dl RDW (11.0-16.0) % Plt Count (160-400) X10*3/uL MPV (9.4-12.4) fL Immature Gran % (Auto) (0.0-0.4) % Neut % (Auto) (45-73) % Lymph % (Auto) (20-40) % Wheeler % (Auto) (2-11) % Eos % (Auto) (0-4) % Baso % (Auto) (0-2) % Lymph # (Auto) (1.2-4.9) X10*3/uL Wheeler # (Auto) (0.1-1.2) X10*3/uL Eos # (Auto) (0.0-0.4) X10*3/uL Baso # (Auto) (0.0-0.2) X10*3/uL Abs Immat Gran (auto) (0.00-0.03) X10*3/uL Absolute Neuts (auto) (2.0-8.3) x10*3/uL Absolute Nucleated RBC (0.0-0.012) X10*3/uL Nucleated RBC % (auto) (0.0-0.2) /100WBC D-Dimer High Sensitivty < 150 NG/ML Sodium (135-145) mmol/L Potassium (3.3-5.1) mmol/L Chloride (96-108) mmol/L Carbon Dioxide (22-29) mmol/L Anion Gap (12-20) BUN (9-16) mg/dL Creatinine (0.5-1.4) mg/dL Estim Creat Clear Calc Estimated GFR Random Glucose (60-115) mg/dL Calcium (8.4-10.2) mg/dL Magnesium (1.6-2.6) mg/dL Total Bilirubin (0.0-1.0) mg/dL AST (5-37) U/L ALT (0-40) U/L Alkaline Phosphatase (39-117) U/L Lactate Dehydrogenase (118-273) U/L B-Natriuretic Peptide 10 (<100) pg/mL Total Protein (6.5-8.0) g/dL Albumin (3.5-5.0) g/dL COVID-19 ([facility]) (Negative) COVID-19 Clin Com <RICHA Costa - Last Filed: 01/28/21 11:41> Imaging Data Chest x-ray: Attestation: I personally reviewed and interpreted this imaging study as follows: <RICHA Oliveira Last Filed: 01/27/21 21:37> Radiologist's impression: XR/XR chest 1V IMPRESSION: Redemonstration of blunting of right costophrenic angle suggesting small right pleural effusion. Lungs otherwise remain clear <RICHA Oliveira Last Filed: 01/27/21 21:37> Critical Care Time Critical Care Time Critical Care Time: No <RICHA Oliveira Last Filed: 01/27/21 21:37> Discharge Plan Discharge Clinical Impression: Acute respiratory failure with hypoxia <RICHA Oliveira Last Filed: 01/27/21 21:37> Patient Disposition: Admitted As Inpatient <RICHA Oliveira Last Filed: 01/27/21 21:37> Interventions: Admission Worksheet (ED) Last Done: 01/27/21 23:15 <RICHA Oliveira Last Filed: 01/27/21 21:37> Discharge Date/Time: 01/27/21 23:16 <RICHA Oliveira - Last Filed: 01/27/21 21:37>
[2021-01-27] MEDS: Albuterol Sulfate (0.083%) 2.5 MG/3 ML VIAL.NEB 10 MG INHALE (18:06)
[2021-01-27] MEDS: methylPREDNISolone Sod Succ 125 MG/2 ML VIAL IVPUSH (18:13)
[2021-01-27] MEDS: LORazepam 2 MG/ML VIAL 0.5 MG IVPUSH (18:13)
[2021-01-27] MEDS: Magnesium Sulfate/H2O 2 GM/50 ML PIGGYBACK IV (18:14)
[2021-01-27 18:21] LABS: MANUAL DIFF FLAG NO
[2021-01-27 18:36] LABS: Basophils Percent Auto 0.2 % (0-2); Eosinophils Percent Auto 0.2 % (0-4); Hematocrit 44.3 % (42.0-52.0); Hemoglobin 15.5 g/dl (14.0-18.0); Imm Gran Abs Auto 0.16 X10*3/uL (0.00-0.03); Imm Gran Pct Auto 1.4 % (0.0-0.4); Lymphocytes Absolute Auto 1.3 X10*3/uL (1.2-4.9); Lymphocytes Percent Auto 11.5 % (20-40); Mean Corpuscular Hemoglobin 30.1 pg (27.0-33.0); Mean Platelet Volume 10.2 fL (9.4-12.4); Monocytes Absolute Auto 1.1 X10*3/uL (0.1-1.2); Neutrophils Absolute Auto 8.7 x10*3/uL (2.0-8.3); Neutrophils Percent Auto 76.7 % (45-73); Platelet Count 289 X10*3/uL (160-400); Red Blood Count 5.15 X10*6/uL (4.60-5.80); Red Cell Distribution Width 12.8 % (11.0-16.0); White Blood Count 11.3 X10*3/uL (4.8-10.8)
[2021-01-27 18:46] LABS: Alanine Aminotransferase 15 U/L (0-40); Albumin Level 4.6 g/dL (3.5-5.0); Alkaline Phosphatase 64 U/L (39-117); Anion Gap 15 (12-20); Aspartate Amino Transferase 13 U/L (5-37); Bilirubin Total 0.4 mg/dL (0.0-1.0); Blood Urea Nitrogen 10 mg/dL (9-16); Calcium 9.6 mg/dL (8.4-10.2); Carbon Dioxide 22 mmol/L (22-29); Chloride 107 mmol/L (96-108); Creatinine Clr Calc Pharmacy 153.9; Estimated Glomerular Filt Rate > 60; Glucose Random 128 mg/dL (60-115); Magnesium 2.2 mg/dL (1.6-2.6); Potassium 4.2 mmol/L (3.3-5.1); Sodium 140 mmol/L (135-145)
[2021-01-27 18:48] LABS: COVID-19 Test Negative (Negative)
--- NOTE | 2021-01-27 19:38 | PC.NURSE ---
Per PA, pt documented as being on room air @ 1818. Per PA, pt has not been on room air since his arrival. Pt remains on a NC @ this time @ 2 lpm.
--- NOTE | 2021-01-27 19:49 | PC.NURSE ---
D dimer lab drawn. PT resting in bed comfortably. Finishing neb treatment. PT is still on O2 2L/min via NC.
[2021-01-27 19:54] LABS: Lactate Dehydrogenase 213 U/L (118-273)
[2021-01-27 19:59] LABS: B Type Natriuretic Peptide 10 pg/mL (<100)
[2021-01-27 20:13] LABS: D Dimer High Sensitivity < 150 NG/ML
[2021-01-27] MEDS: Heparin Sodium,Porcine 5,000 UNIT/ML VIAL 5000 UNIT SUBCUT (22:02)
--- NOTE | 2021-01-27 22:21 | P.HPHOSP_ITS ---
History of Present Illness Date of Service: 01/27/21 Chief Complaint: SOB This is a 32-year-old male with past medical history of asthma exacerbation, and acute on chronic respiratory failure who is very well known to this service presents to the hospital with complaints of shortness of breath. Patient reports symptoms for the past 2 days, cough, wheezing, sputum production, no fever or chills, no chest pain, no abdominal pain nausea or vomiting. He initially presented to the hospital the night prior, was treated with Solu- Medrol, given prednisone and sent home but comes back stating that his symptoms did not improve. Has no diarrhea constipation, no urinary symptoms. On arrival to the ED patient hemodynamically stable found to have hypoxia with an 80% oxygen on room air. Patient's labs are significant for WBC count of 11.3 otherwise unremarkable. COVID negative. BNP negative, D-dimer negative, sign chest x-ray shows redemonstration of blunting of right costophrenic angle suggesting small right pleural effusion. Patient given breathing treatment, Solu-Medrol will be admitted for further man agement Review of Systems Review of Systems: Yes all other systems are reviewed and are negative [facility] Medical History Acute respiratory failure with hypoxia Allergic asthma Anxiety Asthma Asthmaticus, status PTSD (post-traumatic stress disorder) Pertinent family history: No family history of cardiovascular disease Surgical History History of amputation Social History Household Members: Other Household Members Other:: Dogs Housing: House Do you presently have visiting nurse or other home services: No Alcohol intake: current Alcohol intake frequency: holidays/special occasions only Patient Tobacco Use Status: Never used Tobacco Second Hand Smoke Exposure: No Use of substances other than those prescribed or required for medical reasons: Yes Substance Use Type: Marijuana Substance Use Frequency: Occasionally Last Used Substance: Just Prior to Admission Currently Displaying Signs/Symptoms of Drug Intoxication Withdrawal: No Have you been hit, kicked, punched, or otherwise hurt by someone within the past year? If so, by whom?: No Do you feel safe in your current relationship?: No Current Relationship Is there a partner from a previous relationship who is making you feel unsafe now?: No Are you made to feel afraid or neglected: No Advance Directives: No Advance Directives Information Provided: No Do you have thoughts of harming others: None Do you have a plan to hurt others: No Plan Recently lost weight without trying: No How much weight loss: Unsure Eating poorly because of decreased appetite: No Nutrition screen score: 2 Nutrition Risks: No Nutritional Risk service: Yes Current occupational status: retired and disabled Meds Allergies Allergy/AdvReac Type Severity Reaction Status Date / Time ibuprofen [IBUPROFEN] Allergy Intermediate Difficulty Verified 01/26/21 23:36 Breathing shellfish derived Allergy Mild SWELLING Verified 01/26/21 23:36 aspirin [ASA] Allergy Unknown DIFFICULTY Verified 01/26/21 23:36 BREATHING albuterol AdvReac Mild Gas Verified 01/26/21 23:36 exchange problems sertraline AdvReac Nausea Verified 01/26/21 23:36 nsaids Allergy Unknown Difficulty Uncoded 01/26/21 23:36 Breathing nucala Allergy Unknown shortness Uncoded 01/26/21 23:36 of breath Active Medications: Current Medications Acetaminophen (Acetaminophen 325 Mg Tablet) 650 mg PO Q6H PRN PRN Reason: Pain, Mild (Pain Scale 1-3) Albuterol/Ipratropium (Albuterol/Iprat 2.5/0.5mg 3 Ml Ampul.Neb) 3 ml INHALE Q4H PRN PRN Reason: Shortness of Breath/Wheezing Albuterol/Ipratropium (Albuterol/Iprat 2.5/0.5mg 3 Ml Ampul.Neb) 3 ml INHALE RQ4H WHILE AWAKE [facility] Docusate Sodium (Docusate Sodium 100 Mg Capsule) 100 mg PO DAILY PRN PRN Reason: Constipation Heparin Sodium (Porcine) (Heparin Sodium,Porcine 5,000 Unit/Ml Vial) 5,000 unit SUBCUT Q12H [facility] Last Admin: 01/27/21 22:02 Dose: 5,000 unit Documented by: Methylprednisolone Sodium Succinate (Methylprednisolone Sod Succ 40 Mg/Ml Vial) 40 mg IVPUSH Q12H BATSHEVA Ondansetron HCl (Ondansetron Hcl 4 Mg/2 Ml Vial) 4 mg IVPUSH Q8H PRN PRN Reason: Nausea and Vomiting Pharmacy Consult (Consult Rx Perform Med Rec) 1 each MISCELLANE ONCE PRN PRN Reason: Consult order Sodium Chloride (0.9 % Sodium Chloride Flush 3 Ml Syringe) 3 ml IVFLUSH HIFT [facility] Home Medications Medication Instructions Recorded Confirmed Last Taken Type hydroxyzine HCl 50 mg tablet 50 mg PO TID PRN 11/02/20 01/27/21 Unknown History mometasone 1 inh INHALATION DAILY 11/02/20 01/27/21 Unknown History acetylcysteine 600 mg capsule (NAC) 600 mg PO DAILY 12/21/20 01/27/21 12/21/20 History albuterol sulfate 2.5 mg/0.5 mL 2.5 mg INHALATION QID PRN 12/21/20 01/27/21 Unknown History solution for nebulization ascorbic acid (vitamin C) 500 mg 500 mg PO DAILY 12/21/20 01/27/21 12/21/20 History tablet (Vitamin C) cetirizine 10 mg tablet 10 mg PO DAILY 12/21/20 01/27/21 12/21/20 History cholecalciferol (vitamin D3) 25 25 mcg PO DAILY 12/21/20 01/27/21 12/21/20 History mcg (1,000 unit) tablet (Vitamin D3) magnesium oxide 400 mg PO DAILY 12/21/20 01/27/21 12/21/20 History tiotropium bromide 2.5 2 puff INHALATION DAILY 12/21/20 01/27/21 12/21/20 History mcg/actuation mist for inhalation (Spiriva Respimat) zinc sulfate 220 mg capsule 220 mg PO DAILY 12/21/20 01/27/21 12/21/20 History Physical Exam Vital Signs and Narrative: Vital Signs: Last Vital Signs Temp 97.9 F 01/27/21 17:46 Pulse 90 01/27/21 21:55 Resp 16 01/27/21 21:55 BP 116/77 01/27/21 21:55 Pulse Ox 96 01/27/21 21:55 Oxygen Flow Rate 2 01/27/21 17:46 Body Mass Index 27.1 Const: Other: Appears comfortable in no respiratory distress General: cooperative and no acute distress Orientation/consciousness: patient oriented x3 Eyes: General: appearance normal, both eyes and all related structures Resp: Other: Expiratory wheezing Effort & Inspection: normal respiratory effort Cardio: Rate: regular rate Rhythm: regular rhythm GI: Palpation (GI): Soft to palpation Auscultation: normal bowel sounds Skin: General skin exam: no rashes or lesions noted Neuro: General: patient oriented x3 Cognition (Neuro): normal cognition Extrem: General: Yes normal to inspection and Yes no pedal edema Results Labs CBC and Chem 7: 01/27/21 18:12 01/27/21 18:11 Labs: Laboratory Results - last 24 hr 01/27/21 01/27/21 01/27/21 18:04 18:11 18:12 MCV 86.0 MCH 30.1 MCHC 35.0 RDW 12.8 Plt Count 289 MPV 10.2 Immature Gran % (Auto) 1.4 H Neut % (Auto) 76.7 H Lymph % (Auto) 11.5 L [place] % (Auto) 10.0 Eos % (Auto) 0.2 Baso % (Auto) 0.2 Lymph # (Auto) 1.3 [place] # (Auto) 1.1 Eos # (Auto) 0.0 Baso # (Auto) 0.0 Abs Immat Gran (auto) 0.16 H Absolute Neuts (auto) 8.7 H Absolute Nucleated RBC 0.000 Nucleated RBC % (auto) 0.0 D-Dimer High Sensitivty Anion Gap 15 Estim Creat Clear Calc 153.9 Estimated GFR > 60 Random Glucose 128 H Calcium 9.6 Magnesium 2.2 Total Bilirubin 0.4 AST 13 ALT 15 Alkaline Phosphatase 64 Lactate Dehydrogenase 213 B-Natriuretic Peptide Total Protein 7.0 D Albumin 4.6 D COVID-19 (OZIEL) Negative COVID-19 Clin Com See Note 01/27/21 01/27/21 18:12 19:46 MCV MCH MCHC RDW Plt Count MPV Immature Gran % (Auto) Neut % (Auto) Lymph % (Auto) [place] % (Auto) Eos % (Auto) Baso % (Auto) Lymph # (Auto) [place] # (Auto) Eos # (Auto) Baso # (Auto) Abs Immat Gran (auto) Absolute Neuts (auto) Absolute Nucleated RBC Nucleated RBC % (auto) D-Dimer High Sensitivty < 150 Anion Gap Estim Creat Clear Calc Estimated GFR Random Glucose Calcium Magnesium Total Bilirubin AST ALT Alkaline Phosphatase Lactate Dehydrogenase B-Natriuretic Peptide 10 Total Protein Albumin COVID-19 (OZIEL) COVID-19 Clin Com Imaging Radiologist's Impressions: Impressions Chest X-Ray 01/27/21 17:49 IMPRESSION: Redemonstration of blunting of right costophrenic angle suggesting small right pleural effusion. Lungs otherwise remain clear. Assessment and Plan (1) Acute respiratory failure with hypoxia: Status: Acute (2) Asthma exacerbation: Status: Acute 41-year-old male with past medical history Of asthma presents to the hospital with complaints of shortness of breath found to be hypoxic # acute hypoxic respiratory failure - secondary to asthma exacerbation, no evidence of PE as D-dimer is negative, no evidence of pneumonia on chest x-ray. COVID negative. BNP negative - Solu-Medrol for asthma exacerbation, breathing treatment, oxygen as required - titrate oxygen off as tolerated # asthma exacerbation - will start him on Solu-Medrol b.i.d. - DuoNeb p.r.n. as well as scheduled - oxygen as needed # severe anxiety - patient is known to the service and usually develops severe anxiety around his asthma attack - will do p.r.n. Ativan and morphine as needed DVT prophylaxis: [employer] Quality Stroke Does the patient have a stroke diagnosis?: No VTE Prior VTE?: No VTE Risk Level:: Medical - moderate - high VTE Device Contraindication: Treatment Not Indicated VTE Drug Contraindication: N/A - Med Ordered
--- NOTE | 2021-01-27 22:54 | PC.NURSE ---
Report given to RN on IMC.
[2021-01-28] VITALS (14 sets, daily range): BP systolic 122–156; BP diastolic 67–90; PULSE 88–148; RESP 13–22; TEMP 36.4–36.9; O2SAT 90–97
[2021-01-28] MEDS: Albuterol/Iprat 2.5/0.5MG 3 ML AMPUL.NEB INHALE ×6 (00:13→19:38)
[2021-01-28] MEDS: 0.9 % Sodium Chloride Flush 3 ML SYRINGE IVFLUSH ×4 (00:21→19:28)
[2021-01-28] MEDS: hydrOXYzine HCL 50 MG TABLET PO (02:09)
[2021-01-28] MEDS: Morphine Sulfate 4 MG/ML CARTRIDGE IVPUSH (02:10)
[2021-01-28] MEDS: LORazepam 2 MG/ML VIAL 0.5 MG IVPUSH (02:16)
--- NOTE | 2021-01-28 02:34 | PC.NURSE ---
Around 1:10 pt started complaining of increasing SOB. O2 increased to 3L via nasal canula and then changed to venti 3L 35%. Pt was satting at 93% without change along with an increasing heart rate Respiratory took a look and began duoneb treatment. Overnight hospitalist notified about changes and came to see pt. Orders for Ativan, Morphine, and atarax were put in and given. pt. O2 maintains at 93% O2 and HR 141 currently
[2021-01-28] MEDS: methylPREDNISolone Sod Succ 40 MG/ML VIAL IVPUSH ×2 (06:11→18:30)
[2021-01-28 06:17] LABS: Basophils Absolute Auto 0.1 X10*3/uL (0.0-0.2); Basophils Percent Auto 0.5 % (0-2); Eosinophils Absolute Auto 0.1 X10*3/uL (0.0-0.4); Eosinophils Percent Auto 0.6 % (0-4); Hematocrit 47.9 % (42.0-52.0); Hemoglobin 16.2 g/dl (14.0-18.0); Imm Gran Abs Auto 0.14 X10*3/uL (0.00-0.03); Imm Gran Pct Auto 0.9 % (0.0-0.4); Lymphocytes Absolute Auto 3.3 X10*3/uL (1.2-4.9); Lymphocytes Percent Auto 21.9 % (20-40); MANUAL DIFF FLAG SCAN; Mean Corpuscular HGB Conc 33.8 g/dl (31.0-36.0); Mean Corpuscular Hemoglobin 29.6 pg (27.0-33.0); Mean Corpuscular Volume 87.6 fL (80.0-98.0); Mean Platelet Volume 10.1 fL (9.4-12.4); Monocytes Absolute Auto 1.8 X10*3/uL (0.1-1.2); Monocytes Percent Auto 11.8 % (2-11); Neutrophils Absolute Auto 9.5 x10*3/uL (2.0-8.3); Neutrophils Percent Auto 64.3 % (45-73); Platelet Count 335 X10*3/uL (160-400); Red Blood Count 5.47 X10*6/uL (4.60-5.80); SCAN SMEAR FLAG 1; White Blood Count 14.8 X10*3/uL (4.8-10.8)
[2021-01-28 06:43] LABS: SLIDE REVIEW VERIFIED
--- NOTE | 2021-01-28 06:44 | P.EN_ITS ---
Event Note Date of Service: 01/28/21 Event Note: Her after being admitted, patient developed severe respiratory dis tress, sitting in bed, tachypneic, tachycardic. Initially given morphine hydroxyzine with some relief, the patient is very anxious, given 1 dose of IV Ativan. Patient placed on CPAP temp early as this method has helped before and he has improved significantly.
[2021-01-28 06:47] LABS: Anion Gap 15 (12-20); Blood Urea Nitrogen 11 mg/dL (9-16); Calcium 9.5 mg/dL (8.4-10.2); Carbon Dioxide 23 mmol/L (22-29); Chloride 110 mmol/L (96-108); Creatinine Clr Calc Pharmacy 137.8; Estimated Glomerular Filt Rate > 60; Glucose Random 107 mg/dL (60-115); Potassium 4.1 mmol/L (3.3-5.1); Sodium 144 mmol/L (135-145)
[2021-01-28] MEDS: Heparin Sodium,Porcine 5,000 UNIT/ML VIAL 5000 UNIT SUBCUT (09:50)
--- NOTE | 2021-01-28 10:50 | HO.PM.IMPN ---
Subjective Subjective Date of Service: 01/28/21 Interval History: placed on CPAP overnight for dyspnea, tachypnea feels better now coughing yellow sputum Review of Systems Review of Systems: Yes all other systems are reviewed and are negative Physical Exam Vital Signs: Vital Signs: Last Vital Signs Temp 98.5 F 01/28/21 08:00 Pulse 127 H 01/28/21 08:00 Resp 20 01/28/21 08:00 BP 156/90 H 01/28/21 08:00 Pulse Ox 95 01/28/21 08:00 Oxygen Flow Rate 2 01/27/21 17:46 Body Mass Index 25.6 Gen: anxious HEENT: sclera anicteric, moist mucus membranes Neck: supple Lungs: soft end-exp wheezes at bases bilaterally Heart: regular rate and rhythm, no murmurs Abd: soft, non-tender, non-distended Ext: no edema Skin: warm/well-perfused Neuro: alert and oriented x3, no focal findings Psych: appropriate affect Objective Data Active Medications Acetaminophen (Acetaminophen 325 Mg Tablet) 650 mg PO Q6H PRN PRN Reason: Pain, Mild (Pain Scale 1-3) Albuterol/Ipratropium (Albuterol/Iprat 2.5/0.5mg 3 Ml Ampul.Neb) 3 ml INHALE Q4H PRN PRN Reason: Shortness of Breath/Wheezing Last Admin: 01/28/21 01:52 Dose: 3 ml Documented by: YOSVANY Albuterol/Ipratropium (Albuterol/Iprat 2.5/0.5mg 3 Ml Ampul.Neb) 3 ml INHALE RQ4H WHILE AWAKE [facility] Last Admin: 01/28/21 07:57 Dose: Not Given Documented by: FIORELLA Non-Admin Reason: given at 0555 Docusate Sodium (Docusate Sodium 100 Mg Capsule) 100 mg PO DAILY PRN PRN Reason: Constipation Heparin Sodium (Porcine) (Heparin Sodium,Porcine 5,000 Unit/Ml Vial) 5,000 unit SUBCUT Q12H [facility] Last Admin: 01/28/21 09:50 Dose: 5,000 unit Documented by: KENIA Hydroxyzine HCl (Hydroxyzine Hcl 50 Mg Tablet) 50 mg PO Q6H PRN PRN Reason: anxiety/restlessness Last Admin: 01/28/21 02:09 Dose: 50 mg Documented by: FERNANDO Lorazepam (Lorazepam 2 Mg/Ml Vial) 0.5 mg IVPUSH Q4H PRN PRN Reason: Anxiety Last Admin: 01/28/21 02:16 Dose: 0.5 mg Documented by: FERNANDO Methylprednisolone Sodium Succinate (Methylprednisolone Sod Succ 40 Mg/Ml Vial) 40 mg IVPUSH Q12H [facility] Last Admin: 01/28/21 06:11 Dose: 40 mg Documented by: FERNANDO Morphine Sulfate (Morphine Sulfate 4 Mg/Ml Cartridge) 4 mg IVPUSH Q4H PRN; Protocol PRN Reason: shortness of breathj Ondansetron HCl (Ondansetron Hcl 4 Mg/2 Ml Vial) 4 mg IVPUSH Q8H PRN PRN Reason: Nausea and Vomiting Pharmacy Consult (Consult Rx Perform Med Rec) 1 each MISCELLANE ONCE PRN PRN Reason: Consult order Sodium Chloride (0.9 % Sodium Chloride Flush 3 Ml Syringe) 3 ml IVFLUSH QSHIFT [facility] Last Admin: 01/28/21 09:52 Dose: 3 ml Documented by: KENIA Labs CBC & Chem 7: 01/28/21 05:49 01/28/21 05:49 Labs: Laboratory Results - last 24 hr 01/27/21 01/27/21 01/27/21 18:04 18:11 18:12 MCV 86.0 MCH 30.1 MCHC 35.0 RDW 12.8 Plt Count 289 MPV 10.2 Immature Gran % (Auto) 1.4 H Neut % (Auto) 76.7 H Lymph % (Auto) 11.5 L [place] % (Auto) 10.0 Eos % (Auto) 0.2 Baso % (Auto) 0.2 Lymph # (Auto) 1.3 [place] # (Auto) 1.1 Eos # (Auto) 0.0 Baso # (Auto) 0.0 Abs Immat Gran (auto) 0.16 H Absolute Neuts (auto) 8.7 H Absolute Nucleated RBC 0.000 Nucleated RBC % (auto) 0.0 Smear Tech's Comments D-Dimer High Sensitivty Anion Gap 15 Estim Creat Clear Calc 153.9 Estimated GFR > 60 Random Glucose 128 H Calcium 9.6 Magnesium 2.2 Total Bilirubin 0.4 AST 13 ALT 15 Alkaline Phosphatase 64 Lactate Dehydrogenase 213 B-Natriuretic Peptide Total Protein 7.0 D Albumin 4.6 D COVID-19 (OZIEL) Negative COVID-19 Clin Com See Note 01/27/21 01/27/21 01/28/21 18:12 19:46 05:49 MCV 87.6 MCH 29.6 MCHC 33.8 RDW 13.0 Plt Count 335 MPV 10.1 Immature Gran % (Auto) 0.9 H Neut % (Auto) 64.3 Lymph % (Auto) 21.9 [place] % (Auto) 11.8 H Eos % (Auto) 0.6 Baso % (Auto) 0.5 Lymph # (Auto) 3.3 [place] # (Auto) 1.8 H Eos # (Auto) 0.1 Baso # (Auto) 0.1 Abs Immat Gran (auto) 0.14 H Absolute Neuts (auto) 9.5 H Absolute Nucleated RBC 0.000 Nucleated RBC % (auto) 0.0 Smear Tech's Comments VERIFIED D-Dimer High Sensitivty < 150 Anion Gap Estim Creat Clear Calc Estimated GFR Random Glucose Calcium Magnesium Total Bilirubin AST ALT Alkaline Phosphatase Lactate Dehydrogenase B-Natriuretic Peptide 10 Total Protein Albumin COVID-19 (OZIEL) COVID-19 Clin Com 01/28/21 05:49 MCV MCH MCHC RDW Plt Count MPV Immature Gran % (Auto) Neut % (Auto) Lymph % (Auto) [place] % (Auto) Eos % (Auto) Baso % (Auto) Lymph # (Auto) [place] # (Auto) Eos # (Auto) Baso # (Auto) Abs Immat Gran (auto) Absolute Neuts (auto) Absolute Nucleated RBC Nucleated RBC % (auto) Smear Tech's Comments D-Dimer High Sensitivty Anion Gap 15 Estim Creat Clear Calc 137.8 Estimated GFR > 60 Random Glucose 107 Calcium 9.5 Magnesium Total Bilirubin AST ALT Alkaline Phosphatase Lactate Dehydrogenase B-Natriuretic Peptide Total Protein Albumin COVID-19 (OZIEL) COVID-19 [facility] Assessment and Plan (1) Acute respiratory failure with hypoxia: Status: Resolved (2) Asthma exacerbation: Status: Acute Assessment and Plan: hospital d#2 41yo M with allergic asthma, 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
--- NOTE | 2021-01-28 11:26 | PHA.MEDREC ---
Pharmacy Consult ? Medication Reconciliation Pharmacy has completed the medication reconciliation. Pt switched from lorazepam to alprazolam and from albuterol nebs to levalbuterol nebs due to high heart rate
[2021-01-28 11:30] LABS: Procalcitonin 0.02 ng/mL
--- NOTE | 2021-01-28 12:48 | MHC.CM.PN ---
CM MET WITH PT WHO REPORTS NOTHING HAS CHANGED SINCE HIS LAST ADMISSION EXCEPT HIS PCP. HE REPORTS HE HAD REQUESTED TO CHANGE PROVIDERS AND AFTER THAT THE MD HE WAS SEEING DROPPED HIM . PT REPORTS HE WAS ABLE TO MAKE A NEW PT APPT WITH DR BULL WHO IS ALSO AT THE [place]. PT LIVES ALONE AND IS FULLY INDEPENDENT PT HAS A FULLY ACCESSIBLE HOME AND USES A WHEEL CHAIR WELL OXYGEN AT NIGHT. PT WAS INFORMED A NEBULIZER WOULD BE DELIVERED TO HIM TWO ADMISSIONS AGO HOWEVER REPORTS HE STILL HAS NOT RECEIVED ONE. HE REPORTS SOMEONE BROUGHT AN AEROGEN NEBULIZER TO HIS ROOM LAST NIGHT AND HE IS HOPING HE WILL GET SOMETHING LIKE THAT AT [place]. PT HAS A HCP ON FILE NAMING HIS FATHER HIS AGENT. PT CONFIRMS THIS IS UP TO DATE. MEDICARE AND [employer] RIGHT[employer] DELIVERED CURRENT [place] PLAN IS HOME WITH NO SERVICES AND A NEBULIZER FAMILY TO TRANSPORT
[2021-01-28 13:42] LABS: Adenovirus PCR Not Detected (Not Detect.); Bordetella parapertussis PCR Not Detected (Not Detect.); Bordetella pertussis PCR Not Detected (Not Detect.); Chlamydia pneumoniae PCR Not Detected (Not Detect.); Coronavirus 229E PCR Not Detected (Not Detect.); Coronavirus HKU1 PCR Not Detected (Not Detect.); Coronavirus NL63 PCR Not Detected (Not Detect.); Coronavirus OC43 PCR Not Detected (Not Detect.); Human metapneumovirus PCR Not Detected (Not Detect.); Influenza A PCR Not Detected (Not Detect.); Influenza B PCR Not Detected (Not Detect.); Mycoplasma pneumoniae PCR Not Detected (Not Detect.); Parainfluenza 1 PCR Not Detected (Not Detect.); Parainfluenza 2 PCR Not Detected (Not Detect.); Parainfluenza 3 PCR Not Detected (Not Detect.); Parainfluenza 4 PCR Not Detected (Not Detect.); RSV PCR Not Detected (Not Detect.); Rhino/Enterovirus PCR Not Detected (Not Detect.); SARS-CoV-2 PCR Not Detected (Not Detect.)
[2021-01-29] VITALS (11 sets, daily range): BP systolic 125–149; BP diastolic 71–81; PULSE 79–121; RESP 18–20; TEMP 36.4–37; O2SAT 94–99
[2021-01-29] MEDS: Albuterol/Iprat 2.5/0.5MG 3 ML AMPUL.NEB INHALE ×6 (02:55→19:06)
[2021-01-29] MEDS: Morphine Sulfate 4 MG/ML CARTRIDGE IVPUSH ×2 (02:55→15:03)
[2021-01-29] MEDS: LORazepam 2 MG/ML VIAL 0.5 MG IVPUSH ×2 (03:06→16:13)
[2021-01-29] MEDS: methylPREDNISolone Sod Succ 40 MG/ML VIAL IVPUSH (03:11)
[2021-01-29] MEDS: Ascorbic Acid 500 MG TABLET PO (10:00)
[2021-01-29] MEDS: Magnesium Oxide 400 MG TABLET PO (10:00)
[2021-01-29] MEDS: 0.9 % Sodium Chloride Flush 3 ML SYRINGE IVFLUSH ×3 (10:00→20:19)
[2021-01-29] MEDS: Zinc Sulfate 220 MG CAPSULE PO (10:00)
--- NOTE | 2021-01-29 11:56 | P.PNIM_ITS ---
Subjective Subjective Date of Service: 01/29/21 Interval History: breathing + anxiety improved Review of Systems Review of Systems: Yes all other systems are reviewed and are negative Physical Exam Vital Signs: Vital Signs: Last Vital Signs Temp 97.6 F 01/29/21 11:14 Pulse 89 01/29/21 11:27 Resp 18 01/29/21 11:14 BP 125/72 01/29/21 11:14 Pulse Ox 94 01/29/21 11:14 Oxygen Flow Rate 2 01/27/21 17:46 Body Mass Index 25.6 Gen: anxious HEENT: sclera anicteric, moist mucus membranes Neck: supple Lungs: soft end-exp wheezes at bases bilaterally Heart: regular rate and rhythm, no murmurs Abd: soft, non-tender, non-distended Ext: no edema, L BKA Skin: warm/well-perfused Neuro: alert and oriented x3, no focal findings Psych: appropriate affect Objective Data Active Medications Acetaminophen (Acetaminophen 325 Mg Tablet) 650 mg PO Q6H PRN PRN Reason: Pain, Mild (Pain Scale 1-3) Albuterol/Ipratropium (Albuterol/Iprat 2.5/0.5mg 3 Ml Ampul.Neb) 3 ml INHALE Q4H PRN PRN Reason: Shortness of Breath/Wheezing Last Admin: 01/29/21 02:55 Dose: 3 ml Documented by: SAVAGE Albuterol/Ipratropium (Albuterol/Iprat 2.5/0.5mg 3 Ml Ampul.Neb) 3 ml INHALE RQ4H WHILE AWAKE [facility] Last Admin: 01/29/21 11:25 Dose: 3 ml Documented by: NEHA Ascorbic Acid (Ascorbic Acid 500 Mg Tablet) 500 mg PO DAILY [facility] Last Admin: 01/29/21 10:00 Dose: 500 mg Documented by: PK Docusate Sodium (Docusate Sodium 100 Mg Capsule) 100 mg PO DAILY PRN PRN Reason: Constipation Enoxaparin Sodium (Enoxaparin Sodium 40 Mg/0.4 Ml Syringe) 40 mg SUBCUT Q24H [facility] Last Admin: 01/29/21 11:32 Dose: Not Given Documented by: PK Non-Admin Reason: Patient Refused Hydroxyzine HCl (Hydroxyzine Hcl 50 Mg Tablet) 50 mg PO Q6H PRN PRN Reason: anxiety/restlessness Last Admin: 01/28/21 02:09 Dose: 50 mg Documented by: FERNANDO Lorazepam (Lorazepam 2 Mg/Ml Vial) 0.5 mg IVPUSH Q4H PRN PRN Reason: Anxiety Last Admin: 01/29/21 03:06 Dose: 0.5 mg Documented by: SAVAGE Magnesium Oxide (Magnesium Oxide 400 Mg Tablet) 400 mg PO DAILY [facility] Last Admin: 01/29/21 10:00 Dose: 400 mg Documented by: PK Morphine Sulfate (Morphine Sulfate 4 Mg/Ml Cartridge) 4 mg IVPUSH Q4H PRN; Protocol PRN Reason: shortness of breathj Last Admin: 01/29/21 02:55 Dose: 4 mg Documented by: SAVAGE Ondansetron HCl (Ondansetron Hcl 4 Mg/2 Ml Vial) 4 mg IVPUSH Q8H PRN PRN Reason: Nausea and Vomiting Pharmacy Consult (Consult Rx Perform Med Rec) 1 each MISCELLANE ONCE PRN PRN Reason: Consult order Prednisone (Prednisone 20 Mg Tablet) 40 mg PO DAILY [facility] Sodium Chloride (0.9 % Sodium Chloride Flush 3 Ml Syringe) 3 ml IVFLUSH QSHIFT [facility] Last Admin: 01/29/21 10:00 Dose: 3 ml Documented by: PK Tiotropium [place] (Tiotropium [place] 18 Mcg Cap.W.Dev) 1 puff INHALE DAILY [facility] Last Admin: 01/29/21 07:55 Dose: 1 puff Documented by: NEHA Zinc Sulfate (Zinc Sulfate 220 Mg Capsule) 220 mg PO DAILY [facility] Last Admin: 01/29/21 10:00 Dose: 220 mg Documented by: PK Labs CBC & Chem 7: 01/28/21 05:49 01/28/21 05:49 Labs: Laboratory Results - last 24 hr 01/28/21 13:08 Respiratory Panel Reeder See Note Adenovirus (Rapid PCR) Not Detected B.pert (TEM-PCR) Not Detected B.parapertussis DNA PCR Not Detected C. pneumoniae DNA (PCR) Not Detected Coronavirus OC43 (PCR) Not Detected Coronavirus HKU1 (PCR) Not Detected Coronavirus 229E (PCR) Not Detected Coronavirus NL63 (PCR) Not Detected Human Metapneumovir PCR Not Detected Influenza A (RT-PCR) Not Detected Influenza B (RT-PCR) Not Detected M. 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
[2021-01-30] MEDS: methylPREDNISolone Sod Succ 125 MG/2 ML VIAL 60 MG IVPUSH (00:26)
[2021-01-30] MEDS: Albuterol/Iprat 2.5/0.5MG 3 ML AMPUL.NEB INHALE ×3 (00:26→11:16)
[2021-01-30] MEDS: Morphine Sulfate 4 MG/ML CARTRIDGE IVPUSH (00:27)
[2021-01-30] MEDS: LORazepam 2 MG/ML VIAL 0.5 MG IVPUSH (00:28)
[2021-01-30 04:00] VITALS: BP 137/76; PULSE 85; RESP 18; TEMP 37.1; O2SAT 97
[2021-01-30 07:45] VITALS: PULSE 78; O2SAT 93
[2021-01-30 07:51] VITALS: BP 142/72; PULSE 84; RESP 18; TEMP 36.5; O2SAT 94
[2021-01-30] MEDS: Zinc Sulfate 220 MG CAPSULE PO (09:10)
[2021-01-30] MEDS: 0.9 % Sodium Chloride Flush 3 ML SYRINGE IVFLUSH (09:10)
[2021-01-30] MEDS: Ascorbic Acid 500 MG TABLET PO (09:10)
[2021-01-30] MEDS: Magnesium Oxide 400 MG TABLET PO (09:11)
[2021-01-30] MEDS: predniSONE 20 MG TABLET 40 MG PO (09:11)
[2021-01-30 11:18] VITALS: PULSE 75; O2SAT 95
[2021-01-30 11:27] VITALS: BP 135/74; PULSE 90; RESP 18; TEMP 36.5; O2SAT 94
--- NOTE | 2021-01-30 12:48 | W.MHC.F2F ---
Service Date Service Date: 01/30/21 Encounter Date of encounter: 01/30/21 Reasons for Services Reason for residential: medication treatment, teach disease management and other Reason for physical therapy: home safety and mobility, therapeutic exercises, gait/transfer training, assess need for DME, ADL training, energy conservation and other (respiratory assessment/pulmonary rehabilitation) MD Overseeing Care: Earle Montano Homebound: Leaving the home is medically contraindicated at this time without the asist of a device and/or another person due th the listed conditions above and below. Reason homebound: shortness of breath with minimal effort and weakness related to hospital stay Certification: Based on the above findings, I certify that this patient is confined to the home and needs intermittent residential care, physical therapy and/or speech therapy, or continues to need occupational therapy. The patient is under my care, and I have initiated the establishment of the plan of care. The patient will be followed by a physician who will periodically review the plan of care.
--- NOTE | 2021-01-30 12:50 | P.DS_ITS ---
DS: Providers Provider Date of Service: 01/30/21 Date of admission: 01/27/21 20:58 Primary care physician: Earle Montano DS: Diagnosis Discharge Diagnosis (1) Acute respiratory failure with hypoxia: Status: Resolved (2) Asthma exacerbation: Status: Acute DS: Summary Hospital Course Hospital Course: from admission H+P by hospitalist Isabella Mccray, 01/27/21: This is a 32-year-old male with past medical history of asthma exacerbation, and acute on chronic respiratory failure who is very well known to this service presents to the hospital with complaints of shortness of breath.? Patient reports symptoms for the past 2 days, cough, wheezing, sputum production, no fever or chills, no chest pain, no abdominal pain nausea or vomiting.? He initially presented to the hospital the night prior, was treated with Solu- Medrol, given prednisone and sent home but comes back stating that his symptoms did not improve.? Has no diarrhea constipation, no urinary symptoms. On arrival to the ED patient hemodynamically stable found to have hypoxia with an 80% oxygen on room air.? Patient's labs are significant for WBC count of 11.3 otherwise unremarkable.? COVID negative.? BNP negative, D-dimer negative, sign chest x-ray shows rede monstration of blunting of right costophrenic angle suggesting small right pleural effusion. 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 He was treated with IV, then PO steroids, along with nebulizer treatments. He was weaned off of oxygen. Nebulizer was prescribed for home use and set up through Respiratory Therapy. He will have to reschedule his sleep study, which he missed due to the admission. VNA services will be arranged for respiratory symptom monitoring and pulmonary rehabilitation. Time Spent with Patient Time attestation: Total time spent providing and/or coordinating discharge services: Discharge coordination time: Greater than 30 minutes Quality: Stroke Does the patient have a stroke diagnosis?: No Physical Exam Vital Signs: Vital Signs: Last Vital Signs Temp 97.7 F 01/30/21 11:27 Pulse 90 01/30/21 11:27 Resp 18 01/30/21 11:27 BP 135/74 01/30/21 11:27 Pulse Ox 94 11/23/21 11:27 Oxygen Flow Rate 2 01/27/21 17:46 Body Mass Index 25.6 Gen: anxious HEENT: sclera anicteric, moist mucus membranes Neck: supple Lungs: soft end-exp wheezes at bases bilaterally Heart: regular rate and rhythm, no murmurs Abd: soft, non-tender, non-distended Ext: no edema, L BKA Skin: warm/well-perfused Neuro: alert and oriented x3, paraplegia Psych: appropriate affect DS: Data Data Completed and Pending Completed studies during hospitalization [Text1]: Procedures Assistance with Respiratory Ventilation, Less than 24 Consecutive Hours, Continuous Positive Airway Pressure (12/21/20) Discharge Plan Discharge Patient Disposition: Home Health Service Discharge Diagnosis: asthma exacerbation Referrals: Razia Davenport [Outside] - 1 Week Earle Montano [Primary Care Provider] - 1 Week Discharge Medications: New prednisone 10 mg tablet See Rx Instructions .ROUTE .COMPLEX Qty: 15 RF: 0 Continued albuterol sulfate 90 mcg/actuation HFA aerosol inhaler 2 puff inhalation Q4-6H PRN (Reason: shortness of breath or wheezing) Qty: 8.5 RF: 0 hydroxyzine HCl 50 mg Tablet 50 mg PO TID PRN (Reason: Itching) RF: 0 mometasone 220 mcg/ actuation (30) Aerosol Powdr Breath Activated 1 inh INHALATION DAILY RF: 0 cetirizine 10 mg Tablet 10 mg PO DAILY RF: 0 ascorbic acid (vitamin C) [Vitamin C] 500 mg Tablet 500 mg PO DAILY RF: 0 zinc sulfate 220 mg Capsule 220 mg PO DAILY RF: 0 cholecalciferol (vitamin D3) [Vitamin D3] 25 mcg (1,000 unit) Tablet 25 mcg PO DAILY RF: 0 magnesium oxide 400 mg magnesium Tablet 400 mg PO DAILY RF: 0 levalbuterol HCl 0.63 mg/3 mL solution for nebulization 0.63 mg inhalation Q4H PRN (Reason: Shortness Of Breath Or Wheezing) RF: 0 Spiriva with HandiHaler 18 mcg capsule, w/inhalation device 1 cap inhalation DAILY RF: 0 alprazolam 0.5 mg tablet 1 mg PO TID PRN (Reason: Anxiety) RF: 0 Discontinued prednisone 10 mg Tablet 10 mg PO DAILY Qty: 42 RF: 0 Discharge Orders: Discharge Order (Routine); Ordered 01/30/21 Ordered By: Kennedy Perez Diet: advance to usual diet Activity on Discharge: As tolerated Stand Alone Forms: Patient Portal Discharge page Care Plan Goals: lung health Health Concerns: asthma exacerbation Plan of Treatment: take prednisone taper as follows: 40 mg (4 tabs) daily x 2 days, then 20 mg (2 tabs) daily x 2 days, then 10 mg (1 tab) daily x 2 days, then 5 mg (half tab) daily x 2 days use levalbuterol solution via nebulizer reschedule your sleep study see your primary care doctor in 1 week Assessment: See Discharge Summary Patient Instructions: Asthma (DC)
== END 2021-01-30 13:49 | disposition home health service (06) | DRG 202 ==
LOC: HO.ED 20:19 → HO.EDOVER 21:08 → HO.IMC 22:19
PROVIDERS: Physician Assistant; Admitting Provider Internal Medicine; Emergency Provider Emergency Medicine; PCP Internal Medicine; Visit Provider Family Medicine
DX: J45.901 Unspecified asthma with (acute) exacerbation (principal); J96.01 Acute respiratory failure with hypoxia; Z89.512 Acquired absence of left leg below knee; Z99.81 Dependence on supplemental oxygen; F41.9 Anxiety disorder, unspecified; Z88.6 Allergy status to analgesic agent; Z79.899 Other long term (current) drug therapy
CPT/HCPCS: 36415; 71045; 80048; 80053; 83615; 83735; 83880; 84145; 85025; 85379; 87633; 87635; 94640; 94644; 94645; 94660; 96365; 96366; 96375; 99285; J2060; J2270; J2920; J2930; J3475

== ENCOUNTER 2021-02-14 04:07 | Emergency (ER) | payer OTHER, SELFPAY ==
--- NOTE | ~2021-02-14 | XR_ITS ---
EXAMINATION: XR CHEST CLINICAL INFORMATION: Shortness of breath COMPARISON: 01/27/2021 TECHNIQUE: Frontal view of the chest was obtained. FINDINGS: Low lung volumes. Chain sutures present within the right midlung. No focal consolidation. No pleural effusion or pneumothorax. Normal heart size and pulmonary vascularity. No acute or suspicious osseous abnormalities. XR/XR chest 1V IMPRESSION: No acute findings
[2021-02-14 04:15] VITALS: BP 117/86; BP 132/78; PULSE 101; PULSE 110; RESP 12; TEMP 37.1; O2SAT 97; O2SAT 98; BMI 26.9
--- NOTE | 2021-02-14 04:32 | ED.SOB ---
HPI - SOB/Dyspnea General Chief Complaint: Dyspnea Stated Complaint: SOB,ASTHMA EXACERBATION Time Seen by Provider: 02/14/21 04:26 Related Data Home Medications Medication Instructions Recorded Confirmed hydroxyzine HCl 50 mg tablet 50 mg PO TID PRN 11/02/20 01/27/21 mometasone 1 inh INHALATION DAILY 11/02/20 01/27/21 ascorbic acid (vitamin C) 500 mg 500 mg PO DAILY 12/21/20 01/27/21 tablet (Vitamin C) cetirizine 10 mg tablet 10 mg PO DAILY 12/21/20 01/27/21 cholecalciferol (vitamin D3) 25 25 mcg PO DAILY 12/21/20 01/27/21 mcg (1,000 unit) tablet (Vitamin D3) magnesium oxide 400 mg PO DAILY 12/21/20 01/27/21 zinc sulfate 220 mg capsule 220 mg PO DAILY 12/21/20 01/27/21 alprazolam 0.5 mg tablet 1 mg PO TID PRN 01/28/21 01/28/21 levalbuterol HCl 0.63 mg/3 mL 0.63 mg INHALATION Q4H PRN 01/28/21 01/28/21 solution for nebulization tiotropium bromide 18 mcg capsule 1 cap INHALATION DAILY 01/28/21 01/28/21 with inhalation device (Spiriva with HandiHaler) Previous Rx's Medication Instructions Recorded albuterol sulfate 90 mcg/actuation 2 puff INHALATION Q4-6H PRN #8.5 g 12/26/19 aerosol inhaler prednisone 10 mg tablet See Rx Instructions .ROUTE 01/30/21 .COMPLEX #15 tab prednisone 20 mg tablet 40 mg PO DAILY 5 Days #10 tab 02/14/21 Allergies Allergy/AdvReac Type Severity Reaction Status Date / Time ibuprofen [IBUPROFEN] Allergy Intermediate Difficulty Verified 02/14/21 04:26 Breathing shellfish derived Allergy Mild SWELLING Verified 02/14/21 04:26 aspirin [ASA] Allergy Unknown DIFFICULTY Verified 02/14/21 04:26 BREATHING albuterol AdvReac Mild Gas Verified 02/14/21 04:26 exchange problems sertraline AdvReac Nausea Verified 01/26/21 23:36 nsaids Allergy Unknown Difficulty Uncoded 02/14/21 04:26 Breathing nucala Allergy Unknown shortness Uncoded 02/14/21 04:26 of breath PMFSH Past Medical History Medical History Acute respiratory failure with hypoxia Allergic asthma Anxiety Asthma Asthmaticus, status PTSD (post-traumatic stress disorder) Surgical History History of amputation Social History Social History Household Members: Other Household Members Other:: Dogs Housing: House Do you presently have visiting nurse or other home services: No Alcohol intake: current Alcohol intake frequency: holidays/special occasions only Patient Tobacco Use Status: Never used Tobacco Second Hand Smoke Exposure: No Substance Use Type: Marijuana Advance Directives: No Advance Directives Information Provided: No service: Yes Current occupational status: retired and disabled Physical Exam Vital Signs: Vital Signs: Last Vital Signs Temp 98.7 F 02/14/21 04:15 Pulse 98 02/14/21 04:37 Resp 12 02/14/21 04:15 BP 132/78 02/14/21 04:15 Pulse Ox 97 02/14/21 04:15 Oxygen Flow Rate 15 02/14/21 04:15 BMI result Body Mass Index 26.9 MDM - SOB/Dyspnea MDM Narrative Medical decision making narrative: Patient having extreme wheezing. Short of breath initially. Given a continuous neb. Steroid. Monitor in the emergency department for approximately 2 hours. Symptomatic improved dramatically. Patient is speaking in complete sentences. Wants to go home. Chest x-ray was negative for any acute evidence of pneumonia. Patient's moving good amount air. Lungs are clear now. COVID test flu RSV was negative. Will discharge patient home on steroid. Patient told worsening condition return immediately. Close follow-up advised. In stable condition. Medical Records Attestation: I reviewed the patient's medical records. Lab Data Attestation: I reviewed the patient's lab results. Result diagrams: 02/14/21 05:03 02/14/21 05:03 Labs: Lab Results 02/14/21 02/14/21 02/14/21 Range/Units 05:03 05:03 05:03 WBC 10.5 (4.8-10.8) X10*3/uL RBC 5.05 (4.60-5.80) X10*6/uL Hgb 15.1 (14.0-18.0) g/dl Hct 45.2 (42.0-52.0) % MCV 89.5 (80.0-98.0) fL MCH 29.9 (27.0-33.0) pg MCHC 33.4 (31.0-36.0) g/dl RDW 13.0 (11.0-16.0) % Plt Count 210 D (160-400) X10*3/uL MPV 9.9 (9.4-12.4) fL Immature Gran % (Auto) 0.9 H (0.0-0.4) % Neut % (Auto) 78.5 H (45-73) % Lymph % (Auto) 9.2 L (20-40) % Spink % (Auto) 4.0 (2-11) % Eos % (Auto) 6.6 H (0-4) % Baso % (Auto) 0.8 (0-2) % Lymph # (Auto) 1.0 L (1.2-4.9) X10*3/uL Spink # (Auto) 0.4 (0.1-1.2) X10*3/uL Eos # (Auto) 0.7 H (0.0-0.4) X10*3/uL Baso # (Auto) 0.1 (0.0-0.2) X10*3/uL Abs Immat Gran (auto) 0.09 H (0.00-0.03) X10*3/uL Absolute Neuts (auto) 8.3 (2.0-8.3) x10*3/uL Absolute Nucleated RBC 0.000 (0.0-0.012) X10*3/uL Nucleated RBC % (auto) 0.0 (0.0-0.2) /100WBC Sodium 141 (135-145) mmol/L Potassium 4.3 (3.3-5.1) mmol/L Chloride 108 (96-108) mmol/L Carbon Dioxide 21 L (22-29) mmol/L Anion Gap 16 (12-20) BUN 13 (9-16) mg/dL Creatinine 0.82 (0.5-1.4) mg/dL Estim Creat Clear Calc 144.5 Estimated GFR > 60 Random Glucose 129 H (60-115) mg/dL Calcium 10.1 D (8.4-10.2) mg/dL Troponin I High Sens < 3.5 (<3.5-35.0) ng/L B-Natriuretic Peptide < 10 (<100) pg/mL Influenza Type A (PCR) (Negative) Influenza Type B (PCR) (Negative) RSV RNA Qual (PCR) (Negative) SARS-CoV-2 RNA (RT-PCR) (Negative) 02/14/21 Range/Units Unknown WBC (4.8-10.8) X10*3/uL RBC (4.60-5.80) X10*6/uL Hgb (14.0-18.0) g/dl Hct (42.0-52.0) % MCV (80.0-98.0) fL MCH (27.0-33.0) pg MCHC (31.0-36.0) g/dl RDW (11.0-16.0) % Plt Count (160-400) X10*3/uL MPV (9.4-12.4) fL Immature Gran % (Auto) (0.0-0.4) % Neut % (Auto) (45-73) % Lymph % (Auto) (20-40) % Spink % (Auto) (2-11) % Eos % (Auto) (0-4) % Baso % (Auto) (0-2) % Lymph # (Auto) (1.2-4.9) X10*3/uL Spink # (Auto) (0.1-1.2) X10*3/uL Eos # (Auto) (0.0-0.4) X10*3/uL Baso # (Auto) (0.0-0.2) X10*3/uL Abs Immat Gran (auto) (0.00-0.03) X10*3/uL Absolute Neuts (auto) (2.0-8.3) x10*3/uL Absolute Nucleated RBC (0.0-0.012) X10*3/uL Nucleated RBC % (auto) (0.0-0.2) /100WBC Sodium (135-145) mmol/L Potassium (3.3-5.1) mmol/L Chloride (96-108) mmol/L Carbon Dioxide (22-29) mmol/L Anion Gap (12-20) BUN (9-16) mg/dL Creatinine (0.5-1.4) mg/dL Estim Creat Clear Calc Estimated GFR Random Glucose (60-115) mg/dL Calcium (8.4-10.2) mg/dL Troponin I High Sens (<3.5-35.0) ng/L B-Natriuretic Peptide (<100) pg/mL Influenza Type A (PCR) NEGATIVE (Negative) Influenza Type B (PCR) NEGATIVE (Negative) RSV RNA Qual (PCR) NEGATIVE (Negative) SARS-CoV-2 RNA (RT-PCR) NEGATIVE (Negative) Discharge Plan Discharge Clinical Impression: Asthma exacerbation Patient Disposition: Home, Self-Care Instructions: Asthma (ED) Prescriptions: New prednisone 20 mg tablet 40 mg PO DAILY 5 Days Qty: 10 RF: 0 No Action albuterol sulfate 90 mcg/actuation HFA aerosol inhaler 2 puff inhalation Q4-6H PRN (Reason: shortness of breath or wheezing) Qty: 8.5 RF: 0 hydroxyzine HCl 50 mg Tablet 50 mg PO TID PRN (Reason: Itching) RF: 0 mometasone 220 mcg/ actuation (30) Aerosol Powdr Breath Activated 1 inh INHALATION DAILY RF: 0 cetirizine 10 mg Tablet 10 mg PO DAILY RF: 0 ascorbic acid (vitamin C) [Vitamin C] 500 mg Tablet 500 mg PO DAILY RF: 0 zinc sulfate 220 mg Capsule 220 mg PO DAILY RF: 0 cholecalciferol (vitamin D3) [Vitamin D3] 25 mcg (1,000 unit) Tablet 25 mcg PO DAILY RF: 0 magnesium oxide 400 mg magnesium Tablet 400 mg PO DAILY RF: 0 levalbuterol HCl 0.63 mg/3 mL solution for nebulization 0.63 mg inhalation Q4H PRN (Reason: Shortness Of Breath Or Wheezing) RF: 0 Spiriva with HandiHaler 18 mcg capsule, w/inhalation device 1 cap inhalation DAILY RF: 0 alprazolam 0.5 mg tablet 1 mg PO TID PRN (Reason: Anxiety) RF: 0 prednisone 10 mg tablet See Rx Instructions .ROUTE .COMPLEX Qty: 15 RF: 0 Referrals: Physician,Unknown J [Primary Care Provider] - 2 days (Please get your COVID vaccine. Close follow-up with your primary physician even if you feel better. Worsening condition return to the emergency department.)
[2021-02-14 04:37] VITALS: PULSE 98; O2SAT 96
[2021-02-14] MEDS: methylPREDNISolone Sod Succ 125 MG/2 ML VIAL IVPUSH (04:44)
[2021-02-14] MEDS: Magnesium Sulfate/H2O 2 GM/50 ML PIGGYBACK IV (04:44)
[2021-02-14 05:19] LABS: Basophils Absolute Auto 0.1 X10*3/uL (0.0-0.2); Basophils Percent Auto 0.8 % (0-2); Eosinophils Absolute Auto 0.7 X10*3/uL (0.0-0.4); Eosinophils Percent Auto 6.6 % (0-4); Hematocrit 45.2 % (42.0-52.0); Hemoglobin 15.1 g/dl (14.0-18.0); Imm Gran Abs Auto 0.09 X10*3/uL (0.00-0.03); Imm Gran Pct Auto 0.9 % (0.0-0.4); Lymphocytes Percent Auto 9.2 % (20-40); Mean Corpuscular HGB Conc 33.4 g/dl (31.0-36.0); Mean Corpuscular Hemoglobin 29.9 pg (27.0-33.0); Mean Corpuscular Volume 89.5 fL (80.0-98.0); Mean Platelet Volume 9.9 fL (9.4-12.4); Monocytes Absolute Auto 0.4 X10*3/uL (0.1-1.2); Neutrophils Absolute Auto 8.3 x10*3/uL (2.0-8.3); Neutrophils Percent Auto 78.5 % (45-73); Platelet Count 210 X10*3/uL (160-400); Red Blood Count 5.05 X10*6/uL (4.60-5.80); White Blood Count 10.5 X10*3/uL (4.8-10.8)
[2021-02-14 05:20] LABS: MANUAL DIFF FLAG NO
[2021-02-14 05:34] LABS: Anion Gap 16 (12-20); Blood Urea Nitrogen 13 mg/dL (9-16); Calcium 10.1 mg/dL (8.4-10.2); Carbon Dioxide 21 mmol/L (22-29); Chloride 108 mmol/L (96-108); Creatinine Clr Calc Pharmacy 144.5; Estimated Glomerular Filt Rate > 60; Glucose Random 129 mg/dL (60-115); Potassium 4.3 mmol/L (3.3-5.1); Sodium 141 mmol/L (135-145)
[2021-02-14 05:42] LABS: B Type Natriuretic Peptide < 10 pg/mL (<100); Troponin-I High Sensitivity < 3.5 ng/L (<3.5-35.0)
[2021-02-14 05:51] LABS: Influenza A PCR NEGATIVE (Negative); Influenza B PCR NEGATIVE (Negative); Resp Syncy Virus RNA Qual PCR NEGATIVE (Negative); SARS COV2 PCR INHOUSE NEGATIVE (Negative)
[2021-02-14 06:43] VITALS: BP 117/75; PULSE 113; RESP 20; O2SAT 96
== END 2021-02-14 06:54 | disposition home or self-care (01) ==
PROVIDERS: Emergency Provider Emergency Medicine Emergency Medical Services
DX: J45.901 Unspecified asthma with (acute) exacerbation (principal); Z20.822 Contact with and (suspected) exposure to COVID-19
CPT/HCPCS: 0241U; 36415; 71045; 80048; 83880; 84484; 85025; 94640; 96365; 96366; 96375; 99284; J2930; J3475

== ENCOUNTER 2021-02-14 18:33 | Inpatient (IN) | payer OTHER, SELFPAY ==
--- NOTE | ~2021-02-14 | XR_ITS ---
EXAMINATION: XR CHEST CLINICAL INFORMATION: Shortness of breath COMPARISON: 02/14/2021 TECHNIQUE: Frontal view of the chest was obtained. FINDINGS: There is no convincing evidence for an acute finding. No obvious failure or infiltrate. No effusion. Density once again seen right midlung. Not significantly changed. At the cardiac silhouette is comparable. XR/XR chest 1V IMPRESSION: No convincing evidence for an acute process.
[2021-02-14 18:36] VITALS: BP 154/80; PULSE 111; RESP 24; TEMP 36.8; O2SAT 94; BMI 26.4
--- NOTE | 2021-02-14 18:52 | ED_ITS ---
HPI - Asthma General Chief Complaint: Asthma Stated Complaint: asthma Source: patient Mode of arrival: wheelchair Limitations: no limitations History of Present Illness HPI Narrative: 41-year-old male presents for asthma exacerbation. MD complaint: asthma attack and shortness of breath Onset (ago): day(s) Severity: moderate and similar to prior Associated symptoms: dry cough Asthma History: childhood onset, history of frequent attacks, history of prior ED visit, previously intubated and followed by specialist Treatments Prior to Arrival: inhaled bronchodilator, inhaled steroid, IV steroid and oxygen Related Data Current Asthma Therapy: inhaled bronchodilator, inhaled steroid and recent oral steroid Home Medications Medication Instructions Recorded Confirmed ascorbic acid (vitamin C) 500 mg 500 mg PO DAILY 12/21/20 02/14/21 tablet (Vitamin C) cetirizine 10 mg tablet 10 mg PO DAILY 12/21/20 02/14/21 cholecalciferol (vitamin D3) 25 25 mcg PO DAILY 12/21/20 02/14/21 mcg (1,000 unit) tablet (Vitamin D3) magnesium oxide 400 mg PO DAILY 12/21/20 02/14/21 zinc sulfate 220 mg capsule 220 mg PO DAILY 12/21/20 02/14/21 alprazolam 0.5 mg tablet 0.5 mg PO TID PRN 01/28/21 02/14/21 levalbuterol HCl 0.63 mg/3 mL 0.63 mg INHALATION Q4H PRN 01/28/21 02/14/21 solution for nebulization tiotropium bromide 18 mcg capsule 1 cap INHALATION DAILY 01/28/21 02/14/21 with inhalation device (Spiriva with HandiHaler) albuterol sulfate 3 mg INHALATION QID PRN 02/14/21 02/14/21 Previous Rx's Medication Instructions Recorded albuterol sulfate 90 mcg/actuation 2 puff INHALATION Q4-6H PRN #8.5 g 12/26/19 aerosol inhaler Allergies Allergy/AdvReac Type Severity Reaction Status Date / Time ibuprofen [IBUPROFEN] Allergy Intermediate Difficulty Verified 02/14/21 18:36 Breathing shellfish derived Allergy Mild SWELLING Verified 02/14/21 18:36 aspirin [ASA] Allergy Unknown DIFFICULTY Verified 02/14/21 18:36 BREATHING albuterol AdvReac Mild Gas Verified 02/14/21 18:36 exchange problems sertraline AdvReac Nausea Verified 02/14/21 18:36 nsaids Allergy Unknown Difficulty Uncoded 02/14/21 04:26 Breathing nucala Allergy Unknown shortness Uncoded 02/14/21 04:26 of breath Review of Systems Review of Systems: Constitutional: No Fever, No Chills ENT/Mouth: No Hoarseness, No sore throat, No Rhinorrhea Eyes: No Redness, No Discharge, No Vision Changes Cardiovascular: No Chest Pain, positive SOB, positive Dyspnea on Exertion, No Edema Respiratory: positive Cough, No Sputum, positive Wheezing, Gastrointestinal: No Nausea, No Vomiting, No Diarrhea, No abdominal Pain Genitourinary: No Dysuria, No Hematuria Musculoskeletal: No joint pain, No Myalgias Skin: No rash Neuro: No Weakness, No Numbness, No Headache Psych: Positive anxiety, depression Heme/Lymph: No Bruising, No Bleeding Endocrine: No Polyuria, No Polydipsia Yes all other systems are reviewed and are negative PMFSH Past Medical History Attestation statement: The following information was validated with the patient. Source: old records reviewed Medical History Acute respiratory failure with hypoxia Allergic asthma Anxiety Asthma Asthmaticus, status PTSD (post-traumatic stress disorder) Surgical History History of amputation Social History Social History Household Members: Other Household Members Other:: Dogs Housing: House Do you presently have visiting nurse or other home services: No Alcohol intake: current Alcohol intake frequency: holidays/special occasions o nly Patient Tobacco Use Status: Never used Tobacco Second Hand Smoke Exposure: No Substance Use Type: Marijuana Advance Directives: No Advance Directives Information Provided: Yes service: Yes Current occupational status: retired and disabled Physical Exam Vital Signs: Vital Signs: Last Vital Signs Temp 98.3 F 02/14/21 18:36 Pulse 109 H 02/14/21 20:48 Resp 10 L 02/14/21 20:48 BP 154/80 H 02/14/21 18:36 Pulse Ox 99 02/14/21 23:14 BMI result Body Mass Index 26.4 Appearance: Alert. Oriented X3. Moderate respiratory distress. Eyes: Pupils equal, round and reactive to light. EOMI. Sclera nonicteric. ENT: Pharynx normal. Dry mucous membranes. Neck: Normal inspection. Neck supple. CVS: Tachycardic heart rate and rhythm. Apical pulse equal pulses to extremities. Respiratory: Moderate respiratory distress. Poor air flow, expiratory wheezing, no tracheal stridor. Abdomen: Soft and nontender. Skin: Skin warm and dry. Normal skin color. Normal skin turgor. Extremities: No lower extremity edema. Moves all extremities against resistance. Neuro: No motor deficit. No sensory deficit. Cranial nerves 2-12 intact. Course Course Course Narrative: 41-year-old male presents with asthma exacerbation. Has a significant and serious history of asthma exacerbation with multiple intubations. Presents in respiratory distress tachypneic at 32 breaths per mi nute, poor air flow, O2 sat upon my initial evaluation was 89% on room air, patient in orthoptic position. Able to speak with 1 or 2 word answers. Order for albuterol hour long, and dexamethasone. Patient was discharged from this facility earlier today for asthma exacerbation. Was given Solu-Medrol, magnesium and albuterol treatments with a normal chest x-ray. Will wait for magnesium levels to return before ordering Mag. 7:45 p.m. patient stating feel anxious. Given 0.5 mg of IV push Ativan. Patient does have a significant history of asthma exacerbation with intubation. 8:04 p.m. discussion with hospitalist regarding plan of care. Plan is to admit for asthma exacerbation. 8:25 p.m. order for 2 mg of Ativan and 4 mg of morphine. Patient states that anxiety is continuing and that his chest feels tight. 8:39 p.m. 2nd hour long albuterol. Patient does feel relief from the chest tightness and feels that he is not as short of breath after Ativan and morphine administration. 9:10 p.m. patient is sleeping, easily arousable, even unlabored respirations with expiratory wheezing throughout. States feel much better, no longer has chest tightness. 9:52 p.m. patient is sleeping, easily arousable, O2 sat 97% on 4 L. even unlabored respirations with expiratory wheezing throughout. 10:40 p.m. patient is sleeping. Even unlabored respirations. 97% on 4 L. respiration rate 18. Consultations Consultation #1: [email or web address] Time: 20:04 MDM - Asthma Differential Diagnosis Differential diagnosis: Likely Acute exacerbation, Acute asthmatic bronchitis and ARDS Medical Records Attestation: I reviewed the patient's medical records. Lab Data Attestation: I reviewed the patient's lab results. Result diagrams: 02/14/21 19:10 02/14/21 19:10 Labs: Lab Results 02/14/21 02/14/21 02/14/21 Range/Units 19:10 19:10 19:10 WBC 10.6 (4.8-10.8) X10*3/uL RBC 4.78 (4.60-5.80) X10*6/uL Hgb 14.4 (14.0-18.0) g/dl Hct 42.2 (42.0-52.0) % MCV 88.3 (80.0-98.0) fL MCH 30.1 (27.0-33.0) pg MCHC 34.1 (31.0-36.0) g/dl RDW 13.0 (11.0-16.0) % Plt Count 240 (160-400) X10*3/uL MPV 10.1 (9.4-12.4) fL Immature Gran % (Auto) 0.8 H (0.0-0.4) % Neut % (Auto) 89.2 H (45-73) % Lymph % (Auto) 5.1 L (20-40) % Rogers % (Auto) 4.7 (2-11) % Eos % (Auto) 0.0 (0-4) % Baso % (Auto) 0.2 (0-2) % Lymph # (Auto) 0.5 L (1.2-4.9) X10*3/uL Rogers # (Auto) 0.5 (0.1-1.2) X10*3/uL Eos # (Auto) 0.0 (0.0-0.4) X10*3/uL Baso # (Auto) 0.0 (0.0-0.2) X10*3/uL Abs Immat Gran (auto) 0.09 H (0.00-0.03) X10*3/uL Absolute Neuts (auto) 9.4 H (2.0-8.3) x10*3/uL Absolute Nucleated RBC 0.000 (0.0-0.012) X10*3/uL Nucleated RBC % (auto) 0.0 (0.0-0.2) /100WBC Sodium 143 (135-145) mmol/L Potassium 4.3 (3.3-5.1) mmol/L Chloride 107 (96-108) mmol/L Carbon Dioxide 25 (22-29) mmol/L Anion Gap 15 (12-20) BUN 14 (9-16) mg/dL Creatinine 0.95 (0.5-1.4) mg/dL Estim Creat Clear Calc 124.7 Estimated GFR > 60 Random Glucose 122 H (60-115) mg/dL Calcium 10.1 (8.4-10.2) mg/dL Magnesium 2.3 (1.6-2.6) mg/dL Troponin I High Sens < 3.5 (<3.5-35.0) ng/L Imaging Data Chest x-ray: Attestation: I personally reviewed and interpreted this imaging study as follows: Radiologist's impression: EXAMINATION: XR CHEST CLINICAL INFORMATION: Shortness of breath COMPARISON: 02/14/2021 TECHNIQUE: Frontal view of the chest was obtained. FINDINGS: There is no convincing evidence for an acute finding. No obvious failure or infiltrate. No effusion. Density once again seen right midlung. Not significantly changed. At the cardiac silhouette is comparable. XR/XR chest 1V IMPRESSION: No convincing evidence for an acute process. ECG Data Attestation: I personally reviewed and interpreted this ECG as follows: ECG interpretation date: 02/14/21 ECG interpretation time: 19:11 Prior ECG tracings: available for review Interpretation: Vent. Rate : 099 BPM ? ? Atrial Rate : 099 BPM ?? P-R Int : 150 ms? QRS Dur : 076 ms ? ? QT Int : 338 ms ? ? ? P-R-T Axes : 072 060 067 degrees ?? QTc Int : 433 ms ? Normal sinus rhythm Septal infarct , age undetermined Abnormal ECG When compared with ECG of 26-JAN-2021 23:30, Septal infarct is now Present Critical Care Time Critical Care Time Critical Care Time: Yes Total Critical Care Time: 120 Attestation: I have personally provided critical care time exclusive of time spent on separately billable procedures. Time includes review of laboratory data, radiology results, discussion with consultants, and monitoring for potential decompensation. Interventions were performed as documented. Discharge Plan Discharge Clinical Impression: Asthma exacerbation Qualifiers: Asthma severity: moderate Asthma persistence: persistent Qualified Code(s): J45.41 - Moderate persistent asthma with (acute) exacerbation Patient Disposition: Admitted As Inpatient
--- NOTE | 2021-02-14 19:02 | ECG_ITS ---
Test Reason : ASTHMA Blood Pressure : / mmHG Vent. Rate : 099 BPM Atrial Rate : 099 BPM P-R Int : 150 ms QRS Dur : 076 ms QT Int : 338 ms P-R-T Axes : 072 060 067 degrees QTc Int : 433 ms Normal sinus rhythm Septal infarct , age undetermined Abnormal ECG When compared with ECG of 26-JAN-2021 23:30, Septal infarct is now Present Referred By: Meche Spencer Electronically Signed By:Dakota Carmona
[2021-02-14] MEDS: dexAMETHasone sod phosphate 4 MG/ML VIAL 6 MG IVPUSH (19:12)
[2021-02-14 19:17] LABS: MANUAL DIFF FLAG NO
[2021-02-14 19:19] LABS: Basophils Percent Auto 0.2 % (0-2); Hematocrit 42.2 % (42.0-52.0); Hemoglobin 14.4 g/dl (14.0-18.0); Imm Gran Abs Auto 0.09 X10*3/uL (0.00-0.03); Imm Gran Pct Auto 0.8 % (0.0-0.4); Lymphocytes Absolute Auto 0.5 X10*3/uL (1.2-4.9); Lymphocytes Percent Auto 5.1 % (20-40); Mean Corpuscular HGB Conc 34.1 g/dl (31.0-36.0); Mean Corpuscular Hemoglobin 30.1 pg (27.0-33.0); Mean Corpuscular Volume 88.3 fL (80.0-98.0); Mean Platelet Volume 10.1 fL (9.4-12.4); Monocytes Absolute Auto 0.5 X10*3/uL (0.1-1.2); Monocytes Percent Auto 4.7 % (2-11); Neutrophils Absolute Auto 9.4 x10*3/uL (2.0-8.3); Neutrophils Percent Auto 89.2 % (45-73); Platelet Count 240 X10*3/uL (160-400); Red Blood Count 4.78 X10*6/uL (4.60-5.80); White Blood Count 10.6 X10*3/uL (4.8-10.8)
[2021-02-14] MEDS: Albuterol Sulfate (0.083%) 2.5 MG/3 ML VIAL.NEB 10 MG INHALE ×2 (19:24→20:43)
[2021-02-14 19:27] VITALS: PULSE 101; RESP 10; O2SAT 94
[2021-02-14 19:33] LABS: Anion Gap 15 (12-20); Blood Urea Nitrogen 14 mg/dL (9-16); Calcium 10.1 mg/dL (8.4-10.2); Carbon Dioxide 25 mmol/L (22-29); Chloride 107 mmol/L (96-108); Creatinine Clr Calc Pharmacy 124.7; Estimated Glomerular Filt Rate > 60; Glucose Random 122 mg/dL (60-115); Magnesium 2.3 mg/dL (1.6-2.6); Potassium 4.3 mmol/L (3.3-5.1); Sodium 143 mmol/L (135-145)
[2021-02-14] MEDS: LORazepam 2 MG/ML VIAL 0.5 MG IVPUSH (20:15)
--- NOTE | 2021-02-14 20:15 | P.HPHOSP_ITS ---
History of Present Illness Date of Service: 02/14/21 Chief Complaint: shortness of breath 41-year-old male with a past medical history of anxiety, asthma, history of status asthmaticus, PTSD, history of amputation presented to the hospital today with a chief complaint of shortness of breath. Patient reports that he has been having shortness of breath over the past few days; which has been not improving with his home inhalers; came to the ER this morning after receiving the treatment he felt better and went home; soon after he went home he started to feel shortness of breath again and he tried to uses home nebulizers with no improvement hence presented to the ER for further evaluation. Denies any fever chills. Denies any chest pain palpitations. Denies any numbness tingling or focal weakness. Review of all other systems is negative except mentioned above ER course: Per ER team patient on presentation noted to be in mild distress; given magnesium, nebulizers, steroids home. Also received Ativan for anxiety. Patient respiratory is mildly improved. admitted to the hospital for further management. [facility] Medical History Acute respiratory failure with hypoxia Allergic asthma Anxiety Asthma Asthmaticus, status PTSD (post-traumatic stress disorder) Pertinent family history: Reviewed Surgical History History of amputation Social History Household Members: Other Household Members Other:: Dogs Housing: House Do you presently have visiting nurse or other home services: No Alcohol intake: current Alcohol intake frequency: holidays/special occasions only Patient Tobacco Use Status: Never used Tobacco Second Hand Smoke Exposure: No Substance Use Type: Marijuana Advance Directives: No Advance Directives Information Provided: Yes service: Yes Current occupational status: retired and disabled Meds Allergies Allergy/AdvReac Type Severity Reaction Status Date / Time ibuprofen [IBUPROFEN] Allergy Intermediate Difficulty Verified 02/14/21 18:36 Breathing shellfish derived Allergy Mild SWELLING Verified 02/14/21 18:36 aspirin [ASA] Allergy Unknown DIFFICULTY Verified 02/14/21 18:36 BREATHING albuterol AdvReac Mild Gas Verified 02/14/21 18:36 exchange problems sertraline AdvReac Nausea Verified 02/14/21 18:36 nsaids Allergy Unknown Difficulty Uncoded 02/14/21 04:26 Breathing nucala Allergy Unknown shortness Uncoded 02/14/21 04:26 of breath Active Medications: Current Medications Magnesium Sulfate (Magnesium Sulfate/H2o) 2 gm in 50 mls @ 25 mls/hr IV ONCE ONE Stop: 02/14/21 22:01 Home Medications Medication Instructions Recorded Confirmed Last Taken Type hydroxyzine HCl 50 mg tablet 50 mg PO TID PRN 11/02/20 01/27/21 Unknown History mometasone 1 inh INHALATION DAILY 11/02/20 01/27/21 Unknown History ascorbic acid (vitamin C) 500 mg 500 mg PO DAILY 12/21/20 01/27/21 12/21/20 History tablet (Vitamin C) cetirizine 10 mg tablet 10 mg PO DAILY 12/21/20 01/27/21 12/21/20 History cholecalciferol (vitamin D3) 25 25 mcg PO DAILY 12/21/20 01/27/21 12/21/20 History mcg (1,000 unit) tablet (Vitamin D3) magnesium oxide 400 mg PO DAILY 12/21/20 01/27/21 12/21/20 History zinc sulfate 220 mg capsule 220 mg PO DAILY 12/21/20 01/27/21 12/21/20 History alprazolam 0.5 mg tablet 1 mg PO TID PRN 01/28/21 01/28/21 Unknown History levalbuterol HCl 0.63 mg/3 mL 0.63 mg INHALATION Q4H PRN 01/28/21 01/28/21 Unknown History solution for nebulization tiotropium bromide 18 mcg capsule 1 cap INHALATION DAILY 01/28/21 01/28/21 Unknown History with inhalation device (Spiriva with HandiHaler) Physical Exam Vital Signs and Narrative: Vital Signs: Last Vital Signs Temp 98.3 F 02/14/21 18:36 Pulse 101 H 02/14/21 19:27 Resp 10 L 02/14/21 19:27 BP 154/80 H 02/14/21 18:36 Pulse Ox 94 02/14/21 18:36 BMI result Body Mass Index 26.4 Gen: Appears be in no acute distress; on supplemental oxygen. Able to speak in full sentences. Appears anxious. HEENT: NCAT, Moist mucosa. Pulmonary: Bilateral wheezes noted. CVS: Normal S1-S2 Abdomen: BS+, Soft, Nontender Extremities: Warm well perfused Neuro: Alert and awake. Results Labs CBC and Chem 7: 02/14/21 19:10 02/14/21 19:10 Labs: Laboratory Results - last 24 hr 02/14/21 02/14/21 19:10 19:10 MCV 88.3 MCH 30.1 MCHC 34.1 RDW 13.0 Plt Count 240 MPV 10.1 Immature Gran % (Auto) 0.8 H Neut % (Auto) 89.2 H Lymph % (Auto) 5.[address] [place] % (Auto) 4.7 Eos % (Auto) 0.0 Baso % (Auto) 0.2 Lymph # (Auto) 0.[address] [place] # (Auto) 0.5 Eos # (Auto) 0.0 Baso # (Auto) 0.0 Abs Immat Gran (auto) 0.09 H Absolute Neuts (auto) 9.4 H Absolute Nucleated RBC 0.000 Nucleated RBC % (auto) 0.0 Anion Gap 15 Estim Creat Clear Calc 124.7 Estimated GFR > 60 Random Glucose 122 H Calcium 10.1 Magnesium 2.3 Imaging Radiologist's Impressions: Impressions Chest X-Ray 02/14/21 19:43 IMPRESSION: No convincing evidence for an acute process. Assessment and Plan (1) Acute respiratory failure with hypoxia: Status: Acute 41-year-old male with a past medical history of anxiety, asthma, history of status asthmaticus, PTSD, history of amputation presented to the hospital today with a chief complaint of shortness of breath. Noted to be in acute asthma exacerbation. Admitted for further management. Acute asthma exacerbation: Patient had prior history of status asthmaticus with intubation history. Patient had severe anxiety adding to his increased shortness of breath. Continue Solu-Medrol 40 mg IV q.6 hourly Nebulizations standing and p.r.n. Morphine p.r.n. for shortness of breath/anxiety Pulmonology consult for further recommendations. Patient will monitor on telemetry. For all other chronic conditions, home medications will be continued DVT prophylaxis: Lovenox Code status: Full code Quality Stroke Does the patient have a stroke diagnosis?: No VTE Prior VTE?: No VTE Risk Level:: Medical - moderate - high VTE Device Contraindication: Treatment Not Indicated VTE Drug Contraindication: N/A - Med Ordered
[2021-02-14] MEDS: Magnesium Sulfate/H2O 2 GM/50 ML PIGGYBACK IV (20:16)
[2021-02-14] MEDS: Morphine Sulfate 4 MG/ML CARTRIDGE IVPUSH (20:28)
[2021-02-14] MEDS: LORazepam 2 MG/ML VIAL 1 MG IVPUSH ×2 (20:29)
[2021-02-14 20:36] LABS: Troponin-I High Sensitivity < 3.5 ng/L (<3.5-35.0)
--- NOTE | 2021-02-14 20:43 | PHA.MEDREC ---
Pharmacy Consult ? Medication Reconciliation Pharmacy has completed the medication reconciliation.
[2021-02-14 20:48] VITALS: PULSE 109; RESP 10; O2SAT 95
[2021-02-14 21:16] LABS: Venous Blood Gas Refer to POC result
[2021-02-14 21:17] LABS: VBG HCO3 25 mmol/L (22-26); VBG pCO2 36 mmHg; VBG pH 7.45 (7.32-7.43); VBG pO2 173 mmHg
[2021-02-14] MEDS: Famotidine 20 MG TABLET PO (21:30)
[2021-02-14] MEDS: Enoxaparin Sodium 40 MG/0.4 ML SYRINGE SUBCUT (21:33)
[2021-02-14 23:14] VITALS: O2SAT 99
[2021-02-15] VITALS (22 sets, daily range): BP systolic 111–139; BP diastolic 61–87; PULSE 73–126; RESP 14–28; TEMP 36.1–36.6; O2SAT 93–100
[2021-02-15] MEDS: methylPREDNISolone Sod Succ 40 MG/ML VIAL IVPUSH ×4 (00:39→17:42)
--- NOTE | 2021-02-15 00:46 | PC.NURSE ---
Pt asleep on stretcher in between care, arousable to voice. Pt aaox4, lethargic, easily returns to sleep when this RN not speaking to patient. Pt VSS on 4L simple mask as NC was causing pt to feel like he had a stuffy nose. Pt was titrated to RA for RA sat eval by this RN, O2 sat 92-93%. Pt denies pain/discomfort at this time. Pt offers no complaints/concerns. Pt is aware and agreeable to plan for admission. Pt's stretcher in lowest locked position, rails raised, call azevedo within reach.
[2021-02-15] MEDS: Morphine Sulfate 4 MG/ML CARTRIDGE IVPUSH (01:09)
[2021-02-15] MEDS: Albuterol Sulfate (0.083%) 2.5 MG/3 ML VIAL.NEB INHALE ×8 (01:20→19:22)
--- NOTE | 2021-02-15 01:27 | PC.NURSE ---
Pt requesting neb tx, RT notified, to bedside
--- NOTE | 2021-02-15 03:03 | PC.NURSE ---
Pt rang call douglas azevedo RN to bedside. Pt is in tripod position on stretcher. Pt reports he has developed a cough, states it feels like I have to recover alot when I'm done coughing. Pt states he feels this cough is coming from his throat, not his chest, is requesting meds to prevent cough. When asked if he feels his breathing is any different from previous, pt reports I feel like it might be a tiny bit better. Pt's VSS on 4L simple mask. Dr Harkins made aware. Plan for cough meds at this time and PRN morphine about 30 minutes after cough meds.
[2021-02-15] MEDS: guaiFENesin 100 MG/5 ML LIQUID PO (03:22)
--- NOTE | 2021-02-15 03:26 | PC.NURSE ---
This RN to bedside to medicate with cough medicine. Pt's O2 sats >/= 95% on 4L simple mask but pt with audible inspiratory and expiratory wheezes while in semifowlers position. pt states I'm confused because my sat is ok but I feel like crap. RT requested to come to bedside.
--- NOTE | 2021-02-15 03:49 | PC.NURSE ---
RT to bedside, administering neb tx. RT requesting q2h neb tx rather than q4h tx. Shahana made aware, changed order.
--- NOTE | 2021-02-15 04:39 | PC.NURSE ---
Pt asleep in NAD, breathing with ease on 4L simple mask, equal chest rise and fall bilaterally. Pt without audible wheezing at this time.
[2021-02-15 06:50] LABS: MANUAL DIFF FLAG NO
[2021-02-15] MEDS: Morphine Sulfate 4 MG/ML CARTRIDGE 1 MG IVPUSH ×3 (06:54→17:47)
[2021-02-15 06:56] LABS: Basophils Percent Auto 0.2 % (0-2); Hematocrit 44.3 % (42.0-52.0); Hemoglobin 14.5 g/dl (14.0-18.0); Imm Gran Abs Auto 0.12 X10*3/uL (0.00-0.03); Imm Gran Pct Auto 0.9 % (0.0-0.4); Lymphocytes Absolute Auto 0.9 X10*3/uL (1.2-4.9); Lymphocytes Percent Auto 6.7 % (20-40); Mean Corpuscular HGB Conc 32.7 g/dl (31.0-36.0); Mean Corpuscular Hemoglobin 29.8 pg (27.0-33.0); Mean Platelet Volume 10.2 fL (9.4-12.4); Monocytes Absolute Auto 0.7 X10*3/uL (0.1-1.2); Monocytes Percent Auto 5.7 % (2-11); Neutrophils Percent Auto 86.5 % (45-73); Platelet Count 242 X10*3/uL (160-400); Red Blood Count 4.87 X10*6/uL (4.60-5.80); Red Cell Distribution Width 13.1 % (11.0-16.0); White Blood Count 12.7 X10*3/uL (4.8-10.8)
--- NOTE | 2021-02-15 06:56 | PC.NURSE ---
Pt ringing azevedo reporting acute SOB, tripoding in bed, expiratory wheezing notd. RT notified but unavailable. This RN medicating with PRN UPD. Pt requesting Morphine for SOB, medicated per MAR and request. Pt reports relief with UPD and Morphine at this time.
[2021-02-15 07:23] LABS: Anion Gap 15 (12-20); Blood Urea Nitrogen 12 mg/dL (9-16); Calcium 9.6 mg/dL (8.4-10.2); Carbon Dioxide 23 mmol/L (22-29); Chloride 107 mmol/L (96-108); Creatinine Clr Calc Pharmacy 146.3; Estimated Glomerular Filt Rate > 60; Glucose Random 127 mg/dL (60-115); Potassium 4.2 mmol/L (3.3-5.1); Sodium 141 mmol/L (135-145)
[2021-02-15 07:24] LABS: Magnesium 2.3 mg/dL (1.6-2.6)
[2021-02-15] MEDS: Ascorbic Acid 500 MG TABLET PO (09:24)
[2021-02-15] MEDS: Loratadine 10 MG TABLET PO (09:24)
[2021-02-15] MEDS: Famotidine 20 MG TABLET PO ×2 (09:24→20:57)
--- NOTE | 2021-02-15 09:24 | MHC.CM.PN ---
pt lives alone in his home, he reports he is independent in his care. he uses a WC and drives a car, WC is at bedside. he has family that live in the area and help him c some of his needs, including transportation home at dc. pt is active ver[facility] brown for which a ref. has been made. dc plan is home vernon brown. cm to cont. to follow.
[2021-02-15] MEDS: Zinc Sulfate 220 MG CAPSULE PO (09:44)
[2021-02-15 10:56] LABS: COVID-19 Test Negative (Negative)
--- NOTE | 2021-02-15 12:32 | HO.PM.IMPN ---
Subjective Subjective Date of Service: 02/15/21 Interval History: Seen in f/u for asthma exacerbation Review of Systems no fever less sob Physical Exam Vital Signs: Vital Signs: Last Vital Signs Temp 97.6 F 02/15/21 09:03 Pulse 89 02/15/21 11:46 Resp 20 02/15/21 11:46 BP 128/70 02/15/21 09:03 Pulse Ox 98 02/15/21 09:03 BMI result Body Mass Index 26.4 Const: Other: General: AO X 3, no acute distress Resp: insp/exp wheezes CVS: S1,S2,RRR GI: +BS, NT, no distention Skin: No rash Neuro: motor grossly intact Psych: appropriate affect Objective Data Active Medications Acetaminophen (Acetaminophen 325 Mg Tablet) 650 mg PO Q6H PRN PRN Reason: Pain, Mild (Pain Scale 1-3) Albuterol Sulfate (Albuterol Sulfate (0.083%) 2.5 Mg/3 Ml Vial.Neb) 2.5 mg INHALE RQ4H WHILE AWAKE [facility] Last Admin: 02/15/21 11:46 Dose: 2.5 mg Documented by: СЕРГЕЙ Albuterol Sulfate (Albuterol Sulfate (0.083%) 2.5 Mg/3 Ml Vial.Neb) 2.5 mg INHALE Q2H PRN PRN Reason: Shortness of Breath/Wheezing Last Admin: 02/15/21 06:51 Dose: 2.5 mg Documented by: GENI Alprazolam (Alprazolam 0.5 Mg Tablet) 0.5 mg PO TID PRN PRN Reason: Anxiety Ascorbic Acid (Ascorbic Acid 500 Mg Tablet) 500 mg PO DAILY [facility] Last Admin: 02/15/21 09:24 Dose: 500 mg Documented by: RASHI Enoxaparin Sodium (Enoxaparin Sodium 40 Mg/0.4 Ml Syringe) 40 mg SUBCUT Q24H [facility] Last Admin: 02/14/21 21:33 Dose: 40 mg Documented by: ONUR Famotidine (Famotidine 20 Mg Tablet) 20 mg PO BID [facility] Last Admin: 02/15/21 09:24 Dose: 20 mg Documented by: RASHI Guaifenesin (Guaifenesin 100 Mg/5 Ml Liquid) 5 ml PO Q6H PRN PRN Reason: Cough Last Admin: 02/15/21 03:22 Dose: 5 ml Documented by: BLAIR Loratadine (Loratadine 10 Mg Tablet) 10 mg PO DAILY [facility] Last Admin: 02/15/21 09:24 Dose: 10 mg Documented by: RASHI Melatonin (Melatonin 3 Mg Tablet) 6 mg PO BEDTIME PRN PRN Reason: Insomnia Methylprednisolone Sodium Succinate (Methylprednisolone Sod Succ 40 Mg/Ml Vial) 40 mg IVPUSH Q6H [facility] Last Admin: 02/15/21 06:26 Dose: 40 mg Documented by: BLAIR Morphine Sulfate (Morphine Sulfate 4 Mg/Ml Cartridge) 1 mg IVPUSH Q4H PRN; Protocol PRN Reason: Pain, SOB Last Admin: 02/15/21 06:54 Dose: 1 mg Documented by: GENI Pharmacy Consult (Consult Rx Perform Med Rec) 1 each MISCELLANE ONCE PRN PRN Reason: Consult order Senna (Sennosides 8.6 Mg Tablet) 17.2 mg PO BEDTIME PRN PRN Reason: Constipation Sodium Chloride (0.9 % Sodium Chloride Flush 3 Ml Syringe) 3 ml IVFLUSH QSHIFT [facility] Last Admin: 02/15/21 10:28 Dose: Not Given Documented by: RASHI Non-Admin Reason: Med Not Available Tiotropium Armstrong (Tiotropium Armstrong 18 Mcg Cap.W.Dev) 1 puff INHALE DAILY [facility] Last Admin: 02/15/21 09:25 Dose: 1 puff Documented by: RASHI Zinc Sulfate (Zinc Sulfate 220 Mg Capsule) 220 mg PO DAILY [facility] Last Admin: 02/15/21 09:44 Dose: 220 mg Documented by: RASIH Labs CBC & Chem 7: 02/15/21 06:37 02/15/21 06:37 Labs: Laboratory Results - last 24 hr 02/14/21 02/14/21 02/14/21 19:10 19:10 19:10 MCV 88.3 MCH 30.1 MCHC 34.1 RDW 13.0 Plt Count 240 MPV 10.1 Immature Gran % (Auto) 0.8 H Neut % (Auto) 89.2 H Lymph % (Auto) 5.1 L [place] % (Auto) 4.7 Eos % (Auto) 0.0 Baso % (Auto) 0.2 Lymph # (Auto) 0.5 L [place] # (Auto) 0.5 Eos # (Auto) 0.0 Baso # (Auto) 0.0 Abs Immat Gran (auto) 0.09 H Absolute Neuts (auto) 9.4 H Absolute Nucleated RBC 0.000 Nucleated RBC % (auto) 0.0 VBG pH VBG pCO2 VBG pO2 VBG HCO3 VBG O2 Saturation VBG Base Excess Anion Gap 15 Estim Creat Clear Calc 124.7 Estimated GFR > 60 Random Glucose 122 H Calcium 10.1 Magnesium 2.3 Troponin I High Sens < 3.5 COVID-19 ([facility]IEL) COVID-19 [employer] [facility] 02/14/21 02/15/21 02/15/21 21:11 06:37 06:37 MCV 91.0 MCH 29.8 MCHC 32.7 RDW 13.1 Plt Count 242 MPV 10.2 Immature Gran % (Auto) 0.9 H Neut % (Auto) 86.5 H Lymph % (Auto) 6.7 L [place] % (Auto) 5.7 Eos % (Auto) 0.0 Baso % (Auto) 0.2 Lymph # (Auto) 0.9 L [place] # (Auto) 0.7 Eos # (Auto) 0.0 Baso # (Auto) 0.0 Abs Immat Gran (auto) 0.12 H Absolute Neuts (auto) 11.0 H Absolute Nucleated RBC 0.000 Nucleated RBC % (auto) 0.0 VBG pH 7.45 H VBG pCO2 36 VBG pO2 173 VBG HCO3 25 VBG O2 Saturation 100.0 VBG Base Excess 2.0 Anion Gap 15 Estim Creat Clear Calc 146.3 Estimated GFR > 60 Random Glucose 127 H Calcium 9.6 Magnesium Troponin I High Sens COVID-19 ([facility]IEL) COVID-19 [employer] 02/15/21 02/15/21 06:37 10:22 MCV MCH MCHC RDW Plt Count MPV Immature Gran % (Auto) Neut % (Auto) Lymph % (Auto) Centre % (Auto) Eos % (Auto) Baso % (Auto) Lymph # (Auto) [place] # (Auto) Eos # (Auto) Baso # (Auto) Abs Immat Gran (auto) Absolute Neuts (auto) Absolute Nucleated RBC Nucleated RBC % (auto) VBG pH VBG pCO2 VBG pO2 VBG HCO3 VBG O2 Saturation VBG Base Excess Anion Gap Estim Creat Clear Calc Estimated GFR Random Glucose Calcium Magnesium 2.3 Troponin I High Sens COVID-19 ([facility]) Negative COVID-19 Clin Com See Note Assessment and Plan (1) Asthma exacerbation: Status: Acute (2) Acute respiratory failure with hypoxia: Status: Acute (3) Community acquired pneumonia: Status: Acute Assessment and Plan: 41-year-old male with a past medical history of anxiety, asthma, history of status asthmaticus, PTSD, history of amputation presented to the hospital today with a chief complaint of shortness of breath. Noted to be in acute asthma exacerbation. Admitted for further management. Acute asthma exacerbation with requirement freqent admissions, mechanical vent, Continue Solu-Medrol 40 mg IV q.6 hourly, change to PO prednisone tomorrow Nebulizations standing and p.r.n. Morphine p.r.n. for shortness of breath/anxiety Pulmonology consult for further recommendations. For all other chronic conditions, home medications will be continued DVT prophylaxis: Lovenox Code status: Full code Quality Stroke Does the patient have a stroke diagnosis?: No VTE Prior VTE?: No VTE Risk Level:: Medical - moderate - high VTE Device Contraindication: Treatment Not Indicated VTE Drug Contraindication: N/A - Med Ordered
[2021-02-15] MEDS: ALPRAZolam 0.5 MG TABLET PO (13:15)
--- NOTE | 2021-02-15 15:27 | P.CONPL_ITS ---
History of Present Illness History of Present Illness Consult date: 02/15/21 Reason for consult: asthma Chief complaint: asthma Narrative: 41-year-old gentleman with underlying history of anxiety asthma, PTSD, multiple prior admissions for asthma exacerbation admitted on 02/14/2021 with an acute asthma exacerbation. Patient has been treated with nebulized bronchodilators and systemic glucocorticoids with significant improvement in his symptoms. He is still has mild within on physical exam, however he states that his dyspnea has improved significantly. He denies cough, sputum production or fevers. Review of Systems Constitutional: Constitutional: Denies daytime sleepiness, Denies excessive sweating, Denies fatigue, Denies fever(s), Denies lethargy, Denies malaise, Denies night sweats, Denies snoring and Denies weight loss Eyes: Eyes: Denies blurry vision and Denies itchy eyes ENT: Denies nasal congestion, Denies post nasal drip, Denies sinus pain, Denies sinus pressure and Denies other ( Thrush) Cardiovascular: Cardiovascular: Denies chest pain, Denies pedal edema, Reports dyspnea, Denies orthopnea and Denies paroxysmal nocturnal dyspnea Respiratory: Respiratory: Denies cough, Denies hemoptysis, Denies excessive phlegm production, Reports dyspnea, Denies snoring and Reports wheezing Gastrointestinal: Gastrointestinal: Denies abdominal pain and Denies heartburn Musculoskeletal: Musculoskeletal: Denies myalgias, Denies arthralgias and D enies joint swelling Integumentary/Breasts: Skin/Breast: Denies rash Neurologic: Denies memory loss and Denies seizure-like activity Psychiatric: Psychiatric: Denies abnormal sleep pattern, Denies anxiety and Denies memory loss Endocrine: Endocrine: Denies excessive sweating, Denies fatigue and Denies heat intolerance Hematologic/Lymphatic: Hematologic/Lymphatic: Denies easy bruising Allergic/Immunologic: Allergic/Immunologic: Denies itchy eyes, Denies seasonal rhinorrhea and Reports wheezing PMFSH Past Medical History Medical History Acute respiratory failure with hypoxia Allergic asthma Anxiety Asthma Asthmaticus, status PTSD (post-traumatic stress disorder) Surgical History Surgical History History of amputation Social History Social History Household Members: Other Household Members Other:: Dogs Housing: House Do you presently have visiting nurse or other home services: No Alcohol intake: current Alcohol intake frequency: holidays/special occasions only Patient Tobacco Use Status: Never used Tobacco Second Hand Smoke Exposure: No Substance Use Type: Marijuana Advance Directives: No Advance Directives Information Provided: Yes service: Yes Current occupational status: retired and disabled Meds Allergies Allergy/AdvReac Type Severity Reaction Status Date / Time ibuprofen [IBUPROFEN] Allergy Intermediate Difficulty Verified 02/14/21 18:36 Breathing shellfish derived Allergy Mild SWELLING Verified 02/14/21 18:36 aspirin [ASA] Allergy Unknown DIFFICULTY Verified 02/14/21 18:36 BREATHING albuterol AdvReac Mild Gas Verified 02/14/21 18:36 exchange problems sertraline AdvReac Nausea Verified 02/14/21 18:36 nsaids Allergy Unknown Difficulty Uncoded 02/14/21 04:26 Breathing nucala Allergy Unknown shortness Uncoded 02/14/21 04:26 of breath Active Medications: Current Medications Acetaminophen (Acetaminophen 325 Mg Tablet) 650 mg PO Q6H PRN PRN Reason: Pain, Mild (Pain Scale 1-3) Albuterol Sulfate (Albuterol Sulfate (0.083%) 2.5 Mg/3 Ml Vial.Neb) 2.5 mg INHALE RQ4H WHILE AWAKE [facility] Last Admin: 02/15/21 15:26 Dose: 2.5 mg Documented by: Albuterol Sulfate (Albuterol Sulfate (0.083%) 2.5 Mg/3 Ml Vial.Neb) 2.5 mg INHALE Q2H PRN PRN Reason: Shortness of Breath/Wheezing Last Admin: 02/15/21 06:51 Dose: 2.5 mg Documented by: Alprazolam (Alprazolam 0.5 Mg Tablet) 0.5 mg PO TID PRN PRN Reason: Anxiety Last Admin: 02/15/21 13:15 Dose: 0.5 mg Documented by: Ascorbic Acid (Ascorbic Acid 500 Mg Tablet) 500 mg PO DAILY [facility] Last Admin: 02/15/21 09:24 Dose: 500 mg Documented by: Enoxaparin Sodium (Enoxaparin Sodium 40 Mg/0.4 Ml Syringe) 40 mg SUBCUT Q24H [facility] Last Admin: 12/08/21 21:33 Dose: 40 mg Documented by: Famotidine (Famotidine 20 Mg Tablet) 20 mg PO BID [facility] Last Admin: 02/15/21 09:24 Dose: 20 mg Documented by: Guaifenesin (Guaifenesin 100 Mg/5 Ml Liquid) 5 ml PO Q6H PRN PRN Reason: Cough Last Admin: 02/15/21 03:22 Dose: 5 ml Documented by: Loratadine (Loratadine 10 Mg Tablet) 10 mg PO DAILY [facility] Last Admin: 02/15/21 09:24 Dose: 10 mg Documented by: Melatonin (Melatonin 3 Mg Tablet) 6 mg PO BEDTIME PRN PRN Reason: Insomnia Methylprednisolone Sodium Succinate (Methylprednisolone Sod Succ 40 Mg/Ml Vial) 40 mg IVPUSH Q6H [facility] Last Admin: 02/15/21 13:00 Dose: 40 mg Documented by: Morphine Sulfate (Morphine Sulfate 4 Mg/Ml Cartridge) 1 mg IVPUSH Q4H PRN; Protocol PRN Reason: Pain, SOB Last Admin: 02/15/21 13:15 Dose: 1 mg Documented by: Pharmacy Consult (Consult Rx Perform Med Rec) 1 each MISCELLANE ONCE PRN PRN Reason: Consult order Senna (Sennosides 8.6 Mg Tablet) 17.2 mg PO BEDTIME PRN PRN Reason: Constipation Sodium Chloride (0.9 % Sodium Chloride Flush 3 Ml Syringe) 3 ml IVFLUSH QSHIFT [facility] Last Admin: 02/15/21 10:28 Dose: Not Given Documented by: Tiotropium [place] (Tiotropium [place] 18 Mcg Cap.W.Dev) 1 puff INHALE DAILY [facility] Last Admin: 02/15/21 09:25 Dose: 1 puff Documented by: Zinc Sulfate (Zinc Sulfate 220 Mg Capsule) 220 mg PO DAILY [facility] Last Admin: 02/15/21 09:44 Dose: 220 mg Documented by: Home Medications Medication Instructions Recorded Confirmed Last Taken Type ascorbic acid (vitamin C) 500 mg 500 mg PO DAILY 12/21/20 02/14/21 02/14/21 History tablet (Vitamin C) cetirizine 10 mg tablet 10 mg PO DAILY 12/21/20 02/14/21 02/14/21 History cholecalciferol (vitamin D3) 25 25 mcg PO DAILY 12/21/20 02/14/21 02/14/21 History mcg (1,000 unit) tablet (Vitamin D3) magnesium oxide 400 mg PO DAILY 12/21/20 02/14/21 02/13/21 History zinc sulfate 220 mg capsule 220 mg PO DAILY 12/21/20 02/14/21 02/14/21 History alprazolam 0.5 mg tablet 0.5 mg PO TID PRN 01/28/21 02/14/21 02/14/21 History levalbuterol HCl 0.63 mg/3 mL 0.63 mg INHALATION Q4H PRN 01/28/21 02/14/21 02/14/21 History solution for nebulization tiotropium bromide 18 mcg capsule 1 cap INHALATION DAILY 01/28/21 02/14/21 02/14/21 History with inhalation device (Spiriva with HandiHaler) albuterol sulfate 3 mg INHALATION QID PRN 02/14/21 02/14/21 02/14/21 History Physical Exam Vital Signs: Vital Signs: Last Vital Signs Temp 97.6 F 02/15/21 09:03 Pulse 91 02/15/21 15:26 Resp 18 02/15/21 15:26 BP 132/87 02/15/21 13:13 Pulse Ox 97 02/15/21 13:13 BMI result Body Mass Index 26.4 Const: General: no acute distress, alert and awake Eyes: Sclerae: sclerae normal EOM: EOMs intact bilaterally Neck: Neck: Yes no lymphadenopathy, Yes trachea midline and Yes supple Resp: Effort & Inspection: normal respiratory effort and no respiratory distress Auscultation: wheezes expiratory wheezes ( Mild bilateral) Cardio: Rate: regular rate Rhythm: regular rhythm Heart sounds: no gallops, no murmurs and no rubs GI: Palpation (GI): Soft to palpation and Other GI palpation findings present ( Nontender) Auscultation: normal bowel sounds Extrem: General: No clubbing and No cyanosis Results Laboratory Findings CBC and BMP: 02/15/21 06:37 02/15/21 06:37 Abnormal lab findings: Abnormal Labs 02/14/21 02/14/21 02/14/21 19:10 19:10 21:11 WBC Immature Gran % (Auto) 0.8 H Neut % (Auto) 89.2 H Lymph % (Auto) 5.1 L Lymph # (Auto) 0.5 L Abs Immat Gran (auto) 0.09 H Absolute Neuts (auto) 9.4 H VBG pH 7.45 H Random Glucose 122 H 02/15/21 02/15/21 06:37 06:37 WBC 12.7 H Immature Gran % (Auto) 0.9 H Neut % (Auto) 86.5 H Lymph % (Auto) 6.7 L Lymph # (Auto) 0.9 L Abs Immat Gran (auto) 0.12 H Absolute Neuts (auto) 11.0 H VBG pH Random Glucose 127 H Assessment and Plan (1) Asthma exacerbation: Qualifiers: Asthma persistence: persistent Asthma severity: moderate Qualified Code(s): J45.41 - Moderate persistent asthma with (acute) exacerbation Status: Acute Impression: 41-year-old gentleman admitted with acute exacerbation of underlying asthma, now with significant improvement with treatment with systemic glucocorticoids and nebulized bronchodilators. Still with some expiratory wheezing. Recommendations: Agree with continuation of nebulized bronchodilators and prednisone taper. Procedures Date of Service Date of Service: 02/15/21
[2021-02-15] MEDS: LORazepam 2 MG/ML VIAL 1 MG IVPUSH (17:56)
[2021-02-15] MEDS: Albuterol Sulfate (0.083%) 2.5 MG/3 ML VIAL.NEB 5 MG INHALE (18:00)
--- NOTE | 2021-02-15 18:07 | PM.EVENT ---
Event Note Date of Service: 02/17/21 Event Note: Patient became very anxious, tachypnic, tachycardia.. given ativan, IV morphine and put on CPAP, and getting Nebs, hold of ABG. And continue to closely monitoring.
--- NOTE | 2021-02-15 19:31 | PC.NURSE ---
report given at this time
[2021-02-15] MEDS: Enoxaparin Sodium 40 MG/0.4 ML SYRINGE SUBCUT (20:55)
[2021-02-16] VITALS (18 sets, daily range): BP systolic 119–143; BP diastolic 63–75; PULSE 56–112; RESP 16–25; TEMP 36.1–36.3; O2SAT 94–100
[2021-02-16] MEDS: 0.9 % Sodium Chloride Flush 3 ML SYRINGE IVFLUSH ×2 (00:01→16:33)
[2021-02-16] MEDS: methylPREDNISolone Sod Succ 40 MG/ML VIAL IVPUSH ×4 (00:01→18:56)
[2021-02-16] MEDS: Albuterol Sulfate (0.083%) 2.5 MG/3 ML VIAL.NEB INHALE ×6 (00:43→19:26)
[2021-02-16] MEDS: Morphine Sulfate 4 MG/ML CARTRIDGE 1 MG IVPUSH ×3 (00:44→19:09)
[2021-02-16] MEDS: LORazepam 2 MG/ML VIAL 1 MG IVPUSH (01:01)
--- NOTE | 2021-02-16 03:05 | PC.NURSE ---
OO35 PATIENT STATED TO FEEL INCREASED SOB, ANXIOUS, HR 120'S, O2 SATS 97% ON 9L/M VENTI MASK. PT SITTING UPRIGHT IN BED, RR 24-26 AND REQUESTING RESP TX. RESPIRATORY CALLED, TREATMENT GIVEN, PLACED ON CPAP, MEDICATED WITH MORPHINE, THEN ATIVAN PER REQUEST. BOTH WITH GOOD EFFECT, HOWEVER, PT REQUESTED 2ND NEBULIZER, RESP CALLED AND CAME AGAIN TO TREAT PT. PATIENT THEN ABLE TO LIE BACK IN BED, HOB RAISED AND REST, HH 99, O2 SATS 98-99%. WILL CONTINUE TO MONITOR CLOSELY. LPN RN HOSPICE IN USE.
[2021-02-16] MEDS: Ascorbic Acid 500 MG TABLET PO (08:18)
[2021-02-16] MEDS: Famotidine 20 MG TABLET PO ×2 (08:18→22:20)
[2021-02-16] MEDS: Zinc Sulfate 220 MG CAPSULE PO (08:18)
[2021-02-16] MEDS: Loratadine 10 MG TABLET PO (08:18)
[2021-02-16] MEDS: ALPRAZolam 0.5 MG TABLET PO (10:27)
--- NOTE | 2021-02-16 14:50 | MHC.CLN ---
NUTRITION PATIENT WITH DIET ORDER FOR GLUTEN FREE. STATED THAT HE IS TRYING DIET TO SEE IF HELPS WITH ASTHMA.
[2021-02-16] MEDS: Enoxaparin Sodium 40 MG/0.4 ML SYRINGE SUBCUT (22:20)
[2021-02-17] VITALS (11 sets, daily range): BP systolic 117–146; BP diastolic 70–91; PULSE 56–92; RESP 16–18; TEMP 36.3–36.7; O2SAT 94–99
[2021-02-17] MEDS: methylPREDNISolone Sod Succ 40 MG/ML VIAL IVPUSH ×4 (00:24→18:36)
[2021-02-17] MEDS: 0.9 % Sodium Chloride Flush 3 ML SYRINGE IVFLUSH ×3 (00:25→18:36)
[2021-02-17] MEDS: Morphine Sulfate 4 MG/ML CARTRIDGE 1 MG IVPUSH (01:46)
[2021-02-17] MEDS: Albuterol Sulfate (0.083%) 2.5 MG/3 ML VIAL.NEB INHALE ×5 (01:48→20:22)
[2021-02-17] MEDS: LORazepam 2 MG/ML VIAL 1 MG IVPUSH ×4 (01:59→18:41)
[2021-02-17] MEDS: Morphine Sulfate 2 MG/ML CARTRIDGE IVPUSH (06:25)
[2021-02-17] MEDS: Sennosides 8.6 MG TABLET 17.2 MG PO (06:27)
[2021-02-17] MEDS: Zinc Sulfate 220 MG CAPSULE PO (07:39)
[2021-02-17] MEDS: Famotidine 20 MG TABLET PO ×2 (07:39→20:08)
[2021-02-17] MEDS: Ascorbic Acid 500 MG TABLET PO (07:39)
[2021-02-17] MEDS: Loratadine 10 MG TABLET PO (07:39)
--- NOTE | 2021-02-17 09:09 | HO.PM.IMPN ---
Subjective Subjective Date of Service: 02/17/21 Interval History: Seen in f/u for asthma exacerbation, still feeling sob not worse, not better compare to yeserday, still on CPAP Review of Systems sob, no cough, no fever no confusion Physical Exam Vital Signs: Vital Signs: Last Vital Signs Temp 97.7 F 02/17/21 07:58 Pulse 92 02/17/21 08:23 Resp 16 02/17/21 08:23 BP 146/89 H 02/17/21 07:58 Pulse Ox 99 02/17/21 07:58 BMI result Body Mass Index 26.4 Const: Other: General: AO X 3, no acute distress Resp: insp/ex wheezes CVS: S1,S2,RRR GI: +BS, NT, no distention Skin: No rash Neuro: motor grossly intact Psych: appropriate affect Objective Data Active Medications Acetaminophen (Acetaminophen 325 Mg Tablet) 650 mg PO Q6H PRN PRN Reason: Pain, Mild (Pain Scale 1-3) Albuterol Sulfate (Albuterol Sulfate (0.083%) 2.5 Mg/3 Ml Vial.Neb) 2.5 mg INHALE RQ4H WHILE AWAKE [facility] Last Admin: 02/17/21 08:22 Dose: 2.5 mg Documented by: NEHA Albuterol Sulfate (Albuterol Sulfate (0.083%) 2.5 Mg/3 Ml Vial.Neb) 2.5 mg INHALE Q2H PRN PRN Reason: Shortness of Breath/Wheezing Last Admin: 02/17/21 01:48 Dose: 2.5 mg Documented by: JOSELO Alprazolam (Alprazolam 0.5 Mg Tablet) 0.5 mg PO TID PRN PRN Reason: Anxiety Last Admin: 02/16/21 10:27 Dose: 0.5 mg Documented by: ROMEL Ascorbic Acid (Ascorbic Acid 500 Mg Tablet) 500 mg PO DAILY [facility] Last Admin: 02/17/21 07:39 Dose: 500 mg Documented by: KAYLA Enoxaparin Sodium (Enoxaparin Sodium 40 Mg/0.4 Ml Syringe) 40 mg SUBCUT Q24H [facility] Last Admin: 02/16/21 22:20 Dose: 40 mg Documented by: MORRIS Famotidine (Famotidine 20 Mg Tablet) 20 mg PO BID [facility] Last Admin: 02/17/21 07:39 Dose: 20 mg Documented by: KAYLA Guaifenesin (Guaifenesin 100 Mg/5 Ml Liquid) 5 ml PO Q6H PRN PRN Reason: Cough Last Admin: 02/15/21 03:22 Dose: 5 ml Documented by: BLAIR Loratadine (Loratadine 10 Mg Tablet) 10 mg PO DAILY [facility] Last Admin: 02/17/21 07:39 Dose: 10 mg Documented by: KAYLA Lorazepam (Lorazepam 2 Mg/Ml Vial) 1 mg IVPUSH Q4H PRN PRN Reason: Anxiety Last Admin: 02/17/21 07:33 Dose: 1 mg Documented by: KAYLA Melatonin (Melatonin 3 Mg Tablet) 6 mg PO BEDTIME PRN PRN Reason: Insomnia Methylprednisolone Sodium Succinate (Methylprednisolone Sod Succ 40 Mg/Ml Vial) 40 mg IVPUSH Q6H [facility] Last Admin: 02/17/21 06:30 Dose: 40 mg Documented by: KAYLA Morphine Sulfate (Morphine Sulfate 4 Mg/Ml Cartridge) 1 mg IVPUSH Q4H PRN; Protocol PRN Reason: Pain, SOB Last Admin: 02/17/21 01:46 Dose: 1 mg Documented by: MORRIS Pharmacy Consult (Consult Rx Perform Med Rec) 1 each MISCELLANE ONCE PRN PRN Reason: Consult order Senna (Sennosides 8.6 Mg Tablet) 17.2 mg PO BEDTIME PRN PRN Reason: Constipation Last Admin: 02/17/21 06:27 Dose: 17.2 mg Documented by: MORRIS Comments: pt didnt take it last night Sodium Chloride (0.9 % Sodium Chloride Flush 3 Ml Syringe) 3 ml IVFLUSH QSHIFT [facility] Last Admin: 02/17/21 07:39 Dose: 3 ml Documented by: KAYLA Tiotropium [place] (Tiotropium [place] 18 Mcg Cap.W.Dev) 1 puff INHALE DAILY [facility] Last Admin: 02/17/21 08:22 Dose: 1 puff Documented by: BRESHALEIGH Zinc Sulfate (Zinc Sulfate 220 Mg Capsule) 220 mg PO DAILY [facility] Last Admin: 02/17/21 07:39 Dose: 220 mg Documented by: KAYLA Labs CBC & Chem 7: 02/15/21 06:37 02/15/21 06:37 Assessment and Plan (1) Asthma exacerbation: Status: Acute (2) Acute respiratory failure with hypoxia: Status: Acute (3) Community acquired pneumonia: Status: Acute Assessment and Plan: 41-year-old male with a past medical history of anxiety, asthma, history of status asthmaticus, PTSD here with acute on chronic resp failure d/t exacerbation of asthma Acute asthma exacerbation, freqent admissions, mechanical vent in the past Continue Solu-Medrol 40 mg IV q.6 hourly, change to PO prednisone later today Nebulizations standing and p.r.n. Morphine p.r.n. for shortness of breath/anxiety For all other chronic conditions, home medications will be continued DVT prophylaxis: Lovenox Code status: Full code Quality Stroke Does the patient have a stroke diagnosis?: No VTE Prior VTE?: No VTE Risk Level:: Medical - moderate - high VTE Device Contraindication: Treatment Not Indicated VTE Drug Contraindication: N/A - Med Ordered
[2021-02-17] MEDS: Morphine Sulfate 4 MG/ML CARTRIDGE 2 MG IVPUSH ×2 (12:34→21:55)
--- NOTE | 2021-02-17 12:50 | MHC.CM.PN ---
CLINICALS SENT TO [facility]IA [facility]. NO PLAN FOR DISCHARGE TODAY
--- NOTE | 2021-02-17 13:03 | HO.PM.IMPN ---
Subjective Subjective Date of Service: 02/17/21 Interval History: late entry for 02/17, f/u on asthma this somebody maintain the anemia will talk about the idea time acute DVT with 6 at high his double problem solved by speech 30 Seen in f/u for asthma exacerbation, still feeling sob not worse, not better compare to yeserday, still on CPAP Review of Systems sob, no cough, no fever no confusion Physical Exam Vital Signs: Vital Signs: Last Vital Signs Temp 97.7 F 02/17/21 11:49 Pulse 67 02/17/21 11:54 Resp 16 02/17/21 11:54 BP 118/70 02/17/21 11:49 Pulse Ox 98 02/17/21 11:49 BMI result Body Mass Index 26.4 Const: Other: General: AO X 3, no acute distress Resp: insp/ex wheezes CVS: S1,S2,RRR GI: +BS, NT, no distention Skin: No rash Neuro: motor grossly intact Psych: appropriate affect Objective Data Active Medications Acetaminophen (Acetaminophen 325 Mg Tablet) 650 mg PO Q6H PRN PRN Reason: Pain, Mild (Pain Scale 1-3) Albuterol Sulfate (Albuterol Sulfate (0.083%) 2.5 Mg/3 Ml Vial.Neb) 2.5 mg INHALE RQ4H WHILE AWAKE [facility] Last Admin: 02/17/21 11:54 Dose: 2.5 mg Documented by: JORGE ALBERTO Albuterol Sulfate (Albuterol Sulfate (0.083%) 2.5 Mg/3 Ml Vial.Neb) 2.5 mg INHALE Q2H PRN PRN Reason: Shortness of Breath/Wheezing Last Admin: 02/17/21 01:48 Dose: 2.5 mg Documented by: JOSELO Alprazolam (Alprazolam 0.5 Mg Tablet) 0.5 mg PO TID PRN PRN Reason: Anxiety Last Admin: 02/16/21 10:27 Dose: 0.5 mg Documented by: ROMEL Ascorbic Acid (Ascorbic Acid 500 Mg Tablet) 500 mg PO DAILY [facility] Last Admin: 02/17/21 07:39 Dose: 500 mg Documented by: KAYLA Enoxaparin Sodium (Enoxaparin Sodium 40 Mg/0.4 Ml Syringe) 40 mg SUBCUT Q24H [facility] Last Admin: 02/16/21 22:20 Dose: 40 mg Documented by: MORRIS Famotidine (Famotidine 20 Mg Tablet) 20 mg PO BID [facility] Last Admin: 02/17/21 07:39 Dose: 20 mg Documented by: KAYLA Guaifenesin (Guaifenesin 100 Mg/5 Ml Liquid) 5 ml PO Q6H PRN PRN Reason: Cough Last Admin: 02/15/21 03:22 Dose: 5 ml Documented by: BLAIR Loratadine (Loratadine 10 Mg Tablet) 10 mg PO DAILY [facility] Last Admin: 02/17/21 07:39 Dose: 10 mg Documented by: KAYLA Lorazepam (Lorazepam 2 Mg/Ml Vial) 1 mg IVPUSH Q4H PRN PRN Reason: Anxiety Last Admin: 02/17/21 12:34 Dose: 1 mg Documented by: KAYLA Melatonin (Melatonin 3 Mg Tablet) 6 mg PO BEDTIME PRN PRN Reason: Insomnia Methylprednisolone Sodium Succinate (Methylprednisolone Sod Succ 40 Mg/Ml Vial) 40 mg IVPUSH Q6H [facility] Last Admin: 02/17/21 12:23 Dose: 40 mg Documented by: KAYLA Morphine Sulfate (Morphine Sulfate 4 Mg/Ml Cartridge) 2 mg IVPUSH Q4H PRN; Protocol PRN Reason: Pain, SOB Last Admin: 02/17/21 12:34 Dose: 2 mg Documented by: KAYLA Pharmacy Consult (Consult Rx Perform Med Rec) 1 each MISCELLANE ONCE PRN PRN Reason: Consult order Senna (Sennosides 8.6 Mg Tablet) 17.2 mg PO BEDTIME PRN PRN Reason: Constipation Last Admin: 02/17/21 06:27 Dose: 17.2 mg Documented by: MORRIS Comments: pt didnt take it last night Sodium Chloride (0.9 % Sodium Chloride Flush 3 Ml Syringe) 3 ml IVFLUSH QSHIFT [facility] Last Admin: 02/17/21 07:39 Dose: 3 ml Documented by: KAYLA Tiotropium [place] (Tiotropium [place] 18 Mcg Cap.W.Dev) 1 puff INHALE DAILY [facility] Last Admin: 02/17/21 08:22 Dose: 1 puff Documented by: BRESHALEIGH Zinc Sulfate (Zinc Sulfate 220 Mg Capsule) 220 mg PO DAILY [facility] Last Admin: 02/17/21 07:39 Dose: 220 mg Documented by: KAYLA Labs CBC & Chem 7: 02/15/21 06:37 02/15/21 06:37 Assessment and Plan (1) Asthma exacerbation: Status: Acute Assessment and Plan: 41-year-old male with a past medical history of anxiety, asthma, history of status asthmaticus, PTSD here with acute on chronic resp failure d/t exacerbation of asthma Acute asthma exacerbation, freqent admissions, mechanical vent in the past Continue Solu-Medrol 40 mg IV q.6 hourly, change to PO prednisone tomorrow Nebulizations standing and p.r.n. Morphine p.r.n. for shortness of breath/anxiety For all other chronic conditions, home medications will be continued DVT prophylaxis: Lovenox Code status: Full code late entry fro 02/17 Quality Stroke Does the patient have a stroke diagnosis?: No VTE Prior VTE?: No VTE Risk Level:: Medical - moderate - high VTE Device Contraindication: Treatment Not Indicated VTE Drug Contraindication: N/A - Med Ordered
[2021-02-17] MEDS: Enoxaparin Sodium 40 MG/0.4 ML SYRINGE SUBCUT (21:56)
[2021-02-18] MEDS: methylPREDNISolone Sod Succ 40 MG/ML VIAL IVPUSH ×2 (00:14→05:42)
[2021-02-18] MEDS: 0.9 % Sodium Chloride Flush 3 ML SYRINGE IVFLUSH ×2 (00:14→08:57)
[2021-02-18 04:00] VITALS: RESP 18
[2021-02-18 04:10] VITALS: RESP 18
[2021-02-18] MEDS: Morphine Sulfate 4 MG/ML CARTRIDGE 2 MG IVPUSH (05:46)
[2021-02-18 08:00] VITALS: BP 176/93; PULSE 80; RESP 18; TEMP 36.2; O2SAT 96
--- NOTE | 2021-02-18 08:39 | PM.DS ---
DS: Providers Provider Date of Service: 02/18/21 Date of admission: 02/14/21 20:02 Primary care physician: Earle Montano Consults: 02/14/21 20:12 Consult to Pulmonology Routine Consulting Provider: Kaila Miranda Reason for consultation: Asthma exacerbation DS: Diagnosis Discharge Diagnosis (1) Asthma exacerbation: Status: Acute DS: Summary Hospital Course Hospital Course: Date of Service: 02/14/21 Chief Complaint:? shortness of breath ?41-year-old male with a past medical history of anxiety, asthma, history of status asthmaticus, PTSD, history of amputation presented to the hospital today with a chief complaint of shortness of breath.? Patient reports that he has been having shortness of breath over the past few days; which has been not improving with his home inhalers; came to the ER this morning after receiving the treatment he felt better and went home; soon after he went home he started to feel shortness of breath again and he tried to uses home nebulizers with? no improvement hence presented to the ER for further evaluation.? Denies any fever chills.? Denies any chest pain palpitations.? Denies any numbness tingling or focal weakness.? Review of all other systems is negative except mentioned above ER course: Per ER team patient on presentation noted to be in mild distress;? given magnesium, nebulizers, steroids home.? Also received Ativan for anxiety.? Patient respiratory is mildly improved. ? admitted to the hospital for further management. Hospital course: Patient was admitted and treated with exacerbation of asthma with mainstain of treatment of IV steroid, bronchodilators by Neb, opioid for dyspnea and at an occasion required CPAP, he is doing much better, lungs are clear and he desires to go home. Will be discharged with steroid jim and continue use of inhalers Time Spent with Patient Time attestation: Total time spent providing and/or coordinating discharge services: Discharge coordination time: Greater than 30 minutes Quality: Stroke Does the patient have a stroke diagnosis?: No Physical Exam Vital Signs: Vital Signs: Last Vital Signs Temp 97.5 F 02/17/21 23:21 Pulse 77 02/17/21 23:21 Resp 18 02/18/21 04:10 BP 117/72 02/17/21 23:21 Pulse Ox 97 02/17/21 23:21 BMI result Body Mass Index 26.4 DS: Data Data Completed and Pending Completed studies during hospitalization [Text1]: Procedures Assistance with Respiratory Ventilation, Less than 24 Consecutive Hours, Continuous Positive Airway Pressure (01/27/21) Discharge Plan Discharge Anticipated Discharge Date/Time: 02/18/21 08:31 Patient Disposition: Home Health Service Discharge Diagnosis: Ashtma exacerbation Referrals: Earle Montano [Primary Care Provider] - 1 Week Discharge Medications: Continued albuterol sulfate 90 mcg/actuation HFA aerosol inhaler 2 puff inhalation Q4-6H PRN (Reason: shortness of breath or wheezing) Qty: 8.5 RF: 0 albuterol sulfate 2.5 mg /3 mL (0.083 %) solution for nebulization 3 mg inhalation QID PRN (Reason: Wheezing) RF: 0 cetirizine 10 mg Tablet 10 mg PO DAILY RF: 0 ascorbic acid (vitamin C) [Vitamin C] 500 mg Tablet 500 mg PO DAILY RF: 0 zinc sulfate 220 mg Capsule 220 mg PO DAILY RF: 0 cholecalciferol (vitamin D3) [Vitamin D3] 25 mcg (1,000 unit) Tablet 25 mcg PO DAILY RF: 0 magnesium oxide 400 mg magnesium Tablet 400 mg PO DAILY RF: 0 levalbuterol HCl 0.63 mg/3 mL solution for nebulization 0.63 mg inhalation Q4H PRN (Reason: Shortness Of Breath Or Wheezing) RF: 0 Spiriva with HandiHaler 18 mcg capsule, w/inhalation device 1 cap inhalation DAILY RF: 0 alprazolam 0.5 mg tablet 0.5 mg PO TID PRN (Reason: Anxiety) RF: 0 Discharge Orders: Discharge Order (Routine); Ordered 02/18/21 Ordered By: Reilly Patterson Diet: advance to usual diet Activity on Discharge: As tolerated Stand Alone Forms: Patient Portal Discharge page Care Plan Goals: prevent exacerbation of asthma and hospitalizaion Health Concerns: Severe persistent asthma Plan of Treatment: use in inhalers and take steroid as recommended and follow up with your Doctor in a week, Assessment: As above
[2021-02-18] MEDS: Zinc Sulfate 220 MG CAPSULE PO (08:57)
[2021-02-18] MEDS: Loratadine 10 MG TABLET PO (08:57)
[2021-02-18] MEDS: LORazepam 2 MG/ML VIAL 1 MG IVPUSH (08:57)
[2021-02-18] MEDS: Ascorbic Acid 500 MG TABLET PO (08:57)
[2021-02-18] MEDS: Famotidine 20 MG TABLET PO (08:58)
--- NOTE | 2021-02-18 09:00 | MHC.CM.PN ---
PT TO DC HOME TODAY WITH RESUMPTION OF [facility]. [facility] NOTIFIED AND DC SUMMARY SENT VIA [facility] WILL PROVIDE TRANSPORTATION
[2021-02-18] MEDS: Albuterol Sulfate (0.083%) 2.5 MG/3 ML VIAL.NEB INHALE (09:30)
[2021-02-18 09:31] VITALS: PULSE 80; RESP 18; O2SAT 96
== END 2021-02-18 10:23 | disposition home health service (06) | DRG 202 ==
LOC: HO.ED 20:04 → HO.EDOVER 20:18 → HO.S3 02-15 19:06
PROVIDERS: Nurse Practitioner Family; Admitting Provider Hospitalist; Emergency Provider Internal Medicine; PCP Internal Medicine; Visit Provider Internal Medicine
DX: J45.41 Moderate persistent asthma with (acute) exacerbation (principal); J18.9 Pneumonia, unspecified organism; J96.01 Acute respiratory failure with hypoxia; F41.9 Anxiety disorder, unspecified; F43.10 Post-traumatic stress disorder, unspecified; Z20.822 Contact with and (suspected) exposure to COVID-19; Z88.6 Allergy status to analgesic agent; Z79.899 Other long term (current) drug therapy
CPT/HCPCS: 36415; 71045; 80048; 82803; 83735; 84484; 85025; 87635; 93005; 94640; 94644; 94645; 94660; 96365; 96366; 96375; 96376; 99284; 99291; 99292; J1100; J1650; J2060; J2270; J2920; J3475

== ENCOUNTER 2021-05-23 09:20 | Inpatient (IN) | payer OTHER, SELFPAY ==
[2021-05-23] VITALS (12 sets, daily range): BP systolic 104–154; BP diastolic 50–90; PULSE 86–138; RESP 12–28; TEMP 36.3–36.9; O2SAT 94–97; BMI 25.9
--- NOTE | ~2021-05-23 | XR_ITS ---
EXAMINATION: XR CHEST CLINICAL INFORMATION: Question pneumonia COMPARISON: February 14, 2021 TECHNIQUE: AP portable view of the chest was obtained. FINDINGS: No significant abnormality is noted involving the heart, lungs, mediastinum, bony thorax or soft tissues. Suture line from previous surgery seen overlying the mid right chest. There is some chronic postsurgical pleural change at the right base. XR/XR chest 1V IMPRESSION: No acute parenchymal disease.
--- NOTE | 2021-05-23 09:29 | ECG_ITS ---
Test Reason : sob Blood Pressure : / mmHG Vent. Rate : 130 BPM Atrial Rate : 130 BPM P-R Int : 138 ms QRS Dur : 088 ms QT Int : 298 ms P-R-T Axes : 080 -30 062 degrees QTc Int : 438 ms Sinus tachycardia Left axis deviation Possible Inferior infarct , age undetermined - could also be non specific Abnormal ECG When compared with ECG of 14-FEB-2021 19:11, Criteria for Septal infarct are no longer Present Borderline criteria for Inferior infarct are now Present Referred By: Wallace Kelin Electronically Signed By:GAYLE VOGEL
--- NOTE | 2021-05-23 09:31 | ED.GENADULT ---
HPI - General Adult General Chief complaint: Dyspnea Stated complaint: DIFF BREATHING X'S 5 HRS,HOME PRN O2LPM,95% 4LPM Time Seen by Provider: 05/23/21 09:44 Source: patient Mode of arrival: ambulatory Limitations: no limitations History of Present Illness HPI narrative: 41-year-old male history of constrictive bronchitis brought to ED for shortness of breath since yesterday. Patient states chest felt tight or shortness of breath. Patient was seen here including decrease in yesterday and was discharged and came to the ED today to be evaluated. Patient denies any leg swelling, calf pain, coughing up blood, fever, or chills. Patient been to the ED many times for similar presentation. Patient ready given albuterol and magnesium 2 mg in the EMT. Related Data Home Medications Medication Instructions Recorded Confirmed ascorbic acid (vitamin C) 500 mg 500 mg PO DAILY 12/21/20 02/14/21 tablet (Vitamin C) cetirizine 10 mg tablet 10 mg PO DAILY 12/21/20 02/14/21 cholecalciferol (vitamin D3) 25 25 mcg PO DAILY 12/21/20 02/14/21 mcg (1,000 unit) tablet (Vitamin D3) magnesium oxide 400 mg PO DAILY 12/21/20 02/14/21 zinc sulfate 220 mg capsule 220 mg PO DAILY 12/21/20 02/14/21 alprazolam 0.5 mg tablet 0.5 mg PO TID PRN 01/28/21 02/14/21 levalbuterol HCl 0.63 mg/3 mL 0.63 mg INHALATION Q4H PRN 01/28/21 02/14/21 solution for nebulization tiotropium bromide 18 mcg capsule 1 cap INHALATION DAILY 01/28/21 02/14/21 with inhalation device (Spiriva with HandiHaler) albuterol sulfate 3 mg INHALATION QID PRN 02/14/21 02/14/21 Previous Rx's Medication Instructions Recorded albuterol sulfate 90 mcg/actuation 2 puff INHALATION Q4-6H PRN #8.5 g 12/26/19 aerosol inhaler prednisone 10 mg tablet See Taper PO DAILY #20 tab 02/18/21 Allergies Allergy/AdvReac Type Severity Reaction Status Date / Time ibuprofen [IBUPROFEN] Allergy Intermediate Difficulty Verified 02/14/21 18:36 Breathing shellfish derived Allergy Mild SWELLING Verified 02/14/21 18:36 aspirin [ASA] Allergy Unknown DIFFICULTY Verified 02/14/21 18:36 BREATHING albuterol AdvReac Mild Gas Verified 02/14/21 18:36 exchange problems sertraline AdvReac Nausea Verified 02/14/21 18:36 nsaids Allergy Unknown Difficulty Uncoded 02/14/21 04:26 Breathing nucala Allergy Unknown shortness Uncoded 02/14/21 04:26 of breath Review of Systems Review of Systems: Shortness of breath Yes all other systems are reviewed and are negative [facility] Past Medical History Medical History Acute respiratory failure with hypoxia Allergic asthma Anxiety Asthma Asthmaticus, status PTSD (post-traumatic stress disorder) Surgical History History of amputation Social History Social History Household Members: None Household Members Other:: Dogs Housing: House Do you presently have visiting nurse or other home services: Yes (visiting nursing) Alcohol intake: current Alcohol intake frequency: holidays/special occasions only Patient Tobacco Use Status: Never used Tobacco Second Hand Smoke Exposure: No Substance Use Type: Marijuana Advance Directives: No Advance Directives Information Provided: No service: Yes Current occupational status: retired and disabled Physical Exam ED Vital Signs: Vital Signs - 24 hr 05/23/21 09:26 05/23/21 09:35 05/23/21 10:05 Temperature 98.4 F Pulse Rate 130 H 122 H 138 H Respiratory Rate 22 H 28 H 24 H Blood Pressure 129/71 Pulse Oximetry 96 05/23/21 10:39 05/23/21 12:07 05/23/21 14:00 Temperature Pulse Rate 138 H 118 H 98 Respiratory Rate 12 18 Blood Pressure 154/90 H 107/50 L 104/73 Pulse Oximetry 94 97 96 BMI result Body Mass Index 25.9 Const General: cooperative, healthy appearing, well developed, alert, awake and in distress (Mild) Orientation/consciousness: patient oriented x3 HENMT Head: Yes normal to inspection, Yes No palpable skull fracture present, Yes normocephalic, Yes atraumatic and No abrasion Ears: hearing grossly normal bilaterally, external ears normal, TM's normal bilaterally, EAC's normal, mastoids normal and no periauricular adenopathy Eyes General: appearance normal, both eyes and all related structures Neck Neck: Yes normal visual inspection, Yes full ROM, Yes no lymphadenopathy, Yes no meningeal signs, Yes trachea midline, Yes supple, No anterior neck swelling and No tender Chest Chest palpation & inspection: normal inspection of the chest and normal palpation of entire chest wall Resp Effort & Inspection: normal respiratory effort and able to speak in complete sentences Auscultation: wheezes (Positive for profuse wheezing) Cardio Jugular venous distension: no JVD Heart sounds: S1 normal heart sound present and S2 normal heart sound present GI Inspection: Yes normal to inspection and No abdominal wall ecchymosis Palpation (GI): Soft to palpation, not firm, nontender, no guarding and not rigid General: No CVA tenderness and Yes no CVA tenderness Back/Spine/Pelvis Back: no CVA tenderness, No CVA tenderness and No back tenderness Skin General skin exam: no rashes or lesions noted and elasticity normal Neuro General: patient oriented x3, gait normal, no meningeal signs and CN's II-XI intact bilaterally Cranial nerves: Yes CN's II-XII intact bilaterally Extrem Other: Right lower extremity is negative for swelling, pitting edema, calf tenderness. Patient has left BKA. General: Yes normal to inspection and Yes full ROM Psych Appearance: grossly normal, well kempt and not disheveled Course Course Course Narrative: Albuterol 10 mg ordered with fentanyl Solu-Medrol IV labs ordered EKG. Chest x-ray ordered. Fentanyl order due to patient seeming anxious feeling Reevaluation(s) Reevaluation #1: Patient was given Ativan because the x-ray due to anxiety. Patient's chest x-ray was normal. Patient's SARs COVID swab negative. Patient not washing phone sleeping. White blood cell count [id number]. Patient's troponin positive 49. I trended patient's troponin and has never been positive before. Will add D-dimer for possibility of chest CT scan rule out PE if necessary if D-dimer is positive. Presently patient has no risks for PE. Initial tachycardia with a due to multiple rounds of albuterol at home, on the ambulance, and in the ED. if D-dimer positive will send for chest CTA. Time: 11:44 Reevaluation #2: I want to talk to patient patient states not having any chest pain. Patient states yesterday at [facility] yesterday his troponin was also positive but denied increased by 50% the 2nd time so he was discharged. Waiting for D-dimer results Time: 11:52 Reevaluation #3: D-dimer negative. Second troponin did not increase by 50%. Received notes from [facility] ED visit that occurred last night which showed patient was treated as asthma exacerbation. Due to patient being a bounce-back for asthma exacerbation. Case was discussed with Dr. Rodgers for admission for asthma exacerbation to observe. Lungs wheezing improved. Patient states he feels better, but does states his asthma can worsen at any time. Time: 16:22 Medical Decision Making MDM Narrative Medical decision making narrative: Asthma exacerbation Lab Data Result diagrams: 05/23/21 10:52 05/23/21 10:09 Labs: Lab Results 05/23/21 05/23/21 05/23/21 Range/Units 10:09 10:09 10:12 WBC (4.8-10.8) X10*3/uL RBC (4.60-5.80) X10*6/uL Hgb (14.0-18.0) g/dl Hct (42.0-52.0) % MCV (80.0-98.0) fL MCH (27.0-33.0) pg MCHC (31.0-36.0) g/dl RDW (11.0-16.0) % Plt Count (160-400) X10*3/uL MPV (9.4-12.4) fL Immature Gran % (Auto) (0.0-0.4) % Neut % (Auto) (45-73) % Lymph % (Auto) (20-40) % [place] % (Auto) (2-11) % Eos % (Auto) (0-4) % Baso % (Auto) (0-2) % Lymph # (Auto) (1.2-4.9) X10*3/uL [place] # (Auto) (0.1-1.2) X10*3/uL Eos # (Auto) (0.0-0.4) X10*3/uL Baso # (Auto) (0.0-0.2) X10*3/uL Abs Immat Gran (auto) (0.00-0.03) X10*3/uL Absolute Neuts (auto) (2.0-8.3) x10*3/uL Absolute Nucleated RBC (0.0-0.012) X10*3/uL Nucleated RBC % (auto) (0.0-0.2) /100WBC PT 11.4 (9.9-13.0) SEC INR 1.0 (0.9-1.1) APTT 32.3 (24.1-38.0) SEC D-Dimer High Sensitivty < 150 NG/ML Sodium 143 (135-145) mmol/L Potassium 4.3 (3.3-5.1) mmol/L Chloride 106 (96-108) mmol/L Carbon Dioxide 23 (22-29) mmol/L Anion Gap 18 (12-20) BUN 15 (9-16) mg/dL Creatinine 1.01 (0.5-1.4) mg/dL Estim Creat Clear Calc 117.3 Estimated GFR > 60 Random Glucose 116 H (60-115) mg/dL Calcium 10.1 (8.4-10.2) mg/dL Total Bilirubin 0.5 (0.0-1.0) mg/dL AST 15 (5-37) U/L ALT 18 (0-40) U/L Alkaline Phosphatase 63 (39-117) U/L Troponin I High Sens (<3.5-35.0) ng/L B-Natriuretic Peptide (<100) pg/mL Total Protein 7.2 (6.5-8.0) g/dL Albumin 4.7 (3.5-5.0) g/dL Influenza Type A (PCR) NEGATIVE (Negative) Influenza Type B (PCR) NEGATIVE (Negative) RSV RNA Qual (PCR) NEGATIVE (Negative) SARS-CoV-2 RNA (RT-PCR) NEGATIVE (Negative) 05/23/21 05/23/21 05/23/21 Range/Units 10:17 10:52 14:53 WBC 13.4 H (4.8-10.8) X10*3/uL RBC 5.38 (4.60-5.80) X10*6/uL Hgb 15.9 (14.0-18.0) g/dl Hct 47.3 (42.0-52.0) % MCV 87.9 (80.0-98.0) fL MCH 29.6 (27.0-33.0) pg MCHC 33.6 (31.0-36.0) g/dl RDW 12.5 (11.0-16.0) % Plt Count 277 (160-400) X10*3/uL MPV 10.1 (9.4-12.4) fL Immature Gran % (Auto) 0.7 H (0.0-0.4) % Neut % (Auto) 82.7 H (45-73) % Lymph % (Auto) 9.5 L (20-40) % [place] % (Auto) 6.4 (2-11) % Eos % (Auto) 0.4 (0-4) % Baso % (Auto) 0.3 (0-2) % Lymph # (Auto) 1.3 (1.2-4.9) X10*3/uL [place] # (Auto) 0.9 (0.1-1.2) X10*3/uL Eos # (Auto) 0.1 (0.0-0.4) X10*3/uL Baso # (Auto) 0.0 (0.0-0.2) X10*3/uL Abs Immat Gran (auto) 0.10 H (0.00-0.03) X10*3/uL Absolute Neuts (auto) 11.0 H (2.0-8.3) x10*3/uL Absolute Nucleated RBC 0.000 (0.0-0.012) X10*3/uL Nucleated RBC % (auto) 0.0 (0.0-0.2) /100WBC PT (9.9-13.0) SEC INR (0.9-1.1) APTT (24.1-38.0) SEC D-Dimer High Sensitivty NG/ML Sodium (135-145) mmol/L Potassium (3.3-5.1) mmol/L Chloride (96-108) mmol/L Carbon Dioxide (22-29) mmol/L Anion Gap (12-20) BUN (9-16) mg/dL Creatinine (0.5-1.4) mg/dL Estim Creat Clear Calc Estimated GFR Random Glucose (60-115) mg/dL Calcium (8.4-10.2) mg/dL Total Bilirubin (0.0-1.0) mg/dL AST (5-37) U/L ALT (0-40) U/L Alkaline Phosphatase (39-117) U/L Troponin I High Sens 49.9 H D 35.8 H (<3.5-35.0) ng/L B-Natriuretic Peptide 40 (<100) pg/mL Total Protein (6.5-8.0) g/dL Albumin (3.5-5.0) g/dL Influenza Type A (PCR) (Negative) Influenza Type B (PCR) (Negative) RSV RNA Qual (PCR) (Negative) SARS-CoV-2 RNA (RT-PCR) (Negative) ECG Data Interpretation: Sinus tachycardia. Ventricular rate 130. Pr interval 138. Caris 88. QTC 438. Negative STEMI Discharge Plan Discharge Clinical Impression: Asthma with exacerbation Patient Disposition: Admitted As Inpatient
[2021-05-23] MEDS: Albuterol Sulfate (0.083%) 2.5 MG/3 ML VIAL.NEB 10 MG INHALE ×2 (09:34→10:04)
[2021-05-23] MEDS: methylPREDNISolone Sod Succ 125 MG/2 ML VIAL IVPUSH (09:39)
[2021-05-23] MEDS: fentaNYL citrate/PF 100 MCG/2 ML VIAL 50 MCG IVPUSH (09:39)
[2021-05-23 10:27] LABS: Prothrombin Time 11.4 SEC (9.9-13.0)
[2021-05-23 10:30] LABS: Partial Thromboplastin Time 32.3 SEC (24.1-38.0)
[2021-05-23] MEDS: LORazepam 2 MG/ML VIAL 1 MG IVPUSH (10:35)
[2021-05-23 10:41] LABS: Alanine Aminotransferase 18 U/L (0-40); Albumin Level 4.7 g/dL (3.5-5.0); Alkaline Phosphatase 63 U/L (39-117); Anion Gap 18 (12-20); Aspartate Amino Transferase 15 U/L (5-37); Bilirubin Total 0.5 mg/dL (0.0-1.0); Blood Urea Nitrogen 15 mg/dL (9-16); Calcium 10.1 mg/dL (8.4-10.2); Carbon Dioxide 23 mmol/L (22-29); Chloride 106 mmol/L (96-108); Creatinine Clr Calc Pharmacy 117.3; Estimated Glomerular Filt Rate > 60; Glucose Random 116 mg/dL (60-115); Potassium 4.3 mmol/L (3.3-5.1); Sodium 143 mmol/L (135-145); Total Protein 7.2 g/dL (6.5-8.0)
[2021-05-23 10:42] LABS: B Type Natriuretic Peptide 40 pg/mL (<100); Troponin-I High Sensitivity 49.9 ng/L (<3.5-35.0)
[2021-05-23 10:56] LABS: MANUAL DIFF FLAG NO
[2021-05-23 11:03] LABS: Influenza A PCR NEGATIVE (Negative); Influenza B PCR NEGATIVE (Negative); Resp Syncy Virus RNA Qual PCR NEGATIVE (Negative); SARS COV2 PCR INHOUSE NEGATIVE (Negative)
[2021-05-23 11:08] LABS: Basophils Percent Auto 0.3 % (0-2); Eosinophils Absolute Auto 0.1 X10*3/uL (0.0-0.4); Eosinophils Percent Auto 0.4 % (0-4); Hematocrit 47.3 % (42.0-52.0); Hemoglobin 15.9 g/dl (14.0-18.0); Imm Gran Pct Auto 0.7 % (0.0-0.4); Lymphocytes Absolute Auto 1.3 X10*3/uL (1.2-4.9); Lymphocytes Percent Auto 9.5 % (20-40); Mean Corpuscular HGB Conc 33.6 g/dl (31.0-36.0); Mean Corpuscular Hemoglobin 29.6 pg (27.0-33.0); Mean Corpuscular Volume 87.9 fL (80.0-98.0); Mean Platelet Volume 10.1 fL (9.4-12.4); Monocytes Absolute Auto 0.9 X10*3/uL (0.1-1.2); Monocytes Percent Auto 6.4 % (2-11); Neutrophils Percent Auto 82.7 % (45-73); Platelet Count 277 X10*3/uL (160-400); Red Blood Count 5.38 X10*6/uL (4.60-5.80); Red Cell Distribution Width 12.5 % (11.0-16.0); White Blood Count 13.4 X10*3/uL (4.8-10.8)
[2021-05-23 12:09] LABS: D Dimer High Sensitivity < 150 NG/ML
[2021-05-23 15:16] LABS: Troponin-I High Sensitivity 35.8 ng/L (<3.5-35.0)
[2021-05-23] MEDS: LORazepam 1 MG TABLET PO (15:49)
--- NOTE | 2021-05-23 17:30 | PM.IMHP ---
History of Present Illness Date of Service: 05/23/21 Chief Complaint: Shortness of breath 41-year-old male with a known history of moderate persistent asthma presents with an episode of exacerbation similar to past hospitalizations. He states this started gradually over the last few days but has continued to get worse. In the emergency room he received magnesium 2 g IV along with 125 mg of Solu-Medrol and extended neb. He is feeling somewhat better however is still not back to baseline. Of note, he has a history of PTSD that was provoked in the ER by patient screaming requiring IV Ativan. This resolved without issue and he is back to his baseline and will be admitted to general medical floor Review of Systems Review of Systems: Denies chest pain Admits to shortness of breath at rest Denies nausea vomiting diarrhea Denies fever chills [facility] Medical History (Updated 05/23/21 @ 17:36 by Kyle Rodgers DO) Acute respiratory failure with hypoxia Allergic asthma Anxiety Asthma Asthmaticus, status PTSD (post-traumatic stress disorder) Surgical History History of amputation Social History Household Members: None Household Members Other:: Dogs Housing: House Do you presently have visiting nurse or other home services: Yes (visiting nursing) Alcohol intake: current Alcohol intake frequency: holidays/special occasions only Patient Tobacco Use Status: Never used Tobacco Second Hand Smoke Exposure: No Substance Use Type: Marijuana Advance Directives: No Advance Directives Information Provided: No service: Yes Current occupational status: retired and disabled Meds Allergies Allergy/AdvReac Type Severity Reaction Status Date / Time ibuprofen [IBUPROFEN] Allergy Intermediate Difficulty Verified 02/14/21 18:36 Breathing shellfish derived Allergy Mild SWELLING Verified 02/14/21 18:36 aspirin [ASA] Allergy Unknown DIFFICULTY Verified 02/14/21 18:36 BREATHING albuterol AdvReac Mild Gas Verified 02/14/21 18:36 exchange problems sertraline AdvReac Nausea Verified 02/14/21 18:36 nsaids Allergy Unknown Difficulty Uncoded 02/14/21 04:26 Breathing nucala Allergy Unknown shortness Uncoded 02/14/21 04:26 of breath Active Medications: Current Medications Albuterol Sulfate (Albuterol Sulfate (0.083%) 2.5 Mg/3 Ml Vial.Neb) 5 mg INHALE RQ4H WHILE AWAKE [facility] Stop: 05/24/21 12:01 Enoxaparin Sodium (Enoxaparin Sodium 40 Mg/0.4 Ml Syringe) 40 mg SUBCUT Q24H [facility] Doxycycline Hyclate 100 mg/ (Sodium Chloride) 250 mls @ 166.67 mls/hr IV BID@1000,2200 [facility] Lorazepam (Lorazepam 2 Mg/Ml Vial) 1 mg IVPUSH RQ8H PRN PRN Reason: anxiety/restlessness Methylprednisolone Sodium Succinate (Methylprednisolone Sod Succ 125 Mg/2 Ml Vial) 60 mg IVPUSH RQ8H [facility] Home Medications Medication Instructions Recorded Confirmed Last Taken Type ascorbic acid (vitamin C) 500 mg 500 mg PO DAILY 12/21/20 02/14/21 02/14/21 History tablet (Vitamin C) cetirizine 10 mg tablet 10 mg PO DAILY 12/21/20 02/14/21 02/14/21 History magnesium oxide 400 mg PO DAILY 12/21/20 02/14/21 02/13/21 History alprazolam 0.5 mg tablet 0.5 mg PO TID PRN 01/28/21 02/14/21 02/14/21 History albuterol sulfate 3 mg INHALATION QID PRN 02/14/21 02/14/21 02/14/21 History cholecalciferol (vitamin D3) 125 125 mcg PO DAILY 05/23/21 05/23/21 Unknown History mcg (5,000 unit) tablet (Vitamin D3) hydroxyzine HCl 50 mg tablet 50 mg PO TID PRN 05/23/21 05/23/21 Unknown History mometasone (Asmanex Twisthaler) 1 inh INHALATION DAILY 05/23/21 05/23/21 Unknown History multivitamin 1 tab PO DAILY 05/23/21 05/23/21 Unknown History prazosin 2 mg capsule 2 mg PO BEDTIME 05/23/21 05/23/21 05/22/21 History prednisone 10 mg tablet 10 mg PO DAILY 05/23/21 05/23/21 Unknown History tiotropium bromide 1.25 2 puff INHALATION DAILY 05/23/21 05/23/21 Unknown History mcg/actuation mist for inhalation (Spiriva Respimat) zinc sulfate 50 mg zinc (220 mg) 50 mg PO DAILY 05/23/21 05/23/21 Unknown History capsule Physical Exam Vital Signs and Narrative: Vital Signs: Last Vital Signs Temp 98.4 F 05/23/21 09:26 Pulse 94 05/23/21 16:00 Resp 18 05/23/21 16:00 BP 137/79 05/23/21 16:00 Pulse Ox 95 05/23/21 16:00 Oxygen Flow Rate 4 05/23/21 09:26 BMI result Body Mass Index 25.9 Const: Other: Awake alert oriented x3 able to speak in short sentences Resp: Other: Diminished all busch with dense expiratory wheezes. Scattered rhonchi that clear with cough Cardio: Other: No S4; positive S1-S2; no S3 murmurs rubs or gallops GI: Other: Soft nontender nondistended with normoactive bowel sounds Extrem: Other: Left BKA; right without edema Results Labs CBC and Chem 7: 05/23/21 10:52 05/23/21 10:09 Labs: Laboratory Results - last 24 hr 05/23/21 05/23/21 05/23/21 10:09 10:09 10:12 MCV MCH MCHC RDW Plt Count MPV Immature Gran % (Auto) Neut % (Auto) Lymph % (Auto) [place] % (Auto) Eos % (Auto) Baso % (Auto) Lymph # (Auto) [place] # (Auto) Eos # (Auto) Baso # (Auto) Abs Immat Gran (auto) Absolute Neuts (auto) Absolute Nucleated RBC Nucleated RBC % (auto) PT 11.4 INR 1.0 APTT 32.3 D-Dimer High Sensitivty < 150 Anion Gap 18 Estim Creat Clear Calc 117.3 Estimated GFR > 60 Random Glucose 116 H Calcium 10.1 Total Bilirubin 0.5 AST 15 ALT 18 Alkaline Phosphatase 63 B-Natriuretic Peptide Total Protein 7.2 Albumin 4.7 Influenza Type A (PCR) NEGATIVE Influenza Type B (PCR) NEGATIVE RSV RNA Qual (PCR) NEGATIVE SARS-CoV-2 RNA (RT-PCR) NEGATIVE 05/23/21 05/23/21 10:17 10:52 MCV 87.9 MCH 29.6 MCHC 33.6 RDW 12.5 Plt Count 277 MPV 10.1 Immature Gran % (Auto) 0.7 H Neut % (Auto) 82.7 H Lymph % (Auto) 9.5 L [place] % (Auto) 6.4 Eos % (Auto) 0.4 Baso % (Auto) 0.3 Lymph # (Auto) 1.3 [place] # (Auto) 0.9 Eos # (Auto) 0.1 Baso # (Auto) 0.0 Abs Immat Gran (auto) 0.10 H Absolute Neuts (auto) 11.0 H Absolute Nucleated RBC 0.000 Nucleated RBC % (auto) 0.0 PT INR APTT D-Dimer High Sensitivty Anion Gap Estim Creat Clear Calc Estimated GFR Random Glucose Calcium Total Bilirubin AST ALT Alkaline Phosphatase B-Natriuretic Peptide 40 Total Protein Albumin Influenza Type A (PCR) Influenza Type B (PCR) RSV RNA Qual (PCR) SARS-CoV-2 RNA (RT-PCR) Imaging Radiologist's Impressions: Impressions Chest X-Ray 05/23/21 09:36 IMPRESSION: No acute parenchymal disease. Assessment and Plan (1) Asthma with exacerbation: Status: Acute (2) Anxiety: Status: Acute (3) PTSD (post-traumatic stress disorder): Status: Acute Plan 41-year-old male with known history of moderate persistent asthma presents with typical exacerbation along with productive cough. In the emergency room, he received magnesium, Solu-Medrol, hour long neb with fair results. He also received 1 mg Ativan IV for exacerbation/trigger of PTSD 1. Asthma(moderate/persistant) -IV methylprednisolone -Albuterol nebs prn SOB -Doxycycline(sputum production/Hx tobacco abuse) - follow renals/divalents 2.PTSD/Anxiety -prn Atian -resume outpatient regimen Full Code Lovenox Requires acute hospitalization for 1 midnight secondary for the need for aggressive updraft treatments and IV steroids related to asthma exacerbation Quality Stroke Does the patient have a stroke diagnosis?: No VTE Prior VTE?: No VTE Risk Level:: Medical - moderate - high VTE Device Contraindication: Treatment Not Indicated VTE Drug Contraindication: N/A - Med Ordered
--- NOTE | 2021-05-23 17:38 | PHA.MEDREC ---
Pharmacy Consult ? Medication Reconciliation Pharmacy has completed the medication reconciliation.
[2021-05-23] MEDS: Enoxaparin Sodium 40 MG/0.4 ML SYRINGE SUBCUT (17:55)
[2021-05-23] MEDS: Albuterol Sulfate (0.083%) 2.5 MG/3 ML VIAL.NEB 5 MG INHALE ×2 (19:51→23:27)
[2021-05-23] MEDS: Prazosin HCL 1 MG CAPSULE 2 MG PO (21:21)
[2021-05-23] MEDS: Doxycycline Hyclate 100 MG in 0.9 % Sodium Chloride 250 ML 166.67 MG IV (21:52)
[2021-05-23] MEDS: methylPREDNISolone Sod Succ 125 MG/2 ML VIAL 60 MG IVPUSH (23:40)
[2021-05-24] VITALS (24 sets, daily range): BP systolic 107–147; BP diastolic 66–93; PULSE 69–157; RESP 12–27; TEMP 36.3–37.2; O2SAT 92–100; BMI 25.1
[2021-05-24] MEDS: Albuterol Sulfate (0.083%) 2.5 MG/3 ML VIAL.NEB 5 MG INHALE (00:03)
[2021-05-24] MEDS: LORazepam 2 MG/ML VIAL 1 MG IVPUSH ×3 (00:14→19:25)
[2021-05-24] MEDS: Morphine Sulfate 2 MG/ML CARTRIDGE IVPUSH (00:15)
--- NOTE | 2021-05-24 00:25 | PC.NURSE ---
Report taken from KARSTEN Acuña RN at 19:53, pt brought into ED Overflow around 20:00. Pt used bathroom and was resting comfortably in bed. Patient woke around 23:15 with acute anxiety and sob. O2 sat 92%RA. Resp called for treatment. Pt placed on Oximask. Pt unable to control his breathing and anxiety. Resp called for another treatment-given. Pt also received 2mg IV Morphine and 1mg IV Ativan as well as his scheduled Solumedrol. Dr Harkins called and at bedside. Resp did not leave patients side. PA from ICU came down to assess patient and patient placed on bipap. Report was called to JUAN Greenwood in ICU around 0024. Pt left unit via bed with respiratory and ICU nurse.
--- NOTE | 2021-05-24 00:34 | PM.EVENT ---
Event Note Date of Service: 05/24/21 Event Note: respiratory distress: Patient noted to be in mild respiratory distress Secondary to asthma exacerbation around 23:55; patient was given neb treatment, morphine; requested ICU evaluation; ICU has evaluated the patient and subsequent except for the patient to the ICU.
--- NOTE | 2021-05-24 00:43 | PC.NURSE ---
When Dr Harkins was on the unit with patient and respiratory, he told me to give 2mg of IV Morphine. (Only 1mg was ordered in a 2mg vial). I gave the 2 mg and did not waste the other 1mg in the pyxis as the total 2mg was given. Dr. Harkins is changing the order for 2mg in the computer so I can chart it (It was physically given at 0015).
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
[2021-05-24 00:55] LABS: Venous Blood Gas Refer to POC result
[2021-05-24 00:56] LABS: VBG Base Excess -0.5 mmol/L; VBG HCO3 23 mmol/L (22-26); VBG pCO2 37 mmHg; VBG pO2 152 mmHg
[2021-05-24] MEDS: methylPREDNISolone Sod Succ 125 MG/2 ML VIAL IVPUSH ×4 (01:54→19:33)
[2021-05-24] MEDS: fentaNYL citrate/PF 100 MCG/2 ML VIAL 50 MCG IVPUSH ×3 (02:02→23:38)
--- NOTE | 2021-05-24 03:44 | PC.NURSE ---
Assumed care from JUAN Montes in ED overflow about 00:30. Patient is arriving in asthma exacerbation with accessory muscle use and respirtory distress. On bipap, initially on 20/5 and 80%, was weaned to 16/5 and 40% after adjustments in care plan and VBGs returned with 7.40/37/152/23/-0.5. Patient had recently finished albuterol updraft treatments and was initially with sinus tachycardia versus SVT with rate 150 on arrival, but also with very tight inspiratory and expiratory wheezes throughout bilateral lung busch to auscultation, discussed with PA and RT, and new orders for Q4 hour xopenex, Q4 hour atrovent, PRN Q2 hour Xopenex, IV solumedrol increased to 125 mg Q6 hours with stacked dose about 2 am. Patient feeling more comfortable status post PRN fentanyl 50 mcg IVP for work of breathing. Patient endorses some constipation, continuing to monitor. Patient with chronic urinary retention, straight caths self, was provided with equipment and instruction and demonstrates good technique, 500 ccs out.
[2021-05-24 05:13] LABS: MANUAL DIFF FLAG NO
[2021-05-24 05:15] LABS: Basophils Percent Auto 0.1 % (0-2); Hematocrit 43.2 % (42.0-52.0); Hemoglobin 14.4 g/dl (14.0-18.0); Lymphocytes Absolute Auto 0.8 X10*3/uL (1.2-4.9); Lymphocytes Percent Auto 7.3 % (20-40); Mean Corpuscular HGB Conc 33.3 g/dl (31.0-36.0); Mean Corpuscular Hemoglobin 29.4 pg (27.0-33.0); Mean Corpuscular Volume 88.2 fL (80.0-98.0); Mean Platelet Volume 10.1 fL (9.4-12.4); Monocytes Absolute Auto 0.4 X10*3/uL (0.1-1.2); Monocytes Percent Auto 3.6 % (2-11); Platelet Count 248 X10*3/uL (160-400); Red Cell Distribution Width 12.6 % (11.0-16.0); White Blood Count 10.3 X10*3/uL (4.8-10.8)
[2021-05-24 05:39] LABS: Anion Gap 14 (12-20); Blood Urea Nitrogen 14 mg/dL (9-16); Calcium 9.7 mg/dL (8.4-10.2); Carbon Dioxide 22 mmol/L (22-29); Chloride 108 mmol/L (96-108); Estimated Glomerular Filt Rate > 60; Glucose Random 141 mg/dL (60-115); Magnesium 2.3 mg/dL (1.6-2.6); Phosphorus 3.9 mg/dL (2.7-4.5); Potassium 4.4 mmol/L (3.3-5.1); Sodium 140 mmol/L (135-145)
[2021-05-24] MEDS: Loratadine 10 MG TABLET PO (07:39)
[2021-05-24] MEDS: Magnesium Oxide 400 MG TABLET PO (07:39)
[2021-05-24] MEDS: Multivitamin TABLET 1 TAB PO (07:40)
[2021-05-24 07:42] LABS: VBG Base Excess -1.4 mmol/L; VBG HCO3 21 mmol/L (22-26); VBG pCO2 31 mmHg; VBG pH 7.44 (7.32-7.43); VBG pO2 110 mmHg
[2021-05-24] MEDS: Ipratropium Bromide 0.5 MG/2.5 ML SOLUTION INHALE ×4 (08:04→19:20)
[2021-05-24] MEDS: Zinc Sulfate 220 MG CAPSULE PO (08:59)
[2021-05-24] MEDS: Ascorbic Acid 500 MG TABLET 1500 MG PO (08:59)
[2021-05-24] MEDS: Cholecalciferol (Vitamin D3) 25 MCG TABLET 125 MCG PO (08:59)
[2021-05-24 10:59] LABS: Venous Blood Gas Refer to POC result
[2021-05-24] MEDS: Doxycycline Hyclate 100 MG in 0.9 % Sodium Chloride 250 ML 166.67 MG IV ×2 (11:01→22:01)
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
[2021-05-24] MEDS: Enoxaparin Sodium 40 MG/0.4 ML SYRINGE SUBCUT (19:25)
[2021-05-24] MEDS: Prazosin HCL 1 MG CAPSULE 2 MG PO (21:47)
[2021-05-25] VITALS (15 sets, daily range): BP systolic 120–144; BP diastolic 62–90; PULSE 73–111; RESP 14–24; TEMP 36.2–37.2; O2SAT 91–98
[2021-05-25] MEDS: methylPREDNISolone Sod Succ 125 MG/2 ML VIAL IVPUSH (01:51)
[2021-05-25] MEDS: LORazepam 2 MG/ML VIAL 1 MG IVPUSH ×3 (04:01→20:28)
[2021-05-25] MEDS: Morphine Sulfate 2 MG/ML CARTRIDGE IVPUSH ×2 (04:47→14:32)
[2021-05-25 06:31] LABS: MANUAL DIFF FLAG NO
[2021-05-25 06:38] LABS: Venous Blood Gas Refer to POC result
[2021-05-25 06:39] LABS: VBG Base Excess 3.6 mmol/L; VBG HCO3 26 mmol/L (22-26); VBG pCO2 35 mmHg; VBG pH 7.48 (7.32-7.43); VBG pO2 109 mmHg
[2021-05-25 06:58] LABS: Anion Gap 12 (12-20); Blood Urea Nitrogen 16 mg/dL (9-16); Calcium 9.9 mg/dL (8.4-10.2); Carbon Dioxide 25 mmol/L (22-29); Chloride 106 mmol/L (96-108); Creatinine Clr Calc Pharmacy 153.9; Estimated Glomerular Filt Rate > 60; Glucose Random 134 mg/dL (60-115); Magnesium 2.1 mg/dL (1.6-2.6); Phosphorus 3.8 mg/dL (2.7-4.5); Potassium 4.4 mmol/L (3.3-5.1); Sodium 139 mmol/L (135-145)
--- NOTE | 2021-05-25 07:00 | PC.RT ---
Pt changing BIPAP settings on his own; RT informed pt of risks and told not to change settings. RN aware
[2021-05-25 07:05] LABS: Basophils Percent Auto 0.1 % (0-2); Hematocrit 43.2 % (42.0-52.0); Hemoglobin 14.5 g/dl (14.0-18.0); Imm Gran Abs Auto 0.15 X10*3/uL (0.00-0.03); Imm Gran Pct Auto 1.4 % (0.0-0.4); Lymphocytes Absolute Auto 0.6 X10*3/uL (1.2-4.9); Mean Corpuscular HGB Conc 33.6 g/dl (31.0-36.0); Mean Corpuscular Hemoglobin 29.8 pg (27.0-33.0); Mean Corpuscular Volume 88.7 fL (80.0-98.0); Mean Platelet Volume 10.7 fL (9.4-12.4); Monocytes Absolute Auto 0.7 X10*3/uL (0.1-1.2); Monocytes Percent Auto 6.4 % (2-11); Neutrophils Absolute Auto 9.1 x10*3/uL (2.0-8.3); Neutrophils Percent Auto 86.1 % (45-73); Platelet Count 248 X10*3/uL (160-400); Red Blood Count 4.87 X10*6/uL (4.60-5.80); Red Cell Distribution Width 12.5 % (11.0-16.0); White Blood Count 10.6 X10*3/uL (4.8-10.8)
[2021-05-25] MEDS: methylPREDNISolone Sod Succ 125 MG/2 ML VIAL 40 MG IVPUSH ×2 (08:42→20:20)
[2021-05-25] MEDS: Ipratropium Bromide 0.5 MG/2.5 ML SOLUTION INHALE ×4 (09:18→20:14)
[2021-05-25] MEDS: Fluticasone Propionate 250 MCG BLST.W.DEV 1 PUFF INHALE ×2 (09:18→19:33)
[2021-05-25] MEDS: Doxycycline Hyclate 100 MG in 0.9 % Sodium Chloride 250 ML 166.67 MG IV ×2 (10:06→22:10)
--- NOTE | 2021-05-25 11:38 | P.PNIM_ITS ---
Subjective Subjective Date of Service: 05/25/21 Interval History: CPAP overnight Wheezing Cough with small amount white sputum No fever Review of Systems Review of Systems: Yes all other systems are reviewed and are negative Physical Exam Vital Signs: Vital Signs: Last Vital Signs Temp 97.8 F 05/25/21 07:16 Pulse 92 05/25/21 11:34 Resp 20 05/25/21 11:34 BP 136/62 05/25/21 07:16 Pulse Ox 98 05/25/21 07:16 Oxygen Flow Rate 4 05/23/21 09:26 BMI result Body Mass Index 25.1 Gen: mild resp distress HEENT: sclera anicteric, moist mucus membranes Neck: supple Lungs: prolonged expiration with wheezing Heart: regular rate and rhythm, no murmurs Abd: soft, non-tender, non-distended Ext: no edema Skin: warm/well-perfused Neuro: alert and oriented x3, no focal findings Psych: appropriate affect Objective Data Active Medications Albuterol Sulfate (Albuterol Sulfate (0.083%) 2.5 Mg/3 Ml Vial.Neb) 5 mg INHALE RQ4H WHILE AWAKE [facility] Last Admin: 05/24/21 00:03 Dose: 5 mg Documented by: YOSVANY Ascorbic Acid (Ascorbic Acid 500 Mg Tablet) 1,500 mg PO DAILY [facility] Last Admin: 05/24/21 08:59 Dose: 1,500 mg Documented by: LAXMI Enoxaparin Sodium (Enoxaparin Sodium 40 Mg/0.4 Ml Syringe) 40 mg SUBCUT Q24H [facility] Last Admin: 05/24/21 19:25 Dose: 40 mg Documented by: FERNANDO Fentanyl (Fentanyl Citrate/Pf 100 Mcg/2 Ml Vial) 50 mcg IVPUSH Q2H PRN; P rotocol PRN Reason: tachypnea Last Admin: 05/24/21 23:38 Dose: 50 mcg Documented by: KRYS Fluticasone Propionate (Fluticasone Propionate 250 Mcg Blst.W.Dev) 1 puff INHALE RBID [facility] Last Admin: 05/25/21 09:18 Dose: 1 puff Documented by: JORGE ALBERTO Hydroxyzine HCl (Hydroxyzine Hcl 50 Mg Tablet) 50 mg PO TID PRN PRN Reason: Itching Doxycycline Hyclate 100 mg/ (Sodium Chloride) 250 mls @ 166.67 mls/hr IV BID@1000,2200 [facility] Last Admin: 05/25/21 10:06 Dose: 166.67 mls/hr Documented by: RONAK Ipratropium [place] (Ipratropium [place] 0.5 Mg/2.5 Ml Solution) 0.5 mg INHALE RQ4H WHILE AWAKE [facility] Last Admin: 05/25/21 11:32 Dose: 0.5 mg Documented by: JORGE ALBERTO Levalbuterol HCl (Levalbuterol Hcl 1.25 Mg/0.5 Ml Vial.Neb) 1.25 mg INHALE RQ4H WHILE AWAKE [facility] Last Admin: 05/25/21 11:33 Dose: 1.25 mg Documented by: JORGE ALBERTO Levalbuterol HCl (Levalbuterol Hcl 1.25 Mg/0.5 Ml Vial.Neb) 1.25 mg INHALE Q2H PRN PRN Reason: Wheezing Last Admin: 05/25/21 04:05 Dose: 1.25 mg Documented by: REESE Loratadine (Loratadine 10 Mg Tablet) 10 mg PO DAILY [facility] Last Admin: 05/24/21 07:39 Dose: 10 mg Documented by: RYDER Lorazepam (Lorazepam 2 Mg/Ml Vial) 1 mg IVPUSH Q4H PRN PRN Reason: anxiety/restlessness Last Admin: 05/25/21 10:26 Dose: 1 mg Documented by: RONAK Methylprednisolone Sodium Succinate (Methylprednisolone Sod Succ 125 Mg/2 Ml Vial) 40 mg IVPUSH Q12H [facility] Last Admin: 05/25/21 08:42 Dose: 40 mg Documented by: RONAK Prazosin HCl (Prazosin Hcl 1 Mg Capsule) 2 mg PO BEDTIME [facility]; Protocol Last Admin: 05/24/21 21:47 Dose: 2 mg Documented by: FERNANDO Tiotropium [place] (Tiotropium [place] 18 Mcg Cap.W.Dev) 2 puff INHALE RDAILY [facility] Last Admin: 05/25/21 09:39 Dose: 2 puff Documented by: JORGE ALBERTO Vitamin D (Cholecalciferol (Vitamin D3) 25 Mcg Tablet) 125 mcg PO DAILY [facility] Last Admin: 05/24/21 08:59 Dose: 125 mcg Documented by: LAXMI Zinc Sulfate (Zinc Sulfate 220 Mg Capsule) 220 mg PO DAILY [facility] Last Admin: 05/24/21 08:59 Dose: 220 mg Documented by: LAXMI Labs CBC & Chem 7: 05/25/21 06:25 05/25/21 06:25 Labs: Laboratory Results - last 24 hr 05/25/21 05/25/21 05/25/21 06:25 06:25 06:30 MCV 88.7 MCH 29.8 MCHC 33.6 RDW 12.5 Plt Count 248 MPV 10.7 Immature Gran % (Auto) 1.4 H Neut % (Auto) 86.1 H Lymph % (Auto) 6.0 L [place] % (Auto) 6.4 Eos % (Auto) 0.0 Baso % (Auto) 0.1 Lymph # (Auto) 0.6 L [place] # (Auto) 0.7 Eos # (Auto) 0.0 Baso # (Auto) 0.0 Abs Immat Gran (auto) 0.15 H Absolute Neuts (auto) 9.1 H Absolute Nucleated RBC 0.000 Nucleated RBC % (auto) 0.0 VBG pH 7.48 H VBG pCO2 35 VBG pO2 109 VBG HCO3 26 VBG O2 Saturation 99.0 VBG Base Excess 3.6 Anion Gap 12 Estim Creat Clear Calc 153.9 Estimated GFR > 60 Random Glucose 134 H Calcium 9.9 Phosphorus 3.8 Magnesium 2.1 Assessment and Plan (1) 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: Status: Acute (2) Asthma with exacerbation: Status: Acute Plan hospital d#3 41yo M with severe allergic asthma + 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 still doesn't have home CPAP- [facility] # asthma exacerbation - taper steroids, scheduled/prn nebs, doxycycline d#3 # PTSD - prazosin # VTE ppx - LMWH Quality Stroke Does the patient have a stroke diagnosis?: No VTE Prior VTE?: No VTE Risk Level:: Medical - moderate - high VTE Device Contraindication: Treatment Not Indicated VTE Drug Contraindication: N/A - Med Ordered
--- NOTE | 2021-05-25 13:21 | PC.NURSE ---
Skin/wound assessment completed. Patient has a left leg amputation. No other skin issues noted at this time.
[2021-05-25] MEDS: Enoxaparin Sodium 40 MG/0.4 ML SYRINGE SUBCUT (17:32)
[2021-05-25] MEDS: Prazosin HCL 1 MG CAPSULE 2 MG PO (20:20)
[2021-05-26] VITALS (13 sets, daily range): BP systolic 126–147; BP diastolic 70–81; PULSE 65–95; RESP 16–24; TEMP 36.2–37.3; O2SAT 93–99; BMI 23.8
[2021-05-26] MEDS: Morphine Sulfate 2 MG/ML CARTRIDGE IVPUSH ×2 (03:46→21:16)
[2021-05-26 06:33] LABS: VBG Base Excess 3.6 mmol/L; VBG HCO3 28 mmol/L (22-26); VBG pCO2 43 mmHg; VBG pH 7.42 (7.32-7.43); VBG pO2 55 mmHg
[2021-05-26 06:33] LABS: Venous Blood Gas Refer to POC result
[2021-05-26 06:48] LABS: Anion Gap 15 (12-20); Blood Urea Nitrogen 18 mg/dL (9-16); Calcium 9.4 mg/dL (8.4-10.2); Carbon Dioxide 25 mmol/L (22-29); Chloride 104 mmol/L (96-108); Creatinine Clr Calc Pharmacy 146.3; Estimated Glomerular Filt Rate > 60; Glucose Random 106 mg/dL (60-115); Potassium 3.9 mmol/L (3.3-5.1); Sodium 140 mmol/L (135-145)
[2021-05-26] MEDS: Fluticasone Propionate 250 MCG BLST.W.DEV 1 PUFF INHALE ×2 (07:38→19:35)
[2021-05-26] MEDS: Ipratropium Bromide 0.5 MG/2.5 ML SOLUTION INHALE ×4 (07:38→19:32)
[2021-05-26] MEDS: methylPREDNISolone Sod Succ 125 MG/2 ML VIAL 40 MG IVPUSH ×2 (08:29→20:07)
[2021-05-26] MEDS: LORazepam 2 MG/ML VIAL 1 MG IVPUSH ×2 (08:29→20:13)
[2021-05-26] MEDS: Doxycycline Hyclate 100 MG in 0.9 % Sodium Chloride 250 ML 166.67 MG IV ×2 (09:48→21:16)
--- NOTE | 2021-05-26 11:02 | HO.PM.IMPN ---
Subjective Subjective Date of Service: 05/26/21 Interval History: Breathing improved but still wheezing a lot. Review of Systems Review of Systems: Yes all other systems are reviewed and are negative Physical Exam Vital Signs: Vital Signs: Last Vital Signs Temp 98.1 F 05/26/21 07:49 Pulse 73 05/26/21 07:49 Resp 16 05/26/21 07:49 BP 139/70 05/26/21 07:49 Pulse Ox 96 05/26/21 07:49 Oxygen Flow Rate 4 05/23/21 09:26 BMI result Body Mass Index 23.8 Gen: mild respiratory distress HEENT: sclera anicteric, moist mucus membranes Neck: supple Lungs: prolonged expiration with wheezing Heart: regular rate and rhythm, no murmurs Abd: soft, non-tender, non-distended Ext: no edema Skin: warm/well-perfused Neuro: alert and oriented x3, no focal findings Psych: appropriate affect Objective Data Active Medications Albuterol Sulfate (Albuterol Sulfate (0.083%) 2.5 Mg/3 Ml Vial.Neb) 5 mg INHALE RQ4H WHILE AWAKE [facility] Last Admin: 05/24/21 00:03 Dose: 5 mg Documented by: YOSVANY Ascorbic Acid (Ascorbic Acid 500 Mg Tablet) 1,500 mg PO DAILY [facility] Last Admin: 05/24/21 08:59 Dose: 1,500 mg Documented by: LAXMI Enoxaparin Sodium (Enoxaparin Sodium 40 Mg/0.4 Ml Syringe) 40 mg SUBCUT Q24H [facility] Last Admin: 05/25/21 17:32 Dose: 40 mg Documented by: RONAK Fentanyl (Fentanyl Citrate/Pf 100 Mcg/2 Ml Vial) 50 mcg IVPUSH Q2H PRN; Protocol PRN Reason: tachypnea Last Admin: 05/24/21 23:38 Dose: 50 mcg Documented by: KRYS Fluticasone Propionate (Fluticasone Propionate 250 Mcg Blst.W.Dev) 1 puff INHALE RBID [facility] Last Admin: 05/26/21 07:38 Dose: 1 puff Documented by: BRESNE Hydroxyzine HCl (Hydroxyzine Hcl 50 Mg Tablet) 50 mg PO TID PRN PRN Reason: Itching Doxycycline Hyclate 100 mg/ (Sodium Chloride) 250 mls @ 166.67 mls/hr IV BID@1000,2200 [facility] Last Admin: 05/26/21 09:48 Dose: 166.67 mls/hr Documented by: ALLEN Ipratropium Black (Ipratropium Black 0.5 Mg/2.5 Ml Solution) 0.5 mg INHALE RQ4H WHILE AWAKE [facility] Last Admin: 05/26/21 07:38 Dose: 0.5 mg Documented by: NEHA Levalbuterol HCl (Levalbuterol Hcl 1.25 Mg/0.5 Ml Vial.Neb) 1.25 mg INHALE RQ4H WHILE AWAKE [facility] Last Admin: 05/26/21 07:38 Dose: 1.25 mg Documented by: NEHA Levalbuterol HCl (Levalbuterol Hcl 1.25 Mg/0.5 Ml Vial.Neb) 1.25 mg INHALE Q2H PRN PRN Reason: Wheezing Last Admin: 05/25/21 18:37 Dose: 1.25 mg Documented by: AHSAN Loratadine (Loratadine 10 Mg Tablet) 10 mg PO DAILY [facility] Last Admin: 05/24/21 07:39 Dose: 10 mg Documented by: RYDER Lorazepam (Lorazepam 2 Mg/Ml Vial) 1 mg IVPUSH Q4H PRN PRN Reason: anxiety/restlessness Last Admin: 05/26/21 08:29 Dose: 1 mg Documented by: ALLEN Methylprednisolone Sodium Succinate (Methylprednisolone Sod Succ 125 Mg/2 Ml Vial) 40 mg IVPUSH Q12H [facility] Last Admin: 05/26/21 08:29 Dose: 40 mg Documented by: ALLEN Morphine Sulfate (Morphine Sulfate 2 Mg/Ml Cartridge) 2 mg IVPUSH Q4H PRN; Protocol PRN Reason: shortness of breath Last Admin: 05/26/21 03:46 Dose: 2 mg Documented by: KRYS Prazosin HCl (Prazosin Hcl 1 Mg Capsule) 2 mg PO BEDTIME [facility]; Protocol Last Admin: 05/25/21 20:20 Dose: 2 mg Documented by: KRYS Tiotropium Black (Tiotropium Black 18 Mcg Cap.W.Dev) 2 puff INHALE RDAILY [facility] Last Admin: 03/19/22 07:38 Dose: 2 puff Documented by: NEHA Vitamin D (Cholecalciferol (Vitamin D3) 25 Mcg Tablet) 125 mcg PO DAILY [facility] Last Admin: 05/24/21 08:59 Dose: 125 mcg Documented by: LAXMI Zinc Sulfate (Zinc Sulfate 220 Mg Capsule) 220 mg PO DAILY [facility] Last Admin: 05/24/21 08:59 Dose: 220 mg Documented by: LAXMI Labs CBC & Chem 7: 05/25/21 06:25 05/26/21 06:20 Labs: Laboratory Results - last 24 hr 05/26/21 05/26/21 06:20 06:26 VBG pH 7.42 VBG pCO2 43 VBG pO2 55 VBG HCO3 28 H VBG O2 Saturation 84.0 VBG Base Excess 3.6 Anion Gap 15 Estim Creat Clear Calc 146.3 Estimated GFR > 60 Random Glucose 106 Calcium 9.4 Assessment and Plan (1) 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: Status: Acute (2) Asthma with exacerbation: Status: Acute Plan hospital d#4 41yo M with severe allergic asthma + 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 still doesn't have home CPAP- pt is working with his PCP, food consultant, and the [facility] to get [facility] # asthma exacerbation - continue to taper steroids, scheduled/prn nebs, doxycycline d#4 # PTSD - prazosin # VTE ppx - LMWH In my clinical judgment, the patient requires continued hospitalization for the following reasons: respiratory distress Quality Stroke Does the patient have a stroke diagnosis?: No VTE Prior VTE?: No VTE Risk Level:: Medical - moderate - high VTE Device Contraindication: Treatment Not Indicated VTE Drug Contraindication: N/A - Med Ordered
[2021-05-26] MEDS: Enoxaparin Sodium 40 MG/0.4 ML SYRINGE SUBCUT (15:45)
[2021-05-26] MEDS: Prazosin HCL 1 MG CAPSULE 2 MG PO (20:07)
[2021-05-27] VITALS (7 sets, daily range): BP systolic 130–136; BP diastolic 78–79; PULSE 64–87; RESP 16–24; TEMP 36.1–36.6; O2SAT 93–98; BMI 24.2
[2021-05-27] MEDS: Morphine Sulfate 2 MG/ML CARTRIDGE IVPUSH (05:22)
[2021-05-27] MEDS: Ipratropium Bromide 0.5 MG/2.5 ML SOLUTION INHALE ×2 (07:29→11:38)
[2021-05-27] MEDS: Fluticasone Propionate 250 MCG BLST.W.DEV 1 PUFF INHALE (07:29)
[2021-05-27] MEDS: Doxycycline Hyclate 100 MG in 0.9 % Sodium Chloride 250 ML 166.67 MG IV (09:32)
[2021-05-27] MEDS: methylPREDNISolone Sod Succ 125 MG/2 ML VIAL 40 MG IVPUSH (09:32)
[2021-05-27] MEDS: LORazepam 2 MG/ML VIAL 1 MG IVPUSH (09:38)
--- NOTE | 2021-05-27 10:28 | PM.DS ---
DS: Providers Provider Date of Service: 05/27/21 Date of admission: 05/23/21 16:51 Primary care physician: Earle Montano DS: Diagnosis Discharge Diagnosis (1) 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: Status: Acute (2) Asthma with exacerbation: Status: Acute (3) Acute respiratory failure with hypoxia: Status: Acute DS: Summary Hospital Course Hospital Course: From admission history and physical by hospitalist Kyle Rodgers DO, 05/23/21: 41-year-old male with a known history of? moderate persistent asthma presents with an episode of exacerbation similar to past hospitalizations.? He states this started gradually over the last few days but has continued to get worse.? In the emergency room he? received magnesium 2 g IV along with 125 mg of Solu-Medrol and extended neb.? He is feeling somewhat better however is still not back to baseline.? Of note, he has a history of PTSD that was provoked in the ER by patient screaming requiring IV Ativan.? This resolved without issue and he is back to his baseline and will be admitted to general medical floor Then from business test analyst consultation by RICHA Slade, 05/24/21: Patient is a 41-year-old male who is well known to this hospital for multiple ICU and regular floor admissions due to his moderate persistent asthma with multiple exacerbations? complicated by his PTSD and anxiety who presented to the emergency department yesterday? complaining of shortness of breath which has progressively gotten worse over the last few days. ? In the emergency department he was given 2 g IV Mag, 125 Solu-Medrol and 1 hour albuterol nebulizer treatment.? Patient felt better but not back to baseline so he was admitted to Med-Surg for an asthma exacerbation.? while in the overflow unit? late yesterday evening, the patient felt very short of breath, felt like his lungs were tight and he was wheezing, he also got very anxious and was given multiple rounds of albuterol (60mg albuterol total) which raised his heart rate and his anxiety level.? upon my bedside exam, pt was tachycardic in the 160's, O2 sat 90% on 15L, he was visibly anxious, tripod'ing and using accessory muscles,? the patient's lungs were tight, we placed him on BiPAP 16/5 80% which gave him immediate relief, we also gave him 1mg IV Ativan and he had just rec'd 1mg morphine prior to my arrival at the bedside. He was placed on BiPAP with rapid recovery and was stepped back down to the C 05/25/21. He was weaned off the oxygen. He was placed on IV steroids. He was discharged home on a prednisone taper and will follow up with his primary care doctor and his instrument maker within 1-2 weeks. IgE level was drawn and is pending at the time of discharge; this was ordered to see if the patient would be a candidate for anti-IgE monoclonal antibody therapy. Consideration should also be given to allergy testing for dog dander, as he does have service dogs. He is working with his PCP and instrument maker to obtain home BiPAP for home use. Time Spent with Patient Time attestation: Total time spent providing and/or coordinating discharge services: Discharge coordination time: Greater than 30 minutes Quality: Stroke Does the patient have a stroke diagnosis?: No Physical Exam Vital Signs: Vital Signs: Last Vital Signs Temp 97.8 F 05/27/21 07:48 Pulse 83 05/27/21 07:48 Resp 18 05/27/21 07:48 BP 130/79 05/27/21 07:48 Pulse Ox 94 05/27/21 07:48 BMI result Body Mass Index 24.2 Gen: no respiratory distress HEENT: sclera anicteric, moist mucus membranes Neck: supple Lungs: lungs clear Heart: regular rate and rhythm, no murmurs Abd: soft, non-tender, non-distended Ext: no edema Skin: warm/well-perfused Neuro: alert and oriented x3, paraplegia Psych: appropriate affect DS: Data Data Completed and Pending Completed studies during hospitalization [Text1]: Laboratory Results WBC 10.6 X10*3/uL (4.8-10.8) 05/25/21 06:25 RBC 4.87 X10*6/uL (4.60-5.80) 05/25/21 06:25 Hgb 14.5 g/dl (14.0-18.0) 05/25/21 06:25 Hct 43.2 % (42.0-52.0) 05/25/21 06:25 MCV 88.7 fL (80.0-98.0) 05/25/21 06:25 MCH 29.8 pg (27.0-33.0) 05/25/21 06:25 MCHC 33.6 g/dl (31.0-36.0) 05/25/21 06:25 RDW 12.5 % (11.0-16.0) 05/25/21 06:25 Plt Count 248 X10*3/uL (160-400) 05/25/21 06:25 MPV 10.7 fL (9.4-12.4) 05/25/21 06:25 Immature Gran % (Auto) 1.4 % (0.0-0.4) H 05/25/21 06:25 Neut % (Auto) 86.1 % (45-73) H 05/25/21 06:25 Lymph % (Auto) 6.0 % (20-40) L 05/25/21 06:25 [place] % (Auto) 6.4 % (2-11) 05/25/21 06:25 Eos % (Auto) 0.0 % (0-4) 05/25/21 06:25 Baso % (Auto) 0.1 % (0-2) 05/25/21 06:25 Lymph # (Auto) 0.6 X10*3/uL (1.2-4.9) L 05/25/21 06:25 [place] # (Auto) 0.7 X10*3/uL (0.1-1.2) 05/25/21 06:25 Eos # (Auto) 0.0 X10*3/uL (0.0-0.4) 05/25/21 06:25 Baso # (Auto) 0.0 X10*3/uL (0.0-0.2) 05/25/21 06:25 Abs Immat Gran (auto) 0.15 X10*3/uL (0.00-0.03) H 05/25/21 06:25 Absolute Neuts (auto) 9.1 x10*3/uL (2.0-8.3) H 05/25/21 06:25 Absolute Nucleated RBC 0.000 X10*3/uL (0.0-0.012) 05/25/21 06:25 Nucleated RBC % (auto) 0.0 /100WBC (0.0-0.2) 05/25/21 06:25 PT 11.4 SEC (9.9-13.0) 05/23/21 10:09 INR 1.0 (0.9-1.1) 05/23/21 10:09 APTT 32.3 SEC (24.1-38.0) 05/23/21 10:09 D-Dimer High Sensitivty < 150 NG/ML 05/23/21 10:09 VBG pH 7.42 (7.32-7.43) 05/26/21 06:26 VBG pCO2 43 mmHg 05/26/21 06:26 VBG pO2 55 mmHg 05/26/21 06:26 VBG HCO3 28 mmol/L (22-26) H 05/26/21 06:26 VBG O2 Saturation 84.0 % 05/26/21 06:26 VBG Base Excess 3.6 mmol/L 05/26/21 06:26 Sodium 140 mmol/L (135-145) 05/26/21 06:20 Potassium 3.9 mmol/L (3.3-5.1) 05/26/21 06:20 Chloride 104 mmol/L (96-108) 05/26/21 06:20 Carbon Dioxide 25 mmol/L (22-29) 05/26/21 06:20 Anion Gap 15 (12-20) 05/26/21 06:20 BUN 18 mg/dL (9-16) H 05/26/21 06:20 Creatinine 0.81 mg/dL (0.5-1.4) 05/26/21 06:20 Estim Creat Clear Calc 146.3 05/26/21 06:20 Estimated GFR > 60 05/26/21 06:20 Random Glucose 106 mg/dL (60-115) 05/26/21 06:20 Calcium 9.4 mg/dL (8.4-10.2) 05/26/21 06:20 Phosphorus 3.8 mg/dL (2.7-4.5) 05/25/21 06:25 Magnesium 2.1 mg/dL (1.6-2.6) 05/25/21 06:25 Total Bilirubin 0.5 mg/dL (0.0-1.0) 05/23/21 10:09 AST 15 U/L (5-37) 05/23/21 10:09 ALT 18 U/L (0-40) 05/23/21 10:09 Alkaline Phosphatase 63 U/L (39-117) 05/23/21 10:09 Troponin I High Sens 35.8 ng/L (<3.5-35.0) H 05/23/21 14:53 B-Natriuretic Peptide 40 pg/mL (<100) 05/23/21 10:17 Total Protein 7.2 g/dL (6.5-8.0) 05/23/21 10:09 Albumin 4.7 g/dL (3.5-5.0) 05/23/21 10:09 Influenza Type A (PCR) NEGATIVE (Negative) 05/23/21 10:12 Influenza Type B (PCR) NEGATIVE (Negative) 05/23/21 10:12 RSV RNA Qual (PCR) NEGATIVE (Negative) 05/23/21 10:12 SARS-CoV-2 RNA (RT-PCR) NEGATIVE (Negative) 05/23/21 10:12 Impressions Chest X-Ray 05/23/21 09:36 IMPRESSION: No acute parenchymal disease. Discharge Plan Discharge Patient Disposition: Home Health Service Discharge Diagnosis: asthma exacerbation, reactive airways dysfunction syndrome and irritant-induced asthma, acute/chronic hypoxic respiratory failure Referrals: Guero Aiken [Other] - 2 Weeks Earle Montano [Primary Care Provider] - 1 Week Discharge Medications: New prednisone 10 mg tablet See Rx Instructions .ROUTE .COMPLEX Qty: 30 0RF Rx Instructions: 4 tabs daily x 3 days, then 3 tabs daily x 3 days, then 2 tabs daily x 3 days, then 1 tab daily; further tapering as per primary care doctor and instrument maker Continued albuterol sulfate 90 mcg/actuation HFA aerosol inhaler 2 puff inhalation Q4-6H PRN (Reason: shortness of breath or wheezing) Qty: 8.5 0RF albuterol sulfate 2.5 mg /3 mL (0.083 %) solution for nebulization 3 mg inhalation QID PRN (Reason: Wheezing) 0RF multivitamin Tablet 1 tab PO DAILY 0RF prazosin 2 mg Capsule 2 mg PO BEDTIME 0RF Asmanex Twisthaler 220 mcg/ actuation (30) Aerosol Powdr Breath Activated 1 inh INHALATION DAILY 0RF zinc sulfate 50 mg zinc (220 mg) Capsule 50 mg PO DAILY 0RF cholecalciferol (vitamin D3) [Vitamin D3] 125 mcg (5,000 unit) Tablet 125 mcg PO DAILY 0RF Spiriva Respimat 1.25 mcg/actuation Mist 2 puff INHALATION DAILY 0RF hydroxyzine HCl 50 mg Tablet 50 mg PO TID PRN (Reason: Itching) 0RF cetirizine 10 mg Tablet 10 mg PO DAILY 0RF ascorbic acid (vitamin C) [Vitamin C] 500 mg Tablet 1,500 mg PO DAILY 0RF magnesium oxide 400 mg magnesium Tablet 400 mg PO DAILY 0RF alprazolam 0.5 mg tablet 1 mg PO TID PRN (Reason: Anxiety) 0RF Discontinued prednisone 10 mg Tablet 10 mg PO DAILY 0RF Discharge Orders: Discharge Order (Routine); Ordered 05/27/21 Ordered By: Kennedy Perez Diet: advance to usual diet Activity on Discharge: As tolerated Stand Alone Forms: Patient Portal Discharge page Care Plan Goals: avoid respiratory decompensation Health Concerns: asthma exacerbation, reactive airways dysfunction syndrome and irritant-induced asthma, acute/chronic hypoxic respiratory failure Plan of Treatment: prednisone 40 mg daily x 3 days, then 30 mg daily x 3 days, then 20 mg daily x 3 days, then 10 mg daily; further taper as per primary care and pulmonology follow up with primary care doctor as scheduled; consider allergy testing for dog dander follow up with instrument maker CPAP or BiPAP Assessment: see Discharge Summary Patient Instructions: Asthma (DC)
--- NOTE | 2021-05-27 11:17 | MHC.CM.PN ---
pt being dcd today pt is active with [facility] he has own [facility] home
[2021-05-30 01:36] LABS: Immunoglobulin E 177 kU/L (<OR=114)
== END 2021-05-27 14:00 | disposition home health service (06) | DRG 202 ==
LOC: HO.ED 16:23 → HO.EDOVER 17:08 → HO.ICU 05-24 01:05 → HO.EDOVER 05-24 08:41 → HO.ICU 05-24 08:41 → HO.IMC 05-24 14:01
PROVIDERS: Family Medicine; Physician Assistant; Admitting Provider Hospitalist; Emergency Provider Emergency Medicine; PCP Internal Medicine; Visit Provider Internal Medicine Cardiovascular Disease
DX: J45.41 Moderate persistent asthma with (acute) exacerbation (principal); J96.21 Acute and chronic respiratory failure with hypoxia; F43.10 Post-traumatic stress disorder, unspecified; F41.9 Anxiety disorder, unspecified; Z20.822 Contact with and (suspected) exposure to COVID-19; Z88.6 Allergy status to analgesic agent; Z79.899 Other long term (current) drug therapy
CPT/HCPCS: 0241U; 36415; 71045; 80048; 80053; 82785; 82803; 83735; 83880; 84100; 84484; 85025; 85379; 85610; 85730; 93005; 94640; 94644; 94645; 94660; 94799; 96374; 96375; 99285; J1650; J2060; J2270; J2930; J3010

== ENCOUNTER 2021-07-26 16:55 | Inpatient (IN) | payer OTHER, SELFPAY ==
--- NOTE | ~2021-07-26 | XR_ITS ---
EXAMINATION: XR chest 1V CLINICAL INFORMATION: Reason for Exam sob, asthma COMPARISON: Chest radiograph 04/25/2021 TECHNIQUE: One view of the chest XR/XR chest 1V FINDINGS/IMPRESSION: * Surgical sutures are noted in the right midlung unchanged from prior, with chronic scarring in the right lung base. Lungs appear otherwise clear, without new focal consolidation. * No pneumothorax or pleural effusion. * Normal cardiomediastinal silhouette.
[2021-07-26 17:01] VITALS: BP 130/100; BP 135/84; PULSE 123; RESP 15; O2SAT 93; O2SAT 97; BMI 24.6
--- NOTE | 2021-07-26 17:02 | ED_ITS ---
HPI - Asthma General Chief Complaint: Asthma Stated Complaint: SOB Time Seen by Provider: 07/26/21 16:56 Source: patient Mode of arrival: ambulatory Limitations: no limitations History of Present Illness HPI Narrative: Patient comes to the emergency room complaining of an asthma exacerbation. Patient has been in the hospital multiple times for asthma. EMS gave the patient 3 DuoNebs, Solu-Medrol, magnesium. At this time, patient is feeling overall much better, not on BiPAP, speaking in full sentences. Patient denies being sick lately. A few days ago, patient was at [facility], patient had a cardiac catheterization done, patient is being evaluated for the possibility of a lung transplant. Related Data Home Medications Medication Instructions Recorded Confirmed ascorbic acid (vitamin C) 500 mg 1,500 mg PO DAILY 12/21/20 05/23/21 tablet (Vitamin C) cetirizine 10 mg tablet 10 mg PO DAILY 12/21/20 05/23/21 magnesium oxide 400 mg PO DAILY 12/21/20 05/23/21 alprazolam 0.5 mg tablet 1 mg PO TID PRN 01/28/21 05/23/21 albuterol sulfate 3 mg INHALATION QID PRN 02/14/21 05/23/21 cholecalciferol (vitamin D3) 125 125 mcg PO DAILY 05/23/21 05/23/21 mcg (5,000 unit) tablet (Vitamin D3) hydroxyzine HCl 50 mg tablet 50 mg PO TID PRN 05/23/21 05/23/21 mometasone (Asmanex Twisthaler) 1 inh INHALATION DAILY 05/23/21 05/23/21 multivitamin 1 tab PO DAILY 05/23/21 05/23/21 prazosin 2 mg capsule 2 mg PO BEDTIME 05/23/21 05/23/21 tiotropium bromide 1.25 2 puff INHALATION DAILY 05/23/21 05/23/21 mcg/actuation mist for inhalation (Spiriva Respimat) zinc sulfate 50 mg zinc (220 mg) 50 mg PO DAILY 05/23/21 05/23/21 capsule Previous Rx's Medication Instructions Recorded albuterol sulfate 90 mcg/actuation 2 puff INHALATION Q4-6H PRN #8.5 g 12/26/19 aerosol inhaler prednisone 10 mg tablet See Rx Instructions .ROUTE 05/27/21 .COMPLEX #30 tab Allergies Allergy/AdvReac Type Severity Reaction Status Date / Time ibuprofen [IBUPROFEN] Allergy Intermediate Difficulty Verified 02/14/21 18:36 Breathing shellfish derived Allergy Mild SWELLING Verified 02/14/21 18:36 aspirin [ASA] Allergy Unknown DIFFICULTY Verified 02/14/21 18:36 BREATHING albuterol AdvReac Mild Gas Verified 02/14/21 18:36 exchange problems sertraline AdvReac Nausea Verified 02/14/21 18:36 nsaids Allergy Unknown Difficulty Uncoded 02/14/21 04:26 Breathing nucala Allergy Unknown shortness Uncoded 02/14/21 04:26 of breath Review of Systems Review of Systems: Constitutional : No Weight loss, No Fever, No Chills, No Night Sweats, No Fatigue, No Malaise ENT/Mouth : No Hearing loss, No Ear Pain, No Nasal Congestion, No Sinus Pain, No Hoarseness, No sore throat, No Rhinorrhea, No Swallowing Difficulty Eyes: No Eye Pain, No Swelling, No Redness, No Foreign Body, No Discharge, No Vision Changes Cardiovascular : No Chest Pain, No SOB, No Dyspnea on Exertion, No Orthopnea, No Edema, No Palpitations Respiratory : No Cough, No Sputum, complaining of wheezing, asthma. Gastrointestinal : No Nausea, No Vomiting, No Diarrhea, No Constipation, No abdominal Pain, No Hematochezia, No Melena Genitourinary : no irregular bleeding, No Dysuria, No Urinary Frequency, No Hematuria, No Urinary Incontinence, No Urgency, No Flank Pain, No Urinary Flow Changes, No Hesitancy Musculoskeletal : No joint pain, No Myalgias, No Joint Swelling Skin : No Skin Lesions, No rash Neuro : No Weakness, No Numbness, No Paresthesias, No Loss of Consciousness, No Dizziness, No Headache Psych : No Anxiety/Panic, No Depression, No SI/HI/AH/VH, No Social Issues, Heme/Lymph: No Bruising, No Bleeding,No Lymphadenopathy Endocrine : No Polyuria, No Polydipsia, No Temperature Intolerance REPLACED BY [facility] Past Medical History Medical History Acute respiratory failure with hypoxia Allergic asthma Anxiety Anxiety Asthma Asthma with exacerbation Asthmaticus, status PTSD (post-traumatic stress disorder) 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 Surgical History History of amputation Social History Social History Household Members: None Household Members Other:: Dogs Housing: House Do you presently have visiting nurse or other home services: Yes (visiting nurse) Alcohol intake: current Alcohol intake frequency: does not drink Patient Tobacco Use Status: Never used Tobacco Second Hand Smoke Exposure: No Substance Use Type: Marijuana Advance Directives: Yes Advance Directives on File: Yes Advance Directives Date on File: 05/28/21 service: Yes Current occupational status: retired and disabled Physical Exam Vital Signs: Vital Signs: Last Vital Signs Temp 97.8 F 07/26/21 18:55 Pulse 106 H 07/26/21 18:55 Resp 18 07/26/21 18:55 BP 122/68 07/26/21 18:55 Pulse Ox 96 07/26/21 18:55 BMI result Body Mass Index 24.6 Const: Other: Appearance: Alert. Oriented X3. No acute distress. Eyes: Pupils equal, round and reactive to light. ENT: Pharynx normal. Neck: Normal inspection. Neck supple. No lymph nodes noted. No crepitus CVS: Normal heart rate and rhythm. Pulses normal. Normal S1 and S2 Respiratory: No respiratory distress. Diffuse bilateral wheezing, oxygen saturation 93% on room air. Speaking full sentences Abdomen: Soft and nontender. No rigidity. No distention. Skin: Skin warm and dry. Normal skin color. Normal skin turgor. Extremities: No lower extremity edema. No Lacerations. No Rash Neuro: Oriented X 3. No motor deficit. No sensory deficit. Moving all extremit ies. No slurred speech. CN 2 through 12 grossly intact Psych: calm, cooperative, normal affect Course Course Course Narrative: Patient already received 3 DuoNebs, Solu-Medrol, magnesium. Now patient is being given albuterol. Overall, at this time patient looks much better than other times when he usually comes in. At this time, patient is not on BiPAP Patient's white blood cell count elevation likely secondary to steroid use. Chest x-ray does not show any acute pathology At this time, patient is saturating 92% on room air, minimal wheezing. Patient overall feeling better. However, patient is known to decompensated overnight. Multiple times in the past we have tried to send the patient home, patient returns within 24 hours for asthma exacerbation. Patient states that he agrees with the plan [facility] - Asthma Lab Data Result diagrams: 07/26/21 18:54 07/26/21 18:54 Labs: Lab Results 07/26/21 07/26/21 07/26/21 Range/Units 17:22 18:54 18:54 WBC 16.7 H (4.8-10.8) X10*3/uL RBC 5.15 (4.60-5.80) X10*6/uL Hgb 15.2 (14.0-18.0) g/dl Hct 44.6 (42.0-52.0) % MCV 86.6 (80.0-98.0) fL MCH 29.5 (27.0-33.0) pg MCHC 34.1 (31.0-36.0) g/dl RDW 13.0 (11.0-16.0) % Plt Count 237 (160-400) X10*3/uL MPV 10.2 (9.4-12.4) fL Immature Gran % (Auto) 0.7 H (0.0-0.4) % Neut % (Auto) 87.6 H (45-73) % Lymph % (Auto) 5.3 L (20-40) % [place] % (Auto) 3.1 (2-11) % Eos % (Auto) 2.6 (0-4) % Baso % (Auto) 0.7 (0-2) % Lymph # (Auto) 0.9 L (1.2-4.9) X10*3/uL [place] # (Auto) 0.5 (0.1-1.2) X10*3/uL Eos # (Auto) 0.4 (0.0-0.4) X10*3/uL Baso # (Auto) 0.1 (0.0-0.2) X10*3/uL Abs Immat Gran (auto) 0.11 H (0.00-0.03) X10*3/uL Absolute Neuts (auto) 14.6 H (2.0-8.3) x10*3/uL Absolute Nucleated RBC 0.000 (0.0-0.012) X10*3/uL Nucleated RBC % (auto) 0.0 (0.0-0.2) /100WBC Sodium 143 (135-145) mmol/L Potassium 3.7 (3.3-5.1) mmol/L Chloride 111 H (96-108) mmol/L Carbon Dioxide 23 (22-29) mmol/L Anion Gap 13 (12-20) BUN 8 L D (9-16) mg/dL Creatinine 0.74 (0.5-1.4) mg/dL Estim Creat Clear Calc 160.1 Estimated GFR > 60 Random Glucose 141 H (60-115) mg/dL Calcium 9.6 (8.4-10.2) mg/dL COVID-19 (OZIEL) Negative (Negative) COVID-19 Clin Com See Note Imaging Data Chest x-ray: Radiologist's impression: COMPARISON: Chest radiograph? 04/25/2021 TECHNIQUE: One view of the chest XR/XR chest 1V FINDINGS/IMPRESSION: ? *? Surgical sutures are noted in the right midlung unchanged from prior, with chronic scarring in the right lung base. Lungs appear otherwise clear, without new focal consolidation. ? *? No pneumothorax or pleural effusion. ? *? Normal cardiomediastinal silhouette. Discharge Plan Discharge Clinical Impression: Asthma with acute exacerbation Patient Disposition: Admitted As Inpatient Prescriptions: No Action albuterol sulfate 90 mcg/actuation HFA aerosol inhaler 2 puff inhalation Q4-6H PRN (Reason: shortness of breath or wheezing) Qty: 8.5 0RF albuterol sulfate 2.5 mg /3 mL (0.083 %) solution for nebulization 3 mg inhalation QID PRN (Reason: Wheezing) 0RF multivitamin Tablet 1 tab PO DAILY 0RF prazosin 2 mg Capsule 2 mg PO BEDTIME 0RF Asmanex Twisthaler 220 mcg/ actuation (30) Aerosol Powdr Breath Activated 1 inh INHALATION DAILY 0RF zinc sulfate 50 mg zinc (220 mg) Capsule 50 mg PO DAILY 0RF cholecalciferol (vitamin D3) [Vitamin D3] 125 mcg (5,000 unit) Tablet 125 mcg PO DAILY 0RF Spiriva Respimat 1.25 mcg/actuation Mist 2 puff INHALATION DAILY 0RF hydroxyzine HCl 50 mg Tablet 50 mg PO TID PRN (Reason: Itching) 0RF prednisone 10 mg tablet See Rx Instructions .ROUTE .COMPLEX Qty: 30 0RF Rx Instructions: 4 tabs daily x 3 days, then 3 tabs daily x 3 days, then 2 tabs daily x 3 days, then 1 tab daily; further tapering as per primary care doctor and security lead cetirizine 10 mg Tablet 10 mg PO DAILY 0RF ascorbic acid (vitamin C) [Vitamin C] 500 mg Tablet 1,500 mg PO DAILY 0RF magnesium oxide 400 mg magnesium Tablet 400 mg PO DAILY 0RF alprazolam 0.5 mg tablet 1 mg PO TID PRN (Reason: Anxiety) 0RF
[2021-07-26 17:03] VITALS: PULSE 126; RESP 20; O2SAT 97
[2021-07-26] MEDS: Albuterol Sulfate (0.083%) 2.5 MG/3 ML VIAL.NEB 10 MG INHALE (17:06)
[2021-07-26 17:44] LABS: COVID-19 Test Negative (Negative); IDNOW Serial# 16C4AD1C
[2021-07-26 18:55] VITALS: BP 122/68; PULSE 106; RESP 18; TEMP 36.6; O2SAT 96
[2021-07-26 19:00] LABS: Basophils Absolute Auto 0.1 X10*3/uL (0.0-0.2); Basophils Percent Auto 0.7 % (0-2); Eosinophils Absolute Auto 0.4 X10*3/uL (0.0-0.4); Eosinophils Percent Auto 2.6 % (0-4); Hematocrit 44.6 % (42.0-52.0); Hemoglobin 15.2 g/dl (14.0-18.0); Imm Gran Abs Auto 0.11 X10*3/uL (0.00-0.03); Imm Gran Pct Auto 0.7 % (0.0-0.4); Lymphocytes Absolute Auto 0.9 X10*3/uL (1.2-4.9); Lymphocytes Percent Auto 5.3 % (20-40); MANUAL DIFF FLAG NO; Mean Corpuscular HGB Conc 34.1 g/dl (31.0-36.0); Mean Corpuscular Hemoglobin 29.5 pg (27.0-33.0); Mean Corpuscular Volume 86.6 fL (80.0-98.0); Mean Platelet Volume 10.2 fL (9.4-12.4); Monocytes Absolute Auto 0.5 X10*3/uL (0.1-1.2); Monocytes Percent Auto 3.1 % (2-11); Neutrophils Absolute Auto 14.6 x10*3/uL (2.0-8.3); Neutrophils Percent Auto 87.6 % (45-73); Platelet Count 237 X10*3/uL (160-400); Red Blood Count 5.15 X10*6/uL (4.60-5.80); White Blood Count 16.7 X10*3/uL (4.8-10.8)
[2021-07-26 19:17] LABS: Anion Gap 13 (12-20); Blood Urea Nitrogen 8 mg/dL (9-16); Calcium 9.6 mg/dL (8.4-10.2); Carbon Dioxide 23 mmol/L (22-29); Chloride 111 mmol/L (96-108); Creatinine Clr Calc Pharmacy 160.1; Estimated Glomerular Filt Rate > 60; Glucose Random 141 mg/dL (60-115); Potassium 3.7 mmol/L (3.3-5.1); Sodium 143 mmol/L (135-145)
--- NOTE | 2021-07-26 19:40 | P.HPHOSP_ITS ---
History of Present Illness Date of Service: 07/26/21 Chief Complaint: Shortness of breath ?41-year-old male with a past medical history of anxiety, PTSD, alergic asthma from toxic exposure while serving in [employer] [facility], history of status asthmaticus, frequent hospitalization, history of multiple intubations, paraplegic with amputation who presents with shortness of breath. He had cardiac cath in the morning at [facility] as part of evaluation for eventual lung transplant, he went home slept and woke up and was feeling very short of breah and call 911, EMS gave him Nebs x 3, IV solumedrol and brought to the ED. He has no cough or fever, CXR clear, negative. Got additional Neb in ED with IV Magnesium and is feeling better now. 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 Pertinent family history: no family history of chronic lung disease Surgical History History of amputation Social History Household Members: None Household Members Other:: Dogs Housing: House Do you presently have visiting nurse or other home services: Yes (visiting nurse) Alcohol intake: current Alcohol intake frequency: does not drink Patient Tobacco Use Status: Never used Tobacco Second Hand Smoke Exposure: No Substance Use Type: Marijuana Advance Directives: Yes Advance Directives on File: Yes Advance Directives Date on File: 05/28/21 service: Yes Current occupational status: retired and disabled Meds Allergies Allergy/AdvReac Type Severity Reaction Status Date / Time ibuprofen [IBUPROFEN] Allergy Intermediate Difficulty Verified 02/14/21 18:36 Breathing shellfish derived Allergy Mild SWELLING Verified 02/14/21 18:36 aspirin [ASA] Allergy Unknown DIFFICULTY Verified 02/14/21 18:36 BREATHING albuterol AdvReac Mild Gas Verified 02/14/21 18:36 exchange problems sertraline AdvReac Nausea Verified 02/14/21 18:36 nsaids Allergy Unknown Difficulty Uncoded 02/14/21 04:26 Breathing nucala Allergy Unknown shortness Uncoded 02/14/21 04:26 of breath Home Medications Medication Instructions Recorded Confirmed Last Taken Type ascorbic acid (vitamin C) 500 mg 1,500 mg PO DAILY 12/21/20 05/23/21 05/23/21 History tablet (Vitamin C) cetirizine 10 mg tablet 10 mg PO DAILY 12/21/20 05/23/21 05/23/21 History magnesium oxide 400 mg PO DAILY 12/21/20 05/23/21 02/13/21 History alprazolam 0.5 mg tablet 1 mg PO TID PRN 01/28/21 05/23/21 05/23/21 History albuterol sulfate 3 mg INHALATION QID PRN 02/14/21 05/23/21 02/14/21 History cholecalciferol (vitamin D3) 125 125 mcg PO DAILY 05/23/21 05/23/21 Unknown His tory mcg (5,000 unit) tablet (Vitamin D3) hydroxyzine HCl 50 mg tablet 50 mg PO TID PRN 05/23/21 05/23/21 Unknown History mometasone (Asmanex Twisthaler) 1 inh INHALATION DAILY 05/23/21 05/23/21 Unknown History multivitamin 1 tab PO DAILY 05/23/21 05/23/21 Unknown History prazosin 2 mg capsule 2 mg PO BEDTIME 05/23/21 05/23/21 05/22/21 History tiotropium bromide 1.25 2 puff INHALATION DAILY 05/23/21 05/23/21 Unknown History mcg/actuation mist for inhalation (Spiriva Respimat) zinc sulfate 50 mg zinc (220 mg) 50 mg PO DAILY 05/23/21 05/23/21 Unknown History capsule Physical Exam Vital Signs and Narrative: Vital Signs: Last Vital Signs Temp 97.8 F 07/26/21 18:55 Pulse 106 H 07/26/21 18:55 Resp 18 07/26/21 18:55 BP 122/68 07/26/21 18:55 Pulse Ox 96 07/26/21 18:55 BMI result Body Mass Index 24.6 Const: Other: Constitutional: Alert, in no distress Mental Status: Oriented to person, place and time. Eyes: Pupils are equal, round and reactive to light. Ear, Nose and Throat: Oropharynx clear, mucous membranes moist. Ears and nose without eformities. Trachea midline. Respiratory: Diminish breath sounds, mild wheeze. rales or rhonchi. No accessory muscle use Cardiovascular: S1 S2 regular. No murmurs, rubs or gallops. Gastrointestinal: Abdomen soft, non-tender, non-distended. Normal bowel sounds.? Neurologic: Cranial nerves II-XII grossly intact. No focal neurological deficits. Moves all extremities spontaneously.? Skin: No rashes or lesions.? Musculoskeletal: No cyanosis or clubbing. Psychiatric: Normal mood and affect? Results Labs CBC and Chem 7: 07/26/21 18:54 07/26/21 18:54 Labs: Laboratory Results - last 24 hr 07/26/21 07/26/21 07/26/21 17:22 18:54 18:54 MCV 86.6 MCH 29.5 MCHC 34.1 RDW 13.0 Plt Count 237 MPV 10.2 Immature Gran % (Auto) 0.7 H Neut % (Auto) 87.6 H Lymph % (Auto) 5.3 L [place] % (Auto) 3.1 Eos % (Auto) 2.6 Baso % (Auto) 0.7 Lymph # (Auto) 0.9 L [place] # (Auto) 0.5 Eos # (Auto) 0.4 Baso # (Auto) 0.1 Abs Immat Gran (auto) 0.11 H Absolute Neuts (auto) 14.6 H Absolute Nucleated RBC 0.000 Nucleated RBC % (auto) 0.0 Anion Gap 13 Estim Creat Clear Calc 160.1 Estimated GFR > 60 Random Glucose 141 H Calcium 9.6 COVID-19 (OZIEL) Negative COVID-19 Clin Com See Note Imaging Radiologist's Impressions: Impressions Chest X-Ray 07/26/21 17:39 FINDINGS/IMPRESSION: * Surgical sutures are noted in the right midlung unchanged from prior, with chronic scarring in the right lung base. Lungs appear otherwise clear, without new focal consolidation. * No pneumothorax or pleural effusion. * Normal cardiomediastinal silhouette. 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 -CPAP p.r.n. -morphine for acute respiratory distress #leukocytosis--likely from prior steroid use, no evidence of infection. # PTSD - prazosin # VTE ppx --Lovenox Admission was finally to midnight for management of acute exacerbation in this patient that is frequently admitted and has potential to deteriorate with that frequently and ended up in ICU. He will need IV steroid bronchodilators by nebulizers frequently and monitor for response Quality Stroke Does the patient have a stroke diagnosis?: No VTE Prior VTE?: No VTE Risk Level:: Medical - moderate - high VTE Device Contraindication: Treatment Not Indicated VTE Drug Contraindication: N/A - Med Ordered
[2021-07-26 21:26] VITALS: BP 112/72; PULSE 108; RESP 12; TEMP 36.6; O2SAT 95
--- NOTE | 2021-07-26 22:08 | MHC.CM.PN ---
Addendum entered by Franca Camacho 07/26/21 22:27: Pt is awake. Confirmed all information listed. Lives alone, independent. Uses a wheelchair, Oxygen at night and nebulizer. Has services with [facility]. Is hopeful to have a lung transplant. Is in the process. Care is at the [facility]. D/C plan: Home with [facility]. Father will provide transportation home. CM assessment completed. CM to follow for d/c needs. Original Note: Attempted to meet with patient. Pt sleeping. Did not rouse to name. Will attempt to meet with patient again when awake. Per medical record: Pt with multiple admissions to [facility] for asthma exacerbations/resp failure. Pt retired/disabled . Was in [place]. Rare chemical induced asthma. Paraplegia/ amputation. Lives alone and is independent. Has services at [facility]. Dr. Earle Montano. Is being evaluated for lung transplant. Has cardiac cath today at [facility] as part of that work up. Has been active with [facility] in the past. Uses a wheelchair and O2 at night. HCP on file. HCP/father Maragrito Castro ([phone]). 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 Will verify above when pt wakes. Will review d/c plan and transportation at that time. CM to follow for d/c needs.
[2021-07-26] MEDS: methylPREDNISolone Sod Succ 40 MG/ML VIAL IVPUSH (22:56)
[2021-07-27] MEDS: methylPREDNISolone Sod Succ 40 MG/ML VIAL IVPUSH ×2 (03:02→08:30)
[2021-07-27] MEDS: 0.9 % Sodium Chloride Flush 3 ML SYRINGE IVFLUSH (03:02)
[2021-07-27 07:17] VITALS: BP 124/79; PULSE 97; RESP 14; O2SAT 97
--- NOTE | 2021-07-27 07:57 | PC.NURSE ---
Assumed care at 0700am and pt is requesting to go home as feels much better and no need for admit Texted PA and she will make rounds and assess pt, pt was in agreement with this plan.
[2021-07-27] MEDS: Albuterol/Iprat 2.5/0.5MG 3 ML AMPUL.NEB INHALE (08:25)
[2021-07-27 08:27] VITALS: RESP 20; O2SAT 97
--- NOTE | 2021-07-27 09:10 | PM.DS ---
DS: Providers Provider Date of Service: 07/27/21 Date of admission: 07/26/21 20:08 Date of discharge: 07/27/21 Primary care physician: Earle Montano Attending physician on discharge: Abdelrahman Ontiveros Discharging clinician: Renea Valente DS: Diagnosis Discharge Diagnosis (1) Asthma with acute exacerbation: Status: Acute DS: Summary Hospital Course Hospital Course: From H&P on the day of admission 41-year-old male with a past medical history of anxiety,? PTSD, alergic asthma from toxic exposure while serving in [facility], history of status asthmaticus, frequent hospitalization, history of multiple intubations,? paraplegic with amputation who presents with shortness of breath. He had cardiac cath in the morning at [facility] as part of evaluation for eventual lung transplant, he went home slept and woke up and was feeling very short of breah and call 911, EMS gave him Nebs x 3, IV solumedrol and brought to the ED. He has no cough or fever, CXR clear, negative. Got additional Neb in ED with IV Magnesium and is feeling better now. Discharge diagnosis -acute exacerbation of asthma Hospital course-patient received IV magnesium nebulizers and IV Solu-Medrol. Given his history of severe asthma exacerbation, frequent need for BiPAP support and ICU level of care the patient was admitted the hospital overnight for observation. He did not have any episodes of shortness of breath, did not require BiPAP, did not have any episodes of hypoxia. Is resting comfortably this morning with no increased work of breathing, denies shortness of breath. Vital signs have remained stable overnight. He is currently saturating 97% on room air and he is eager to return home. Leukocytosis was likely secondary to steroids as no source of infection was noted, chest x-ray was unremarkable. He will be discharged home with 5 day burst of prednisone. He has a follow-up appointment scheduled with his primary supervisor boiler repair in 5 days which he is encouraged to keep. Time Spent with Patient Time attestation: Total time spent providing and/or coordinating discharge services: Discharge coordination time: Greater than 30 minutes Quality: Safe Use of Opioids Does Pt have an Active Cancer Diagnosis on the Problem List?: No Quality: Stroke Does the patient have a stroke diagnosis?: No Physical Exam Vital Signs: Vital Signs: Last Vital Signs Temp 97.9 F 07/26/21 21:26 Pulse 97 07/27/21 07:17 Resp 20 07/27/21 08:27 BP 124/79 07/27/21 07:17 Pulse Ox 97 07/27/21 07:17 BMI result Body Mass Index 24.6 Const: General: cooperative, comfortable, no acute distress, alert and awake Nutritional Appearance: average body habitus Orientation/consciousness: patient oriented x3 Resp: Effort & Inspection: normal respiratory effort and able to speak in complete sentences Auscultation: clear to auscultation bilaterally GI: Palpation (GI): Soft to palpation and nontender Neuro: General: patient oriented x3 DS: Data Data Completed and Pending Completed studies during hospitalization [Text1]: Procedures Assistance with Respiratory Ventilation, Less than 24 Consecutive Hours, Continuous Positive Airway Pressure (05/23/21) Labs on day of discharge: Laboratory Results - last 24 hr 07/26/21 07/26/21 07/26/21 17:22 18:54 18:54 WBC 16.7 H RBC 5.15 Hgb 15.2 Hct 44.6 MCV 86.6 MCH 29.5 MCHC 34.1 RDW 13.0 Plt Count 237 MPV 10.2 Immature Gran % (Auto) 0.7 H Neut % (Auto) 87.6 H Lymph % (Auto) 5.3 L [place] % (Auto) 3.1 Eos % (Auto) 2.6 Baso % (Auto) 0.7 Lymph # (Auto) 0.9 L [place] # (Auto) 0.5 Eos # (Auto) 0.4 Baso # (Auto) 0.1 Abs Immat Gran (auto) 0.11 H Absolute Neuts (auto) 14.6 H Absolute Nucleated RBC 0.000 Nucleated RBC % (auto) 0.0 Sodium 143 Potassium 3.7 Chloride 111 H Carbon Dioxide 23 Anion Gap 13 BUN 8 L D Creatinine 0.74 Estim Creat Clear Calc 160.1 Estimated GFR > 60 Random Glucose 141 H Calcium 9.6 COVID-19 (OZIEL) Negative COVID-19 Clin Com See Note Discharge Plan Discharge Patient Disposition: Home, Self-Care Discharge Diagnosis: acute exacerbation of asthma Referrals: Earle Montano [Primary Care Provider] - 1 Week Discharge Medications: New prednisone 20 mg tablet 40 mg PO DAILY 5 Days Qty: 10 0RF Continued albuterol sulfate 90 mcg/actuation HFA aerosol inhaler 2 puff inhalation Q4-6H PRN (Reason: shortness of breath or wheezing) Qty: 8.5 0RF albuterol sulfate 2.5 mg /3 mL (0.083 %) solution for nebulization 3 mg inhalation QID PRN (Reason: Wheezing) 0RF multivitamin Tablet 1 tab PO DAILY 0RF prazosin 2 mg Capsule 2 mg PO BEDTIME 0RF Asmanex Twisthaler 220 mcg/ actuation (30) Aerosol Powdr Breath Activated 1 inh INHALATION DAILY 0RF zinc sulfate 50 mg zinc (220 mg) Capsule 50 mg PO DAILY 0RF cholecalciferol (vitamin D3) [Vitamin D3] 125 mcg (5,000 unit) Tablet 125 mcg PO DAILY 0RF Spiriva Respimat 1.25 mcg/actuation Mist 2 puff INHALATION DAILY 0RF hydroxyzine HCl 50 mg Tablet 50 mg PO TID PRN (Reason: Itching) 0RF cetirizine 10 mg Tablet 10 mg PO DAILY 0RF ascorbic acid (vitamin C) [Vitamin C] 500 mg Tablet 1,500 mg PO DAILY 0RF magnesium oxide 400 mg magnesium Tablet 400 mg PO DAILY 0RF alprazolam 0.5 mg tablet 1 mg PO TID PRN (Reason: Anxiety) 0RF levalbuterol HCl 0.63 mg/3 mL Solution For Nebulization 0.63 mg INHALATION Q4H PRN (Reason: Shortness Of Breath) 0RF Discontinued prednisone 10 mg tablet 10 mg PO DAILY 0RF Discharge Orders: Discharge Order (Routine); Ordered 07/27/21 Ordered By: Renea Valente Activity on Discharge: As tolerated Stand Alone Forms: Patient Portal Discharge page Care Plan Goals: see below Health Concerns: Acute asthma exacerbation Plan of Treatment: Complete 5 day course of prednisone Follow-up with outpatient supervisor boiler repair Take all medications as prescribed Assessment: Acute asthma exacerbation now stable for discharge home, see discharge summary for details
--- NOTE | 2021-07-27 10:27 | MHC.CM.PN ---
NURSE SUPERVISOR CONTACT AND SERVICE CLERKS NOTE PATIENT WAS SEEN IN THE ER BY CASE MANAGEMENT NURSE LAST NIGHT HE WAS BROUGHT UP TO THE MEDICAL SURGICAL FOOR AND REQUESTED TO BE D/C EARLY THOIS AM , HE WAS DISCHARGED BACK HOME NO VNA SERVICES WERE OPRDERED , HOSPITLAIST ON DID NOT D/C HIM UNABLE TO GET VNA ORDERS DISCHARGED HOME CALL TO JULIS[facility] TO LET THEM KNOW
== END 2021-07-27 09:45 | disposition home or self-care (01) | DRG 202 ==
LOC: HO.ED 19:37 → HO.EDOVER 20:18 → HO.S3 07-27 07:37
PROVIDERS: Admitting Provider Internal Medicine; Emergency Provider Emergency Medicine; PCP Internal Medicine; Visit Provider Physician Assistant Medical
DX: J45.901 Unspecified asthma with (acute) exacerbation (principal); J96.21 Acute and chronic respiratory failure with hypoxia; G82.20 Paraplegia, unspecified; D72.829 Elevated white blood cell count, unspecified; F43.10 Post-traumatic stress disorder, unspecified; F41.9 Anxiety disorder, unspecified; Z20.822 Contact with and (suspected) exposure to COVID-19; Z57.5 Occupational exposure to toxic agents in other industries; Z91.013 Allergy to seafood; Z88.6 Allergy status to analgesic agent; Z79.899 Other long term (current) drug therapy
CPT/HCPCS: 36415; 71045; 80048; 85025; 87635; 94644; 99284; 99285; J2920

== ENCOUNTER 2021-07-27 16:22 | Inpatient (IN) | payer OTHER, SELFPAY ==
--- NOTE | 2021-07-27 16:31 | ED_ITS ---
HPI - SOB/Dyspnea General Chief Complaint: Asthma Stated Complaint: shortness of breath Time Seen by Provider: 07/27/21 16:23 Source: patient and EMS Mode of arrival: EMS Limitations: no limitations History of Present Illness HPI Narrative: Patient comes to the emergency room complaining of an asthma exacerbation. Patient was admitted yesterday for an asthma exacerbation, today in the morning patient requested to be discharged. Patient was completely stable and was sent home. Shortly after, patient had another asthma exacerbation. Per EMS, patient's oxygen saturation has been above 90%, patient received 2 DuoNebs noted to the hospital. Related Data Home Medications Medication Instructions Recorded Confirmed ascorbic acid (vitamin C) 500 mg 1,500 mg PO DAILY 12/21/20 07/26/21 tablet (Vitamin C) cetirizine 10 mg tablet 10 mg PO DAILY 12/21/20 07/26/21 magnesium oxide 400 mg PO DAILY 12/21/20 05/23/21 alprazolam 0.5 mg tablet 1 mg PO TID PRN 01/28/21 07/26/21 albuterol sulfate 3 mg INHALATION QID PRN 02/14/21 05/23/21 cholecalciferol (vitamin D3) 125 125 mcg PO DAILY 05/23/21 05/23/21 mcg (5,000 unit) tablet (Vitamin D3) hydroxyzine HCl 50 mg tablet 50 mg PO TID PRN 05/23/21 05/23/21 mometasone (Asmanex Twisthaler) 1 inh INHALATION DAILY 05/23/21 05/23/21 multivitamin 1 tab PO DAILY 05/23/21 07/26/21 prazosin 2 mg capsule 2 mg PO BEDTIME 05/23/21 05/23/21 tiotropium bromide 1.25 2 puff INHALATION DAILY 05/23/21 05/23/21 mcg/actuation mist for inhalation (Spiriva Respimat) zinc sulfate 50 mg zinc (220 mg) 50 mg PO DAILY 05/23/21 05/23/21 capsule levalbuterol HCl 0.63 mg/3 mL 0.63 mg INHALATION Q4H PRN 07/26/21 07/26/21 solution for nebulization Previous Rx's Medication Instructions Recorded albuterol sulfate 90 mcg/actuation 2 puff INHALATION Q4-6H PRN #8.5 g 12/26/19 aerosol inhaler prednisone 20 mg tablet 40 mg PO DAILY 5 Days #10 tab 07/27/21 Allergies Allergy/AdvReac Type Severity Reaction Status Date / Time ibuprofen [IBUPROFEN] Allergy Intermediate Difficulty Verified 07/27/21 16:32 Breathing shellfish derived Allergy Mild SWELLING Verified 07/27/21 16:32 aspirin [ASA] Allergy Unknown DIFFICULTY Verified 07/27/21 16:32 BREATHING albuterol AdvReac Mild Gas Verified 07/27/21 16:32 exchange problems sertraline AdvReac Nausea Verified 07/27/21 16:32 nsaids Allergy Unknown Difficulty Uncoded 02/14/21 04:26 Breathing nucala Allergy Unknown shortness Uncoded 02/14/21 04:26 of breath Review of Systems Review of Systems: Constitutional : No Weight loss, No Fever, No Chills, No Night Sweats, No Fatigue, No Malaise ENT/Mouth : No Hearing loss, No Ear Pain, No Nasal Congestion, No Sinus Pain, No Hoarseness, No sore throat, No Rhinorrhea, No Swallowing Difficulty Eyes: No Eye Pain, No Swelling, No Redness, No Foreign Body, No Discharge, No Vision Changes Cardiovascular : No Chest Pain, No SOB, No Dyspnea on Exertion, No Orthopnea, No Edema, No Palpitations Respiratory : Complaining of dry cough, wheezing and shortness of breath Gastrointestinal : No Nausea, No Vomiting, No Diarrhea, No Constipation, No abdominal Pain, No Hematochezia, No Melena Genitourinary : no irregular bleeding, No Dysuria, No Urinary Frequency, No Hematuria, No Urinary Incontinence, No Urgency, No Flank Pain, No Urinary Flow Changes, No Hesitancy Musculoskeletal : No joint pain, No Myalgias, No Joint Swelling Skin : No Skin Lesions, No rash Neuro : No Weakness, No Numbness, No Paresthesias, No Loss of Consciousness, No Dizziness, No Headache Psych : No Anxiety/Panic, No Depression, No SI/HI/AH/VH, No Social Issues, Heme/Lymph: No Bruising, No Bleeding,No Lymphadenopathy Endocrine : No Polyuria, No Polydipsia, No Temperature Intolerance [facility] Past Medical History Medical History Acute respiratory failure with hypoxia Allergic asthma Anxiety Anxiety Asthma Asthma with exacerbation Asthmaticus, status PTSD (post-traumatic stress disorder) 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 Surgical History History of amputation Social History Social History Household Members: None Household Members Other:: Dogs Housing: House Do you presently have visiting nurse or other home services: Yes (visiting nurse) Alcohol intake: never Patient Tobacco Use Status: Never used Tobacco Second Hand Smoke Exposure: No Use of substances other than those prescribed or required for medical reasons: Yes Substance Use Type: Marijuana Substance Use Frequency: Weekly Advance Directives: Yes Advance Directives on File: Yes Advance Directives Date on File: 05/28/21 service: Yes Current occupational status: retired and disabled Physical Exam Vital Signs: Vital Signs: Last Vital Signs Temp 98 F 07/27/21 16:32 Pulse 122 H 07/27/21 18:00 Resp 18 07/27/21 18:00 BP 122/68 07/27/21 18:00 Pulse Ox 95 07/27/21 18:00 BMI result Body Mass Index 25.5 Const: Other: Appearance: Alert. Oriented X3. No acute distress. Eyes: Pupils equal, round and reactive to light. ENT: Pharynx normal. Neck: Normal inspection. Neck supple. No lymph nodes noted. No crepitus CVS: Normal heart rate and rhythm. Pulses normal. Normal S1 and S2 Respiratory: No respiratory distress. Patient speaking full sentences, on auscultation patient is fairly tight, diffuse wheezing. Per EMS, the wheezing has improved significantly after the 2 DuoNebs Abdomen: Soft and nontender. No rigidity. No distention. Skin: Skin warm and dry. Normal skin color. Normal skin turgor. Extremities: No lower extremity edema. No Lacerations. No Rash Neuro: Oriented X 3. No motor deficit. No sensory deficit. Moving all extremities. No slurred speech. CN 2 through 12 grossly intact Psych: calm, cooperative, normal affect Course Course Course Narrative: At this time, 641 I re-evaluated patient. Patient is known to have multiple asthma exacerbations. This morning patient asked to be discharged and patient came back with worsening symptoms. We will go ahead and get him readmitted. Discharge Plan Discharge Clinical Impression: Asthma with acute exacerbation Patient Disposition: Admitted As Inpatient Prescriptions: No Action albuterol sulfate 90 mcg/actuation HFA aerosol inhaler 2 puff inhalation Q4-6H PRN (Reason: shortness of breath or wheezing) Qty: 8.5 0RF albuterol sulfate 2.5 mg /3 mL (0.083 %) solution for nebulization 3 mg inhalation QID PRN (Reason: Wheezing) 0RF multivitamin Tablet 1 tab PO DAILY 0RF prazosin 2 mg Capsule 2 mg PO BEDTIME 0RF Asmanex Twisthaler 220 mcg/ actuation (30) Aerosol Powdr Breath Activated 1 inh INHALATION DAILY 0RF zinc sulfate 50 mg zinc (220 mg) Capsule 50 mg PO DAILY 0RF cholecalciferol (vitamin D3) [Vitamin D3] 125 mcg (5,000 unit) Tablet 125 mcg PO DAILY 0RF Spiriva Respimat 1.25 mcg/actuation Mist 2 puff INHALATION DAILY 0RF hydroxyzine HCl 50 mg Tablet 50 mg PO TID PRN (Reason: Itching) 0RF cetirizine 10 mg Tablet 10 mg PO DAILY 0RF ascorbic acid (vitamin C) [Vitamin C] 500 mg Tablet 1,500 mg PO DAILY 0RF magnesium oxide 400 mg magnesium Tablet 400 mg PO DAILY 0RF alprazolam 0.5 mg tablet 1 mg PO TID PRN (Reason: Anxiety) 0RF levalbuterol HCl 0.63 mg/3 mL Solution For Nebulization 0.63 mg INHALATION Q4H PRN (Reason: Shortness Of Breath) 0RF prednisone 20 mg tablet 40 mg PO DAILY 5 Days Qty: 10 0RF
[2021-07-27 16:32] VITALS: BP 144/88; BP 145/88; PULSE 112; PULSE 120; RESP 22; TEMP 36.6; O2SAT 93; O2SAT 96; BMI 25.5
[2021-07-27] MEDS: LORazepam 1 MG TABLET PO (16:48)
[2021-07-27] MEDS: Magnesium Sulfate/H2O 2 GM/50 ML PIGGYBACK IV (16:49)
[2021-07-27] MEDS: methylPREDNISolone Sod Succ 125 MG/2 ML VIAL IVPUSH (16:50)
[2021-07-27] MEDS: Albuterol Sulfate (0.083%) 2.5 MG/3 ML VIAL.NEB 10 MG INHALE (17:01)
[2021-07-27 17:04] VITALS: PULSE 101; RESP 18; O2SAT 95
[2021-07-27 18:00] VITALS: BP 122/68; PULSE 122; RESP 18; O2SAT 95
--- NOTE | 2021-07-27 18:01 | PC.NURSE ---
pt a&ox3, vss - sinus tach, pt reporting decreased anxiety and resp effort. c/o 2/10 left sided chest tightness. no new orders at this time.
--- NOTE | 2021-07-27 19:00 | PC.NURSE ---
Took report from Costa to assume care of PT, Pt resting, call light in reach.
--- NOTE | 2021-07-27 20:10 | P.HPHOSP_ITS ---
History of Present Illness Date of Service: 07/27/21 Chief Complaint: shortness of breath 41-year-old male with a past medical history of anxiety, asthma, history of status asthmaticus, PTSD, history of amputation recurrent admission to the hospital asthma exacerbation; discharged this morning the hospital after being treated for acute asthma exacerbation presented back to the hospital with a chief complaint of shortness of breath. Patient reports that after left hospital he felt short of breath which has been gradually worsening and felt tight at home; decided to come back to the hospital for further evaluation. Mentions his breathing is slightly better at the time of my entry. Status post Nebulization treatments in the ER. Patient reports dry cough Denies any fevers and chills. Denies any sputum production Denies any chest pain or palpitations. Review of all other systems is negative except mentioned above ER course: Per ER team patient on presentation noted to be very tight; given nebulizations and steroids; slightly improved but still short of breath; hence decided to admit to the hospital for further management. [facility] Medical History Acute respiratory failure with hypoxia Allergic asthma Anxiety Anxiety Asthma Asthma with exacerbation Asthmaticus, status PTSD (post-traumatic stress disorder) 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 Surgical History History of amputation Social History Household Members: None Household Members Other:: Dogs Housing: House Do you presently have visiting nurse or other home services: Yes (visiting nurse) Alcohol intake: never Patient Tobacco Use Status: Never used Tobacco Second Hand Smoke Exposure: No Use of substances other than those prescribed or required for medical reasons: Yes Substance Use Type: Marijuana Substance Use Frequency: Weekly Advance Directives: Yes Advance Directives on File: Yes Advance Directives Date on File: 05/28/21 service: Yes Current occupational status: retired and disabled Meds Allergies Allergy/AdvReac Type Severity Reaction Status Date / Time ibuprofen [IBUPROFEN] Allergy Intermediate Difficulty Verified 07/27/21 16:32 Breathing shellfish derived Allergy Mild SWELLING Verified 07/27/21 16:32 aspirin [ASA] Allergy Unknown DIFFICULTY Verified 07/27/21 16:32 BREATHING albuterol AdvReac Mild Gas Verified 07/27/21 16:32 exchange problems sertraline AdvReac Nausea Verified 07/27/21 16:32 nsaids Allergy Unknown Difficulty Uncoded 02/14/21 04:26 Breathing nucala Allergy Unknown shortness Uncoded 02/14/21 04:26 of breath Home Medications Medication Instructions Recorded Confirmed Last Taken Type ascorbic acid (vitamin C) 500 mg 1,500 mg PO DAILY 12/21/20 07/26/21 05/23/21 History tablet (Vitamin C) cetirizine 10 mg tablet 10 mg PO DAILY 12/21/20 07/26/21 05/23/21 History magnesium oxide 400 mg PO DAILY 12/21/20 05/23/21 02/13/21 History alprazolam 0.5 mg tablet 1 mg PO TID PRN 01/28/21 07/26/21 05/23/21 History albuterol sulfate 3 mg INHALATION QID PRN 02/14/21 05/23/21 02/14/21 History cholecalciferol (vitamin D3) 125 125 mcg PO DAILY 05/23/21 05/23/21 Unknown History mcg (5,000 unit) tablet (Vitamin D3) hydroxyzine HCl 50 mg tablet 50 mg PO TID PRN 05/23/21 05/23/21 Unknown History mometasone (Asmanex Twisthaler) 1 inh INHALATION DAILY 05/23/21 05/23/21 Unknown History multivitamin 1 tab PO DAILY 05/23/21 07/26/21 Unknown History prazosin 2 mg capsule 2 mg PO BEDTIME 05/23/21 05/23/21 05/22/21 History tiotropium bromide 1.25 2 puff INHALATION DAILY 05/23/21 05/23/21 Unknown History mcg/actuation mist for inhalation (Spiriva Respimat) zinc sulfate 50 mg zinc (220 mg) 50 mg PO DAILY 05/23/21 05/23/21 Unknown History capsule levalbuterol HCl 0.63 mg/3 mL 0.63 mg INHALATION Q4H PRN 07/26/21 07/26/21 Unknown History solution for nebulization Physical Exam Vital Signs and Narrative: Vital Signs: Last Vital Signs Temp 98 F 07/27/21 16:32 Pulse 122 H 07/27/21 18:00 Resp 18 07/27/21 18:00 BP 122/68 07/27/21 18:00 Pulse Ox 95 07/27/21 18:00 BMI result Body Mass Index 25.5 Gen: Appears be in no acute distress . Able to speak in full sentences. HEENT: NCAT, Moist mucosa. Pulmonary: slightly diminished breath sounds. CVS: Normal S1-S2 Abdomen: BS+, Soft, Nontender Extremities: Warm well perfused Neuro: Alert and awake. Grossly nonfocal Assessment and Plan (1) Asthma with acute exacerbation: Status: Acute Plan 41-year-old male with a past medical history of anxiety, asthma, history of status asthmaticus, PTSD, history of amputation recurrent admission to the hospital asthma exacerbation; discharged this morning the hospital after being treated for acute asthma exacerbation presented back to the hospital with a chief complaint of shortness of breath. Noted to be in acute asthma exacerbation. Admitted for further management. Acute asthma exacerbation: Will give the patient on Solu-Medrol IV q.i.d. Nebulizations standing and p.r.n. Supplemental oxygen p.r.n. Pulmonology consult Morphine p.r.n. History of anxiety: Continue home Ativan DVT prophylaxis: Lovenox Code status: Full code Quality Stroke Does the patient have a stroke diagnosis?: No VTE Prior VTE?: No VTE Risk Level:: Medical - moderate - high VTE Device Contraindication: Treatment Not Indicated VTE Drug Contraindication: N/A - Med Ordered
[2021-07-27 20:21] VITALS: BP 110/70; PULSE 102; RESP 18; TEMP 36.7; O2SAT 93
--- NOTE | 2021-07-27 20:26 | MHC.CM.PN ---
Pt admitted yesterday, felt better and requested D/C today. Later today at home, asthma exacerbation and anxiety, with return to [facility]. Admitted. Lives alone and is independent. Uses W/C, nebulizer and oxygen at night. Has services with [facility]. Amputation. Pt is retired/disabled of [place] [employer]. 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 Has care at [facility]. Dr. Earle Montano. No covid vaccinations d/t allergy to manufacturing components. In process for lung transplant evaluation. HCP on file. HCP/father Margarito Castro ([phone]). D/C plan is home with [facility]. Referral placed. Father to transport home. CM to follow for d/c needs.
[2021-07-27 20:30] LABS: MANUAL DIFF FLAG NO
[2021-07-27 20:31] LABS: Basophils Percent Auto 0.1 % (0-2); Hematocrit 43.9 % (42.0-52.0); Hemoglobin 14.9 g/dl (14.0-18.0); Imm Gran Abs Auto 0.17 X10*3/uL (0.00-0.03); Imm Gran Pct Auto 1.1 % (0.0-0.4); Lymphocytes Absolute Auto 0.7 X10*3/uL (1.2-4.9); Lymphocytes Percent Auto 4.3 % (20-40); Mean Corpuscular HGB Conc 33.9 g/dl (31.0-36.0); Mean Corpuscular Hemoglobin 29.6 pg (27.0-33.0); Mean Corpuscular Volume 87.3 fL (80.0-98.0); Mean Platelet Volume 10.2 fL (9.4-12.4); Monocytes Absolute Auto 0.8 X10*3/uL (0.1-1.2); Neutrophils Percent Auto 89.5 % (45-73); Platelet Count 265 X10*3/uL (160-400); Red Blood Count 5.03 X10*6/uL (4.60-5.80); Red Cell Distribution Width 13.1 % (11.0-16.0); White Blood Count 15.7 X10*3/uL (4.8-10.8)
[2021-07-27 20:43] LABS: Anion Gap 14 (12-20); Blood Urea Nitrogen 14 mg/dL (9-16); Calcium 9.5 mg/dL (8.4-10.2); Carbon Dioxide 23 mmol/L (22-29); Chloride 108 mmol/L (96-108); Creatinine Clr Calc Pharmacy 148.1; Estimated Glomerular Filt Rate > 60; Glucose Random 145 mg/dL (60-115); Potassium 3.9 mmol/L (3.3-5.1); Sodium 141 mmol/L (135-145)
--- NOTE | 2021-07-27 21:07 | PHA.MEDREC ---
Pharmacy Consult ? Medication Reconciliation Pharmacy has completed the medication reconciliation. Patient is no longer taking alprazolam, prazosin, hydroxyzine. He states its been a while since he has taken it because [facility] makes it so hard for him to get fills. He is pretty sure he is not supposed to be on them. He does not cite good adherence to asmanex but endorses he should be on it. Thanks Dangelo
[2021-07-27 21:40] VITALS: BP 108/63; PULSE 99; RESP 18; TEMP 36.6; O2SAT 95
[2021-07-27] MEDS: methylPREDNISolone Sod Succ 40 MG/ML VIAL IVPUSH (22:31)
[2021-07-28] VITALS (9 sets, daily range): BP systolic 122–143; BP diastolic 64–91; PULSE 72–106; RESP 12–20; TEMP 36.3–37.1; O2SAT 92–97; BMI 23.8
[2021-07-28] MEDS: Morphine Sulfate 4 MG/ML CARTRIDGE 1 MG IVPUSH ×2 (02:10→04:27)
[2021-07-28] MEDS: Benzonatate 100 MG CAPSULE PO (03:44)
[2021-07-28] MEDS: methylPREDNISolone Sod Succ 40 MG/ML VIAL IVPUSH ×3 (03:44→16:34)
--- NOTE | 2021-07-28 04:33 | MHC.PIE ---
p; 0200. pt c/o pain to lt leg and sob. respiratory notified and upd scheduled given. respiratory notifies this information writer that pt will need bipap order since pt is well known to them i; dr cochran notified. p; 0345 pt c/o sob and anxiety. note; no prn aitvan or prn upd i; dr cochran notified. new order ativan 0.5mg po p; pt refusing po ativan. pt reports po ativan don't work and he has ativan 2mg po ordered for home but don't take them because they don't work unless iv. i; dr cochran notified. give morphine early now. e; will cont to monitor
[2021-07-28 07:37] LABS: MANUAL DIFF FLAG NO
[2021-07-28 07:42] LABS: Basophils Percent Auto 0.1 % (0-2); Hematocrit 45.7 % (42.0-52.0); Hemoglobin 14.9 g/dl (14.0-18.0); Imm Gran Abs Auto 0.11 X10*3/uL (0.00-0.03); Imm Gran Pct Auto 0.9 % (0.0-0.4); Lymphocytes Absolute Auto 0.7 X10*3/uL (1.2-4.9); Lymphocytes Percent Auto 5.6 % (20-40); Mean Corpuscular HGB Conc 32.6 g/dl (31.0-36.0); Mean Corpuscular Hemoglobin 29.2 pg (27.0-33.0); Mean Corpuscular Volume 89.4 fL (80.0-98.0); Mean Platelet Volume 10.5 fL (9.4-12.4); Monocytes Absolute Auto 0.7 X10*3/uL (0.1-1.2); Monocytes Percent Auto 5.5 % (2-11); Neutrophils Percent Auto 87.9 % (45-73); Platelet Count 269 X10*3/uL (160-400); Red Blood Count 5.11 X10*6/uL (4.60-5.80); Red Cell Distribution Width 13.2 % (11.0-16.0); White Blood Count 12.5 X10*3/uL (4.8-10.8)
[2021-07-28 08:05] LABS: Anion Gap 12 (12-20); Blood Urea Nitrogen 13 mg/dL (9-16); Calcium 9.6 mg/dL (8.4-10.2); Carbon Dioxide 26 mmol/L (22-29); Chloride 107 mmol/L (96-108); Estimated Glomerular Filt Rate > 60; Glucose Random 121 mg/dL (60-115); Potassium 4.4 mmol/L (3.3-5.1); Sodium 141 mmol/L (135-145)
[2021-07-28] MEDS: Albuterol/Iprat 2.5/0.5MG 3 ML AMPUL.NEB INHALE ×4 (08:13→19:26)
[2021-07-28] MEDS: LORazepam 2 MG/ML VIAL 1 MG IVPUSH (08:57)
[2021-07-28] MEDS: Multivitamin TABLET 1 TAB PO (09:00)
[2021-07-28] MEDS: Loratadine 10 MG TABLET PO (09:00)
[2021-07-28] MEDS: Ascorbic Acid 500 MG TABLET PO (09:00)
[2021-07-28] MEDS: Magnesium Oxide 400 MG TABLET PO (09:00)
[2021-07-28] MEDS: 0.9 % Sodium Chloride Flush 3 ML SYRINGE IVFLUSH ×3 (09:00→22:11)
--- NOTE | 2021-07-28 11:45 | PC.NURSE ---
pt c/o increased anxiety, meds given as documented. no new pain reported. denies sob/headache/dizziness. up in wheelchair independently. vss.
--- NOTE | 2021-07-28 12:28 | HO.PM.IMPN ---
Subjective Subjective Date of Service: 07/28/21 Interval History: seen and examined this morning follow up for asthma breathing better this morning, denies cough feeling very anxious Review of Systems Review of Systems: Yes all other systems are reviewed and are negative Constitutional Constitutional: Denies chills and Denies fever(s) Cardiovascular Cardiovascular: Denies chest pain and Denies palpitations Respiratory Respiratory: Denies cough Gastrointestinal Gastrointestinal: Denies abdominal pain Endocrine Endocrine: Denies palpitations Physical Exam Vital Signs: Vital Signs: Last Vital Signs Temp 97.7 F 07/28/21 10:00 Pulse 81 07/28/21 11:37 Resp 18 07/28/21 11:37 BP 143/91 H 07/28/21 10:00 Pulse Ox 92 07/28/21 10:00 BMI result Body Mass Index 25.5 Const: General: cooperative, comfortable, no acute distress, alert and awake Nutritional Appearance: average body habitus Orientation/consciousness: patient oriented x3 Eyes: Pupils: Equal, round and reactive pupils present EOM: EOMs intact bilaterally Resp: Effort & Inspection: normal respiratory effort and able to speak in complete sentences Auscultation: clear to auscultation bilaterally and no wheezes Cardio: Rate: regular rate Heart sounds: S1 normal heart sound present and S2 normal heart sound present GI: Inspection: No distended Palpation (GI): Soft to palpation Neuro: General: patient oriented x3 Cranial nerves: Yes Equal, round and reactive pupils present Extrem: Other: left bka Objective Data Active Medications Acetaminophen (Acetaminophen 325 Mg Tablet) 650 mg PO Q6H PRN PRN Reason: Pain, Mild (Pain Scale 1-3) Albuterol/Ipratropium (Albuterol/Iprat 2.5/0.5mg 3 Ml Ampul.Neb) 3 ml INHALE RQ4H WHILE AWAKE [facility] Last Admin: 07/28/21 11:36 Dose: 3 ml Documented by: JORGE ALBERTO Albuterol/Ipratropium (Albuterol/Iprat 2.5/0.5mg 3 Ml Ampul.Neb) 3 ml INHALE RQ4H PRN PRN Reason: Shortness of Breath/Wheezing Alprazolam (Alprazolam 0.5 Mg Tablet) 1 mg PO TID PRN PRN Reason: Anxiety Ascorbic Acid (Ascorbic Acid 500 Mg Tablet) 500 mg PO DAILY [facility] Last Admin: 07/28/21 09:00 Dose: 500 mg Documented by: ITALO Benzonatate (Benzonatate 100 Mg Capsule) 100 mg PO TID PRN PRN Reason: Cough Last Admin: 07/28/21 03:44 Dose: 100 mg Documented by: MARY Enoxaparin Sodium (Enoxaparin Sodium 40 Mg/0.4 Ml Syringe) 40 mg SUBCUT Q24H [facility] Last Admin: 07/27/21 22:31 Dose: Not Given Documented by: VALERIE Non-Admin Reason: Patient Refused Loratadine (Loratadine 10 Mg Tablet) 10 mg PO DAILY [facility] Last Admin: 07/28/21 09:00 Dose: 10 mg Documented by: ITALO Magnesium Oxide (Magnesium Oxide 400 Mg Tablet) 400 mg PO DAILY [facility] Last Admin: 07/28/21 09:00 Dose: 400 mg Documented by: ITALO Melatonin (Melatonin 3 Mg Tablet) 6 mg PO BEDTIME PRN PRN Reason: Insomnia Methylprednisolone Sodium Succinate (Methylprednisolone Sod Succ 40 Mg/Ml Vial) 40 mg IVPUSH Q6H [facility] Last Admin: 07/28/21 09:00 Dose: 40 mg Documented by: ITALO Morphine Sulfate (Morphine Sulfate 2 Mg/Ml Cartridge) 2 mg IVPUSH Q4H PRN; Protocol PRN Reason: Pain, SOB Multivitamins/Vitamin C (Multivitamin Tablet) 1 tab PO DAILY [facility] Last Admin: 07/28/21 09:00 Dose: 1 tab Documented by: ITALO Senna (Sennosides 8.6 Mg Tablet) 17.2 mg PO BEDTIME PRN PRN Reason: Constipation Sodium Chloride (0.9 % Sodium Chloride Flush 3 Ml Syringe) 3 ml IVFLUSH QSHIFT [facility] Last Admin: 07/28/21 09:00 Dose: 3 ml Documented by: ITALO Tiotropium [place] (Tiotropium [place] 18 Mcg Cap.W.Dev) 1 puff INHALE RDAILY [facility] Last Admin: 07/28/21 08:15 Dose: Not Given Documented by: JORGE ALBERTO Non-Admin Reason: Med Not Available Zinc Sulfate (Zinc Sulfate 220 Mg Capsule) 50 mg PO Q2D [facility] Last Admin: 07/28/21 05:29 Dose: Not Given Documented by: MARY Non-Admin Reason: pt took it 5/20 am Labs CBC & Chem 7: 07/28/21 06:59 07/28/21 06:59 Labs: Laboratory Results - last 24 hr 07/27/21 07/27/21 07/28/21 20:22 20:22 06:59 MCV 87.3 89.4 MCH 29.6 29.2 MCHC 33.9 32.6 RDW 13.1 13.2 Plt Count 265 269 MPV 10.2 10.5 Immature Gran % (Auto) 1.1 H 0.9 H Neut % (Auto) 89.5 H 87.9 H Lymph % (Auto) 4.3 L 5.6 L [place] % (Auto) 5.0 5.5 Eos % (Auto) 0.0 0.0 Baso % (Auto) 0.1 0.1 Lymph # (Auto) 0.7 L 0.7 L [place] # (Auto) 0.8 0.7 Eos # (Auto) 0.0 0.0 Baso # (Auto) 0.0 0.0 Abs Immat Gran (auto) 0.17 H 0.11 H Absolute Neuts (auto) 14.0 H 11.0 H Absolute Nucleated RBC 0.000 0.000 Nucleated RBC % (auto) 0.0 0.0 Anion Gap 14 Estim Creat Clear Calc 148.1 Estimated GFR > 60 Random Glucose 145 H Calcium 9.5 07/28/21 06:59 MCV MCH MCHC RDW Plt Count MPV Immature Gran % (Auto) Neut % (Auto) Lymph % (Auto) La[place] % (Auto) Eos % (Auto) Baso % (Auto) Lymph # (Auto) [place] # (Auto) Eos # (Auto) Baso # (Auto) Abs Immat Gran (auto) Absolute Neuts (auto) Absolute Nucleated RBC Nucleated RBC % (auto) Anion Gap 12 Estim Creat Clear Calc 158.0 Estimated GFR > 60 Random Glucose 121 H Calcium 9.6 Assessment and Plan (1) Asthma with acute exacerbation: Status: Acute Plan This is a 41-year-old male with a past medical history of anxiety, asthma, history of status asthmaticus, 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 History of anxiety: Continue home xanax VTE ppx --Lovenox Attending - Dr. Rodgers patient requires ongoing hospitalization due to asthma exacerbation Quality Stroke Does the patient have a stroke diagnosis?: No VTE Prior VTE?: No VTE Risk Level:: Medical - moderate - high VTE Device Contraindication: Treatment Not Indicated VTE Drug Contraindication: N/A - Med Ordered
--- NOTE | 2021-07-28 13:11 | P.CONPL_ITS ---
History of Present Illness History of Present Illness Consult date: 07/28/21 Chief complaint: shortness of breath Narrative: This is an inpatient pulmonary consultation. The patient is a 41-year-old male with a past medical history of anxiety, asthma, history of status asthmaticus, PTSD, history of amputation recurrent admission to the hospital? asthma exacerbation; discharged this morning the hospital after being treated for acute asthma exacerbation presented back to the hospital with a chief complaint of shortness of breath.?In the ED, the patient on presentation noted to be very wheezy; given nebulizations and steroids; slightly improved but still short of breath; hence decided to admit to the hospital for further management. Today the patient starting to feel better. Still having some chest tightness and wheezing. Will continue with the IV medications at this time. Also to note there was positive sick contacts in the family likely precipitating his asthma exacerbation. Review of Systems Review of Systems: Constitutional : No Weight loss, No Fever, No Chills, No Night Sweats, No Fatigue, No Malaise ENT/Mouth : No Hearing loss, No Ear Pain, No Nasal Congestion, No Sinus Pain, No Hoarseness, No sore throat, No Rhinorrhea, No Swallowing Difficulty Eyes: No Eye Pain, No Swelling, No Redness, No Foreign Body, No Discharge, No Vision Changes Cardiovascular : No Chest Pain, No SOB, No Dyspnea on Exertion, No Orthopnea, No Edema, No Palpitations Respiratory : Complaining of dry cough, wheezing and shortness of breath Gastrointestinal : No Nausea, No Vomiting, No Diarrhea, No Constipation, No abdominal Pain, No Hematochezia, No Melena Genitourinary : no irregular bleeding, No Dysuria, No Urinary Frequency, No Hematuria, No Urinary Incontinence, No Urgency, No Flank Pain, No Urinary Flow Changes, No Hesitancy Musculoskeletal : No joint pain, No Myalgias, No Joint Swelling Skin : No Skin Lesions, No rash Neuro : No Weakness, No Numbness, No Paresthesias, No Loss of Consciousness, No Dizziness, No Headache Psych : No Anxiety/Panic, No Depression, No SI/HI/AH/VH, No Social Issues, Heme/Lymph: No Bruising, No Bleeding,No Lymphadenopathy Endocrine : No Polyuria, No Polydipsia, No Temperature Intolerance PMFSH Past Medical History Medical History Acute respiratory failure with hypoxia Allergic asthma Anxiety Anxiety Asthma Asthma with exacerbation Asthmaticus, status PTSD (post-traumatic stress disorder) 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 Surgical History Surgical History History of amputation Social History Social History Household Members: None Household Members Other:: Dogs Housing: House Do you presently have visiting nurse or other home services: Yes (visiting nurse) Alcohol intake: never Patient Tobacco Use Status: Never used Tobacco Second Hand Smoke Exposure: No Use of substances other than those prescribed or required for medical reasons: Yes Substance Use Type: Marijuana Substance Use Frequency: Weekly Advance Directives: Yes Advance Directives on File: Yes Advance Directives Date on File: 05/28/21 service: Yes Current occupational status: retired and disabled Meds Allergies Allergy/AdvReac Type Severity Reaction Status Date / Time ibuprofen [IBUPROFEN] Allergy Intermediate Difficulty Verified 07/27/21 16:32 Breathing shellfish derived Allergy Mild SWELLING Verified 07/27/21 16:32 aspirin [ASA] Allergy Unknown DIFFICULTY Verified 07/27/21 16:32 BREATHING albuterol AdvReac Mild Gas Verified 07/27/21 16:32 exchange problems sertraline AdvReac Nausea Verified 07/27/21 16:32 nsaids Allergy Unknown Difficulty Uncoded 02/14/21 04:26 Breathing nucala Allergy Unknown shortness Uncoded 02/14/21 04:26 of breath Active Medications: Current Medications Acetaminophen (Acetaminophen 325 Mg Tablet) 650 mg PO Q6H PRN PRN Reason: Pain, Mild (Pain Scale 1-3) Albuterol/Ipratropium (Albuterol/Iprat 2.5/0.5mg 3 Ml Ampul.Neb) 3 ml INHALE RQ4H WHILE AWAKE [facility] Last Admin: 07/28/21 11:36 Dose: 3 ml Documented by: Albuterol/Ipratropium (Albuterol/Iprat 2.5/0.5mg 3 Ml Ampul.Neb) 3 ml INHALE RQ4H PRN PRN Reason: Shortness of Breath/Wheezing Alprazolam (Alprazolam 0.5 Mg Tablet) 1 mg PO TID PRN PRN Reason: Anxiety Ascorbic Acid (Ascorbic Acid 500 Mg Tablet) 500 mg PO DAILY [facility] Last Admin: 07/28/21 09:00 Dose: 500 mg Documented by: Benzonatate (Benzonatate 100 Mg Capsule) 100 mg PO TID PRN PRN Reason: Cough Last Admin: 07/28/21 03:44 Dose: 100 mg Documented by: Enoxaparin Sodium (Enoxaparin Sodium 40 Mg/0.4 Ml Syringe) 40 mg SUBCUT Q24H [facility] Last Admin: 07/27/21 22:31 Dose: Not Given Documented by: Loratadine (Loratadine 10 Mg Tablet) 10 mg PO DAILY [facility] Last Admin: 07/28/21 09:00 Dose: 10 mg Documented by: Magnesium Oxide (Magnesium Oxide 400 Mg Tablet) 400 mg PO DAILY [facility] Last Admin: 07/28/21 09:00 Dose: 400 mg Documented by: Melatonin (Melatonin 3 Mg Tablet) 6 mg PO BEDTIME PRN PRN Reason: Insomnia Methylprednisolone Sodium Succinate (Methylprednisolone Sod Succ 40 Mg/Ml Vial) 40 mg IVPUSH Q8H [facility] Morphine Sulfate (Morphine Sulfate 2 Mg/Ml Cartridge) 2 mg IVPUSH Q4H PRN; Protocol PRN Reason: Pain, SOB Multivitamins/Vitamin C (Multivitamin Tablet) 1 tab PO DAILY [facility] Last Admin: 07/28/21 09:00 Dose: 1 tab Documented by: Senna (Sennosides 8.6 Mg Tablet) 17.2 mg PO BEDTIME PRN PRN Reason: Constipation Sodium Chloride (0.9 % Sodium Chloride Flush 3 Ml Syringe) 3 ml IVFLUSH QSHIFT [facility] Last Admin: 07/28/21 09:00 Dose: 3 ml Documented by: Tiotropium [place] (Tiotropium [place] 18 Mcg Cap.W.Dev) 1 puff INHALE RDAILY [facility] Last Admin: 07/28/21 08:15 Dose: Not Given Documented by: Zinc Sulfate (Zinc Sulfate 220 Mg Capsule) 50 mg PO Q2D [facility] Last Admin: 07/28/21 05:29 Dose: Not Given Documented by: Home Medications Medication Instructions Recorded Confirmed Last Taken Type ascorbic acid (vitamin C) 500 mg 500 mg PO DAILY 12/21/20 07/27/21 05/23/21 History tablet (Vitamin C) cetirizine 10 mg tablet 10 mg PO DAILY 12/21/20 07/27/21 05/23/21 History magnesium oxide 400 mg PO DAILY 12/21/20 07/27/21 02/13/21 History albuterol sulfate 3 mg INHALATION QID PRN 02/14/21 07/27/21 02/14/21 History cholecalciferol (vitamin D3) 125 125 mcg PO DAILY 05/23/21 07/27/21 Unknown History mcg (5,000 unit) tablet (Vitamin D3) mometasone (Asmanex [place]) 1 inh INHALATION DAILY 05/23/21 07/27/21 Unknown History multivitamin 1 tab PO DAILY 05/23/21 07/27/21 Unknown History tiotropium bromide 1.25 2 puff INHALATION DAILY 05/23/21 07/27/21 Unknown History mcg/actuation mist for inhalation (Spiriva Respimat) zinc sulfate 50 mg zinc (220 mg) 50 mg PO Q2D 05/23/21 07/27/21 Unknown History capsule alprazolam 0.5 mg tablet 1 mg PO TID PRN 07/28/21 07/28/21 Unknown History Physical Exam Vital Signs: Vital Signs: Last Vital Signs Temp 97.7 F 07/28/21 10:00 Pulse 81 07/28/21 11:37 Resp 18 07/28/21 11:37 BP 143/91 H 07/28/21 10:00 Pulse Ox 92 07/28/21 10:00 BMI result Body Mass Index 25.5 Const: General: alert Neck: Neck: Yes normal visual inspection, Yes full ROM and Yes no lymphadenopathy Chest: Chest palpation & inspection: normal inspection of the chest Resp: Auscultation: no crackles, no rales, no rhonchi, wheezes and diminished lung sounds Cardio: Rate: regular rate Rhythm: regular rhythm Heart sounds: S1 normal heart sound present and S2 normal heart sound present GI: Palpation (GI): Soft to palpation and nontender Auscultation: normal bowel sounds Skin: General skin exam: rashes and/or lesions noted Extrem: General: Yes amputation noted Results Laboratory Findings CBC and BMP: 07/28/21 06:59 07/28/21 06:59 Abnormal lab findings: Abnormal Labs 07/27/21 07/27/21 07/28/21 20:22 20:22 06:59 WBC 15.7 H 12.5 H Immature Gran % (Auto) 1.1 H 0.9 H Neut % (Auto) 89.5 H 87.9 H Lymph % (Auto) 4.3 L 5.6 L Lymph # (Auto) 0.7 L 0.7 L Abs Immat Gran (auto) 0.17 H 0.11 H Absolute Neuts (auto) 14.0 H 11.0 H Random Glucose 145 H 07/28/21 06:59 WBC Immature Gran % (Auto) Neut % (Auto) Lymph % (Auto) Lymph # (Auto) Abs Immat Gran (auto) Absolute Neuts (auto) Random Glucose 121 H Assessment and Plan (1) Asthma with acute exacerbation: Status: Acute Plan Continue with IV Solu-Medrol further 24 hours then hopefully switch over to p.o. Continue nebulized therapy No need for antibiotics We did talk about considering other biologic medications available for severe persistent asthma to try to reduce exacerbations. He already tried and failed Nucala. We can consider TSLP inhibitors The patient is to follow-up as an outpatient. He does have pulmonology in [place] that he is working with as well. Procedures Date of Service Date of Service: 07/28/21
[2021-07-28 13:48] LABS: COVID-19 Test Negative (Negative); IDNOW Serial# 16C4AD1C
[2021-07-28] MEDS: ALPRAZolam 0.5 MG TABLET 1 MG PO (15:37)
[2021-07-28] MEDS: Morphine Sulfate 2 MG/ML CARTRIDGE IVPUSH (17:10)
[2021-07-29] VITALS (10 sets, daily range): BP systolic 121–151; BP diastolic 72–92; PULSE 63–118; RESP 16–20; TEMP 36.6–37.1; O2SAT 92–98
[2021-07-29] MEDS: methylPREDNISolone Sod Succ 40 MG/ML VIAL IVPUSH ×3 (00:40→20:21)
[2021-07-29] MEDS: Morphine Sulfate 2 MG/ML CARTRIDGE IVPUSH (03:39)
[2021-07-29] MEDS: Albuterol/Iprat 2.5/0.5MG 3 ML AMPUL.NEB INHALE ×4 (04:15→15:31)
[2021-07-29] MEDS: Magnesium Oxide 400 MG TABLET PO (08:51)
[2021-07-29] MEDS: Loratadine 10 MG TABLET PO (08:51)
[2021-07-29] MEDS: Ascorbic Acid 500 MG TABLET PO (08:52)
[2021-07-29] MEDS: Multivitamin TABLET 1 TAB PO (08:52)
[2021-07-29] MEDS: 0.9 % Sodium Chloride Flush 3 ML SYRINGE IVFLUSH ×2 (08:53→16:43)
[2021-07-29] MEDS: Zinc Sulfate 220 MG CAPSULE PO (09:02)
[2021-07-29] MEDS: LORazepam 2 MG/ML VIAL 1 MG IVPUSH (09:08)
--- NOTE | 2021-07-29 10:42 | P.PNIM_ITS ---
Subjective Subjective Date of Service: 07/29/21 Interval History: seen and examined this morning follow up for asthma feels like breathing is acting up again no coughing, fever or chills overall frustrated with delay in care r/t waiting for [facility] services/treatment feeling anxious Review of Systems Review of Systems: Yes all other systems are reviewed and are negative Constitutional Constitutional: Denies chills and Denies fever(s) Cardiovascular Cardiovascular: Denies chest pain, Denies palpitations and Denies dyspnea Respiratory Respiratory: Denies cough and Denies dyspnea Gastrointestinal Gastrointestinal: Denies abdominal pain, Denies nausea and Denies vomiting Endocrine Endocrine: Denies palpitations Physical Exam Vital Signs: Vital Signs: Last Vital Signs Temp 98.2 F 07/29/21 08:00 Pulse 118 H 07/29/21 08:03 Resp 18 07/29/21 08:03 BP 149/83 H 07/29/21 08:00 Pulse Ox 95 07/29/21 08:00 BMI result Body Mass Index 23.8 Const: General: cooperative, comfortable, no acute distress, alert and awake Nutritional Appearance: average body habitus Orientation/consciousness: patient oriented x3 Eyes: Pupils: Equal, round and reactive pupils present EOM: EOMs intact bilaterally Resp: Other: scattered wheezes Effort & Inspection: normal respiratory effort and able to speak in complete sentences Cardio: Rate: regular rate Heart sounds: S1 normal heart sound present and S2 normal heart sound present GI: Inspection: No distended Palpation (GI): Soft to palpation Neuro: General: patient oriented x3 Cranial nerves: Yes Equal, round and reactive pupils present Extrem: Other: left bka Objective Data Active Medications Acetaminophen (Acetaminophen 325 Mg Tablet) 650 mg PO Q6H PRN PRN Reason: Pain, Mild (Pain Scale 1-3) Albuterol/Ipratropium (Albuterol/Iprat 2.5/0.5mg 3 Ml Ampul.Neb) 3 ml INHALE RQ4H WHILE AWAKE [facility] Last Admin: 07/29/21 07:58 Dose: 3 ml Documented by: СЕРГЕЙ Albuterol/Ipratropium (Albuterol/Iprat 2.5/0.5mg 3 Ml Ampul.Neb) 3 ml INHALE RQ4H PRN PRN Reason: Shortness of Breath/Wheezing Last Admin: 07/29/21 04:15 Dose: 3 ml Documented by: JANIE Alprazolam (Alprazolam 0.5 Mg Tablet) 1 mg PO TID PRN PRN Reason: Anxiety Last Admin: 07/28/21 15:37 Dose: 1 mg Documented by: ITALO Ascorbic Acid (Ascorbic Acid 500 Mg Tablet) 500 mg PO DAILY [facility] Last Admin: 07/29/21 08:52 Dose: 500 mg Documented by: ARMEN Benzonatate (Benzonatate 100 Mg Capsule) 100 mg PO TID PRN PRN Reason: Cough Last Admin: 07/28/21 03:44 Dose: 100 mg Documented by: MARY Enoxaparin Sodium (Enoxaparin Sodium 40 Mg/0.4 Ml Syringe) 40 mg SUBCUT Q24H [facility] Last Admin: 07/28/21 22:10 Dose: Not Given Documented by: FERNANDO Non-Admin Reason: Patient Refused Loratadine (Loratadine 10 Mg Tablet) 10 mg PO DAILY [facility] Last Admin: 07/29/21 08:51 Dose: 10 mg Documented by: ARMEN Magnesium Oxide (Magnesium Oxide 400 Mg Tablet) 400 mg PO DAILY [facility] Last Admin: 07/29/21 08:51 Dose: 400 mg Documented by: ARMEN Melatonin (Melatonin 3 Mg Tablet) 6 mg PO BEDTIME PRN PRN Reason: Insomnia Methylprednisolone Sodium Succinate (Methylprednisolone Sod Succ 40 Mg/Ml Vial) 40 mg IVPUSH Q8H [facility] Last Admin: 07/29/21 08:52 Dose: 40 mg Documented by: ARMEN Morphine Sulfate (Morphine Sulfate 2 Mg/Ml Cartridge) 2 mg IVPUSH Q4H PRN; Protocol PRN Reason: Pain, SOB Last Admin: 07/29/21 03:39 Dose: 2 mg Documented by: FERNANDO Multivitamins/Vitamin C (Multivitamin Tablet) 1 tab PO DAILY [facility] Last Admin: 07/29/21 08:52 Dose: 1 tab Documented by: ARMEN Senna (Sennosides 8.6 Mg Tablet) 17.2 mg PO BEDTIME PRN PRN Reason: Constipation Sodium Chloride (0.9 % Sodium Chloride Flush 3 Ml Syringe) 3 ml IVFLUSH QSHIFT [facility] Last Admin: 07/29/21 08:53 Dose: 3 ml Documented by: ARMEN Tiotropium [place] (Tiotropium [place] 18 Mcg Cap.W.Dev) 1 puff INHALE RDAILY [facility] Last Admin: 07/29/21 07:58 Dose: 1 puff Documented by: СЕРГЕЙ Zinc Sulfate (Zinc Sulfate 220 Mg Capsule) 220 mg PO Q2D [facility] Last Admin: 07/29/21 09:02 Dose: 220 mg Documented by: ARMEN Labs CBC & Chem 7: 07/28/21 06:59 07/28/21 06:59 Labs: Laboratory Results - last 24 hr 07/28/21 13:15 COVID-19 ([facility]) Negative COVID-19 Clin Com See Note Assessment and Plan (1) Asthma with acute exacerbation: Status: Acute Plan This is a 41-year-old male with a past medical history of anxiety, asthma, history of status asthmaticus, 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 serving in [facility], PTSD, recurrent admissions for asthma, re-admitted overnight after requesting to be discharged earlier in the day Acute asthma exacerbation: No hypoxia Wean IV Solu-Medrol, transition to po prednisone in am if able Continue breathing treatments, scheduled and p.r.n. seen by pulmonology - recommend outpatient follow up History of anxiety: Continue home xanax VTE ppx --Lovenox Attending - Dr. Rodgers patient requires ongoing hospitalization due to asthma exacerbation and need for IV steroids Quality Stroke Does the patient have a stroke diagnosis?: No VTE Prior VTE?: No VTE Risk Level:: Medical - moderate - high VTE Device Contraindication: Treatment Not Indicated VTE Drug Contraindication: N/A - Med Ordered
[2021-07-29] MEDS: ALPRAZolam 0.5 MG TABLET 1 MG PO (16:43)
[2021-07-30] MEDS: 0.9 % Sodium Chloride Flush 3 ML SYRINGE IVFLUSH ×2 (01:39→09:19)
[2021-07-30 03:20] VITALS: BP 132/77; PULSE 65; RESP 20; TEMP 37; O2SAT 98
[2021-07-30] MEDS: Morphine Sulfate 2 MG/ML CARTRIDGE IVPUSH (03:54)
[2021-07-30 07:10] VITALS: BP 133/78; PULSE 70; RESP 18; TEMP 36.6; O2SAT 97
[2021-07-30] MEDS: Albuterol/Iprat 2.5/0.5MG 3 ML AMPUL.NEB INHALE ×2 (07:46→11:23)
[2021-07-30 07:48] VITALS: PULSE 72; RESP 18; O2SAT 95
[2021-07-30] MEDS: predniSONE 20 MG TABLET 40 MG PO (09:15)
[2021-07-30] MEDS: Ascorbic Acid 500 MG TABLET PO (09:16)
[2021-07-30] MEDS: Multivitamin TABLET 1 TAB PO (09:16)
[2021-07-30] MEDS: Loratadine 10 MG TABLET PO (09:16)
[2021-07-30] MEDS: Magnesium Oxide 400 MG TABLET PO (09:16)
--- NOTE | 2021-07-30 10:24 | P.DS_ITS ---
DS: Providers Provider Date of Service: 07/30/21 Date of admission: 07/27/21 20:07 Primary care physician: Earle Montano Consults: 07/27/21 20:06 Consult to Pulmonology Routine Consulting Provider: Kaila Miranda Reason for consultation: recurrent asthma exacerbation Attending physician on discharge: Re[facility] Discharging clinician: Candi Khalil DS: Diagnosis Discharge Diagnosis (1) Asthma with acute exacerbation: Status: Acute DS: Summary Hospital Course Hospital Course: HP as per admitting provider 41-year-old male with a past medical history of anxiety, asthma, history of status asthmaticus, PTSD, history of amputation recurrent admission to the hospital? asthma exacerbation; discharged this morning the hospital after being treated for acute asthma exacerbation presented back to the hospital with a chief complaint of shortness of breath.?Patient reports that after left hospital he felt short of breath which has been gra dually worsening and felt tight at home; decided to come back to the hospital for further evaluation.?Mentions his breathing is slightly better at the time of my entry.? Status post? Nebulization treatments in the ER. Patient reports dry cough Denies any fevers and chills.?Denies any sputum production Denies any chest pain or palpitations.?Review of all other systems is negative except mentioned above ER course: Per ER team patient on presentation noted to be very tight; given nebulizations and steroids; slightly improved but still short of breath; hence decided to admit to the hospital for further management . Acute asthma exacerbation resolved No hypoxia Weaned IV Solu-Medrol. Continue breathing treatments, scheduled and/or p.r.n. 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 History of anxiety Continue home xanax Time Spent with Patient Time attestation: Total time spent providing and/or coordinating discharge services: Discharge coordination time: Greater than 30 minutes Quality: Safe Use of Opioids Does Pt have an Active Cancer Diagnosis on the Problem List?: No Quality: Stroke Does the patient have a stroke diagnosis?: No Physical Exam Vital Signs: Vital Signs: Last Vital Signs Temp 97.8 F 07/30/21 07:10 Pulse 72 07/30/21 07:48 Resp 18 07/30/21 07:48 BP 133/78 07/30/21 07:10 Pulse Ox 97 07/30/21 07:10 BMI result Body Mass Index 23.8 Appearing in no acute distress head is normocephalic atraumatic eyes pupils are PERRLA sclera is anicteric mouth throat mucous membranes are intact and moist neck is supple no lymphadenopathy, no JVD noted lung sounds are clear to auscultation heart regular rate rhythm, clear S1, S2 positive bowel sounds, abdomen is soft, nontender neuro patient is alert x3, no focal deficits Left BKA DS: Data Data Completed and Pending Completed studies during hospitalization [Text1]: Procedures Assistance with Respiratory Ventilation, Less than 24 Consecutive Hours, Continuous Positive Airway Pressure (05/23/21) Discharge Plan Discharge Anticipated Discharge Date/Time: 07/30/21 10:15 Patient Disposition: Home, Self-Care Discharge Diagnosis: Asthma exacerbation Referrals: Earle Montano [Primary Care Provider] - 1 Week Marcus Khalil MD [Physician] - 2 Weeks Discharge Medications: Continued albuterol sulfate 90 mcg/actuation HFA aerosol inhaler 2 puff inhalation Q4-6H PRN (Reason: shortness of breath or wheezing) Qty: 8.5 0RF albuterol sulfate 2.5 mg /3 mL (0.083 %) solution for nebulization 3 mg inhalation QID PRN (Reason: Wheezing) 0RF multivitamin Tablet 1 tab PO DAILY 0RF Asmanex Twisthaler 220 mcg/ actuation (30) Aerosol Powdr Breath Activated 1 inh INHALATION DAILY 0RF zinc sulfate 50 mg zinc (220 mg) Capsule 50 mg PO Q2D 0RF cholecalciferol (vitamin D3) [Vitamin D3] 125 mcg (5,000 unit) Tablet 125 mcg PO DAILY 0RF Spiriva Respimat 1.25 mcg/actuation Mist 2 puff INHALATION DAILY 0RF cetirizine 10 mg Tablet 10 mg PO DAILY 0RF ascorbic acid (vitamin C) [Vitamin C] 500 mg Tablet 500 mg PO DAILY 0RF magnesium oxide 400 mg magnesium Tablet 400 mg PO DAILY 0RF alprazolam 0.5 mg tablet 1 mg PO TID PRN (Reason: Anxiety) 0RF Discharge Orders: Discharge Order (Routine); Ordered 07/30/21 Ordered By: Candi Khalil Diet: advance to usual diet Activity on Discharge: As tolerated Stand Alone Forms: Patient Portal Discharge page Care Plan Goals: complete resolution of symptoms Health Concerns: asthma exacerbation Plan of Treatment: follow-up with primary care provider as needed Assessment: See Discharge summary
[2021-07-30 11:03] VITALS: BP 134/89; PULSE 72; RESP 18; TEMP 36.3; O2SAT 97
[2021-07-30 11:24] VITALS: PULSE 71; RESP 16; O2SAT 97
[2021-07-30] MEDS: ALPRAZolam 0.5 MG TABLET 1 MG PO (11:43)
== END 2021-07-30 13:11 | disposition home health service (06) | DRG 203 ==
LOC: HO.ED 18:42 → HO.EDOVER 21:19 → HO.IMC 07-28 18:25
PROVIDERS: Physician Assistant Medical; Admitting Provider Hospitalist; Emergency Provider Emergency Medicine; PCP Internal Medicine; Visit Provider Nurse Practitioner Acute Care
DX: J45.51 Severe persistent asthma with (acute) exacerbation (principal); F43.10 Post-traumatic stress disorder, unspecified; F41.9 Anxiety disorder, unspecified; Z20.822 Contact with and (suspected) exposure to COVID-19; Z88.5 Allergy status to narcotic agent; Z88.6 Allergy status to analgesic agent; Z88.8 Allergy status to other drugs, medicaments and biological substances; Z79.52 Long term (current) use of systemic steroids; Z79.899 Other long term (current) drug therapy
CPT/HCPCS: 36415; 80048; 85025; 87635; 94640; 96365; 96366; 96375; 99284; 99285; J2060; J2270; J2920; J2930; J3475

== ENCOUNTER 2022-02-06 07:08 | Emergency (ER) | payer OTHER, SELFPAY ==
--- NOTE | ~2022-02-06 | XR_ITS ---
EXAMINATION: XR CHEST CLINICAL INFORMATION: Dyspnea COMPARISON: None TECHNIQUE: Frontal view of the chest was obtained. FINDINGS: The lungs are well-expanded with central lucency surrounded by sutures in the right midlung from previous intervention. It is stable.. Minimal blunting of right CP angle is noted. Heart size and pulmonary vascularity is normal. No gross bony abnormality seen. XR/XR chest 1V IMPRESSION: Small lucency surrounded by surgical sutures in the right midlung appears stable compared to previous study 07/26/2021. No acute pneumonic process seen. Minimal right pleural thickening is noted.
[2022-02-06 07:14] VITALS: BP 121/87; PULSE 100; O2SAT 97
[2022-02-06 07:16] VITALS: BP 114/70; PULSE 105; RESP 16; TEMP 36.6; O2SAT 88; BMI 25.9
--- NOTE | 2022-02-06 07:22 | ED_ITS ---
HPI - Asthma General Chief Complaint: Dyspnea Stated Complaint: DIFF BREATHING Time Seen by Provider: 02/06/22 07:15 Source: patient Mode of arrival: ambulatory Limitations: no limitations History of Present Illness HPI Narrative: 42-year-old male with severe asthma likely related to anxiety and drug-seeking behavior presents to the emergency department stating he was very anxious. He is on prednisone 10 mg a day. Patient states normal state health he noted his oxygenation to be 84% EMS arrived gets breathing treatments and patient arrives feeling much better. Patient states he always has wheezing and feels like his chest is always tight. MD complaint: asthma attack , shortness of breath and other Related Data Home Medications Medication Instructions Recorded Confirmed ascorbic acid (vitamin C) 500 mg 500 mg PO DAILY 12/21/20 07/27/21 tablet (Vitamin C) cetirizine 10 mg tablet 10 mg PO DAILY 12/21/20 07/27/21 magnesium oxide 400 mg PO DAILY 12/21/20 07/27/21 albuterol sulfate 2.5 mg/3 mL 3 mg inhalation QID PRN Wheezing 02/14/21 07/27/21 (0.083 %) solution for nebulization cholecalciferol (vitamin D3) 125 125 mcg PO DAILY 05/23/21 07/27/21 mcg (5,000 unit) tablet (Vitamin D3) mometasone 220 mcg/actuation(30 1 inh inhalation DAILY 05/23/21 07/27/21 doses) breath activated powder inhaler (Asmanex Twisthaler) multivitamin 1 tab PO DAILY 05/23/21 07/27/21 tiotropium bromide 1.25 2 puff inhalation DAILY 05/23/21 07/27/21 mcg/actuation mist for inhalation (Spiriva Respimat) zinc sulfate 50 mg zinc (220 mg) 50 mg PO Q2D 05/23/21 07/27/21 capsule alprazolam 0.5 mg tablet 1 mg PO TID PRN Anxiety 07/28/21 07/28/21 Previous Rx's Medication Instructions Recorded albuterol sulfate 90 mcg/actuation 2 puff inhalation Q4-6H PRN 12/26/19 aerosol inhaler shortness of breath or wheezing #8.5 grams alprazolam 0.5 mg tablet 0.5 mg PO TID PRN Anxiety #6 tabs 07/30/21 prednisone 20 mg tablet 40 mg PO DAILY #8 tabs 07/30/21 prednisone 10 mg tablet 10 mg PO DAILY asthma #63 tabs 02/06/22 quetiapine 25 mg tablet (Seroquel) 25 mg PO BEDTIME #30 tabs 02/06/22 Allergies Allergy/AdvReac Type Severity Reaction Status Date / Time ibuprofen [IBUPROFEN] Allergy Intermediate Difficulty Verified 07/27/21 16:32 Breathing shellfish derived Allergy Mild SWELLING Verified 07/27/21 16:32 aspirin [ASA] Allergy Unknown DIFFICULTY Verified 07/27/21 16:32 BREATHING albuterol AdvReac Mild Gas Verified 07/27/21 16:32 exchange problems sertraline AdvReac Nausea Verified 07/27/21 16:32 nsaids Allergy Unknown Difficulty Uncoded 02/14/21 04:26 Breathing nucala Allergy Unknown shortness Uncoded 02/14/21 04:26 of breath Review of Systems Review of Systems: Review of systems: General: Patient denies any fever chills recent illness or falls Musculoskeletal: Denies back pain or body aches or other injuries HEENT: denies headache, runny nose, ear pain Respiratory: denies shortness of breath, cough Cardiovascular: no chest pain or palpitations : denies dysuria, frequency Abdomen: no nausea vomiting denies abdominal pain Extremities: no swelling, no pain Skin: no diaphoresis Yes all other systems are reviewed and are negative PMFSH Past Medical History Attestation statement: The following information was validated with the patient. Medical History Acute respiratory failure with hypoxia Allergic asthma Anxiety Anxiety Asthma Asthma with exacerbation Asthmaticus, status PTSD (post-traumatic stress disorder) 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 Surgical History History of amputation Social History Social History Household Members: None Household Members Other:: dogs Housing: House Do you presently have visiting nurse or other home services: Yes (visiting nurse) Alcohol intake: never Patient Tobacco Use Status: Never used Tobacco Second Hand Smoke Exposure: No Substance Use Type: Marijuana Advance Directives: Yes Advance Directives on File: Yes Advance Directives Date on File: 05/28/21 service: Yes Current occupational status: retired and disabled Physical Exam Vital Signs: Vital Signs: Last Vital Signs Temp 98 F 02/06/22 07:16 Pulse 94 02/06/22 08:35 Resp 18 02/06/22 08:35 BP 114/70 02/06/22 07:16 Pulse Ox 88 L 02/06/22 07:16 O2 Del Method 02/06/22 07:16 BMI result Body Mass Index 25.9 General: Well-appearing well-nourished in no signs of distress HEENT: Normocephalic atraumatic Neck: No signs of JVD, no masses no tenderness or lymphadenopathy Cardiovascular: Regular rate and rhythm Respiratory: Wheezing bilaterally Abdomen: Soft nontender no masses Extremities: Normal pedal pulses no signs of edema Skin: Dry warm no rashes Back: No tenderness full ROM Medications Administered Discontinued Medications Generic Name Dose Route Start Last Admin Trade Name Freq PRN Reason Stop Dose Admin Levalbuterol HCl 2.5 mg 02/06/22 07:20 02/06/22 08:34 Levalbuterol Hcl 1.25 Mg/0.5 Ml Vial.Neb INHALE 02/06/22 07:21 2.5 mg ONCE ONE Administration Prednisone 60 mg 02/06/22 07:23 02/06/22 07:36 Prednisone 20 Mg Tablet PO 02/06/22 07:24 60 mg ONCE ONE Administration MDM - Asthma MDM Narrative Medical decision making narrative: concern for asthma exacerbation contolled with dilaudid and anti anxiety medications in the past. Dr. Carnes from the ICU states it is not drug seeking behavior. He looks well on arrival and admits he was very anxious. I will give patient more levoalbuterol get an XR and labs and start a prednisone taper at this time. XR and labs are all normal I will send the patient home on prednisone. I spent extra time with the patient he states he feels well but wants to hang out in his room for a couple more hours. I explained that we don't usually do that. He has lots of anxiety but is on no anxiety medications. I will trial him on seroquel. I will set him up for discharge. Differential Diagnosis Differential diagnosis: Likely Acute exacerbation, Status asthmaticus and Acute asthmatic bronchitis Medical Records Attestation: I reviewed the patient's medical records. Lab Data Attestation: I reviewed the patient's lab results. Result diagrams: 02/06/22 08:04 02/06/22 08:04 Labs: Lab Results 02/06/22 02/06/22 02/06/22 Range/Units 08:04 08:04 08:06 WBC 8.2 (4.8-10.8) X10*3/uL RBC 4.83 (4.60-5.80) X10*6/uL Hgb 14.3 (14.0-18.0) g/dl Hct 41.6 L (42.0-52.0) % MCV 86.1 (80.0-98.0) fL MCH 29.6 (27.0-33.0) pg MCHC 34.4 (31.0-36.0) g/dl RDW 12.4 (11.0-16.0) % Plt Count 223 (160-400) X10*3/uL MPV 10.6 (9.4-12.4) fL Immature Gran % (Auto) 0.9 H (0.0-0.4) % Neut % (Auto) 76.1 H (45-73) % Lymph % (Auto) 13.7 L (20-40) % [place] % (Auto) 3.5 (2-11) % Eos % (Auto) 4.6 H (0-4) % Baso % (Auto) 1.2 (0-2) % Lymph # (Auto) 1.1 L (1.2-4.9) X10*3/uL [place] # (Auto) 0.3 (0.1-1.2) X10*3/uL Eos # (Auto) 0.4 (0.0-0.4) X10*3/uL Baso # (Auto) 0.1 (0.0-0.2) X10*3/uL Abs Immat Gran (auto) 0.07 H (0.00-0.03) X10*3/uL Absolute Neuts (auto) 6.2 (2.0-8.3) x10*3/uL Absolute Nucleated RBC 0.000 (0.0-0.012) X10*3/uL Nucleated RBC % (auto) 0.0 (0.0-0.2) /100WBC Sodium 141 (135-145) mmol/L Potassium 3.4 D (3.3-5.1) mmol/L Chloride 107 (96-108) mmol/L Carbon Dioxide 24 (22-29) mmol/L Anion Gap 13 (12-20) BUN 9 (9-16) mg/dL Creatinine 0.69 (0.5-1.4) mg/dL Estim Creat Clear Calc 170.0 Estimated GFR > 60 Random Glucose 121 H (60-115) mg/dL Calcium 9.1 (8.4-10.2) mg/dL COVID-19 (OZIEL) Negative (Negative) COVID-19 Clin Com See Note Discharge Plan Discharge Clinical Impression: Asthma with acute exacerbation, Anxiety Patient Disposition: Home, Self-Care Instructions: Asthma (ED), Anxiety (ED) Additional Instructions: Please call to follow up with your doctor. If you have any other concerns please return to the ED. Prescriptions: New quetiapine [Seroquel] 25 mg tablet 25 mg PO BEDTIME Qty: 30 0RF prednisone 10 mg tablet 10 mg PO DAILY Qty: 63 0RF Rx Instructions: Please start at 6 tablets daily for 5 days, then 5 tablets a day for 5 days, then 4 tablets a day for 5 days, then 3 tablets a day for 5 days then 2 tablets a day for 5 days then 1 tablet a day for 5 days No Action albuterol sulfate 90 mcg/actuation HFA aerosol inhaler 2 puff inhalation Q4-6H PRN (Reason: shortness of breath or wheezing) Qty: 8.5 0RF albuterol sulfate 2.5 mg /3 mL (0.083 %) solution for nebulization 3 mg inhalation QID PRN (Reason: Wheezing) multivitamin Tablet 1 tab PO DAILY Asmanex Twisthaler 220 mcg/ actuation (30) Aerosol Powdr Breath Activated 1 inh INHALATION DAILY zinc sulfate 50 mg zinc (220 mg) Capsule 50 mg PO Q2D cholecalciferol (vitamin D3) [Vitamin D3] 125 mcg (5,000 unit) Tablet 125 mcg PO DAILY Spiriva Respimat 1.25 mcg/actuation Mist 2 puff INHALATION DAILY cetirizine 10 mg Tablet 10 mg PO DAILY ascorbic acid (vitamin C) [Vitamin C] 500 mg Tablet 500 mg PO DAILY magnesium oxide 400 mg magnesium Tablet 400 mg PO DAILY alprazolam 0.5 mg tablet 1 mg PO TID PRN (Reason: Anxiety) alprazolam 0.5 mg Tablet 0.5 mg PO TID PRN (Reason: Anxiety) Qty: 6 0RF prednisone 20 mg Tablet 40 mg PO DAILY Qty: 8 0RF
--- NOTE | 2022-02-06 07:30 | PC.NURSE ---
O2 APPLIED AT 2 L.L, 89%. INCREASED TO 3L
[2022-02-06] MEDS: predniSONE 20 MG TABLET 60 MG PO (07:36)
[2022-02-06 08:10] LABS: MANUAL DIFF FLAG NO
[2022-02-06 08:12] LABS: Basophils Absolute Auto 0.1 X10*3/uL (0.0-0.2); Basophils Percent Auto 1.2 % (0-2); Eosinophils Absolute Auto 0.4 X10*3/uL (0.0-0.4); Eosinophils Percent Auto 4.6 % (0-4); Hematocrit 41.6 % (42.0-52.0); Hemoglobin 14.3 g/dl (14.0-18.0); Imm Gran Abs Auto 0.07 X10*3/uL (0.00-0.03); Imm Gran Pct Auto 0.9 % (0.0-0.4); Lymphocytes Absolute Auto 1.1 X10*3/uL (1.2-4.9); Lymphocytes Percent Auto 13.7 % (20-40); Mean Corpuscular HGB Conc 34.4 g/dl (31.0-36.0); Mean Corpuscular Hemoglobin 29.6 pg (27.0-33.0); Mean Corpuscular Volume 86.1 fL (80.0-98.0); Mean Platelet Volume 10.6 fL (9.4-12.4); Monocytes Absolute Auto 0.3 X10*3/uL (0.1-1.2); Monocytes Percent Auto 3.5 % (2-11); Neutrophils Absolute Auto 6.2 x10*3/uL (2.0-8.3); Neutrophils Percent Auto 76.1 % (45-73); Platelet Count 223 X10*3/uL (160-400); Red Blood Count 4.83 X10*6/uL (4.60-5.80); Red Cell Distribution Width 12.4 % (11.0-16.0); White Blood Count 8.2 X10*3/uL (4.8-10.8)
[2022-02-06 08:30] LABS: Anion Gap 13 (12-20); Blood Urea Nitrogen 9 mg/dL (9-16); Calcium 9.1 mg/dL (8.4-10.2); Carbon Dioxide 24 mmol/L (22-29); Chloride 107 mmol/L (96-108); Estimated Glomerular Filt Rate > 60; Glucose Random 121 mg/dL (60-115); Potassium 3.4 mmol/L (3.3-5.1); Sodium 141 mmol/L (135-145)
[2022-02-06 08:31] LABS: COVID-19 Test Negative (Negative); IDNOW Serial# 16C4AD1C
[2022-02-06 08:35] VITALS: PULSE 94; RESP 18; O2SAT 103
[2022-02-06] MEDS: QUEtiapine Fumarate 100 MG TABLET PO (10:14)
== END 2022-02-06 10:49 | disposition home or self-care (01) ==
PROVIDERS: Emergency Provider Student in an Organized Health Care Education/Training Program; PCP Internal Medicine
DX: J45.901 Unspecified asthma with (acute) exacerbation (principal); F41.9 Anxiety disorder, unspecified; Z20.822 Contact with and (suspected) exposure to COVID-19; F12.90 Cannabis use, unspecified, uncomplicated
CPT/HCPCS: 71045; 80048; 85025; 87635; 94640; 99284

== ENCOUNTER 2022-10-12 01:13 | Emergency (ER) | payer OTHER, SELFPAY ==
--- NOTE | 2022-10-12 01:18 | ED.SOB ---
HPI - SOB/Dyspnea General Chief Complaint: Dyspnea Stated Complaint: shortness of breath Time Seen by Provider: 10/12/22 01:17 Source: patient Mode of arrival: ambulatory Limitations: no limitations History of Present Illness HPI Narrative: Patient history of asthma was doing good for last 8 months started having increased shortness of breath for last 2 hours received DuoNeb treatment and 2 g of magnesium by EMS is on 10 mg prednisone daily no fever no chills no significant cough no chest pain or palpitation Related Data Home Medications Medication Instructions Recorded Confirmed ascorbic acid (vitamin C) 500 mg 500 mg PO DAILY 12/21/20 07/27/21 tablet (Vitamin C) cetirizine 10 mg tablet 10 mg PO DAILY 12/21/20 07/27/21 magnesium oxide 400 mg PO DAILY 12/21/20 07/27/21 albuterol sulfate 2.5 mg/3 mL 3 mg inhalation QID PRN Wheezing 02/14/21 07/27/21 (0.083 %) solution for nebulization cholecalciferol (vitamin D3) 125 125 mcg PO DAILY 05/23/21 07/27/21 mcg (5,000 unit) tablet (Vitamin D3) mometasone 220 mcg/actuation(30 1 inh inhalation DAILY 05/23/21 07/27/21 doses) breath activated powder inhaler (Asmanex Twisthaler) multivitamin 1 tab PO DAILY 05/23/21 07/27/21 tiotropium bromide 1.25 2 puff inhalation DAILY 05/23/21 07/27/21 mcg/actuation mist for inhalation (Spiriva Respimat) zinc sulfate 50 mg zinc (220 mg) 50 mg PO Q2D 05/23/21 07/27/21 capsule alprazolam 0.5 mg tablet 1 mg PO TID PRN Anxiety 07/28/21 07/28/21 Previous Rx's Medication Instructions Recorded albuterol sulfate 90 mcg/actuation 2 puff inhalation Q4-6H PRN 12/26/19 aerosol inhaler shortness of breath or wheezing #8.5 grams alprazolam 0.5 mg tablet 0.5 mg PO TID PRN Anxiety #6 tabs 07/30/21 prednisone 20 mg tablet 40 mg PO DAILY #8 tabs 07/30/21 prednisone 10 mg tablet 10 mg PO DAILY asthma #63 tabs 02/06/22 quetiapine 25 mg tablet (Seroquel) 25 mg PO BEDTIME #30 tabs 02/06/22 prednisone 20 mg tablet 40 mg PO DAILY #10 tabs 10/12/22 Allergies Allergy/AdvReac Type Severity Reaction Status Date / Time ibuprofen [IBUPROFEN] Allergy Intermediate Difficulty Verified 07/27/21 16:32 Breathing shellfish derived Allergy Mild SWELLING Verified 07/27/21 16:32 aspirin [ASA] Allergy Unknown DIFFICULTY Verified 07/27/21 16:32 BREATHING albuterol AdvReac Mild Gas Verified 07/27/21 16:32 exchange problems sertraline AdvReac Nausea Verified 07/27/21 16:32 nsaids Allergy Unknown Difficulty Uncoded 02/14/21 04:26 Breathing nucala Allergy Unknown shortness Uncoded 02/14/21 04:26 of breath Review of Systems Review of Systems: Yes all other systems are reviewed and are negative [facility] Past Medical History Medical History Acute respiratory failure with hypoxia Allergic asthma Anxiety Anxiety Asthma Asthma with exacerbation Asthmaticus, status PTSD (post-traumatic stress disorder) 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 Surgical History History of amputation Social History Social History Household Members: None Household Members Other:: dogs Housing: House Do you presently have visiting nurse or other home services: Yes (visiting nurse) Alcohol intake: never Patient Tobacco Use Status: Never used Tobacco Second Hand Smoke Exposure: No Substance Use Type: Marijuana Advance Directives: Yes Advance Directives on File: Yes Advance Directives Date on File: 05/28/21 service: Yes Current occupational status: retired and disabled Physical Exam Vital Signs: Vital Signs: Last Vital Signs Temp 97.6 F 10/12/22 01:21 Pulse 113 H 10/12/22 02:30 Resp 18 10/12/22 02:30 BP 132/65 10/12/22 02:30 Pulse Ox 95 10/12/22 02:30 O2 Del Method Room Air 10/12/22 02:30 BMI result Body Mass Index 21.9 Appearance: Alert. Oriented X3. In mild distress Eyes: PERRLA, No Nystagmus ENT: Pharynx normal. Oral Mucosa moist Neck: Normal inspection. Neck supple. CVS: Normal heart rate and rhythm. Pulses normal. Respiratory: No respiratory distress. Equal air entry bilateral, bilateral wheezing Abdomen: Soft and nontender. Bowel sounds are present, no mass palpable, no CVA tenderness Skin: Skin warm and dry. Normal skin color. Normal skin turgor. Extremities: No lower extremity edema. No calf tenderness left BKA Neuro: Oriented X 3. No motor deficit. No sensory deficit.No cerebellar signs , cranial nerves II-XII intact Medications Administered Discontinued Medications Generic Name Dose Route Start Last Admin Trade Name Freq PRN Reason Stop Dose Admin Albuterol Sulfate 7.5 mg 10/12/22 01:19 10/12/22 01:30 Albuterol Sulfate (0.083%) 2.5 Mg/3 Ml Vial.Neb INHALE 10/12/22 01:20 7.5 mg ONCE ONE Administration Sodium Chloride 1,000 mls @ 999 mls/hr 10/12/22 01:19 10/12/22 02:29 Ns IV 10/12/22 02:19 Infused .Q1H1M ONE Infusion Methylprednisolone Sodium Succinate 125 mg 10/12/22 01:19 10/12/22 01:28 Methylprednisolone Sod Succ 125 Mg/2 Ml Vial IVPUSH 10/12/22 01:20 125 mg ONCE ONE Administration Medical Decision Making Medical Decision Making [facility] Narrative: Patient improved after nebulizing treatment saturating 95% on room air will discharge patient home will increase the dose of prednisone to 40 mg Differential Diagnosis Differential Diagnoses: The differential diagnosis associated with the presentation includes Pneumonia/pneumothorax lytes asthma/CHF Lab Data [facility] Lab Attestation statement: I reviewed the patient's lab results. Labs: Lab Results 10/12/22 Range/Units 01:31 COVID-19 (OZIEL) Negative (Negative) COVID-19 Clin Com See Note Discharge Plan Discharge Clinical Impression: Asthma with acute exacerbation Patient Disposition: Home, Self-Care Instructions: Asthma (ED) Additional Instructions: Continues your inhaler/nebulizing treatment Increase the dose of prednisone to 40 mg daily for 5 days Follow-up with PCP Prescriptions: New prednisone 20 mg tablet 40 mg PO DAILY Qty: 10 0RF No Action albuterol sulfate 90 mcg/actuation HFA aerosol inhaler 2 puff inhalation Q4-6H PRN (Reason: shortness of breath or wheezing) Qty: 8.5 0RF albuterol sulfate 2.5 mg /3 mL (0.083 %) solution for nebulization 3 mg inhalation QID PRN (Reason: Wheezing) multivitamin Tablet 1 tab PO DAILY Asmanex Twisthaler 220 mcg/ actuation (30) Aerosol Powdr Breath Activated 1 inh INHALATION DAILY zinc sulfate 50 mg zinc (220 mg) Capsule 50 mg PO Q2D cholecalciferol (vitamin D3) [Vitamin D3] 125 mcg (5,000 unit) Tablet 125 mcg PO DAILY Spiriva Respimat 1.25 mcg/actuation Mist 2 puff INHALATION DAILY cetirizine 10 mg Tablet 10 mg PO DAILY ascorbic acid (vitamin C) [Vitamin C] 500 mg Tablet 500 mg PO DAILY magnesium oxide 400 mg magnesium Tablet 400 mg PO DAILY alprazolam 0.5 mg tablet 1 mg PO TID PRN (Reason: Anxiety) alprazolam 0.5 mg Tablet 0.5 mg PO TID PRN (Reason: Anxiety) Qty: 6 0RF prednisone 20 mg Tablet 40 mg PO DAILY Qty: 8 0RF quetiapine [Seroquel] 25 mg tablet 25 mg PO BEDTIME Qty: 30 0RF prednisone 10 mg tablet 10 mg PO DAILY Qty: 63 0RF Rx Instructions: Please start at 6 tablets daily for 5 days, then 5 tablets a day for 5 days, then 4 tablets a day for 5 days, then 3 tablets a day for 5 days then 2 tablets a day for 5 days then 1 tablet a day for 5 days Interventions: ED Discharge Assessment Last Done: 10/12/22 02:35 Discharge Date/Time: 10/12/22 05:10
[2022-10-12 01:21] VITALS: BP 109/64; BP 122/77; PULSE 106; PULSE 116; RESP 13; TEMP 36.4; O2SAT 90; O2SAT 95; BMI 21.9
[2022-10-12] MEDS: methylPREDNISolone Sod Succ 125 MG/2 ML VIAL IVPUSH (01:28)
[2022-10-12] MEDS: 0.9 % Sodium Chloride 1,000 ML 999 ML IV (01:28)
[2022-10-12] MEDS: Albuterol Sulfate (0.083%) 2.5 MG/3 ML VIAL.NEB 7.5 MG INHALE (01:30)
[2022-10-12 01:32] VITALS: PULSE 103; RESP 18; O2SAT 90
[2022-10-12 01:58] LABS: COVID-19 Test Negative (Negative); IDNOW Serial# 6674DD1D
[2022-10-12 02:30] VITALS: BP 132/65; PULSE 113; RESP 18; O2SAT 95
== END 2022-10-12 05:10 | disposition home or self-care (01) ==
PROVIDERS: Emergency Provider Internal Medicine
DX: J45.901 Unspecified asthma with (acute) exacerbation (principal); R06.02 Shortness of breath; Z20.822 Contact with and (suspected) exposure to COVID-19
CPT/HCPCS: 87635; 94640; 96361; 96374; 99284; J2930

== ENCOUNTER 2022-10-13 04:27 | Emergency (ER) | payer OTHER, SELFPAY ==
--- NOTE | 2022-10-13 | ECG_ITS ---
Test Reason : SOB Blood Pressure : / mmHG Vent. Rate : 068 BPM Atrial Rate : 000 BPM P-R Int : 000 ms QRS Dur : 078 ms QT Int : 378 ms P-R-T Axes : 000 063 071 degrees QTc Int : 401 ms Sinus rhythm Sinus Arrhythmia Abnormal ECG When compared with ECG of 23-MAY-2021 10:17, Vent. rate has decreased BY 62 BPM Borderline criteria for Inferior infarct are no longer Present Referred By: Miguel Monae Electronically Signed By:GAYLE VOGEL
--- NOTE | ~2022-10-13 | XR_ITS ---
EXAMINATION: XR CHEST CLINICAL INFORMATION: Difficulty breathing COMPARISON: 01/10/2022 TECHNIQUE: Frontal view of the chest was obtained. FINDINGS: Normal symmetric lung volumes. Stable lucency surrounding chain sutures in the right midlung. Unchanged chronic pleural-parenchymal scarring at the lateral right lung base. No parenchymal consolidation. No pleural effusion. No pneumothorax. Cardiomediastinal silhouette and pulmonary vascularity are within normal limits. No acute osseous abnormalities. XR/XR chest 1V IMPRESSION: No acute findings.
[2022-10-13 04:34] VITALS: BP 142/86; PULSE 74; O2SAT 97
[2022-10-13 04:37] VITALS: BP 124/58; PULSE 73; RESP 20; O2SAT 97; BMI 20.9
--- NOTE | 2022-10-13 04:54 | PC.NURSE ---
Pt presents to ER via [facility] for SOB. Pt is a known asthmatic patient, was seen here yesterday. Pt has an IV placed by EMS. Presents A&Ox4, GCS 15, with warm, dry skin. EMS administered duoneb, mag, and solumedrol en route and was put on bipap WEATHERIZATION COORDINATOR. Pt had labs done yesterday, stated he will look at those before drawing new labs. EKG obtained and pt has been placed on the quality assurance monitor. Respiratory is at bedside at this time.
[2022-10-13 04:58] VITALS: PULSE 89; O2SAT 92
[2022-10-13 05:01] VITALS: PULSE 94; RESP 18; O2SAT 93
--- NOTE | 2022-10-13 05:13 | ED.SOB ---
HPI - SOB/Dyspnea General Chief Complaint: Upper Respiratory Symptoms Stated Complaint: Shortness of breath Time Seen by Provider: 10/13/22 04:48 Source: patient Mode of arrival: EMS Limitations: no limitations History of Present Illness HPI Narrative: Patient history of severe asthma was seen here yesterday start prednisone nebulized treatments patient with much better during day comes back as woke up with increased shortness of breath start using his CPAP machine but did not work was saturating 84% at room air CPAP was applied by EMS and oxygen improved to 97 % patient does have occasional dry cough no fever or chills Related Data Home Medications Medication Instructions Recorded Confirmed ascorbic acid (vitamin C) 500 mg 500 mg PO DAILY 12/21/20 07/27/21 tablet (Vitamin C) cetirizine 10 mg tablet 10 mg PO DAILY 12/21/20 07/27/21 magnesium oxide 400 mg PO DAILY 12/21/20 07/27/21 albuterol sulfate 2.5 mg/3 mL 3 mg inhalation QID PRN Wheezing 02/14/21 07/27/21 (0.083 %) solution for nebulization cholecalciferol (vitamin D3) 125 125 mcg PO DAILY 05/23/21 07/27/21 mcg (5,000 unit) tablet (Vitamin D3) mometasone 220 mcg/actuation(30 1 inh inhalation DAILY 05/23/21 07/27/21 doses) breath activated powder inhaler (Asmanex Twisthaler) multivitamin 1 tab PO DAILY 05/23/21 07/27/21 tiotropium bromide 1.25 2 puff inhalation DAILY 05/23/21 07/27/21 mcg/actuation mist for inhalation (Spiriva Respimat) zinc sulfate 50 mg zinc (220 mg) 50 mg PO Q2D 05/23/21 07/27/21 capsule alprazolam 0.5 mg tablet 1 mg PO TID PRN Anxiety 07/28/21 07/28/21 Previous Rx's Medication Instructions Recorded albuterol sulfate 90 mcg/actuation 2 puff inhalation Q4-6H PRN 12/26/19 aerosol inhaler shortness of breath or wheezing #8.5 grams alprazolam 0.5 mg tablet 0.5 mg PO TID PRN Anxiety #6 tabs 07/30/21 prednisone 20 mg tablet 40 mg PO DAILY #8 tabs 07/30/21 prednisone 10 mg tablet 10 mg PO DAILY asthma #63 tabs 02/06/22 quetiapine 25 mg tablet (Seroquel) 25 mg PO BEDTIME #30 tabs 02/06/22 prednisone 20 mg tablet 40 mg PO DAILY #10 tabs 10/12/22 Allergies Allergy/AdvReac Type Severity Reaction Status Date / Time ibuprofen [IBUPROFEN] Allergy Intermediate Difficulty Verified 07/27/21 16:32 Breathing shellfish derived Allergy Mild SWELLING Verified 07/27/21 16:32 aspirin [ASA] Allergy Unknown DIFFICULTY Verified 07/27/21 16:32 BREATHING albuterol AdvReac Mild Gas Verified 07/27/21 16:32 exchange problems sertraline AdvReac Nausea Verified 07/27/21 16:32 nsaids Allergy Unknown Difficulty Uncoded 02/14/21 04:26 Breathing nucala Allergy Unknown shortness Uncoded 02/14/21 04:26 of breath Review of Systems Review of Systems: Yes all other systems are reviewed and are negative PMFSH Past Medical History Medical History Acute respiratory failure with hypoxia Allergic asthma Anxiety Anxiety Asthma Asthma with exacerbation Asthmaticus, status PTSD (post-traumatic stress disorder) 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 Surgical History History of amputation Social History Social History Household Members: None Household Members Other:: dogs Housing: House Do you presently have visiting nurse or other home services: Yes (visiting nurse) Alcohol intake: never Patient Tobacco Use Status: Never used Tobacco Smoked in Last 30 Days: No Second Hand Smoke Exposure: No Use of substances other than those prescribed or required for medical reasons: No Substance Use Type: Marijuana Advance Directives: Yes Advance Directives on File: Yes Advance Directives Date on File: 05/28/21 service: Yes Current occupational status: retired and disabled Physical Exam Vital Signs: Vital Signs: Last Vital Signs Pulse 98 10/13/22 06:00 Resp 13 10/13/22 06:00 BP 128/46 L 10/13/22 06:00 Pulse Ox 93 10/13/22 06:00 O2 Del Method Room Air 10/13/22 06:00 BMI result Body Mass Index 20.9 Appearance: Alert. Oriented X3. No acute distress. Eyes: PERRLA, No Nystagmus ENT: Pharynx normal. Oral Mucosa moist Neck: Normal inspection. Neck supple. CVS: Normal heart rate and rhythm. Pulses normal. Respiratory: Mod respiratory distress. Equal air entry bilateral, bilateral prolonged expiration with wheezing Abdomen: Soft and nontender. Bowel sounds are present, Skin: Skin warm and dry. Normal skin color. Normal skin turgor. Extremities: No lower extremity edema. No calf tenderness Neuro: Oriented X 3. No motor deficit. No sensory deficit Medications Administered Discontinued Medications Generic Name Dose Route Start Last Admin Trade Name Freq PRN Reason Stop Dose Admin Albuterol Sulfate 5 mg 10/13/22 06:30 10/13/22 06:38 Albuterol Sulfate (0.083%) 2.5 Mg/3 Ml Vial.Neb INHALE 10/13/22 06:31 5 mg ONCE ONE Administration Medical Decision Making Medical Decision Making MDM Narrative: Patient feeling much better after asthma attack received a nebulizing treatment saturating 93% at room air which is his baseline chest x-ray negative for any infiltrate discharge patient home advised to continue his prednisone which was given yesterday and use nebulizer treatment and CPAP Discharge Plan Discharge Clinical Impression: Asthma with acute exacerbation Patient Disposition: Home, Self-Care Instructions: Asthma (ED) Additional Instructions: Continue to use your nebulizing treatment and CPAP for severe asthma take prednisone as prescribed Prescriptions: No Action albuterol sulfate 90 mcg/actuation HFA aerosol inhaler 2 puff inhalation Q4-6H PRN (Reason: shortness of breath or wheezing) Qty: 8.5 0RF albuterol sulfate 2.5 mg /3 mL (0.083 %) solution for nebulization 3 mg inhalation QID PRN (Reason: Wheezing) multivitamin Tablet 1 tab PO DAILY Asmanex Twisthaler 220 mcg/ actuation (30) Aerosol Powdr Breath Activated 1 inh INHALATION DAILY zinc sulfate 50 mg zinc (220 mg) Capsule 50 mg PO Q2D cholecalciferol (vitamin D3) [Vitamin D3] 125 mcg (5,000 unit) Tablet 125 mcg PO DAILY Spiriva Respimat 1.25 mcg/actuation Mist 2 puff INHALATION DAILY cetirizine 10 mg Tablet 10 mg PO DAILY ascorbic acid (vitamin C) [Vitamin C] 500 mg Tablet 500 mg PO DAILY magnesium oxide 400 mg magnesium Tablet 400 mg PO DAILY alprazolam 0.5 mg tablet 1 mg PO TID PRN (Reason: Anxiety) alprazolam 0.5 mg Tablet 0.5 mg PO TID PRN (Reason: Anxiety) Qty: 6 0RF prednisone 20 mg Tablet 40 mg PO DAILY Qty: 8 0RF quetiapine [Seroquel] 25 mg tablet 25 mg PO BEDTIME Qty: 30 0RF prednisone 10 mg tablet 10 mg PO DAILY Qty: 63 0RF Rx Instructions: Please start at 6 tablets daily for 5 days, then 5 tablets a day for 5 days, then 4 tablets a day for 5 days, then 3 tablets a day for 5 days then 2 tablets a day for 5 days then 1 tablet a day for 5 days prednisone 20 mg tablet 40 mg PO DAILY Qty: 10 0RF Interventions: ED Discharge Assessment Last Done: 10/13/22 06:40
[2022-10-13 06:00] VITALS: BP 128/46; PULSE 98; RESP 13; O2SAT 93
[2022-10-13] MEDS: Albuterol Sulfate (0.083%) 2.5 MG/3 ML VIAL.NEB 5 MG INHALE (06:38)
== END 2022-10-13 06:57 | disposition home or self-care (01) ==
PROVIDERS: Emergency Provider Internal Medicine; PCP Internal Medicine
DX: J45.901 Unspecified asthma with (acute) exacerbation (principal); R06.02 Shortness of breath; I49.8 Other specified cardiac arrhythmias; Z79.899 Other long term (current) drug therapy
CPT/HCPCS: 71045; 93005; 94640; 99285

== ENCOUNTER → 2022-10-13 04:49 | Outpatient (BNV) | payer OTHER, SELFPAY | PROVIDERS: Emergency Provider Internal Medicine; PCP Internal Medicine; Visit Provider Internal Medicine | DX: I49.9 Cardiac arrhythmia, unspecified (principal); R94.31 Abnormal electrocardiogram [ECG] [EKG] | CPT/HCPCS: 93010 ==

== ENCOUNTER 2023-04-28 11:16 | Emergency (ER) | payer OTHER, SELFPAY ==
[2023-04-28] VITALS (7 sets, daily range): BP systolic 100–136; BP diastolic 48–86; PULSE 94–122; RESP 16–30; TEMP 36.4–37; O2SAT 92–97; BMI 21.7
--- NOTE | ~2023-04-28 | XR_ITS ---
EXAMINATION: XR CHEST CLINICAL INFORMATION: Shortness of breath, asthma. COMPARISON: 11/02/2022 TECHNIQUE: 2 frontal view of the chest were obtained. FINDINGS: There is no gross pneumothorax. Similar lucency surrounding the chain sutures in the right midlung. Similar pleuroparenchymal scarring in the right lateral lung base. Heart size normal. Similar cardiomediastinal silhouette. There is no gross pneumothorax. XR/XR chest 1V IMPRESSION: Similar lucency surrounding the chain sutures in the right midlung. Similar pleuroparenchymal scarring in the right lateral lung base.
[2023-04-28] MEDS: Morphine Sulfate 2 MG/ML CARTRIDGE SUBCUT (11:25)
--- NOTE | 2023-04-28 11:28 | ED_ITS ---
HPI - General Adult General Chief complaint: Dyspnea Stated complaint: SOB X1 HOUR PER EMS Time Seen by Provider: 04/28/23 11:19 Source: patient and EMS Mode of arrival: EMS Limitations: no limitations History of Present Illness HPI narrative: 41-year-old male with a past medical history of left lower extremity BKA, severe allergic asthma with multiple intubations, constrictive bronchitis, neurogenic bladder, PTSD and anxiety who presents with shortness of breath X1 hour .Prior to arrival, patient tried albuterol treatments and nebulizations without any relief, also took prednisone 10 mg at home. He denies fevers, chills, nausea, vomiting, abdominal pain, chest pain, cough, recent illness. Related Data Home Medications Medication Instructions Recorded Confirmed ascorbic acid (vitamin C) 500 mg 500 mg PO DAILY 12/21/20 07/27/21 tablet (Vitamin C) cetirizine 10 mg tablet 10 mg PO DAILY 12/21/20 07/27/21 magnesium oxide 400 mg PO DAILY 12/21/20 07/27/21 albuterol sulfate 2.5 mg/3 mL 3 mg inhalation QID PRN Wheezing 02/14/21 07/27/21 (0.083 %) solution for nebulization cholecalciferol (vitamin D3) 125 125 mcg PO DAILY 05/23/21 07/27/21 mcg (5,000 unit) tablet (Vitamin D3) mometasone 220 mcg/actuation(30 1 inh inhalation DAILY 05/23/21 07/27/21 doses) breath activated powder inhaler (Asmanex Twisthaler) multivitamin 1 tab PO DAILY 05/23/21 07/27/21 tiotropium bromide 1.25 2 puff inhalation DAILY 05/23/21 07/27/21 mcg/actuation mist for inhalation (Spiriva Respimat) zinc sulfate 50 mg zinc (220 mg) 50 mg PO Q2D 05/23/21 07/27/21 capsule alprazolam 0.5 mg tablet 1 mg PO TID PRN Anxiety 07/28/21 07/28/21 Previous Rx's Medication Instructions Recorded albuterol sulfate 90 mcg/actuation 2 puff inhalation Q4-6H PRN 12/26/19 aerosol inhaler shortness of breath or wheezing #8.5 grams alprazolam 0.5 mg tablet 0.5 mg PO TID PRN Anxiety #6 tabs 07/30/21 prednisone 20 mg tablet 40 mg (2 x 20 mg) PO DAILY #8 tabs 07/30/21 prednisone 10 mg tablet 10 mg PO DAILY asthma #63 tabs 02/06/22 quetiapine 25 mg tablet (Seroquel) 25 mg PO BEDTIME #30 tabs 02/06/22 prednisone 20 mg tablet 40 mg (2 x 20 mg) PO DAILY #10 tabs 10/12/22 albuterol sulfate 90 mcg/actuation 2 inh inhalation Q4-6H PRN 04/28/23 breath activated powder inhaler shortness of breath or wheezing #1 ea ipratropium 0.5 mg-albuterol 3 mg 3 ml inhalation Q2-4H PRN 04/28/23 (2.5 mg base)/3 mL nebulization shortness of breath or wheezing soln #90 mL prednisone 50 mg tablet 50 mg PO DAILY 5 days #5 tabs 04/28/23 Allergies Allergy/AdvReac Type Severity Reaction Status Date / Time ibuprofen [IBUPROFEN] Allergy Intermediate Difficulty Verified 04/28/23 11:27 Breathing shellfish derived Allergy Mild SWELLING Verified 04/28/23 11:27 aspirin [ASA] Allergy Unknown DIFFICULTY Verified 04/28/23 11:27 BREATHING albuterol AdvReac Mild Gas Verified 04/28/23 11:27 exchange problems sertraline AdvReac Nausea Verified 04/28/23 11:27 nsaids Allergy Unknown Difficulty Uncoded 02/14/21 04:26 Breathing nucala Allergy Unknown shortness Uncoded 02/14/21 04:26 of breath Review of Systems 2 Review of Systems: Constitutional : No Weight loss, No Fever, No Chills, No Fatigue, No Malaise ENT/Mouth : No sore throat, No Rhinorrhea Eyes: No Eye Pain, No Swelling, No Redness Cardiovascular : No Chest Pain, + SOB, No Dyspnea on Exertion, No Orthopnea, No Edema, No Palpitations Respiratory : No Cough, No Sputum, + Wheezing Gastrointestinal : No Nausea, No Vomiting, No Diarrhea, No Constipation, No abdominal Pain, No Hematochezia, No Melena Genitourinary : No Dysuria, No Urinary Frequency, No Hematuria, Musculoskeletal : No joint pain, No Myalgias, No Joint Swelling Skin : No Skin Lesions, No rash Neuro : No Weakness, No Numbness, No Dizziness, No Headache Psych : No Anxiety/Panic, No Depression All other systems reviewed and are negative Yes all other systems are reviewed and are negative [facility] Past Medical History Attestation statement: The following information was validated with the patient. Source: old records reviewed and nursing notes reviewed Medical History 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 Anxiety Asthma with exacerbation Acute respiratory failure with hypoxia Allergic asthma Asthmaticus, status PTSD (post-traumatic stress disorder) Anxiety Asthma Surgical History History of amputation Social History Social History Household Members: None Household Members Other:: dogs Housing: House Do you presently have visiting nurse or other home services: Yes (visiting nurse) Alcohol intake: current Alcohol intake frequency: holidays/special occasions only Patient Tobacco Use Status: Never used Tobacco Smoked in Last 30 Days: No Second Hand Smoke Exposure: No Use of substances other than those prescribed or required for medical reasons: No Substance Use Type: Marijuana Advance Directives: Yes Advance Directives on File: Yes Advance Directives Date on File: 05/28/21 service: Yes Current occupational status: retired and disabled Physical Exam ED Vital Signs: Vital Signs - 24 hr 04/28/23 11:27 04/28/23 11:32 04/28/23 11:33 Temperature 98.6 F Pulse Rate 122 H 103 H Respiratory Rate 20 30 H Blood Pressure 136/86 Pulse Oximetry 95 Oxygen Delivery Method Nasal Cannula Oxygen Flow Rate 6 04/28/23 13:15 Temperature 97.5 F Pulse Rate 95 Respiratory Rate 18 Blood Pressure 100/48 L Pulse Oximetry 97 Oxygen Delivery Method Oxymask Oxygen Flow Rate 4 BMI result Body Mass Index 21.7 vss Appearance: Alert.? Oriented X3.? Moderate acute distress.? Head: Normocephalic, atraumatic, no step-offs or deformities Eyes: Pupils equal, round and reactive to light.? CVS: Normal heart rate and rhythm.? Pulses normal.? Respiratory: Moderate respiratory distress.? Breath sounds w/ wheezing throughout and speaking in short sentences, intercostal retractions noted.? Abdomen: Soft and nontender.? Skin: Skin warm and dry.? Normal skin color.? Normal skin turgor.? Extremities: No lower extremity edema.? No calf ttp. 5/5 strength to bilateral upper and lower extremities Back: No midline tenderness, no C-spine tenderness, full range of motion, no CVA tenderness bilaterally Neuro: Oriented X 3.? No motor deficit.? No sensory deficit. CN 2-12 intact Course Reevaluation(s) Reevaluation #1: Patient feeling better speaking in full sentences. 92% at this time. Time: 12:28 Reevaluation #2: CBC with a leukocytosis 12.4 no left shift this is likely reactive secondary to acute respiratory distress. Chemistry unremarkable. No acute findings requiring intervention. Blood gas with no acute findings requiring intervention. Chest x-ray similar lucency surrounding the chain sutures in the right mid lung. Similar pleural parenchymal scarring in the right lateral lung base. Patient states he is feeling so much better he is now saturating 96% on room air not requiring supplemental oxygen. Breath sounds improved wheezing much improved only faint expiratory wheezing at this time. Patient has a nebulizing machine at home. Will watch him for another 30 minutes as long as he continues to saturate well and appear comfortable patient to be discharged home with albuterol, prednisone by mouth. I did have a discussion with patient about discharge home versus hospitalization he tells me he knows his body and he would rather go home, he does not feel as though he needs hospitalization at this time. He is clinically stable with stable oxygen, he is not tachycardic he speaking in full sentences controlling secretions well no signs of airway compromise or respiratory distress. Will continue to monitor. Time: 14:20 Reevaluation #3: Flu/covid/ rsv pending will call if + Patient educated on discharge plan. Agrees with plan. Verbalizes understanding of having to return w/ ANY new or worsening sx. I feel comfortable w/ plan. Medications Administered Discontinued Medications Generic Name Dose Route Start Last Admin Trade Name Freq PRN Reason Stop Dose Admin Albuterol Sulfate 7.5 mg/ 0 mg 04/28/23 11:27 04/28/23 11:32 Albuterol/Ipratropium 3 ml INHALE 04/28/23 11:28 10 each ONCE ONE Administration Magnesium Sulfate 2 gm in 50 mls @ 25 mls/hr 04/28/23 11:20 04/28/23 11:24 Magnesium Sulfate/H2o IV 04/28/23 13:19 Not Given ONCE ONE Morphine Sulfate 2 mg 04/28/23 11:24 04/28/23 11:25 Morphine Sulfate 2 Mg/Ml Cartridge SUBCUT 04/28/23 11:25 2 mg ONCE ONE Administration Protocol Medical Decision Making Medical Decision Making [facility] Narrative: 43-year-old male presents with shortness of breath with wheezing for the past hour. He is 87-88% on arrival with EMS. Physical exam significant for Moderate respiratory distress.? Breath sounds w/ wheezing throughout and speaking in short sentences, intercostal retractions noted.? History and physical exam concerning for acute asthma exacerbation. Other differentials include viral illness. Unlikely pulmonary embolism, ACS, PE, pneumothorax. Plan viral testing, basic labs, VBG. Patient placed on legal arbitrator. Patient received 2 DuoNebs by EMS as well as 2 mg of magnesium and Solu-Medrol. At this time will give another DuoNeb. Also give morphine to slow down respiratory rate. As patient is significantly tachypneic. Differential Diagnosis Differential Diagnoses: The differential diagnosis associated with the presentation includes History and physical exam concerning for acute asthma exacerbation. Other differentials include viral illness. Unlikely pulmonary embolism, ACS, PE, pneumothorax. Admission/Observation Consideration of admission/observation: Escalation of care including admission/observation considered Likely Consult Healthcare Provider Management of the patient was discussed with: Hospitalist Lab Data [facility] Lab Attestation statement: I reviewed the patient's lab results. 04/28/23 11:48 04/28/23 11:48 Labs: Lab Results 04/28/23 04/28/23 Range/Units 11:48 11:51 WBC 12.4 H (4.8-10.8) X10*3/uL RBC 5.22 (4.60-5.80) X10*6/uL Hgb 15.8 (14.0-18.0) g/dl Hct 45.6 (42.0-52.0) % MCV 87.4 (80.0-98.0) fL MCH 30.3 (27.0-33.0) pg MCHC 34.6 (31.0-36.0) g/dl RDW 12.2 (11.0-16.0) % Plt Count 243 (160-400) X10*3/uL MPV 10.2 (9.4-12.4) fL Immature Gran % (Auto) 0.3 (0.0-0.4) % Neut % (Auto) 74.3 H (45-73) % Lymph % (Auto) 16.2 L (20-40) % Duchesne % (Auto) 4.8 (2-11) % Eos % (Auto) 3.7 (0-4) % Baso % (Auto) 0.7 (0-2) % Lymph # (Auto) 2.0 (1.2-4.9) X10*3/uL Duchesne # (Auto) 0.6 (0.1-1.2) X10*3/uL Eos # (Auto) 0.5 H (0.0-0.4) X10*3/uL Baso # (Auto) 0.1 (0.0-0.2) X10*3/uL Abs Immat Gran (auto) 0.04 H (0.00-0.03) X10*3/uL Absolute Neuts (auto) 9.2 H (2.0-8.3) x10*3/uL Absolute Nucleated RBC 0.000 (0.0-0.012) X10*3/uL Nucleated RBC % (auto) 0.0 (0.0-0.2) /100WBC VBG pH 7.45 H (7.32-7.43) VBG pCO2 34 mmHg VBG pO2 71 mmHg VBG HCO3 24 (22-26) mmol/L VBG O2 Saturation 96.0 % VBG Base Excess 0.6 mmol/L Sodium 140 (135-145) mmol/L Potassium 3.4 (3.3-5.1) mmol/L Chloride 108 (96-108) mmol/L Carbon Dioxide 24 (22-29) mmol/L Anion Gap 11 L (12-20) BUN 15 (9-16) mg/dL Creatinine 0.77 (0.5-1.4) mg/dL Estim Creat Clear Calc 140.3 Estimated GFR > 60 Random Glucose 104 (60-115) mg/dL Calcium 10.1 D (8.4-10.2) mg/dL Total Bilirubin 0.4 (0.0-1.0) mg/dL AST 11 (5-37) U/L ALT 14 (0-40) U/L Alkaline Phosphatase 48 (39-117) U/L Total Protein 6.7 (6.5-8.0) g/dL Albumin 4.1 (3.5-5.0) g/dL Independent Interpretation I performed an independent interpretation of an: Plain X-Ray ( XR/XR chest 1V IMPRESSION: Similar lucency surrounding the chain sutures in the right midlung. Similar pleuroparenchymal scarring in the right lateral lung base.) Radiology Impression Discussion of test interpretation with radiology: I have reviewed the radiologist's reading. External Record Review External record reviewed: Inpatient record, Office record, Outpatient record, Prior outpatient labs, Prior outpatient radiology, Primary care record and Outside ED record Chronic Conditions Patient?s care impacted by: Other (BKA, asthma) Critical Care Time Critical Care Time Critical Care Time: Yes Total Critical Care Time: 45 Attestation: I attest to this time spent taking care of the patient, obtaining history, physical, reviewing labs, imaging, speaking to my attending, speaking to specialist. Discharge Plan Discharge Clinical Impression: Asthma with acute exacerbation Patient Disposition: Home, Self-Care Instructions: Asthma (DC), How to Use a Nebulizer (ED), How to Use a Metered- Dose Inhaler and a Spacer (ED), Wheezing (ED), How Your Lungs Work (ED) Additional Instructions: Take your medications as prescribed. If you were prescribed antibiotics today, it is important that you take your medication to their entirety, do not skip any doses, do not finish them early. Follow-up with your primary care provider this week. Return to the emergency department with new or worsening symptoms. Such as fevers, chills, chest pain, shortness of breath, nausea, vomiting, dizziness, headache, vision changes, lethargy In case of emergency call 911 Please follow-up with pulmonology and your primary care provider. Please return with any new or worsening symptoms. Prescriptions: New albuterol sulfate 90 mcg/actuation aerosol powdr breath activated 2 inh inhalation Q4-6H PRN (Reason: shortness of breath or wheezing) Qty: 1 0RF ipratropium-albuterol 0.5 mg-3 mg(2.5 mg base)/3 mL solution for nebulization 3 ml inhalation Q2-4H PRN (Reason: shortness of breath or wheezing) Qty: 90 0RF Rx Instructions: until breathing returns to target peak flow/parameters prednisone 50 mg tablet 50 mg PO DAILY 5 Days Qty: 5 0RF No Action albuterol sulfate 90 mcg/actuation HFA aerosol inhaler 2 puff inhalation Q4-6H PRN (Reason: shortness of breath or wheezing) Qty: 8.5 0RF albuterol sulfate 2.5 mg /3 mL (0.083 %) solution for nebulization 3 mg inhalation QID PRN (Reason: Wheezing) multivitamin Tablet 1 tab PO DAILY Asmanex Twisthaler 220 mcg/ actuation (30) Aerosol Powdr Breath Activated 1 inh INHALATION DAILY zinc sulfate 50 mg zinc (220 mg) Capsule 50 mg PO Q2D cholecalciferol (vitamin D3) [Vitamin D3] 125 mcg (5,000 unit) Tablet 125 mcg PO DAILY Spiriva Respimat 1.25 mcg/actuation Mist 2 puff INHALATION DAILY cetirizine 10 mg Tablet 10 mg PO DAILY ascorbic acid (vitamin C) [Vitamin C] 500 mg Tablet 500 mg PO DAILY magnesium oxide 400 mg magnesium Tablet 400 mg PO DAILY alprazolam 0.5 mg tablet 1 mg PO TID PRN (Reason: Anxiety) alprazolam 0.5 mg Tablet 0.5 mg PO TID PRN (Reason: Anxiety) Qty: 6 0RF prednisone 20 mg Tablet 40 mg PO DAILY Qty: 8 0RF quetiapine [Seroquel] 25 mg tablet 25 mg PO BEDTIME Qty: 30 0RF prednisone 10 mg tablet 10 mg PO DAILY Qty: 63 0RF Rx Instructions: Please start at 6 tablets daily for 5 days, then 5 tablets a day for 5 days, then 4 tablets a day for 5 days, then 3 tablets a day for 5 days then 2 tablets a day for 5 days then 1 tablet a day for 5 days prednisone 20 mg tablet 40 mg PO DAILY Qty: 10 0RF [place] [facility] [place] - 3 days Earle Montano [Primary Care Provider] - 2 days
[2023-04-28] MEDS: Albuterol Sulfate 7.5 MG, Albuterol/Iprat 2.5/0.5MG 3 ML 3 ML INHALE (11:32)
[2023-04-28 11:52] LABS: MANUAL DIFF FLAG NO
[2023-04-28 11:54] LABS: Basophils Absolute Auto 0.1 X10*3/uL (0.0-0.2); Basophils Percent Auto 0.7 % (0-2); Eosinophils Absolute Auto 0.5 X10*3/uL (0.0-0.4); Eosinophils Percent Auto 3.7 % (0-4); Hematocrit 45.6 % (42.0-52.0); Hemoglobin 15.8 g/dl (14.0-18.0); Imm Gran Abs Auto 0.04 X10*3/uL (0.00-0.03); Imm Gran Pct Auto 0.3 % (0.0-0.4); Lymphocytes Percent Auto 16.2 % (20-40); Mean Corpuscular HGB Conc 34.6 g/dl (31.0-36.0); Mean Corpuscular Hemoglobin 30.3 pg (27.0-33.0); Mean Corpuscular Volume 87.4 fL (80.0-98.0); Mean Platelet Volume 10.2 fL (9.4-12.4); Monocytes Absolute Auto 0.6 X10*3/uL (0.1-1.2); Monocytes Percent Auto 4.8 % (2-11); Neutrophils Absolute Auto 9.2 x10*3/uL (2.0-8.3); Neutrophils Percent Auto 74.3 % (45-73); Platelet Count 243 X10*3/uL (160-400); Red Blood Count 5.22 X10*6/uL (4.60-5.80); Red Cell Distribution Width 12.2 % (11.0-16.0); Venous Blood Gas Refer to POC result; White Blood Count 12.4 X10*3/uL (4.8-10.8)
[2023-04-28 11:57] LABS: VBG Base Excess 0.6 mmol/L; VBG HCO3 24 mmol/L (22-26); VBG pCO2 34 mmHg; VBG pH 7.45 (7.32-7.43); VBG pO2 71 mmHg
[2023-04-28 12:12] LABS: Alanine Aminotransferase 14 U/L (0-40); Albumin Level 4.1 g/dL (3.5-5.0); Alkaline Phosphatase 48 U/L (39-117); Anion Gap 11 (12-20); Aspartate Amino Transferase 11 U/L (5-37); Bilirubin Total 0.4 mg/dL (0.0-1.0); Blood Urea Nitrogen 15 mg/dL (9-16); Calcium 10.1 mg/dL (8.4-10.2); Carbon Dioxide 24 mmol/L (22-29); Chloride 108 mmol/L (96-108); Creatinine Clr Calc Pharmacy 140.3; Estimated Glomerular Filt Rate > 60; Glucose Random 104 mg/dL (60-115); Potassium 3.4 mmol/L (3.3-5.1); Sodium 140 mmol/L (135-145); Total Protein 6.7 g/dL (6.5-8.0)
--- NOTE | 2023-04-28 12:16 | PC.NURSE ---
patient a&ox3, upon arrival pt speaking in short sentences, lungs were diminished and tight with in/ex wheezing, headwaiter/headwaitress applied, labs drawn, RT at bedside giving updraft, morphine given for respiratory status-pt tripoding, call azevedo within reach, will continue to monitor.
--- NOTE | 2023-04-28 13:15 | PC.NURSE ---
patient a&ox3, vss, air sampling and monitoring nsr, Oxymask intact, pt states I feel good, almost like nothing had happened pt work of breathing has notably decreased and is resting comfortably at this time, call azevedo within reach, will continue to monitor
[2023-04-28] MEDS: Albuterol/Iprat 2.5/0.5MG 3 ML AMPUL.NEB INHALE (14:55)
[2023-04-28 15:44] LABS: Influenza A PCR NEGATIVE (Negative); Influenza B PCR NEGATIVE (Negative); Resp Syncy Virus RNA Qual PCR NEGATIVE (Negative); SARS COV2 PCR INHOUSE NEGATIVE (Negative)
== END 2023-04-28 15:52 | disposition home or self-care (01) ==
PROVIDERS: Physician Assistant; Emergency Provider Emergency Medicine; PCP Internal Medicine
DX: J45.901 Unspecified asthma with (acute) exacerbation (principal); R06.02 Shortness of breath; F41.9 Anxiety disorder, unspecified; Z20.822 Contact with and (suspected) exposure to COVID-19; Z11.52 Encounter for screening for COVID-19; Z79.899 Other long term (current) drug therapy
CPT/HCPCS: 0241U; 36415; 71045; 80053; 82803; 85025; 94640; 96372; 99284; J2270

== ENCOUNTER 2023-04-29 01:19 | Emergency (ER) | payer OTHER, SELFPAY ==
[2023-04-29 01:26] VITALS: BP 170/86; PULSE 114; O2SAT 95
[2023-04-29 01:30] VITALS: BMI 22.5
[2023-04-29 01:33] VITALS: BP 139/94; PULSE 119; RESP 16; TEMP 36.8; O2SAT 95
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
[2023-04-29] MEDS: methylPREDNISolone Sod Succ 125 MG/2 ML VIAL IVPUSH (02:25)
[2023-04-29] MEDS: LORazepam 1 MG TABLET PO (02:25)
[2023-04-29] MEDS: Albuterol/Iprat 2.5/0.5MG 3 ML AMPUL.NEB INHALE (02:29)
[2023-04-29] MEDS: Albuterol Sulfate (0.083%) 2.5 MG/3 ML VIAL.NEB INHALE (02:29)
[2023-04-29 02:30] VITALS: PULSE 99; RESP 14; O2SAT 94
[2023-04-29 05:03] LABS: MANUAL DIFF FLAG NO
[2023-04-29 05:04] LABS: Basophils Percent Auto 0.2 % (0-2); Hematocrit 46.2 % (42.0-52.0); Hemoglobin 15.6 g/dl (14.0-18.0); Imm Gran Abs Auto 0.06 X10*3/uL (0.00-0.03); Imm Gran Pct Auto 0.7 % (0.0-0.4); Lymphocytes Absolute Auto 0.7 X10*3/uL (1.2-4.9); Lymphocytes Percent Auto 8.3 % (20-40); Mean Corpuscular HGB Conc 33.8 g/dl (31.0-36.0); Mean Corpuscular Hemoglobin 30.3 pg (27.0-33.0); Mean Corpuscular Volume 89.7 fL (80.0-98.0); Mean Platelet Volume 10.2 fL (9.4-12.4); Monocytes Absolute Auto 0.2 X10*3/uL (0.1-1.2); Monocytes Percent Auto 2.9 % (2-11); Neutrophils Absolute Auto 7.3 x10*3/uL (2.0-8.3); Neutrophils Percent Auto 87.9 % (45-73); Platelet Count 236 X10*3/uL (160-400); Red Blood Count 5.15 X10*6/uL (4.60-5.80); Red Cell Distribution Width 12.3 % (11.0-16.0); White Blood Count 8.4 X10*3/uL (4.8-10.8)
[2023-04-29 05:18] LABS: Alanine Aminotransferase 14 U/L (0-40); Albumin Level 4.2 g/dL (3.5-5.0); Alkaline Phosphatase 44 U/L (39-117); Anion Gap 14 (12-20); Aspartate Amino Transferase 12 U/L (5-37); Bilirubin Total 0.3 mg/dL (0.0-1.0); Blood Urea Nitrogen 14 mg/dL (9-16); Calcium 9.4 mg/dL (8.4-10.2); Carbon Dioxide 24 mmol/L (22-29); Chloride 110 mmol/L (96-108); Creatinine Clr Calc Pharmacy 147.7; Estimated Glomerular Filt Rate > 60; Glucose Random 128 mg/dL (60-115); Sodium 144 mmol/L (135-145); Total Protein 6.5 g/dL (6.5-8.0)
[2023-04-29 05:22] VITALS: BP 121/64; PULSE 84; RESP 17; TEMP 36.8; O2SAT 99
[2023-04-29 06:36] VITALS: BP 107/54; PULSE 65; RESP 12; TEMP 36.6; O2SAT 100
[2023-04-29 08:00] VITALS: RESP 18; O2SAT 95
--- NOTE | 2023-04-29 08:36 | PC.NURSE ---
Patient discharged prior to this RN assuming care Patient requesting solumedrol prior to leaving, provider aware and snt script to pharm
== END 2023-04-29 08:40 | disposition home or self-care (01) ==
PROVIDERS: Student in an Organized Health Care Education/Training Program; Emergency Provider Emergency Medicine
DX: J45.901 Unspecified asthma with (acute) exacerbation (principal); F41.1 Generalized anxiety disorder; F43.0 Acute stress reaction; Z79.899 Other long term (current) drug therapy
CPT/HCPCS: 36415; 80053; 85025; 94640; 96374; 99284; J2930

== ENCOUNTER 2023-05-23 13:22 | Outpatient (AMB) | payer OTHER, SELFPAY ==
[2023-05-23 13:29] VITALS: BP 128/70; PULSE 76; O2SAT 97; BMI 22.7
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
== END 2023-05-23 14:08 | disposition home or self-care (01) ==
PROVIDERS: PCP Internal Medicine; Referring Provider Emergency Medicine; Visit Provider Hospitalist
DX: J44.89 Other specified chronic obstructive pulmonary disease (principal); J44.81 Bronchiolitis obliterans and bronchiolitis obliterans syndrome; Z79.52 Long term (current) use of systemic steroids; J68.3 Other acute and subacute respiratory conditions due to chemicals, gases, fumes and vapors
CPT/HCPCS: 99215

== ENCOUNTER → 2023-05-23 13:22 | Outpatient (BNVA) | payer OTHER, SELFPAY | PROVIDERS: PCP Internal Medicine; Referring Provider Emergency Medicine; Visit Provider Hospitalist | DX: J44.89 Other specified chronic obstructive pulmonary disease (principal); J44.81 Bronchiolitis obliterans and bronchiolitis obliterans syndrome; J68.3 Other acute and subacute respiratory conditions due to chemicals, gases, fumes and vapors; Z79.52 Long term (current) use of systemic steroids | CPT/HCPCS: 99212 ==

== ENCOUNTER 2023-06-16 11:56 | Emergency (ER) | payer OTHER, SELFPAY ==
--- NOTE | ~2023-06-16 | XR_ITS ---
EXAMINATION: XR CHEST CLINICAL INFORMATION: Shortness of breath. COMPARISON: Most recent chest radiograph dated 04/28/2023. TECHNIQUE: 2 views of the chest were obtained. FINDINGS: Redemonstration of surgical sutures within the right midlung. No new airspace consolidation. Blunting of the right hemidiaphragm, unchanged. No new or increasing pleural effusion or pneumothorax. Stable cardiomediastinal silhouette. XR/XR chest 2V IMPRESSION: 1. No acute cardiopulmonary findings. 2. Postsurgical changes within the right midlung are unchanged.
[2023-06-16 12:17] VITALS: BP 128/82; BP 132/75; PULSE 103; PULSE 118; RESP 18; TEMP 36.4; O2SAT 88; O2SAT 92; BMI 23.1
--- NOTE | 2023-06-16 12:19 | ED_ITS ---
HPI - SOB/Dyspnea General Chief Complaint: Asthma Stated Complaint: SOB PER EMS Time Seen by Provider: 06/16/23 12:09 Source: patient and EMS Mode of arrival: EMS Limitations: no limitations History of Present Illness HPI Narrative: Patient is a with restrictive lung disease who presents with increasing shortness of breath. He is not normally on oxygen but states that his oxygen pulse ox is running below 90 on oxygen at home. EMS gave him nebs, iv magnesium and iv solumedrol MD elicited complaint: shortness of breath Pertinent past history: COPD and asthma Onset (ago): hour(s) Timing: constant Severity: moderate Related Data Home Medications ?Medication ?Instructions ?Recorded ?Confirmed ascorbic acid (vitamin C) 500 mg 500 mg PO DAILY 12/21/20 07/27/21 tablet (Vitamin C) cetirizine 10 mg tablet 10 mg PO DAILY 12/21/20 07/27/21 magnesium oxide 400 mg PO DAILY 12/21/20 07/27/21 cholecalciferol (vitamin D3) 125 125 mcg PO DAILY 05/23/21 07/27/21 mcg (5,000 unit) tablet (Vitamin D3) mometasone 220 mcg/actuation(30 1 inh inhalation DAILY 05/23/21 07/27/21 doses) breath activated powder inhaler (Asmanex Twisthaler) multivitamin 1 tab PO DAILY 05/23/21 07/27/21 tiotropium bromide 1.25 2 puff inhalation DAILY 05/23/21 07/27/21 mcg/actuation mist for inhalation (Spiriva Respimat) zinc sulfate 50 mg zinc (220 mg) 50 mg PO Q2D 05/23/21 07/27/21 capsule CPAP (CPAP Machine/Device) 05/23/23 levalbuterol HCl 0.63 mg/3 mL 0.63 mg inhalation TID 05/23/23 solution for nebulization nebulizers 05/23/23 Previous Rx's ?Medication ?Instructions ?Recorded prednisone 10 mg tablet 10 mg PO DAILY asthma #63 tabs 02/06/22 albuterol sulfate 90 mcg/actuation 2 inh inhalation Q4-6H PRN 04/28/23 breath activated powder inhaler shortness of breath or wheezing #1 ea ipratropium 0.5 mg-albuterol 3 mg 3 ml inhalation Q2-4H PRN 04/28/23 (2.5 mg base)/3 mL nebulization shortness of breath or wheezing soln #90 mL prednisone 20 mg tablet 60 mg (3 x 20 mg) PO DAILY #12 tabs 06/16/23 Allergies Allergy/AdvReac Type Severity Reaction Status Date / Time ibuprofen [IBUPROFEN] Allergy Intermediate Difficulty Verified 06/16/23 12:19 Breathing shellfish derived Allergy Mild SWELLING Verified 06/16/23 12:19 aspirin [ASA] Allergy Unknown DIFFICULTY Verified 06/16/23 12:19 BREATHING albuterol AdvReac Mild Gas Verified 06/16/23 12:19 exchange problems sertraline AdvReac Nausea Verified 06/16/23 12:19 nsaids Allergy Unknown Difficulty Uncoded 06/16/23 12:19 Breathing nucala Allergy Unknown shortness Uncoded 06/16/23 12:19 of breath Review of Systems 2 Review of Systems: Yes all other systems are reviewed and are negative Neurologic: Denies Sensory deficit (Neuro) PMFSH Past Medical History Medical History 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 Current chronic use of systemic steroids Bronchiolitis obliterans Asthma-COPD overlap syndrome 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 Anxiety Asthma with exacerbation Acute respiratory failure with hypoxia Allergic asthma Asthmaticus, status PTSD (post-traumatic stress disorder) Anxiety Asthma Surgical History History of amputation Social History Social History Household Members: None Household Members Other:: dogs Housing: House Do you presently have visiting nurse or other home services: Yes (visiting nurse) Alcohol intake: current Alcohol intake frequency: holidays/special occasions only Patient Tobacco Use Status: Never used Tobacco Smoked in Last 30 Days: No Second Hand Smoke Exposure: No Use of substances other than those prescribed or required for medical reasons: No Substance Use Type: Marijuana Advance Directives: Yes Advance Directives on File: Yes Advance Directives Date on File: 05/28/21 service: Yes Current occupational status: retired and disabled Physical Exam 2 Vital Signs: Vital Signs: Last Vital Signs Temp 98.0 F 06/16/23 13:45 Pulse 108 H 06/16/23 13:45 Resp 12 04/08/24 13:45 BP 126/80 06/16/23 13:45 Pulse Ox 99 06/16/23 13:45 O2 Del Method Nasal Cannula 06/16/23 13:45 O2 Flow Rate 2 06/16/23 13:45 Oxygen Flow Rate 3 06/16/23 12:17 BMI result Body Mass Index 23.1 Const: Other: mild shortness of breath General: healthy appearing Nutritional Appearance: average body habitus Orientation/consciousness: oriented to person and patient oriented x3 L imitations: no limitations HEENT: Head: Yes normal to inspection Ears: external ears normal General nose exam: Normal external nose present Mouth: Normal oral and palatal mucosa present and oropharynx normal Throat: Yes posterior oropharynx normal Eyes: General: appearance normal, both eyes and all related structures Neck: Other: supple Neck: Yes normal visual inspection Chest: Chest palpation & inspection: normal inspection of the chest Resp: Other: slight wheeze bilaterally Cardio: Jugular venous distension: no JVD Rate: regular rate Rhythm: r egular rhythm Heart sounds: S1 normal heart sound present and S2 normal heart sound present GI: Inspection: Yes normal to inspection Palpation (GI): Soft to palpation, nontender and No hepatosplenomegaly present Auscultation: normal bowel sounds : General: Yes no CVA tenderness Back/Spine/Pelvis: Back: no CVA tenderness Skin: General skin exam: no rashes or lesions noted Neuro: General: oriented to person and patient oriented x3 Cranial nerves: Yes CN's II-XII intact bilaterally Motor exam (neuro): 5/5 motor strength present throughout Sensory Exam: No Sensory deficit (Neuro) Extrem: Other: left leg amputation Psych: Appearance: grossly normal Course Reevaluation(s) Reevaluation #1: Patient with no wheeze, pulse ox normal Time: 14:27 Medications Administered Discontinued Medications Generic Name Dose Route Start Last Admin Trade Name Freq PRN Reason Stop Dose Admin Albuterol Sulfate 5 mg/ 7.5 mg 06/16/23 12:18 06/16/23 12:31 Albuterol Sulfate 2.5 mg INHALE 06/16/23 12:19 7.5 mg ONCE ONE Administration Medical Decision Making Differential Diagnosis Differential Diagnoses: The differential diagnosis associated with the presentation includes (Asthma exacerbation, pneumonia, COPD were all considered) Admission/Observation Consideration of admission/observation: Escalation of care including admission/observation considered (Upon arrival patient was considered for admission) Lab Data 06/16/23 12:51 06/16/23 12:51 Labs: Lab Results 06/16/23 Range/Units 12:51 WBC 9.7 (4.8-10.8) X10*3/uL RBC 4.86 (4.60-5.80) X10*6/uL Hgb 14.9 (14.0-18.0) g/dl Hct 43.9 (42.0-52.0) % MCV 90.3 (80.0-98.0) fL MCH 30.7 (27.0-33.0) pg MCHC 33.9 (31.0-36.0) g/dl RDW 12.9 (11.0-16.0) % Plt Count 198 (160-400) X10*3/uL MPV 9.7 (9.4-12.4) fL Immature Gran % (Auto) 1.0 H (0.0-0.4) % Neut % (Auto) 77.8 H (45-73) % Lymph % (Auto) 12.9 L (20-40) % [place] % (Auto) 6.9 (2-11) % Eos % (Auto) 1.1 (0-4) % Baso % (Auto) 0.3 (0-2) % Lymph # (Auto) 1.3 (1.2-4.9) X10*3/uL [place] # (Auto) 0.7 (0.1-1.2) X10*3/uL Eos # (Auto) 0.1 (0.0-0.4) X10*3/uL Baso # (Auto) 0.0 (0.0-0.2) X10*3/uL Abs Immat Gran (auto) 0.10 H (0.00-0.03) X10*3/uL Absolute Neuts (auto) 7.5 (2.0-8.3) x10*3/uL Absolute Nucleated RBC 0.000 (0.0-0.012) X10*3/uL Nucleated RBC % (auto) 0.0 (0.0-0.2) /100WBC Sodium 140 (135-145) mmol/L Potassium 3.4 (3.3-5.1) mmol/L Chloride 105 (96-108) mmol/L Carbon Dioxide 27 (22-29) mmol/L Anion Gap 11 L (12-20) BUN 16 (9-16) mg/dL Creatinine 0.82 (0.5-1.4) mg/dL Estim Creat Clear Calc 140.7 Estimated GFR > 60 Random Glucose 115 (60-115) mg/dL Calcium 8.9 (8.4-10.2) mg/dL Influenza Type A (PCR) NEGATIVE (Negative) Influenza Type B (PCR) NEGATIVE (Negative) RSV RNA Qual (PCR) NEGATIVE (Negative) SARS-CoV-2 RNA (RT-PCR) NEGATIVE (Negative) Independent Interpretation I performed an independent interpretation of an: Plain X-Ray (CXR: wedges of right hemidiaphragm) Independent Historian Clinical information obtained from an independent historian. History obtained from or confirmed by: EMS External Record Review External record reviewed: Prior outpatient radiology Tests considered The following testing was considered but not selected: CT of chest considered but patient responded quickly and has prior history of the same Prescription Management I considered prescription management with: Antibiotic (no pneumonia on xray) Chronic Conditions Patient?s care impacted by: Other (asthma/COPD) Discharge Plan Discharge Clinical Impression: Asthma with acute exacerbation Patient Disposition: Home, Self-Care Instructions: Asthma (ED) Prescriptions: New prednisone 20 mg tablet 60 mg PO DAILY Qty: 12 0RF No Action multivitamin Tablet 1 tab PO DAILY Asmanex Twisthaler 220 mcg/ actuation (30) Aerosol Powdr Breath Activated 1 inh INHALATION DAILY zinc sulfate 50 mg zinc (220 mg) Capsule 50 mg PO Q2D cholecalciferol (vitamin D3) [Vitamin D3] 125 mcg (5,000 unit) Tablet 125 mcg PO DAILY Spiriva Respimat 1.25 mcg/actuation Mist 2 puff INHALATION DAILY cetirizine 10 mg Tablet 10 mg PO DAILY ascorbic acid (vitamin C) [Vitamin C] 500 mg Tablet 500 mg PO DAILY magnesium oxide 400 mg magnesium Tablet 400 mg PO DAILY prednisone 10 mg tablet 10 mg PO DAILY Qty: 63 0RF Rx Instructions: Please start at 6 tablets daily for 5 days, then 5 tablets a day for 5 days, then 4 tablets a day for 5 days, then 3 tablets a day for 5 days then 2 tablets a day for 5 days then 1 tablet a day for 5 days albuterol sulfate 90 mcg/actuation aerosol powdr breath activated 2 inh inhalation Q4-6H PRN (Reason: shortness of breath or wheezing) Qty: 1 0RF ipratropium-albuterol 0.5 mg-3 mg(2.5 mg base)/3 mL solution for nebulization 3 ml inhalation Q2-4H PRN (Reason: shortness of breath or wheezing) Qty: 90 0RF Rx Instructions: until breathing returns to target peak flow/parameters levalbuterol HCl 0.63 mg/3 mL solution for nebulization 0.63 mg inhalation TID (DME) nebulizers [facility] [place] See Rx Instructions .ROUTE Rx Instructions: As directed (DME) CPAP Machine/Device Device See Rx Instructions .ROUTE Rx Instructions: As directed Referrals: Earle Montano [Primary Care Provider] - 5 days Print Language: Georgian
[2023-06-16] MEDS: Albuterol Sulfate 5 MG, Albuterol Sulfate (0.083%) 2.5 MG 7.5 MG INHALE (12:31)
[2023-06-16 12:38] VITALS: PULSE 107; RESP 16; O2SAT 93
[2023-06-16 12:56] LABS: MANUAL DIFF FLAG NO
[2023-06-16 12:57] LABS: Basophils Percent Auto 0.3 % (0-2); Eosinophils Absolute Auto 0.1 X10*3/uL (0.0-0.4); Eosinophils Percent Auto 1.1 % (0-4); Hematocrit 43.9 % (42.0-52.0); Hemoglobin 14.9 g/dl (14.0-18.0); Lymphocytes Absolute Auto 1.3 X10*3/uL (1.2-4.9); Lymphocytes Percent Auto 12.9 % (20-40); Mean Corpuscular HGB Conc 33.9 g/dl (31.0-36.0); Mean Corpuscular Hemoglobin 30.7 pg (27.0-33.0); Mean Corpuscular Volume 90.3 fL (80.0-98.0); Mean Platelet Volume 9.7 fL (9.4-12.4); Monocytes Absolute Auto 0.7 X10*3/uL (0.1-1.2); Monocytes Percent Auto 6.9 % (2-11); Neutrophils Absolute Auto 7.5 x10*3/uL (2.0-8.3); Neutrophils Percent Auto 77.8 % (45-73); Platelet Count 198 X10*3/uL (160-400); Red Blood Count 4.86 X10*6/uL (4.60-5.80); Red Cell Distribution Width 12.9 % (11.0-16.0); White Blood Count 9.7 X10*3/uL (4.8-10.8)
[2023-06-16 13:09] LABS: Anion Gap 11 (12-20); Blood Urea Nitrogen 16 mg/dL (9-16); Calcium 8.9 mg/dL (8.4-10.2); Carbon Dioxide 27 mmol/L (22-29); Chloride 105 mmol/L (96-108); Creatinine Clr Calc Pharmacy 140.7; Estimated Glomerular Filt Rate > 60; Glucose Random 115 mg/dL (60-115); Potassium 3.4 mmol/L (3.3-5.1); Sodium 140 mmol/L (135-145)
[2023-06-16 13:37] LABS: Influenza A PCR NEGATIVE (Negative); Influenza B PCR NEGATIVE (Negative); Resp Syncy Virus RNA Qual PCR NEGATIVE (Negative); SARS COV2 PCR INHOUSE NEGATIVE (Negative)
[2023-06-16 13:45] VITALS: BP 126/80; PULSE 108; RESP 12; TEMP 36.7; O2SAT 99
[2023-06-16 15:05] VITALS: O2SAT 96
[2023-06-16 15:07] VITALS: BP 126/80; PULSE 108; RESP 12; TEMP 36.7; O2SAT 96
== END 2023-06-16 15:08 | disposition home or self-care (01) ==
PROVIDERS: Emergency Provider Emergency Medicine; PCP Internal Medicine
DX: J45.901 Unspecified asthma with (acute) exacerbation (principal); Z79.52 Long term (current) use of systemic steroids
CPT/HCPCS: 0241U; 36415; 71046; 80048; 85025; 94640; 99284

== ENCOUNTER 2023-08-08 10:13 | Outpatient (AMB) | payer OTHER, SELFPAY ==
[2023-08-08 10:19] VITALS: PULSE 81; O2SAT 95; BMI 23.1
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
== END 2023-08-08 10:35 | disposition home or self-care (01) ==
PROVIDERS: PCP Internal Medicine; Visit Provider Hospitalist
DX: J45.51 Severe persistent asthma with (acute) exacerbation (principal); J44.89 Other specified chronic obstructive pulmonary disease; J44.81 Bronchiolitis obliterans and bronchiolitis obliterans syndrome; Z79.52 Long term (current) use of systemic steroids; J68.3 Other acute and subacute respiratory conditions due to chemicals, gases, fumes and vapors; J33.9 Nasal polyp, unspecified
CPT/HCPCS: 99214

== ENCOUNTER → 2023-08-08 10:13 | Outpatient (BNVA) | payer OTHER, SELFPAY | PROVIDERS: PCP Internal Medicine; Visit Provider Hospitalist | DX: J45.51 Severe persistent asthma with (acute) exacerbation (principal); J44.89 Other specified chronic obstructive pulmonary disease; J44.81 Bronchiolitis obliterans and bronchiolitis obliterans syndrome; J33.9 Nasal polyp, unspecified; J68.3 Other acute and subacute respiratory conditions due to chemicals, gases, fumes and vapors; Z79.52 Long term (current) use of systemic steroids | CPT/HCPCS: 96372; 99212; J2919 ==

== ENCOUNTER 2023-08-19 09:45 | Outpatient (REF) | payer OTHER, SELFPAY ==
[2023-08-19 10:53] VITALS: PULSE 66; RESP 16; O2SAT 97
--- NOTE | 2023-08-19 15:38 | PFT_ITS ---
Flows: FEV1: 91 % of predicted at 4.41 L FVC: 136 % of predicted at 8.35 L FEV1/FVC: 53 % Bronchodilator response: Absent Volumes: Total lung capacity: 139 % of predicted at 11.72 L Residual volume: 174 % of predicted at 3.37 L Slow vital capacity: 128 % of predicted at 8.35 L Expiratory reserve volume: 75 % of predicted at 1.49 L Diffusion capacity: Normal Impression: Mild obstructive ventilatory defect with no bronchodilator response. Increased total lung capacity suggests hyperinflation. Increased residual volume suggests air trapping. MTDD
== END 2023-08-19 09:46 | disposition home or self-care (01) ==
LOC: HO.RESP 09:45
PROVIDERS: Referring Provider Hospitalist; Visit Provider Hospitalist
DX: J44.89 Other specified chronic obstructive pulmonary disease (principal)
CPT/HCPCS: 94010; 94640; 94727; 94729

== ENCOUNTER → 2023-08-19 15:38 | Outpatient (BNV) | payer OTHER, SELFPAY | PROVIDERS: Visit Provider Internal Medicine Pulmonary Disease | DX: J44.89 Other specified chronic obstructive pulmonary disease (principal) | CPT/HCPCS: 94060; 94727; 94729 ==

== ENCOUNTER 2023-08-21 10:00 | Outpatient (RCR) | payer OTHER, SELFPAY | END 2023-10-24 09:02 | disposition home or self-care (01) | LOC: HO.PR 10:00 | PROVIDERS: PCP Internal Medicine; Visit Provider Internal Medicine | DX: J45.50 Severe persistent asthma, uncomplicated (principal) | CPT/HCPCS: 94618; 99212; G0237; G0239 ==

== ENCOUNTER 2023-11-05 10:44 | Outpatient (REF) | payer OTHER, SELFPAY ==
[2023-11-05 12:05] LABS: MANUAL DIFF FLAG NO
[2023-11-05 12:43] LABS: Basophils Absolute Auto 0.1 X10*3/uL (0.0-0.2); Basophils Percent Auto 0.8 % (0-2); Eosinophils Absolute Auto 0.5 X10*3/uL (0.0-0.4); Hematocrit 46.2 % (42.0-52.0); Hemoglobin 15.9 g/dl (14.0-18.0); Imm Gran Abs Auto 0.13 X10*3/uL (0.00-0.03); Lymphocytes Absolute Auto 3.3 X10*3/uL (1.2-4.9); Lymphocytes Percent Auto 25.6 % (20-40); Mean Corpuscular HGB Conc 34.4 g/dl (31.0-36.0); Mean Corpuscular Hemoglobin 30.5 pg (27.0-33.0); Mean Corpuscular Volume 88.5 fL (80.0-98.0); Monocytes Percent Auto 8.1 % (2-11); Neutrophils Absolute Auto 7.7 x10*3/uL (2.0-8.3); Neutrophils Percent Auto 60.5 % (45-73); Platelet Count 285 X10*3/uL (160-400); Red Blood Count 5.22 X10*6/uL (4.60-5.80); Red Cell Distribution Width 13.2 % (11.0-16.0); White Blood Count 12.8 X10*3/uL (4.8-10.8)
[2023-11-05 12:53] LABS: D Dimer High Sensitivity < 150 NG/ML
[2023-11-05 13:00] LABS: Anion Gap 13 (12-20); Blood Urea Nitrogen 15 mg/dL (9-16); Calcium 10.3 mg/dL (8.4-10.2); Carbon Dioxide 24 mmol/L (22-29); Chloride 107 mmol/L (96-108); Estimated Glomerular Filt Rate > 60; Glucose Random 99 mg/dL (60-115); Potassium 3.8 mmol/L (3.3-5.1); Sodium 140 mmol/L (135-145)
[2023-11-05 13:26] LABS: Erythrocyte Sedimentation Rate 4 MM/HR (0-15)
[2023-11-06 20:18] LABS: Immunoglobulin E 110 kU/L (<OR=114)
== END 2023-11-05 10:45 | disposition home or self-care (01) ==
LOC: HO.LAB 10:44
PROVIDERS: PCP Internal Medicine; Visit Provider Hospitalist
DX: R07.9 Chest pain, unspecified (principal)
CPT/HCPCS: 36415; 80048; 82785; 85025; 85379; 85652; 96372; 99212; J2919

== ENCOUNTER 2023-11-05 10:44 | Outpatient (AMB) | payer OTHER, SELFPAY ==
[2023-11-05 10:57] VITALS: PULSE 82; O2SAT 96; BMI 21.9
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
== END 2023-11-05 11:26 | disposition home or self-care (01) ==
PROVIDERS: PCP Internal Medicine; Visit Provider Hospitalist
DX: J45.51 Severe persistent asthma with (acute) exacerbation (principal); J44.89 Other specified chronic obstructive pulmonary disease; J44.81 Bronchiolitis obliterans and bronchiolitis obliterans syndrome; Z79.52 Long term (current) use of systemic steroids; J68.3 Other acute and subacute respiratory conditions due to chemicals, gases, fumes and vapors; J33.9 Nasal polyp, unspecified; R07.9 Chest pain, unspecified
CPT/HCPCS: 99214; G2211

== ENCOUNTER 2024-02-13 13:53 | Outpatient (REF) | payer OTHER, SELFPAY ==
[2024-02-13 14:56] LABS: MANUAL DIFF FLAG NO
[2024-02-13 15:01] LABS: Venous Blood Gas Refer to POC result
[2024-02-13 15:02] LABS: VBG Base Excess 1.2 mmol/L; VBG HCO3 28 mmol/L (22-26); VBG pCO2 51 mmHg; VBG pH 7.33 (7.32-7.43); VBG pO2 42 mmHg
[2024-02-13 15:11] LABS: Basophils Absolute Auto 0.1 X10*3/uL (0.0-0.2); Basophils Percent Auto 0.4 % (0-2); Eosinophils Percent Auto 0.3 % (0-4); Hematocrit 45.3 % (42.0-52.0); Hemoglobin 15.3 g/dl (14.0-18.0); Imm Gran Abs Auto 0.13 X10*3/uL (0.00-0.03); Imm Gran Pct Auto 1.1 % (0.0-0.4); Lymphocytes Absolute Auto 1.3 X10*3/uL (1.2-4.9); Lymphocytes Percent Auto 11.4 % (20-40); Mean Corpuscular HGB Conc 33.8 g/dl (31.0-36.0); Mean Corpuscular Hemoglobin 30.7 pg (27.0-33.0); Mean Platelet Volume 9.6 fL (9.4-12.4); Monocytes Absolute Auto 0.6 X10*3/uL (0.1-1.2); Monocytes Percent Auto 5.4 % (2-11); Neutrophils Absolute Auto 9.3 x10*3/uL (2.0-8.3); Neutrophils Percent Auto 81.4 % (45-73); Platelet Count 251 X10*3/uL (160-400); Red Blood Count 4.98 X10*6/uL (4.60-5.80); Red Cell Distribution Width 12.1 % (11.0-16.0); White Blood Count 11.5 X10*3/uL (4.8-10.8)
[2024-02-13 15:34] LABS: Magnesium 2.3 mg/dL (1.6-2.6); Phosphorus 3.6 mg/dL (2.7-4.5)
[2024-02-16 12:24] LABS: IgA 110 mg/dL (47-310); IgG 932 mg/dL (600-1640); IgM 137 mg/dL (50-300)
[2024-02-17 21:59] LABS: Class Alternaria alternata 0; Class Aspergillus fumigatus 0; Class Bermuda Grass 0; Class Birch 0/1; Class Cat Dander 0; Class Cladosporium herbarum 0; Class Cockroach 0; Class Common Ragweed 0; Class Cottonwood 0; Class Derm. pterony 0; Class Dermatophagoides farinae 0; Class Dog Dander 0; Class Elm 0; Class Maple Box Elder 0; Class Mountain Cedar 0; Class Mouse Urine Protein 0; Class Mugwort 0; Class Oak 0/1; Class Penicillium crysogenum 0; Class Rough Pigweed 0; Class Sheep Sorrel 0; Class Sycamore 0; Class Timothy Grass 0/1; Class Walnut Tree 0; Class White Ash 0; Class White Mulberry 0; D001 IgE D pteronyssinus <0.10 kU/L; D002 - IgE D farinae <0.10 kU/L; E001 - IgE Cat Dander <0.10 kU/L; E005 - IgE Dog Dander <0.10 kU/L; E072-IgE Mouse Urine <0.10 kU/L; G002 IgE Bermuda Grass <0.10 kU/L; G006 - IgE Timothy Grass 0.12 kU/L; I006-IgE Cockroach, German <0.10 kU/L; Immunoglobulin E 133 kU/L (<OR=114); M001 IgE Penicillium chrysogen <0.10 kU/L; M002 - IgE Cladosporium herbar <0.10 kU/L; M003 - IgE Aspergillus fumigat <0.10 kU/L; M006 - IgE Alternaria alternat <0.10 kU/L; T001 IgE Maple/Box Elder <0.10 kU/L; T003 IgE Common Silver Birch 0.17 kU/L; T006 - IgE Cedar, Mountain <0.10 kU/L; T007 - IgE Oak, White 0.17 kU/L; T008 IgE Elm, American <0.10 kU/L; T010 - IgE Walnut <0.10 kU/L; T011 - IgE Maple Leaf Sycamore <0.10 kU/L; T014 - IgE Cottonwood <0.10 kU/L; T015 - IgE Ash, White <0.10 kU/L; T070 - IgE White Mulberry <0.10 kU/L; W001 - IgE Ragweed, Short <0.10 kU/L; W006 - IgE Mugwort <0.10 kU/L; W014 IgE Pigweed, Common <0.10 kU/L; W018 IgE Sheep Sorrel <0.10 kU/L
--- OUTSIDE RECORDS SUMMARY | 2024-02-18 10:22 | XMS_ITS | Clinical Summary ---
Author Organization Unknown Care Team Providers Care Named Account Executive Name Role Phone ML DOLAN, PHYLLIS Unavailable Unavailable DEVAN RN, STAN Unavailable Unavailable Payers Payer Name Policy Type Policy Number Effective Date Expira tion Date MEDICARE - NGS [place] - PDGM [id number] [address] [facility] CCN OPTUM PROGRAM-PDGM [id number] Problems Condition Name Condition Details Condition Category [...] 00 PARAPLEGIA, UNSPECIFIED Active 03-10 00:00: 00 USP (CURRENT) USE OF SYSTEMIC STEROIDS Active 03-10 [...] and inhalation capsules 2020-03 00:00: 00 Yes [id number] Per instruc tions DAILY Per instructio ns DAILY (route: inhalation ) Med Classific ation: Respirato ry Therapy Agents levalbutero l 0.63 mg/3 mL solution for nebulizatio n 2020-03 00:00: 00 Yes [id number] Per instruc tions 3 TIMES DAILY Per instructio ns 3 TIMES DAILY (route: inhalation ) Med Classific ation: Respirato ry Therapy Agents prednisone 10 mg tablet 2020-03 00:00: 00 08-08 11:47 :39 No [id number] 1 tablet DAILY 1 tablet DAILY (route: oral) Med Classific ation: Endocrine cetirizine 10 mg tablet 2020-03 00:00: 00 Yes [id number] 1 tablet DAILY 1 tablet DAILY (route: oral) Med Classific ation: Respirato ry Therapy Agents hydroxyzine HCl 50 mg tablet 2020-03 00:00: 00 Yes [id number] 1 tablet NEEDED 1 tablet NEEDED (route: oral) Med Classific ation: Central Nervous System Agents albuterol sulfate 2.5 mg/3 mL (0.083 %) solution for nebulizatio n 08-03 00:00: 00 Yes [id number] 3 mg 4 TIMES DAILY 3 mg 4 TIMES DAILY (route: inhalation ) Med Classific ation: Respirato ry Therapy Agents alprazolam 0.5 mg tablet 08-03 00:00: 00 Yes [id number] 1 tablet NEEDED 1 tablet NEEDED (route: oral) Med Classific ation: Central Nervous System Agents ascorbate calcium (vitamin C) 500 mg tablet 08-03 00:00: 00 Yes [id number] 1 tablet DAILY 1 tablet DAILY (route: oral) Med Classific ation: Electroly te Balance-N utritiona l Products magnesium 400 mg (as magnesium oxide) tablet 08-03 00:00: 00 Yes [id number] 1 tablet DAILY 1 tablet DAILY (route: oral) Med Classific ation: Electroly te Balance-N utritiona l Products ProAir HFA 90 mcg/actuati on aerosol inhaler 08-03 00:00: 00 Yes [id number] 2 puff DIRECTED 2 puff DIRECTED (route: inhalation ) Med Classific ation: Respirato ry Therapy Agents Zinc-220 50 mg zinc (220 mg) capsule 08-03 00:00: 00 Yes [id number] 1 capsule DAILY 1 capsule DAILY (route: oral) Med Classific ation: Electroly te Balance-N utritiona l Products Asmanex HFA 100 mcg/actuati on aerosol inhaler 08-03 00:00: 00 Yes [id number] 1 puff DAILY 1 puff DAILY (route: [...] CARE WILL BE ESTABLISHED THAT MEETS PATIENT'S HALFWAY NEEDS AND INCLUDES PATIENT GOAL FOR HOME [...] End Date/Time Encounter Type Admission Type Attending [facility] Care Department Encounter ID Discharge Date Discharge Status Discharge Condition Discharge Reason Percent Goals Met 2021-02-06 00:00:00 2021-10-03 00:00:00 Outpatient RECERTIFIC ATION STAN HARTMAN [facility] [id number] 00:00:00 DISCHARGE TO HOME OR SELF CARE INDEPENDEN T WITH USE OF ASSISTIVE DEVICE GOALS MET ( ONLY) 100.00
--- OUTSIDE RECORDS SUMMARY | 2024-02-18 10:22 | XMS_ITS | Clinical Summary ---
Author Organization Unknown Care Team Providers Care Public Address System Mechanic Name Role Phone ML DOLAN, PHYLLIS Unavailable Unavailable DEVAN RN, STAN Unavailable Unavailable Payers Payer Name Policy Type Policy Number Effective Date Expira tion Date MEDICARE - NGS [place] - PDGM [id number] ZZZZ [facility] CCN OPTUM PROGRAM-PDGM [id number] Problems Condition Name Condition Details Condition Category [...] 00 PARAPLEGIA, UNSPECIFIED Active 03-10 00:00: 00 SNF (CURRENT) USE OF SYSTEMIC STEROIDS Active 03-10 [...] and inhalation capsules 2020-03 00:00: 00 Yes [id number] Per instruc tions DAILY Per instructio ns DAILY (route: inhalation ) Med Classific ation: Respirato ry Therapy Agents levalbutero l 0.63 mg/3 mL solution for nebulizatio n 2020-03 00:00: 00 Yes [id number] Per instruc tions 3 TIMES DAILY Per instructio ns 3 TIMES DAILY (route: inhalation ) Med Classific ation: Respirato ry Therapy Agents prednisone 10 mg tablet 2020-03 00:00: 00 08-08 11:47 :39 No [id number] 1 tablet DAILY 1 tablet DAILY (route: oral) Med Classific ation: Endocrine cetirizine 10 mg tablet 2020-03 00:00: 00 Yes [id number] 1 tablet DAILY 1 tablet DAILY (route: oral) Med Classific ation: Respirato ry Therapy Agents hydroxyzine HCl 50 mg tablet 2020-03 00:00: 00 Yes [id number] 1 tablet NEEDED 1 tablet NEEDED (route: oral) Med Classific ation: Central Nervous System Agents albuterol sulfate 2.5 mg/3 mL (0.083 %) solution for nebulizatio n 08-03 00:00: 00 Yes [id number] 3 mg 4 TIMES DAILY 3 mg 4 TIMES DAILY (route: inhalation ) Med Classific ation: Respirato ry Therapy Agents alprazolam 0.5 mg tablet 08-03 00:00: 00 Yes [id number] 1 tablet NEEDED 1 tablet NEEDED (route: oral) Med Classific ation: Central Nervous System Agents ascorbate calcium (vitamin C) 500 mg tablet 08-03 00:00: 00 Yes [id number] 1 tablet DAILY 1 tablet DAILY (route: oral) Med Classific ation: Electroly te Balance-N utritiona l Products magnesium 400 mg (as magnesium oxide) tablet 08-03 00:00: 00 Yes [id number] 1 tablet DAILY 1 tablet DAILY (route: oral) Med Classific ation: Electroly te Balance-N utritiona l Products ProAir HFA 90 mcg/actuati on aerosol inhaler 08-03 00:00: 00 Yes [id number] 2 puff DIRECTED 2 puff DIRECTED (route: inhalation ) Med Classific ation: Respirato ry Therapy Agents Zinc-220 50 mg zinc (220 mg) capsule 08-03 00:00: 00 Yes [id number] 1 capsule DAILY 1 capsule DAILY (route: oral) Med Classific ation: Electroly te Balance-N utritiona l Products Asmanex HFA 100 mcg/actuati on aerosol inhaler 08-03 00:00: 00 Yes [id number] 1 puff DAILY 1 puff DAILY (route: [...] CARE WILL BE ESTABLISHED THAT MEETS PATIENT'S LONGTERM NEEDS AND INCLUDES PATIENT GOAL FOR HOME [...] End Date/Time Encounter Type Admission Type Attending [facility] Care Department Encounter ID Discharge Date Discharge Status Discharge Condition Discharge Reason Percent Goals Met 2021-02-06 00:00:00 2021-10-03 00:00:00 Outpatient RECERTIFIC ATION STAN HARTMAN [facility] [id number] 1940-07-27 00:00:00 DISCHARGE TO HOME OR SELF CARE INDEPENDEN T WITH USE OF ASSISTIVE DEVICE GOALS MET ( ONLY) 100.00
[2024-02-20 13:42] LABS: Asperg fumigatus Precip Abs NEGATIVE (NEGATIVE); Micropoly faeni Abs NEGATIVE (NEGATIVE); Pigeon serum Abs NEGATIVE (NEGATIVE); Saccharo pora viridis Abs NEGATIVE (NEGATIVE); Thermo candidus Abs NEGATIVE (NEGATIVE); Thermoa vulgaris #1 NEGATIVE (NEGATIVE)
== END 2024-02-13 13:54 | disposition home or self-care (01) ==
LOC: HO.LAB 13:53
PROVIDERS: PCP Internal Medicine; Visit Provider Hospitalist
DX: J45.51 Severe persistent asthma with (acute) exacerbation (principal); R91.8 Other nonspecific abnormal finding of lung field; J33.9 Nasal polyp, unspecified; R91.1 Solitary pulmonary nodule; T78.40XA Allergy, unspecified, initial encounter
CPT/HCPCS: 36415; 82784; 82785; 82803; 83735; 84100; 85025; 86003; 86331; 86606; 86609; 99212

== ENCOUNTER 2024-02-13 13:53 | Outpatient (AMB) | payer OTHER, SELFPAY ==
[2024-02-13 13:58] VITALS: BP 130/70; PULSE 93; O2SAT 96
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
--- OUTSIDE RECORDS SUMMARY | 2024-02-18 10:15 | XMS_ITS | Clinical Summary ---
Author Organization Unknown Care Team Providers Care Certified Medication Aide Name Role Phone ML DOLAN, PHYLLIS Unavailable Unavailable DEVAN RN, STAN Unavailable Unavailable Payers Payer Name Policy Type Policy Number Effective Date Expira tion Date MEDICARE - [place] - PDGM [id number] [facility] [employer] PROGRAM-PDGM [id number] Problems Condition Name Condition Details Condition Category Status Onset Date Resolution Date Last Treatment Date Treating Clinician Comments SEVERE PERSISTENT ASTHMA WITH (ACUTE) EXACERBATION Active 03-10 00:00: 00 OTH AC AND SUBAC RESP COND D/T CHEMICALS, GAS, FUMES AND VAPORS Active 05-24 00:00: 00 SEVERE PERSISTENT ASTHMA WITH STATUS ASTHMATICUS Active 03-10 00:00: 00 ACUTE AND CHRONIC RESPIRATORY FAILURE WITH HYPOXIA Active 03-10 00:00: 00 CHRONIC OBSTRUCTIVE PULMONARY DISEASE, UNSPECIFIED Active 03-10 00:00: 00 ANXIETY DISORDER, UNSPECIFIED Active 03-10 00:00: 00 DEPRESSION, UNSPECIFIED Active 03-10 00:00: 00 POST-TRAUMAT IC STRESS DISORDER, UNSPECIFIED Active 03-10 00:00: 00 NEUROMUSCULA R DYSFUNCTION OF BLADDER, UNSPECIFIED Active 03-10 00:00: 00 PARAPLEGIA, UNSPECIFIED Active 03-10 00:00: 00 LONG-TERM (CURRENT) USE OF SYSTEMIC STEROIDS Active 03-10 00:00: 00 ACQUIRED ABSENCE OF LEFT LEG BELOW KNEE Active 03-10 00:00: 00 PERSONAL HISTORY OF TRAUMATIC BRAIN INJURY Active 03-10 00:00: 00 HISTORY OF FALLING Active 03-10 00:00: 00 Allergies, Adverse Reactions, Alerts Allergy Name Allergy Type Status Severity Reaction(s) Onset Date Inactive Date Treating Clinician Comments IBUPROFEN Propensity to adverse reactions Active 2020-03 11:55: 37 NSAIDS Propensity to adverse reactions Active 2020-03 18:51: 22 SHELL FISH Propensity to adverse reactions Active 2020-03 18:51: 04 ALBUTEROL Propensity to adverse reactions Active 2020-03 11:55: 37 ZOLOFT Propensity to adverse reactions Active 2020-03 18:51: 14 ASPIRIN Propensity to adverse reactions Active 2020-03 11:55: 37 Medications Ordered Medication Name Filled Medication Name Start Date Stop Date Current Medication? Ordering Clinician Indication Dosage Frequency Signature (SIG) Comments Components Spiriva with HandiHaler 18 mcg and inhalation capsules 2020-03 00:00: 00 Yes [id number] Per instruc tions DAILY Per instructio ns DAILY (route: inhalation ) Med Classific ation: Respirato ry Therapy Agents levalbutero l 0.63 mg/3 mL solution for nebulizatio n 2020-03 00:00: 00 Yes [id number] Per instruc tions 3 TIMES DAILY Per instructio ns 3 TIMES DAILY (route: inhalation ) Med Classific ation: Respirato ry Therapy Agents prednisone 10 mg tablet 2020-03 00:00: 00 08-08 11:47 :39 No [id number] 1 tablet DAILY 1 tablet DAILY (route: oral) Med Classific ation: Endocrine cetirizine 10 mg tablet 2020-03 00:00: 00 Yes [id number] 1 tablet DAILY 1 tablet DAILY (route: oral) Med Classific ation: Respirato ry Therapy Agents hydroxyzine HCl 50 mg tablet 2020-03 00:00: 00 Yes [id number] 1 tablet NEEDED 1 tablet NEEDED (route: oral) Med Classific ation: Central Nervous System Agents albuterol sulfate 2.5 mg/3 mL (0.083 %) solution for nebulizatio n 08-03 00:00: 00 Yes [id number] 3 mg 4 TIMES DAILY 3 mg 4 TIMES DAILY (route: inhalation ) Med Classific ation: Respirato ry Therapy Agents alprazolam 0.5 mg tablet 08-03 00:00: 00 Yes [id number] 1 tablet NEEDED 1 tablet NEEDED (route: oral) Med Classific ation: Central Nervous System Agents ascorbate calcium (vitamin C) 500 mg tablet 08-03 00:00: 00 Yes [id number] 1 tablet DAILY 1 tablet DAILY (route: oral) Med Classific ation: Electroly te Balance-N utritiona l Products magnesium 400 mg (as magnesium oxide) tablet 08-03 00:00: 00 Yes [id number] 1 tablet DAILY 1 tablet DAILY (route: oral) Med Classific ation: Electroly te Balance-N utritiona l Products ProAir HFA 90 mcg/actuati on aerosol inhaler 08-03 00:00: 00 Yes [id number] 2 puff DIRECTED 2 puff DIRECTED (route: inhalation ) Med Classific ation: Respirato ry Therapy Agents Zinc-220 50 mg zinc (220 mg) capsule 08-03 00:00: 00 Yes [id number] 1 capsule DAILY 1 capsule DAILY (route: oral) Med Classific ation: Electroly te Balance-N utritiona l Products Asmanex HFA 100 mcg/actuati on aerosol inhaler 08-03 00:00: 00 Yes [id number] 1 puff DAILY 1 puff DAILY (route: inhalation ) Med Classific ation: Respirato ry Therapy Agents AZITHROMYCI N ORAL 2018-03 0-30 00:00: 00 01-10 00:00 :00 No 250 mg 250 mg (route: ) Med Classific ation: ANTI-INFE CTIVE AGENTS SEREVENT DISKUS INHALATION 1-04 00:00: 00 04-12 00:00 :00 No 50 mcg/dos e 50 mcg/dose (route: ) Med Classific ation: RESPIRATO RY THERAPY AGENTS PREDNISONE ORAL 7-01 00:00: 00 09-12 00:00 :00 No 20 mg 20 mg (route: ) Med Classific ation: ENDOCRINE PREDNISONE ORAL 2017-03 2-18 00:00: 00 03-01 00:00 :00 No 20 mg 20 mg (route: ) Med Classific ation: ENDOCRINE PREDNISONE ORAL 2018-03 0-11 00:00: 01-17 00:00 :00 No 5 mg 5 mg (route: ) Med Classific ation: ENDOCRINE PREDNISONE ORAL 3-19 00:00: 00 06-25 00:00 :00 No 5 mg 5 mg (route: ) Med Classific ation: ENDOCRINE PREDNISONE ORAL 6-21 00:00: 00 09-23 00:00 :00 No 10 mg 10 mg (route: ) Med Classific ation: ENDOCRINE LORAZEPAM ORAL 7- 00:00: 00 09-12 00:00 :00 No 0.5 mg 0.5 mg (route: ) Med Classific ation: CENTRAL NERVOUS SYSTEM AGENTS BUDESONIDE INHALATION 12-03 00:00: 00 01-02 00:00 :00 No 1 mg/2 mL 1 mg/2 mL (route: ) Med Classific ation: RESPIRATO RY THERAPY AGENTS FLUTICASONE PROPIONATE NASAL 04 00:00: 00 05-12 00:00 :00 No 50 mcg/act uation 50 mcg/actuat ion (route: ) Med Classific ation: RESPIRATO RY THERAPY AGENTS NITROFURANT OIN MONOHYDRATE /MACROCRYST ALS ORAL 2018-03 115 00:00: 00 02-02 00:00 :00 No 100 mg1 tab DAILY 100 mg1 tab DAILY (route: ) Med Classific ation: ANTI-INFE CTIVE AGENTS PERFOROMIST INHALATION 12-03 00:00: 00 01-02 00:00 :00 No 20 mcg/2 mL 20 mcg/2 mL (route: ) Med Classific ation: RESPIRATO RY THERAPY AGENTS SPIRIVA RESPIMAT INHALATION 12-03 00:00: 00 01-02 00:00 :00 No 1.25 mcg/act uation 1.25 mcg/actuat ion (route: ) Med Classific ation: RESPIRATO RY THERAPY AGENTS Immunizations Ordered Immunization Name Filled Immunization Name Date Status Comments Refusal Reason INFLUENZA, TIV (INACTIVATED) 2020-01-11 00:00:00 Vital Signs Vital Name Observation Time Observation Value Commen ts Temperature 2021-10-03 11:53:00.000 98 [degF] Temperature 2021-09-26 08:57:00.000 97.1 [degF] Temperature 2021-09-19 08:52:00.000 97.1 [degF] Temperature 2021-09-12 09:05:00.000 97.1 [degF] Temperature 2021-09-07 09:24:00.000 98 [degF] Temperature 2021-09-04 15:21:00.000 97 [degF] Temperature 2021-08-31 14:35:00.000 98 [degF] Temperature 2021-08-28 08:57:00.000 97.1 [degF] Temperature 2021-08-24 09:23:00.000 97.8 [degF] Temperature 2021-08-21 09:28:00.000 97.1 [degF] Temperature 2021-08-16 18:16:00.000 97.3 [degF] Temperature 2021-08-14 15:00:00.000 97.1 [degF] Temperature 2021-08-10 11:38:00.000 97.3 [degF] Temperature 2021-08-07 13:17:00.000 98 [degF] Pulse 2021-10-03 11:53:00.000 76 /min Pulse 2021-09-26 08:57:00.000 74 /min Pulse 2021-09-19 08:52:00.000 67 /min Pulse 2021-09-12 09:05:00.000 61 /min Pulse 2021-09-07 09:24:00.000 76 /min Pulse 2021-09-04 15:21:00.000 70 /min Pulse 2021-08-31 14:35:00.000 88 /min Pulse 2021-08-28 08:57:00.000 76 /min Pulse 2021-08-24 09:23:00.000 76 /min Pulse 2021-08-21 09:28:00.000 68 /min Pulse 2021-08-16 18:16:00.000 90 /min Pulse 2021-08-14 15:00:00.000 76 /min Pulse 2021-08-10 11:38:00.000 88 /min Pulse 2021-08-07 13:17:00.000 78 /min O2 Saturation (%) 2021-10-03 11:53:00.000 97 % O2 Saturation (%) 2021-09-26 08:57:00.000 96 % O2 Saturation (%) 2021-09-19 08:52:00.000 98 % O2 Saturation (%) 2021-09-12 09:05:00.000 97 % O2 Saturation (%) 2021-09-07 09:24:00.000 97 % O2 Saturation (%) 2021-08-31 14:35:00.000 97 % O2 Saturation (%) 2021-08-28 08:57:00.000 97 % O2 Saturation (%) 2021-08-24 09:23:00.000 97 % O2 Saturation (%) 2021-08-21 09:28:00.000 99 % O2 Saturation (%) 2021-08-16 18:16:00.000 97 % O2 Saturation (%) 2021-08-14 15:00:00.000 97 % O2 Saturation (%) 2021-08-10 11:38:00.000 98 % O2 Saturation (%) 2021-08-07 13:17:00.000 98 % Respirations 2021-10-03 11:53:00.000 18 /min Respirations 2021-09-26 08:57:00.000 18 /min Respirations 2021-09-19 08:52:00.000 18 /min Respirations 2021-09-12 09:05:00.000 18 /min Respirations 2021-09-07 09:24:00.000 18 /min Respirations 2021-09-04 15:21:00.000 18 /min Respirations 2021-08-31 14:35:00.000 19 /min Respirations 2021-08-28 08:57:00.000 18 /min Respirations 2021-08-24 09:23:00.000 18 /min Respirations 2021-08-21 09:28:00.000 18 /min Respirations 2021-08-16 18:16:00.000 18 /min Respirations 2021-08-14 15:00:00.000 19 /min Respirations 2021-08-10 11:38:00.000 18 /min Respirations 2021-08-07 13:17:00.000 18 /min Systolic Blood Pressure 2021-10-03 11:53:00.000 122 mm [Hg] Systolic Blood Pressure 2021-09-26 08:57:00.000 134 mm [Hg] Systolic Blood Pressure 2021-09-19 08:52:00.000 128 mm [Hg] Systolic Blood Pressure 2021-09-12 09:05:00.000 142 mm [Hg] Systolic Blood Pressure 2021-09-07 09:24:00.000 128 mm [Hg] Systolic Blood Pressure 2021-09-04 15:21:00.000 138 mm [Hg] Systolic Blood Pressure 2021-08-31 14:35:00.000 134 mm [Hg] Systolic Blood Pressure 2021-08-28 08:57:00.000 138 mm [Hg] Systolic Blood Pressure 2021-08-24 09:23:00.000 138 mm [Hg] Systolic Blood Pressure 2021-08-21 09:28:00.000 132 mm [Hg] Systolic Blood Pressure 2021-08-16 18:16:00.000 138 mm [Hg] Systolic Blood Pressure 2021-08-14 15:00:00.000 142 mm [Hg] Systolic Blood Pressure 2021-08-10 11:38:00.000 142 mm [Hg] Systolic Blood Pressure 2021-08-07 13:17:00.000 134 mm [Hg] Diastolic Blood Pressure 2021-10-03 11:53:00.000 70 mm [Hg] Diastolic Blood Pressure 2021-09-26 08:57:00.000 68 mm [Hg] Diastolic Blood Pressure 2021-09-19 08:52:00.000 64 mm [Hg] Diastolic Blood Pressure 2021-09-12 09:05:00.000 86 mm [Hg] Diastolic Blood Pressure 2021-09-07 09:24:00.000 74 mm [Hg] Diastolic Blood Pressure 2021-09-04 15:21:00.000 74 mm [Hg] Diastolic Blood Pressure 2021-08-31 14:35:00.000 74 mm [Hg] Diastolic Blood Pressure 2021-08-28 08:57:00.000 78 mm [Hg] Diastolic Blood Pressure 2021-08-24 09:23:00.000 74 mm [Hg] Diastolic Blood Pressure 2021-08-21 09:28:00.000 86 mm [Hg] Diastolic Blood Pressure 2021-08-16 18:16:00.000 78 mm [Hg] Diastolic Blood Pressure 2021-08-14 15:00:00.000 74 mm [Hg] Diastolic Blood Pressure 2021-08-10 11:38:00.000 88 mm [Hg] Diastolic Blood Pressure 2021-08-07 13:17:00.000 74 mm [Hg] Plan of Treatment Planned Activity Planned Date Details Comments Future Scheduled Test SKILLED NU RSE TO PERFORM GENERAL ASSESSMENT AND EVALUATE PATIENT, IDENTIFY PRIMARY AND CO-MORBID CONDITIONS, AND DEVELOP PATIENT SPECIFIC PLAN OF CARE THAT INCLUDES PATIENT GOAL FOR HOME HEALTH. CLINICAL SUMMARY HUE/RECERT THE PATIENT IS RECEIVING HOMECARE DUE TO NEW ONSET/EXACERBATION OF: SOB RECENT HOSPITALIZATION/INPATIENT ADMISSION RELATED TO: ASTHMA ANXIETY NEW OR CHANGED MEDICATIONS PERTINENT TO THE PLAN OF CARE: NO PATIENT LIVING SITUATION/CAREGIVER STATUS: ALONE RECENT FALLS: NO SKILLED TEACHING AND TRAINING, OBSERVATION AND ASSESSMENT, AND/OR TREATMENTS THAT REQUIRE SKILLED CARE: RESPIRATORY ASSESSMENT TEACHING ANXIETY RELAXATION TECHNIQUES ADDITIONAL DISCIPLINES NEEDED OR DECLINED ORDERED SERVICES: SN [code = SKILLED NURSE TO PERFORM GENERAL ASSESSMENT AND EVALUATE PATIENT, IDENTIFY PRIMARY AND CO-MORBID CONDITIONS, AND DEVELOP PATIENT SPECIFIC PLAN OF CARE THAT INCLUDES PATIENT GOAL FOR HOME HEALTH. CLINICAL SUMMARY HUE/RECERT THE PATIENT IS RECEIVING HOMECARE DUE TO NEW ONSET/EXACERBATION OF: SOB RECENT HOSPITALIZATION/INPATIENT ADMISSION RELATED TO: ASTHMA ANXIETY NEW OR CHANGED MEDICATIONS PERTINENT TO THE PLAN OF CARE: NO PATIENT LIVING SITUATION/CAREGIVER STATUS: ALONE RECENT FALLS: NO SKILLED TEACHING AND TRAINING, OBSERVATION AND ASSESSMENT, AND/OR TREATMENTS THAT REQUIRE SKILLED CARE: RESPIRATORY ASSESSMENT TEACHING ANXIETY RELAXATION TECHNIQUES ADDITIONAL DISCIPLINES NEEDED OR DECLINED ORDERED SERVICES: SN] Future Scheduled Test SKILLED NU RSE TO REVIEW PATIENT MEDICATIONS. INSTRUCT PATIENT/CAREGIVER ON MONITORING OF EFFECTIVENESS, ADVERSE DRUG REACTIONS, SIDE EFFECTS OF ALL MEDICATIONS (PRESCRIPTION/-OTC), AND HOW AND WHEN TO REPORT PROBLEMS. [code = SKILLED NURSE TO REVIEW PATIENT MEDICATIONS. INSTRUCT PATIENT/CAREGIVER ON MONITORING OF EFFECTIVENESS, ADVERSE DRUG REACTIONS, SIDE EFFECTS OF ALL MEDICATIONS (PRESCRIPTION/-OTC), AND HOW AND WHEN TO REPORT PROBLEMS. ] Future Scheduled Test SKILLED NU RSE TO PERFORM HOME SAFETY AND FALL ASSESSMENT AND PROVIDE INSTRUCTION TO IMPLEMENT HOME SAFETY AND FALL PREVENTION STRATEGIES. [code = SKILLED NURSE TO PERFORM HOME SAFETY AND FALL ASSESSMENT AND PROVIDE INSTRUCTION TO IMPLEMENT HOME SAFETY AND FALL PREVENTION STRATEGIES.] Future Scheduled Test SKILLED NU RSE FOR O/A OF NEUROCOGNITIVE AND BEHAVIORAL STATUS DUE TO TBI [code = SKILLED NURSE FOR O/A OF NEUROCOGNITIVE AND BEHAVIORAL STATUS DUE TO TBI] Future Scheduled Test SKILLED NU RSE TO PROVIDE ASSESSMENT AND TEACHING/REINFORCEMENT OF MANAGEMENT OF DEPRESSION INCLUDING DISEASE PROCESS, MEDICATION MANAGEMENT, COPING SKILLS AND IDENTIFY CHANGES ASSOCIATED WITH DEPRESSIVE DISORDERS FOR EARLY INTERVENTION. [code = SKILLED NURSE TO PROVIDE ASSESSMENT AND TEACHING/REINFORCEMENT OF MANAGEMENT OF DEPRESSION INCLUDING DISEASE PROCESS, MEDICATION MANAGEMENT, COPING SKILLS AND IDENTIFY CHANGES ASSOCIATED WITH DEPRESSIVE DISORDERS FOR EARLY INTERVENTION.] Future Scheduled Test SKILLED NU RSE TO OBTAIN PULSE OXIMETRY MEASUREMENT PRN FOR SIGNS AND SYMPTOMS OF SHORTNESS OF BREATH, ACTIVITY INTOLERANCE AND WHEN OXYGEN IS ORDERED. [code = SKILLED NURSE TO OBTAIN PULSE OXIMETRY MEASUREMENT PRN FOR SIGNS AND SYMPTOMS OF SHORTNESS OF BREATH, ACTIVITY INTOLERANCE AND WHEN OXYGEN IS ORDERED.] Future Scheduled Test PATIENT BROCK S A RISK OF REHOSPITALIZATION. SKILLED NURSE TO ESTABLISH SUPPORT MEASURES TO MINIMIZE RISK OF REHOSPITALIZATION, AND INSTRUCT PATIENT/CAREGIVER ON METHODS TO REDUCE AVOIDABLE HOSPITALIZATION. [code = PATIENT HAS A RISK OF REHOSPITALIZATION. SKILLED NURSE TO ESTABLISH SUPPORT MEASURES TO MINIMIZE RISK OF REHOSPITALIZATION, AND INSTRUCT PATIENT/CAREGIVER ON METHODS TO REDUCE AVOIDABLE HOSPITALIZATION.] Future Scheduled Test SKILLED NU RSE TO PROVIDE INSTRUCTION TO PATIENT/CAREGIVER RELATED TO DISCHARGE PLANNING. [code = SKILLED NURSE TO PROVIDE INSTRUCTION TO PATIENT/CAREGIVER RELATED TO DISCHARGE PLANNING.] Future Scheduled Test SKILLED NU RSE FOR OBSERVATION AND ASSESSMENT OF PATIENTS PAIN LEVEL AND EFFECTIVENESS OF PAIN MANAGEMENT REGIMEN. SKILLED NURSE TO INSTRUCT PATIENT/CAREGIVER REGARDING PHARMACOLOGIC AND NON-PHARMACOLOGIC PAIN CONTROL MEASURES. SKILLED NURSE TO REPORT TO PHYSICIAN IF PAIN IS UNCONTROLLED WITH CURRENT PAIN MANAGEMENT REGIMEN. [code = SKILLED NURSE FOR OBSERVATION AND ASSESSMENT OF PATIENTS PAIN LEVEL AND EFFECTIVENESS OF PAIN MANAGEMENT REGIMEN. SKILLED NURSE TO INSTRUCT PATIENT/CAREGIVER REGARDING PHARMACOLOGIC AND NON-PHARMACOLOGIC PAIN CONTROL MEASURES. SKILLED NURSE TO REPORT TO PHYSICIAN IF PAIN IS UNCONTROLLED WITH CURRENT PAIN MANAGEMENT REGIMEN.] Future Scheduled Test SKILLED NU RSE FOR O/A, TEACHING AND MANAGEMENT OF NEUROMUSCULAR DYSFUNCTION OF BLADDER FOR EARLY IDENTIFICATION OF EXACERBATION OF DISEASE PROCESS [code = SKILLED NURSE FOR O/A, TEACHING AND MANAGEMENT OF NEUROMUSCULAR DYSFUNCTION OF BLADDER FOR EARLY IDENTIFICATION OF EXACERBATION OF DISEASE PROCESS] Future Scheduled Test SKILLED NU RSE FOR O/A OF RESPIRATORY SYSTEM TO IDENTIFY CHANGES ASSOCIATED WITH EXACERBATION AND TO PROVIDE SKILLED TEACHING ON MANAGEMENT OF ASTHMA DISEASE PROCESS, ACUTE AND CHRONIC RESPIRATORY FAILURE WITH HYPOXIA, ACUTE AND SUBACUTE RESPIRATORY CONDITION DUE TO CHEMICALS, GAS, FUMES, AND VAPORS. [code = SKILLED NURSE FOR O/A OF RESPIRATORY SYSTEM TO IDENTIFY CHANGES ASSOCIATED WITH EXACERBATION AND TO PROVIDE SKILLED TEACHING ON MANAGEMENT OF ASTHMA DISEASE PROCESS, ACUTE AND CHRONIC RESPIRATORY FAILURE WITH HYPOXIA, ACUTE AND SUBACUTE RESPIRATORY CONDITION DUE TO CHEMICALS, GAS, FUMES, AND VAPORS.] Future Scheduled Test SKILLED NU RSE FOR O/A OF MUSCULOSKELETAL STATUS AND TEACHING ON MEASURES TO MANAGE LLE BKA/PROTHESIS AND TO MAINTAIN SAFETY WITH ACTIVITY [code = SKILLED NURSE FOR O/A OF MUSCULOSKELETAL STATUS AND TEACHING ON MEASURES TO MANAGE LLE BKA/PROTHESIS AND TO MAINTAIN SAFETY WITH ACTIVITY] Future Scheduled Test SKILLED NU RSE FOR O/A TO IDENTIFY CHANGES ASSOCIATED WITH PARAPLEGIA AND PROVIDE INSTRUCTION RELATED TO SAFETY MEASURES TO PREVENT INJURY SECONDARY TO IMPAIRED NEUROLOGICAL STATUS. SKILLED NURSE TO REPORT SIGNIFICANT CHANGES OF NEUROLOGIC STATUS TO PHYSICIAN FOR EARLY INTERVENTION. [code = SKILLED NURSE FOR O/A TO IDENTIFY CHANGES ASSOCIATED WITH PARAPLEGIA AND PROVIDE INSTRUCTION RELATED TO SAFETY MEASURES TO PREVENT INJURY SECONDARY TO IMPAIRED NEUROLOGICAL STATUS. SKILLED NURSE TO REPORT SIGNIFICANT CHANGES OF NEUROLOGIC STATUS TO PHYSICIAN FOR EARLY INTERVENTION.] Future Scheduled Test SKILLED NU RSE TO ASSESS PATIENT'S SKIN INTEGRITY AND INSTRUCT PATIENT/CAREGIVER ON MEASURES TO PREVENT PRESSURE ULCERS [code = SKILLED NURSE TO ASSESS PATIENT'S SKIN INTEGRITY AND INSTRUCT PATIENT/CAREGIVER ON MEASURES TO PREVENT PRESSURE ULCERS] Future Scheduled Test SKILLED NU RSE FOR O/A AND SKILLED TEACHING OF COPING SKILLS TO MANAGE ANXIETY/PTSD AND MAINTAIN SAFETY [code = SKILLED NURSE FOR O/A AND SKILLED TEACHING OF COPING SKILLS TO MANAGE ANXIETY/PTSD AND MAINTAIN SAFETY] Future Scheduled Test SKILLED NU RSE TO INSTRUCT PATIENT/CAREGIVER ON COPD TO INCLUDE TEACHING AND SELF-MANAGEMENT RELATED TO COPD DISEASE PROCESS, SIGNS AND SYMPTOMS, AND COMPLICATIONS. [code = SKILLED NURSE TO INSTRUCT PATIENT/CAREGIVER ON COPD TO INCLUDE TEACHING AND SELF-MANAGEMENT RELATED TO COPD DISEASE PROCESS, SIGNS AND SYMPTOMS, AND COMPLICATIONS.] Goal 2021-02-20 Patient Goal - T O STAY OUT OF HOSPITAL. BREATHE EASIER Goal 2021-05-28 Patient Goal - T O STAY OUT OF HOSPITAL. BREATHE EASIER Goal 2021-04-03 Patient Goal - T O STAY OUT OF HOSPITAL. BREATHE EASIER Goal 2021-07-31 Patient Goal - T O STAY OUT OF HOSPITAL. BREATHE EASIER Goal 2021-06-04 Patient Goal - T O STAY OUT OF HOSPITAL. BREATHE EASIER Goal 2021-10-03 Patient Goal - T O STAY OUT OF HOSPITAL. BREATHE EASIER Goal Provider Goal - A PLAN OF CARE WILL BE ESTABLISHED THAT MEETS PATIENT'S FDC NEEDS AND INCLUDES PATIENT GOAL FOR HOME HEALTH. Goal Provider Goal - PATIENT/CAREGIVER WILL VERBALIZE UNDERSTANDING OF EDUCATION PROVIDED ON MEDICATIONS BY THE END OF THE CERTIFICATION PERIOD. Goal Provider Goal - PATIENT/CAREGIVER WILL VERBALIZE/DEMONSTRATE EFFECTIVE HOME SAFETY AND FALL PREVENTION STRATEGIES THROUGHOUT CERTIFICATION PERIOD. Goal Provider Goal - PATIENT WILL BE ABLE TO PERFORM DAILY FUNCTIONS AND MAINTAIN OPTIMAL BEHAVIORAL/NEUROCOGNITIVE STATUS. Goal Provider Goal - PATIENT/CAREGIVER WILL VERBALIZE/DEMONSTRATE UNDERSTANDING OF THE MANAGEMENT OF DEPRESSION BY THE END OF THE EPISODE AND SYMPTOMS ARE IDENTIFIED AND MANAGED TO MAINTAIN PATIENT SAFETY IN THE HOME Goal Provider Goal - PULSE OXIMETER RESULTS OBTAINED NEEDED FOR RESPIRATORY COMPLICATIONS. Goal Provider Goal - PATIENT WILL HAVE SUPPORT MEASURES ESTABLISHED TO PREVENT REHOSPITALIZATION AND PATIENT/CAREGIVER WILL VERBALIZE/DEMONSTRATE METHODS TO REDUCE AVOIDABLE HOSPITALIZATION BY END OF CERT). Goal Provider Goal - PATIENT/CAREGIVER WILL VERBALIZE UNDERSTANDING OF DISCHARGE PLANNING INSTRUCTIONS BY DATE OF DISCHARGE. Goal Provider Goal - PATIENT/CAREGIVER WILL DEMONSTRATE UNDERSTANDING OF PHARMACOLOGIC AND NONPHARMACOLOGIC PAIN CONTROL MEASURES AND PATIENT WILL HAVE IMPROVEMENT IN PAIN INTERFERING WITH ACTIVITY EVIDENCED BY PAIN CONTROLLED AT LEVEL OF 7/10 OR LESS Goal Provider Goal - PATIENT/CAREGIVER WILL VERBALIZE UNDERSTANDING OF GENITOURINARY DISEASE PROCESS, AND EXACERBATIONS OF GENITOURINARY DISEASE WILL BE PROMPTLY IDENTIFIED FOR EARLY INTERVENTION THROUGHOUT THE CERTIFICATION PERIOD. Goal Provider Goal - PATIENT/CAREGIVER WILL VERBALIZE/DEMONSTRATE MANAGEMENT OF RESPIRATORY DISEASE PROCESS. CHANGES IN RESPIRATORY STATUS WILL BE IDENTIFIED AND REPORTED TO PHYSICIAN FOR PROMPT INTERVENTION THROUGHOUT THE CERTIFICATION PERIOD. Goal Provider Goal - PATIENT/CAREGIVER WILL VERBALIZE/DEMONSTRATE ABILITY TO MANAGE MUSCULOSKELETAL DISEASE WHILE MAINTAINING SAFETY BY END OF CERT Goal Provider Goal - CHANGES IN NEUROLOGIC STATUS WILL BE IDENTIFIED AND REPORTED TO THE PHYSICIAN FOR PROMPT INTERVENTION OF ASSOCIATED RISK. PATIENT/CAREGIVER WILL VERBALIZE/DEMONSTRATE APPROPRIATE SAFETY MEASURES TO PREVENT INJURY BY THE END OF THE CERTIFICATION PERIOD. Goal Provider Goal - PATIENT/CAREGIVER WILL VERBALIZE UNDERSTANDING OF PRESSURE ULCER PREVENTION BY END OF CERT Goal Provider Goal - PATIENT WILL BE ABLE TO PERFORM DAILY FUNCTIONS AND HAVE OPTIMAL IMPROVEMENT IN LEVEL OF ANXIETY Goal Provider Goal - PATIENT/CAREGIVER WILL VERBALIZE/DEMONSTRATE KNOWLEDGE AND MANAGEMENT OF COPD BY END OF EPISODE Reason for Visit INDEPENDENT WITH USE OF ASSISTIVE DEVICE Encounters Start Date/Time End Date/Time Encounter Type Admission Type Attending [facility] Care Department Encounter ID Discharge Date Discharge Status Discharge Condition Discharge Reason Percent Goals Met 2021-02-06 00:00:00 2021-10-03 00:00:00 Outpatient RECERTIFIC ATION [facility] [id number] 00:00:00 DISCHARGE TO HOME OR SELF CARE INDEPENDEN T WITH USE OF ASSISTIVE DEVICE GOALS MET ( ONLY) 100.00
== END 2024-02-13 14:34 | disposition home or self-care (01) ==
PROVIDERS: PCP Internal Medicine; Visit Provider Hospitalist
DX: J45.51 Severe persistent asthma with (acute) exacerbation (principal); J44.89 Other specified chronic obstructive pulmonary disease; J44.81 Bronchiolitis obliterans and bronchiolitis obliterans syndrome; Z79.52 Long term (current) use of systemic steroids; J68.3 Other acute and subacute respiratory conditions due to chemicals, gases, fumes and vapors; J33.9 Nasal polyp, unspecified; R07.9 Chest pain, unspecified; T78.40XD Allergy, unspecified, subsequent encounter
CPT/HCPCS: 99214; G2211

== ENCOUNTER 2024-03-20 02:16 | Emergency (ER) | payer OTHER, SELFPAY ==
[2024-03-20] VITALS (12 sets, daily range): BP systolic 94–106; BP diastolic 48–71; PULSE 96–128; RESP 9–24; TEMP 36.4–36.9; O2SAT 92–97; BMI 24.0
--- NOTE | ~2024-03-20 | XR_ITS ---
CLINICAL HISTORY: Cough shortness a breath 1 view chest x-ray Comparison: CR/SR - XR CHEST 1V - 04/28/23 12:01 EST Findings: Small right pleural effusion with basilar subsegmental atelectasis or infiltrate. Postsurgical changes noted in the right lung. Normal size heart. No acute fracture. IMPRESSION: Small right pleural effusion with basilar subsegmental atelectasis or infiltrate. This document has been electronically signed by: Will Tinoco MD, PHD on 03/20/2024 03:34:05
--- NOTE | 2024-03-20 02:26 | ED_ITS ---
HPI - SOB/Dyspnea General Chief Complaint: Dyspnea Stated Complaint: SEVERE ASTHMA ATTACK Time Seen by Provider: 03/20/24 02:17 Source: patient Mode of arrival: ambulatory Limitations: no limitations History of Present Illness ED Provider: HPI Narrative: Patient's history of asthma with frequent ED visits comes here for increased shortness a breath just started prior to arrival was saturating 94% at room EMS arrived received epi IM, Solu-Medrol magnesium and DuoNeb treatment placed on CPAP patient is saturating 96% on CPAP Related Data Home Medications ?Medication ?Instructions ?Recorded ?Confirmed ascorbic acid (vitamin C) 500 mg 500 mg PO DAILY 12/21/20 07/27/21 tablet (Vitamin C) cetirizine 10 mg tablet 10 mg PO DAILY 12/21/20 07/27/21 magnesium oxide 400 mg PO DAILY 12/21/20 07/27/21 cholecalciferol (vitamin D3) 125 125 mcg PO DAILY 05/23/21 07/27/21 mcg (5,000 unit) tablet (Vitamin D3) mometasone 220 mcg/actuation(30 1 inh inhalation DAILY 05/23/21 07/27/21 doses) breath activated powder inhaler (Asmanex Twisthaler) tiotropium bromide 1.25 2 puff inhalation DAILY 05/23/21 07/27/21 mcg/actuation mist for inhalation (Spiriva Respimat) zinc sulfate 50 mg zinc (220 mg) 50 mg PO Q2D 05/23/21 07/27/21 capsule CPAP (CPAP Machine/Device) 05/23/23 levalbuterol HCl 0.63 mg/3 mL 0.63 mg inhalation TID 05/23/23 solution for nebulization nebulizers 05/23/23 azelastine 137 mcg (0.1 %) nasal 2 spray intranasal BID PRN 02/13/24 spray levalbuterol tartrate 45 2 inh inhalation Q6H PRN 02/13/24 mcg/actuation aerosol inhaler pseudoephedrine HCl 120 mg 120 mg PO Q12H PRN 02/13/24 tablet,extended release Previous Rx's ?Medication ?Instructions ?Recorded prednisone 10 mg tablet 10 mg PO DAILY asthma #63 tabs 02/06/22 ipratropium 0.5 mg-albuterol 3 mg 3 ml inhalation Q2-4H PRN 04/28/23 (2.5 mg base)/3 mL nebulization shortness of breath or wheezing soln #90 mL fluticasone propionate 50 2 spray intranasal DAILY 30 days 11/05/23 mcg/actuation nasal #15.8 mL spray,suspension oxymetazoline 0.05 % nasal spray 2 spray intranasal Q12H PRN nasal 11/05/23 (Afrin (oxymetazoline)) congestion 3 days #22 mL pseudoephedrine HCl 60 mg tablet 60 mg PO Q6H PRN nasal congestion 11/06/23 30 days #120 tabs prednisone 20 mg tablet 40 mg (2 x 20 mg) PO DAILY #10 tabs 03/20/24 Allergies Allergy/AdvReac Type Severity Reaction Status Date / Time ibuprofen [IBUPROFEN] Allergy Intermediate Difficulty Verified 03/20/24 02:28 Breathing shellfish derived Allergy Mild SWELLING Verified 03/20/24 02:28 aspirin [ASA] Allergy Unknown DIFFICULTY Verified 03/20/24 02:28 BREATHING albuterol AdvReac Mild Gas Verified 03/20/24 02:28 exchange problems sertraline AdvReac Nausea Verified 03/20/24 02:28 nsaids Allergy Unknown Difficulty Uncoded 03/20/24 02:28 Breathing nucala Allergy Unknown shortness Uncoded 03/20/24 02:28 of breath Review of Systems 2 Review of Systems: Yes all other systems are reviewed and are negative PMFSH Past Medical History Medical History Allergies Nasal polyposis 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 Current chronic use of systemic steroids Bronchiolitis obliterans Asthma-COPD overlap syndrome 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 Anxiety Asthma with exacerbation Acute respiratory failure with hypoxia Allergic asthma Asthmaticus, status PTSD (post-traumatic stress disorder) Anxiety Asthma Surgical History History of amputation Social History Social History Household Members: None Household Members Other:: dogs Housing: House Do you presently have visiting nurse or other home services: Yes (visiting nurse) Alcohol intake: current Alcohol intake frequency: does not drink Patient Tobacco Use Status: Former Tobacco user Years Smoked: 15 Smoked in Last 30 Days: No Second Hand Smoke Exposure: No Use of substances other than those prescribed or required for medical reasons: No Substance Use Type: Marijuana Advance Directives: Yes Advance Directives on File: Yes Advance Directives Date on File: 05/28/21 service: Yes Current occupational status: retired and disabled Physical Exam 2 Vital Signs: Vital Signs: Last Vital Signs Temp 97.6 F 03/20/24 06:04 Pulse 96 03/20/24 06:08 Resp 16 03/20/24 06:08 BP 106/62 03/20/24 06:04 Pulse Ox 93 03/20/24 06:04 O2 Del Method Room Air 03/20/24 06:04 O2 Flow Rate 2 03/20/24 04:22 BMI result Body Mass Index 24.0 Neurology Appearance: Alert. Oriented X3. In moderate respiratory distress. ENT: Pharynx normal. Oral Mucosa moist Neck: Normal inspection. Neck supple. CVS: Normal heart rate and rhythm. Pulses normal. Respiratory: Moderate respiratory distress. Equal air entry bilateral, bilateral wheezing Abdomen: Soft and nontender. Bowel sounds are present, no mass palpable, no CVA tenderness Skin: Skin warm and dry. Normal skin color. Normal skin turgor. Extremities: No lower extremity edema. No calf tenderness left BKA Neuro: Oriented X 3. No motor deficit. Medications Administered Discontinued Medications Generic Name Dose Route Start Last Admin Trade Name Freq PRN Reason Stop Dose Admin Albuterol Sulfate 7.5 mg/ 10 mg 03/20/24 02:21 03/20/24 02:32 Albuterol Sulfate 2.5 mg INHALE 03/20/24 02:22 10 mg ONCE ONE Administration Albuterol Sulfate 7.5 mg 03/20/24 05:39 03/20/24 06:08 Albuterol Sulfate (0.083%) 2.5 Mg/3 Ml Vial.Neb INHALE 03/20/24 05:40 7.5 mg ONCE ONE Administration Medical Decision Making Medical Decision Making MDM Narrative: Patient with severe asthma with frequent ED visits improved markedly after magnesium nebulizing treatment at this time patient is saturating 92-94% at room air feeling 80% better will like to go home if possible will observe him some more time patient is signed out to Dr. Izabela calderon pending disposition patient has had slight lactic acidosis secondary to nebulizing treatment patient is not septic does not need any antibiotics Differential Diagnosis Differential Diagnoses: The differential diagnosis associated with the presentation includes Asthma/pneumonia/pleural effusion Admission/Observation Consideration of admission/observation: Escalation of care including admission/observation considered Lab Data MDM Lab Attestation statement: I reviewed the patient's lab results. 03/20/24 02:39 03/20/24 02:38 Labs: Lab Results 03/20/24 03/20/24 03/20/24 Range/Units 02:37 02:38 02:39 WBC 14.1 H (4.8-10.8) X10*3/uL RBC 4.74 (4.60-5.80) X10*6/uL Hgb 14.7 (14.0-18.0) g/dl Hct 42.4 (42.0-52.0) % MCV 89.5 (80.0-98.0) fL MCH 31.0 (27.0-33.0) pg MCHC 34.7 (31.0-36.0) g/dl RDW 13.0 (11.0-16.0) % Plt Count 295 (160-400) X10*3/uL MPV 10.0 (9.4-12.4) fL Immature Gran % (Auto) 1.1 H (0.0-0.4) % Neut % (Auto) 57.5 (45-73) % Lymph % (Auto) 28.2 (20-40) % [place] % (Auto) 8.9 (2-11) % Eos % (Auto) 3.6 (0-4) % Baso % (Auto) 0.7 (0-2) % Lymph # (Auto) 4.0 (1.2-4.9) X10*3/uL [place] # (Auto) 1.3 H (0.1-1.2) X10*3/uL Eos # (Auto) 0.5 H (0.0-0.4) X10*3/uL Baso # (Auto) 0.1 (0.0-0.2) X10*3/uL Abs Immat Gran (auto) 0.15 H (0.00-0.03) X10*3/uL Absolute Neuts (auto) 8.1 (2.0-8.3) x10*3/uL Absolute Nucleated RBC 0.000 (0.0-0.012) X10*3/uL Nucleated RBC % (auto) 0.0 (0.0-0.2) /100WBC VBG pH 7.41 (7.32-7.43) VBG pCO2 43 mmHg VBG pO2 85 mmHg VBG HCO3 27 H (22-26) mmol/L VBG O2 Saturation 96.0 % VBG Base Excess 3.0 mmol/L Sodium 143 (135-145) mmol/L Potassium 4.0 (3.3-5.1) mmol/L Chloride 110 H (96-108) mmol/L Carbon Dioxide 23 (22-29) mmol/L Anion Gap 14 (12-20) BUN 23 H (9-16) mg/dL Creatinine 0.86 (0.5-1.4) mg/dL Estim Creat Clear Calc 133.7 Estimated GFR > 60 Random Glucose 116 H (60-115) mg/dL Lactic Acid (0.5-2.0) mmol/L Lactic Acid F/U @ 2Hr (0.5-2.0) mmol/L Calcium 9.6 D (8.4-10.2) mg/dL Total Bilirubin 0.2 (0.0-1.0) mg/dL AST 18 (5-37) U/L ALT 24 (0-40) U/L Alkaline Phosphatase 41 (39-117) U/L Total Protein 7.3 (6.5-8.0) g/dL Albumin 4.3 (3.5-5.0) g/dL Influenza Type A (PCR) NEGATIVE (Negative) Influenza Type B (PCR) NEGATIVE (Negative) RSV RNA Qual (PCR) NEGATIVE (Negative) SARS-CoV-2 RNA (RT-PCR) NEGATIVE (Negative) 03/20/24 03/20/24 Range/Units 02:50 05:11 WBC (4.8-10.8) X10*3/uL RBC (4.60-5.80) X10*6/uL Hgb (14.0-18.0) g/dl Hct (42.0-52.0) % MCV (80.0-98.0) fL MCH (27.0-33.0) pg MCHC (31.0-36.0) g/dl RDW (11.0-16.0) % Plt Count (160-400) X10*3/uL MPV (9.4-12.4) fL Immature Gran % (Auto) (0.0-0.4) % Neut % (Auto) (45-73) % Lymph % (Auto) (20-40) % [place] % (Auto) (2-11) % Eos % (Auto) (0-4) % Baso % (Auto) (0-2) % Lymph # (Auto) (1.2-4.9) X10*3/uL [place] # (Auto) (0.1-1.2) X10*3/uL Eos # (Auto) (0.0-0.4) X10*3/uL Baso # (Auto) (0.0-0.2) X10*3/uL Abs Immat Gran (auto) (0.00-0.03) X10*3/uL Absolute Neuts (auto) (2.0-8.3) x10*3/uL Absolute Nucleated RBC (0.0-0.012) X10*3/uL Nucleated RBC % (auto) (0.0-0.2) /100WBC VBG pH (7.32-7.43) VBG pCO2 mmHg VBG pO2 mmHg VBG HCO3 (22-26) mmol/L VBG O2 Saturation % VBG Base Excess mmol/L Sodium (135-145) mmol/L Potassium (3.3-5.1) mmol/L Chloride (96-108) mmol/L Carbon Dioxide (22-29) mmol/L Anion Gap (12-20) BUN (9-16) mg/dL Creatinine (0.5-1.4) mg/dL Estim Creat Clear Calc Estimated GFR Random Glucose (60-115) mg/dL Lactic Acid 2.1 H* (0.5-2.0) mmol/L Lactic Acid F/U @ 2Hr 2.2 H* (0.5-2.0) mmol/L Calcium (8.4-10.2) mg/dL Total Bilirubin (0.0-1.0) mg/dL AST (5-37) U/L ALT (0-40) U/L Alkaline Phosphatase (39-117) U/L Total Protein (6.5-8.0) g/dL Albumin (3.5-5.0) g/dL Influenza Type A (PCR) (Negative) Influenza Type B (PCR) (Negative) RSV RNA Qual (PCR) (Negative) SARS-CoV-2 RNA (RT-PCR) (Negative) Radiology Impression Discussion of test interpretation with radiology: I have reviewed the radiologist's reading. Critical Care Time Critical Care Time Critical Care Time: Yes Total Critical Care Time: 60 Attestation: The patient was critically ill with a high probability of imminent or life threatening deterioration. I spent greater than65 ???minutes of discontinuous time evaluating the patient,delivering critical care at the bedside, discussing and evaluating pertinent data with consultants. Critical care time does not include time spent performing separately billable procedures or teaching. Total time spent performing critical care was 60???minutes. Discharge Plan Discharge Clinical Impression: Asthma with acute exacerbation Patient Disposition: Home, Self-Care Instructions: Asthma (ED) Additional Instructions: Continue to use your nebulizing treatment at home, oxygen as needed Prednisone as prescribed Report to the ER if recurrence of the shortness breath Prescriptions: New prednisone 20 mg tablet 40 mg PO DAILY Qty: 10 0RF No Action pseudoephedrine HCl 60 mg tablet 60 mg PO Q6H PRN (Reason: nasal congestion) 30 Days Qty: 120 1RF Rx Instructions: DNExceed 4 doses/24h Asmanex Twisthaler 220 mcg/ actuation (30) Aerosol Powdr Breath Activated 1 inh INHALATION DAILY zinc sulfate 50 mg zinc (220 mg) Capsule 50 mg PO Q2D cholecalciferol (vitamin D3) [Vitamin D3] 125 mcg (5,000 unit) Tablet 125 mcg PO DAILY Spiriva Respimat 1.25 mcg/actuation Mist 2 puff INHALATION DAILY cetirizine 10 mg Tablet 10 mg PO DAILY ascorbic acid (vitamin C) [Vitamin C] 500 mg Tablet 500 mg PO DAILY magnesium oxide 400 mg magnesium Tablet 400 mg PO DAILY prednisone 10 mg tablet 10 mg PO DAILY Qty: 63 0RF Rx Instructions: Please start at 6 tablets daily for 5 days, then 5 tablets a day for 5 days, then 4 tablets a day for 5 days, then 3 tablets a day for 5 days then 2 tablets a day for 5 days then 1 tablet a day for 5 days ipratropium-albuterol 0.5 mg-3 mg(2.5 mg base)/3 mL solution for nebulization 3 ml inhalation Q2-4H PRN (Reason: shortness of breath or wheezing) Qty: 90 0RF Rx Instructions: until breathing returns to target peak flow/parameters levalbuterol HCl 0.63 mg/3 mL solution for nebulization 0.63 mg inhalation TID (DME) nebulizers Mis See Rx Instructions .ROUTE Rx Instructions: As directed (DME) CPAP Machine/Device Device See Rx Instructions .ROUTE Rx Instructions: As directed oxymetazoline [Afrin (oxymetazoline)] 0.05 % spray,non-aerosol 2 spray intranasal Q12H PRN (Reason: nasal congestion) 3 Days Qty: 22 0RF fluticasone propionate 50 mcg/actuation spray,suspension 2 spray intranasal DAILY 30 Days Qty: 15.8 11RF azelastine 137 mcg (0.1 %) spray,non-aerosol 2 spray intranasal BID PRN Rx Instructions: administer into each nostril pseudoephedrine HCl 120 mg tablet extended release 120 mg PO Q12H PRN levalbuterol tartrate 45 mcg/actuation HFA aerosol inhaler 2 inh inhalation Q6H PRN Print Language: Maltese
[2024-03-20] MEDS: Albuterol Sulfate 7.5 MG, Albuterol Sulfate (0.083%) 2.5 MG 10 MG INHALE (02:32)
--- NOTE | 2024-03-20 02:40 | PC.NURSE ---
18g IV access in left AC established by [facility] prior to arrival, resecured with new tegaderm due to diaphoresis and old tegaderm lifting. IV access to right AC established by Demetrice MARTINEZ on behalf of this RN during triage. Labs drawn and sent for analysis. CPAP in place. RT (Dany) at bedside.
[2024-03-20 02:45] LABS: MANUAL DIFF FLAG NO
[2024-03-20 02:48] LABS: Basophils Absolute Auto 0.1 X10*3/uL (0.0-0.2); Basophils Percent Auto 0.7 % (0-2); Eosinophils Absolute Auto 0.5 X10*3/uL (0.0-0.4); Eosinophils Percent Auto 3.6 % (0-4); Hematocrit 42.4 % (42.0-52.0); Hemoglobin 14.7 g/dl (14.0-18.0); Imm Gran Abs Auto 0.15 X10*3/uL (0.00-0.03); Imm Gran Pct Auto 1.1 % (0.0-0.4); Lymphocytes Percent Auto 28.2 % (20-40); Mean Corpuscular HGB Conc 34.7 g/dl (31.0-36.0); Mean Corpuscular Volume 89.5 fL (80.0-98.0); Monocytes Absolute Auto 1.3 X10*3/uL (0.1-1.2); Monocytes Percent Auto 8.9 % (2-11); Neutrophils Absolute Auto 8.1 x10*3/uL (2.0-8.3); Neutrophils Percent Auto 57.5 % (45-73); Platelet Count 295 X10*3/uL (160-400); Red Blood Count 4.74 X10*6/uL (4.60-5.80); White Blood Count 14.1 X10*3/uL (4.8-10.8)
[2024-03-20 02:48] LABS: VBG HCO3 27 mmol/L (22-26); VBG pCO2 43 mmHg; VBG pH 7.41 (7.32-7.43); VBG pO2 85 mmHg
[2024-03-20 03:05] LABS: Venous Blood Gas Refer to POC result
[2024-03-20 03:08] LABS: Alkaline Phosphatase 41 U/L (39-117)
[2024-03-20 03:12] LABS: Alanine Aminotransferase 24 U/L (0-40); Albumin Level 4.3 g/dL (3.5-5.0); Anion Gap 14 (12-20); Aspartate Amino Transferase 18 U/L (5-37); Bilirubin Total 0.2 mg/dL (0.0-1.0); Blood Urea Nitrogen 23 mg/dL (9-16); Calcium 9.6 mg/dL (8.4-10.2); Carbon Dioxide 23 mmol/L (22-29); Chloride 110 mmol/L (96-108); Creatinine Clr Calc Pharmacy 133.7; Estimated Glomerular Filt Rate > 60; Glucose Random 116 mg/dL (60-115); Sodium 143 mmol/L (135-145); Total Protein 7.3 g/dL (6.5-8.0)
[2024-03-20 03:15] LABS: Lactic Acid 2.1 mmol/L (0.5-2.0)
--- NOTE | 2024-03-20 03:15 | PC.NURSE ---
this rn assumed care of pt @ [id number]
[2024-03-20 03:24] LABS: Influenza A PCR NEGATIVE (Negative); Influenza B PCR NEGATIVE (Negative); Resp Syncy Virus RNA Qual PCR NEGATIVE (Negative); SARS COV2 PCR INHOUSE NEGATIVE (Negative)
--- NOTE | 2024-03-20 03:39 | PC.NURSE ---
increased WBC, LA 2.1 bp 99/48 this rn made charge account authorizer and dr rosario aware of concerns for meeting SIRs criteria no new orders by md at this time. per md leave pt on cpap until 399 at which time attempt removal of cpap and reassess pt status charge account authorizer aware
--- NOTE | 2024-03-20 04:17 | PC.RT ---
Pt taken off of CPAP and placed on 2L NC, RN aware. Winston well
[2024-03-20 04:56] LABS: Reflex Lactate? Lactic Acid Added
[2024-03-20 05:40] LABS: ~Lactic Acid-LAB USE ONLY 2.2 mmol/L (0.5-2.0)
--- NOTE | 2024-03-20 05:41 | PC.NURSE ---
this rn and dr rosario at bedside pt states feels 75 5 better per md plan is to try another breathing treatment and reeval after treatment pt agreeable to plan
[2024-03-20] MEDS: Albuterol Sulfate (0.083%) 2.5 MG/3 ML VIAL.NEB 7.5 MG INHALE (06:08)
[2024-03-20 07:15] LABS: Reflex Lactate? 2 Y
--- NOTE | 2024-03-20 07:45 | PC.NURSE ---
Alert and oriented, reports feeling better. Sitting up in bed eating breakfast.
[2024-03-20 08:01] LABS: ~Lactic Acid-LAB USE ONLY 3.3 mmol/L (0.5-2.0)
--- NOTE | 2024-03-20 09:05 | PC.NURSE ---
no s/s of respiratory distress , self propelled using wheelchair to waiting room until family comes to pick him up
== END 2024-03-20 09:06 | disposition home or self-care (01) ==
PROVIDERS: Emergency Provider Internal Medicine; PCP Internal Medicine
DX: J45.901 Unspecified asthma with (acute) exacerbation (principal); Z03.818 Encounter for observation for suspected exposure to other biological agents ruled out; Z87.891 Personal history of nicotine dependence
CPT/HCPCS: 0241U; 36415; 71045; 80053; 82803; 83605; 85025; 87040; 99285

== ENCOUNTER → 2024-03-20 02:25 | Outpatient (BNV) | payer OTHER, SELFPAY | PROVIDERS: Emergency Provider Internal Medicine; Visit Provider General Practice | DX: J45.51 Severe persistent asthma with (acute) exacerbation (principal) | CPT/HCPCS: 71045; 71250 ==

== ENCOUNTER 2024-03-20 20:26 | Inpatient (IN) | payer OTHER, SELFPAY ==
--- NOTE | ~2024-03-20 | CT_ITS ---
CLINICAL HISTORY: worsening sob, r o pna CT chest without contrast Comparison: None Findings: Right basilar atelectasis and/or scarring. Rounded atelectasis noted in the posterior basal segment of the right lower lobe.No lobar consolidation at this time. No pneumothorax or pleural effusion. No enlarged mediastinal lymphadenopathy. Subcutaneous edema is noted. Streak artifacts noted about partially imaged upper abdomen. No definite hardware loosening of the lumbar hardware in the [id number]. Prevertebral surgical clips appear vascular. Mild thoracic vertebral height losses appear old chronic with small Schmorl's nodes. IMPRESSION: 1. Right basilar atelectasis and scarring with rounded atelectasis. 2. No consolidation. This document has been electronically signed by: Shane Price MD on 03/20/2024 22:08:57
[2024-03-20 20:59] VITALS: BP 166/103; PULSE 104; O2SAT 97
[2024-03-20 21:02] VITALS: BP 111/64; PULSE 84; RESP 22; TEMP 36.7; O2SAT 97; BMI 24.4
--- NOTE | 2024-03-20 21:17 | ED.SOB ---
HPI - SOB/Dyspnea General Chief Complaint: Dyspnea Stated Complaint: difficulty breathing Time Seen by Provider: 03/20/24 21:01 Source: patient and EMS Mode of arrival: EMS Limitations: no limitations History of Present Illness ED Provider: Dr. Ruthie Rosales HPI Narrative: Patient comes to the emergency room complaining of shortness of breath. Patient has had multiple asthma exacerbations in the last couple of days. Earlier today, patient was seen in the emergency room, prior to arrival this morning he received IM epinephrine Solu-Medrol and magnesium. In the ED she significantly improved and he was feeling well enough to be discharged home. However, patient states that he went home, tonight took a nap and when he woke up he was significantly short of breath. EMS had to give him again epinephrine IM. At this time, patient is still wheezing feeling short of breath. Patient states that this time feels a bit worse than the 1st time he came. Patient denies fever chills. Denies chest pain Related Data Home Medications ?Medication ?Instructions ?Recorded ?Confirmed ascorbic acid (vitamin C) 500 mg 500 mg PO DAILY 12/21/20 07/27/21 tablet (Vitamin C) cetirizine 10 mg tablet 10 mg PO DAILY 12/21/20 03/20/24 magnesium oxide 400 mg PO DAILY 12/21/20 07/27/21 cholecalciferol (vitamin D3) 125 125 mcg PO DAILY 05/23/21 07/27/21 mcg (5,000 unit) tablet (Vitamin D3) mometasone 220 mcg/actuation(30 1 inh inhalation DAILY 05/23/21 07/27/21 doses) breath activated powder inhaler (Asmanex Twisthaler) tiotropium bromide 1.25 2 puff inhalation DAILY 05/23/21 07/27/21 mcg/actuation mist for inhalation (Spiriva Respimat) zinc sulfate 50 mg zinc (220 mg) 50 mg PO Q2D 05/23/21 07/27/21 capsule CPAP (CPAP Machine/Device) 05/23/23 levalbuterol HCl 0.63 mg/3 mL 0.63 mg inhalation TID 05/23/23 solution for nebulization nebulizers 05/23/23 azelastine 137 mcg (0.1 %) nasal 2 spray intranasal BID PRN 02/13/24 spray levalbuterol tartrate 45 2 inh inhalation Q6H PRN 02/13/24 mcg/actuation aerosol inhaler pseudoephedrine HCl 120 mg 120 mg PO Q12H PRN 02/13/24 tablet,extended release Previous Rx's ?Medication ?Instructions ?Recorded prednisone 10 mg tablet 10 mg PO DAILY asthma #63 tabs 02/06/22 ipratropium 0.5 mg-albuterol 3 mg 3 ml inhalation Q2-4H PRN 04/28/23 (2.5 mg base)/3 mL nebulization shortness of breath or wheezing soln #90 mL fluticasone propionate 50 2 spray intranasal DAILY 30 days 11/05/23 mcg/actuation nasal #15.8 mL spray,suspension oxymetazoline 0.05 % nasal spray 2 spray intranasal Q12H PRN nasal 11/05/23 (Afrin (oxymetazoline)) congestion 3 days #22 mL pseudoephedrine HCl 60 mg tablet 60 mg PO Q6H PRN nasal congestion 11/06/23 30 days #120 tabs prednisone 20 mg tablet 40 mg (2 x 20 mg) PO DAILY #10 tabs 03/20/24 Allergies Allergy/AdvReac Type Severity Reaction Status Date / Time ibuprofen [IBUPROFEN] Allergy Intermediate Difficulty Verified 03/20/24 21:04 Breathing shellfish derived Allergy Mild SWELLING Verified 03/20/24 21:04 aspirin [ASA] Allergy Unknown DIFFICULTY Verified 03/20/24 21:04 BREATHING albuterol AdvReac Mild Gas Verified 03/20/24 21:04 exchange problems sertraline AdvReac Nausea Verified 03/20/24 21:04 nsaids Allergy Unknown Difficulty Uncoded 03/20/24 02:28 Breathing nucala Allergy Unknown shortness Uncoded 03/20/24 02:28 of breath Review of Systems Review of Systems: Constitutional : No Weight loss, No Fever, No Chills, No Night Sweats, No Fatigue, No Malaise ENT/Mouth : No Hearing loss, No Ear Pain, No Nasal Congestion, No Sinus Pain, No Hoarseness, No sore throat, No Rhinorrhea, No Swallowing Difficulty Eyes: No Eye Pain, No Swelling, No Redness, No Foreign Body, No Discharge, No Vision Changes Cardiovascular : No Chest Pain, No SOB, No Dyspnea on Exertion, No Orthopnea, No Edema, No Palpitations Respiratory : Complaining of ongoing cough, wheezing, shortness of breath and chest tightness with no pain Gastrointestinal : No Nausea, No Vomiting, No Diarrhea, No Constipation, No abdominal Pain, No Hematochezia, No Melena Genitourinary : no irregular bleeding, No Dysuria, No Urinary Frequency, No Hematuria, No Urinary Incontinence, No Urgency, No Flank Pain, No Urinary Flow Changes, No Hesitancy Musculoskeletal : No joint pain, No Myalgias, No Joint Swelling Skin : No Skin Lesions, No rash Neuro : No Weakness, No Numbness, No Paresthesias, No Loss of Consciousness, No Dizziness, No Headache Psych : No Anxiety/Panic, No Depression, No SI/HI/AH/VH, No Social Issues, Heme/Lymph: No Bruising, No Bleeding,No Lymphadenopathy Endocrine : No Polyuria, No Polydipsia, No Temperature Intolerance [facility] Past Medical History Medical History Allergies Nasal polyposis 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 Current chronic use of systemic steroids Bronchiolitis obliterans Asthma-COPD overlap syndrome 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 Anxiety Asthma with exacerbation Acute respiratory failure with hypoxia Allergic asthma Asthmaticus, status PTSD (post-traumatic stress disorder) Anxiety Asthma Surgical History History of amputation Social History Social History Household Members: None Household Members Other:: dogs Housing: House Do you presently have visiting nurse or other home services: Yes (visiting nurse) Alcohol intake: current Alcohol intake frequency: holidays/special occasions only Patient Tobacco Use Status: Former Tobacco user Years Smoked: 15 Smoked in Last 30 Days: No Second Hand Smoke Exposure: No Use of substances other than those prescribed or required for medical reasons: No Substance Use Type: Marijuana Advance Directives: Yes Advance Directives on File: Yes Advance Directives Date on File: 05/28/21 service: Yes Current occupational status: retired and disabled Physical Exam Vital Signs: Vital Signs: Last Vital Signs Temp 97.6 F 03/20/24 21:52 Pulse 69 03/20/24 21:52 Resp 13 03/20/24 21:52 BP 124/69 03/20/24 21:52 Pulse Ox 98 03/20/24 21:52 O2 Del Method Simple Mask 03/20/24 21:02 Oxygen Flow Rate 6 03/20/24 21:02 BMI result Body Mass Index 24.4 Const: Other: Appearance: Alert. Oriented X3. No acute distress. Eyes: Pupils equal, round and reactive to light. ENT: Pharynx normal. Neck: Normal inspection. Neck supple. No lymph nodes noted. No crepitus CVS: Normal heart rate and rhythm. Pulses normal. Normal S1 and S2 Respiratory: A bit tachypneic, bilateral moderate wheezing, moderate/slightly decreased air movement Abdomen: Soft and nontender. No rigidity. No distention. Skin: Skin warm and dry. Normal skin color. Normal skin turgor. Extremities: No lower extremity edema. No Lacerations. No Rash Neuro: Oriented X 3. No motor deficit. No sensory deficit. Moving all extremities. No slurred speech. CN 2 through 12 grossly intact Psych: calm, cooperative, normal affect Medications Administered Discontinued Medications Generic Name Dose Route Start Last Admin Trade Name Freq PRN Reason Stop Dose Admin Iohexol 65 ml 03/20/24 21:21 03/20/24 21:22 Iohexol 350 Mg/Ml 100 Ml Infus..Btl IV 03/20/24 21:22 65 ml ONCE ONE Administration Medical Decision Making Medical Decision Making MDM Narrative: We have labs from the 1st visit. At this time no need to repeat labs. Chest x-ray from earlier today shows small right pleural effusion versus infiltrate versus atelectasis. We will go ahead and order a CT scan to rule out pneumonia. At this time, patient has no symptoms of pneumonia. I discussed the above-mentioned with Dr. Sharpe from the Medicine team, patient being admitted CT scan of the chest: Negative for pneumonia Differential Diagnosis Differential Diagnoses: The differential diagnosis associated with the presentation includes (Asthma, pneumonia, viral URI) Admission/Observation Consideration of admission/observation: Escalation of care including admission/observation considered Consult Healthcare Provider Management of the patient was discussed with: Hospitalist Independent Interpretation I performed an independent interpretation of an: CT Scan Radiology Impression Discussion of test interpretation with radiology: I have reviewed the radiologist's reading. Radiologist Impression: Right basilar atelectasis and/or scarring. Rounded atelectasis noted in the posterior basal segment of the right lower lobe.No lobar consolidation at this time. No pneumothorax or pleural effusion. No enlarged mediastinal lymphadenopathy. Subcutaneous edema is noted. Streak artifacts noted about partially imaged upper abdomen. No definite hardware loosening of the lumbar hardware in the [id number]. Prevertebral surgical clips appear vascular. Mild thoracic vertebral height losses appear old chronic with small Schmorl's nodes. IMPRESSION: 1. Right basilar atelectasis and scarring with rounded atelectasis. 2. No consolidation Independent Historian Clinical information obtained from an independent historian. History obtained from or confirmed by: EMS Critical Care Time Critical Care Time Critical Care Time: Yes Total Critical Care Time: 60 Attestation: I have personally provided critical care time. Time includes review of lab data, radiology results, discussion with consultants, and monitoring for potential decompensation. Intervention performed as documented. Discharge Plan Discharge Clinical Impression: Asthma with acute exacerbation Qualifiers: Asthma severity: severe Asthma persistence: persistent Qualified Code(s): J45.51 - Severe persistent asthma with (acute) exacerbation Patient Disposition: Admitted As Inpatient
[2024-03-20] MEDS: iohexoL 350 MG/ML 100 ML INFUS..BTL 65 ML IV (21:22)
--- OUTSIDE RECORDS SUMMARY | 2024-03-20 21:25 | XMS_ITS | Clinical Summary ---
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 Active 03-10 [...] and inhalation capsules 2020-03 00:00: 00 Yes [id number] Per instruc tions DAILY Per instructio ns DAILY (route: inhalation ) Med Classific ation: Respirato ry Therapy Agents levalbutero l 0.63 mg/3 mL solution for nebulizatio n 2020-03 00:00: 00 Yes [id number] Per instruc tions 3 TIMES DAILY Per instructio ns 3 TIMES DAILY (route: inhalation ) Med Classific ation: Respirato ry Therapy Agents prednisone 10 mg tablet 2020-03 00:00: 00 08-08 11:47 :39 No [id number] 1 tablet DAILY 1 tablet DAILY (route: oral) Med Classific ation: Endocrine cetirizine 10 mg tablet 2020-03 00:00: 00 Yes [id number] 1 tablet DAILY 1 tablet DAILY (route: oral) Med Classific ation: Respirato ry Therapy Agents hydroxyzine HCl 50 mg tablet 2020-03 00:00: 00 Yes [id number] 1 tablet NEEDED 1 tablet NEEDED (route: oral) Med Classific ation: Central Nervous System Agents albuterol sulfate 2.5 mg/3 mL (0.083 %) solution for nebulizatio n 08-03 00:00: 00 Yes [id number] 3 mg 4 TIMES DAILY 3 mg 4 TIMES DAILY (route: inhalation ) Med Classific ation: Respirato ry Therapy Agents alprazolam 0.5 mg tablet 08-03 00:00: 00 Yes [id number] 1 tablet NEEDED 1 tablet NEEDED (route: oral) Med Classific ation: Central Nervous System Agents ascorbate calcium (vitamin C) 500 mg tablet 08-03 00:00: 00 Yes [id number] 1 tablet DAILY 1 tablet DAILY (route: oral) Med Classific ation: Electroly te Balance-N utritiona l Products magnesium 400 mg (as magnesium oxide) tablet 08-03 00:00: 00 Yes [id number] 1 tablet DAILY 1 tablet DAILY (route: oral) Med Classific ation: Electroly te Balance-N utritiona l Products ProAir HFA 90 mcg/actuati on aerosol inhaler 08-03 00:00: 00 Yes [id number] 2 puff DIRECTED 2 puff DIRECTED (route: inhalation ) Med Classific ation: Respirato ry Therapy Agents Zinc-220 50 mg zinc (220 mg) capsule 08-03 00:00: 00 Yes [id number] 1 capsule DAILY 1 capsule DAILY (route: oral) Med Classific ation: Electroly te Balance-N utritiona l Products Asmanex HFA 100 mcg/actuati on aerosol inhaler 08-03 00:00: 00 Yes [id number] 1 puff DAILY 1 puff DAILY (route: [...] CARE WILL BE ESTABLISHED THAT MEETS PATIENT'S INTERMEDIATE NEEDS AND INCLUDES PATIENT GOAL FOR HOME [...] End Date/Time Encounter Type Admission Type Attending [facility] Care Department Encounter ID Discharge Date Discharge Status Discharge Condition Discharge Reason Percent Goals Met 2021-02-06 00:00:00 2021-10-03 00:00:00 Outpatient RECERTIFIC ATION STAN [facility]ART[facility] [id number] 00:00:00 DISCHARGE TO HOME OR SELF CARE INDEPENDEN T WITH USE OF ASSISTIVE DEVICE GOALS MET ( ONLY) 100.00
--- NOTE | 2024-03-20 21:36 | PM.IMHP ---
History of Present Illness Date of Service: 03/20/24 Attending physician on admission: Alena Hudson Chief Complaint: Shortness on breath Tk Castro is a 44 years old man with past medical history significant for asthma presents to the emergency department complaining of shortness of breath over the last few days associated with dry cough and chest tightness. He reported some occasional headache and dizziness. He denies fevers or chills. He denies any acute gastrointestinal genitourinary symptoms. He denied tobacco or marijuana smoking (he ingests it only). There is no history of alcohol abuse or illicit drug use. This is the 2nd visit to the emergency department due to same symptoms. He uses ceterizine, asthma and Xopenex. In the ED, he was found to have tachypnea and tachycardia. There is no fever and oxygen saturation is normal on room air. Blood workup is remarkable for leukocytosis of 14.6. Hemoglobin and platelets are normal. Venous blood gas showed no respiratory acidosis. There are no significant electrolyte imbalances. Creatinine is 0.86 and BUN 23. Lactic acid is trending up 2.1--> 2.2--> and 3.3. Viral testing for COVID-19, influenza and RSV is negative. CXR showed small pleural effusion with bibasilar subsegmental atelectasis or infiltrates. EMS tx: Solu-Medrol, nebs and magnesium Review of Systems Review of Systems: All 12 systems were reviewed and normal except as noted in HPI. 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 Current chronic use of systemic steroids Bronchiolitis obliterans Asthma-COPD overlap syndrome 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 Anxiety Asthma with exacerbation Acute respiratory failure with hypoxia Allergic asthma Asthmaticus, status PTSD (post-traumatic stress disorder) Anxiety Asthma Surgical History History of amputation Social History Household Members: None Household Members Other:: dogs Housing: House Do you presently have visiting nurse or other home services: Yes (visiting nurse) Alcohol intake: current Alcohol intake frequency: holidays/special occasions only Patient Tobacco Use Status: Former Tobacco user Years Smoked: 15 Second Hand Smoke Exposure: No Substance Use Type: Marijuana Advance Directives Date on File: 05/28/21 service: Yes Current occupational status: retired and disabled Meds Allergies Allergy/AdvReac Type Severity Reaction Status Date / Time ibuprofen [IBUPROFEN] Allergy Intermediate Difficulty Verified 03/20/24 21:04 Breathing shellfish derived Allergy Mild SWELLING Verified 03/20/24 21:04 aspirin [ASA] Allergy Unknown DIFFICULTY Verified 03/20/24 21:04 BREATHING albuterol AdvReac Mild Gas Verified 03/20/24 21:04 exchange problems sertraline AdvReac Nausea Verified 03/20/24 21:04 nsaids Allergy Unknown Difficulty Uncoded 03/20/24 02:28 Breathing nucala Allergy Unknown shortness Uncoded 03/20/24 02:28 of breath Active Medications: Current Medications Acetaminophen (Acetaminophen 325 Mg Tablet) 975 mg PO Q6H PRN PRN Reason: Pain, Mild 1-3,fever,headache Calcium Carbonate (Calcium Carbonate 750 Mg Tab.Chew) 750 mg PO Q4H PRN PRN Reason: Heartburn Enoxaparin Sodium (Enoxaparin Sodium 40 Mg/0.4 Ml Syringe) 40 mg SUBCUT Q24H BATSHEVA Magnesium Hydroxide (Milk Of Magnesia 30 Ml Oral.Susp) 30 ml PO DAILY PRN PRN Reason: Constipation Melatonin (Melatonin 3 Mg Tablet) 6 mg PO BEDTIME PRN PRN Reason: Insomnia Sodium Chloride (0.9 % Sodium Chloride Flush 3 Ml Syringe) 3 ml IVFLUSH QSHIFT BATSHEVA Home Medications ?Medication ?Instructions ?Recorded ?Confirmed ?Last Taken ?Type ascorbic acid (vitamin C) 500 mg 500 mg PO DAILY 12/21/20 07/27/21 05/23/21 History tablet (Vitamin C) cetirizine 10 mg tablet 10 mg PO DAILY 12/21/20 07/27/21 05/23/21 History magnesium oxide 400 mg PO DAILY 12/21/20 07/27/21 02/13/21 History cholecalciferol (vitamin D3) 125 125 mcg PO DAILY 05/23/21 07/27/21 Unknown History mcg (5,000 unit) tablet (Vitamin D3) mometasone 220 mcg/actuation(30 1 inh inhalation DAILY 05/23/21 07/27/21 Unknown History doses) breath activated powder inhaler (Asmanex Twisthaler) tiotropium bromide 1.25 2 puff inhalation DAILY 05/23/21 07/27/21 Unknown History mcg/actuation mist for inhalation (Spiriva Respimat) zinc sulfate 50 mg zinc (220 mg) 50 mg PO Q2D 05/23/21 07/27/21 Unknown History capsule CPAP (CPAP Machine/Device) 05/23/23 Unknown History levalbuterol HCl 0.63 mg/3 mL 0.63 mg inhalation TID 05/23/23 Unknown History solution for nebulization nebulizers 05/23/23 Unknown History azelastine 137 mcg (0.1 %) nasal 2 spray intranasal BID PRN 02/13/24 Unknown History spray levalbuterol tartrate 45 2 inh inhalation Q6H PRN 02/13/24 Unknown History mcg/actuation aerosol inhaler pseudoephedrine HCl 120 mg 120 mg PO Q12H PRN 02/13/24 Unknown History tablet,extended release Physical Exam Vital Signs and Narrative: Vital Signs: Last Vital Signs Temp 98.0 F 03/20/24 21: Pulse 84 03/20/24 21:02 Resp 22 H 03/20/24 21:02 BP 111/64 03/20/24 21:02 Pulse Ox 97 03/20/24 21:02 O2 Del Method Simple Mask 03/20/24 21:02 Oxygen Flow Rate 6 03/20/24 21:02 BMI result Body Mass Index 24.4 Constitutional - Awake and Alert, No apparent distress HEENT - PERRL, EOMI Heart - S1S2, RRR, No murmurs Lungs - Normal lung expansion, Normal respiratory effort, No respiratory distress. Tachypnea. End expiratory wheezes. No crackles. 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 Musculoskeletal - Normal inspection, normal ROM Skin - Warm/Dry Neurological - Alert & oriented x3. No focal weakness grossly noted. Speech normal. Psychological - Appropriate affect Assessment and Plan (1) Asthma with acute exacerbation: Qualifiers: Asthma severity: severe Asthma persistence: persistent Qualified Code(s): J45.51 - Severe persistent asthma with (acute) exacerbation Status: Acute (2) Lactic acidosis: Status: Acute Plan Tk Castro is a 44 y/o admitted with: Acute asthma exacerbation associated with small right pleural effusion Admit to hospitalist service. Telemetry. Pulse oximetry. Supplemental O2 to keep O2 sats > 90%. Continue IV steroids, antibiotics and bronchodilator therapy. Chest CT s/o contrast obtained the ED -will follow results. Lactic acidosis, likely secondary to multiple breathing treatments. Doubt sepsis. There is tachypnea and tachycardia but likely secondary to above. Code status: Full DVT prophylaxis: Lovenox Patient will need hospitalization for at least 2 midnights for acute asthma exacerbation treatment (2nd visit to the ED with same symptoms) IV steroid, bronchodilator therapy and IV antibiotics. Quality Stroke Does the patient have a stroke diagnosis?: No VTE Prior VTE?: No VTE Risk Level:: Medical - moderate - high VTE Device Contraindication: Treatment Not Indicated VTE Drug Contraindication: N/A - Med Ordered
[2024-03-20 21:52] VITALS: BP 124/69; PULSE 69; RESP 13; TEMP 36.4; O2SAT 98
[2024-03-20] MEDS: Albuterol Sulfate 5 MG, Albuterol/Iprat 2.5/0.5MG 3 ML 3 ML INHALE (22:04)
[2024-03-20 22:05] LABS: Cancel Lactic Acid Canceled
[2024-03-20] MEDS: Doxycycline Hyclate 100 MG in 0.9 % Sodium Chloride 250 ML 166.67 MG IV (22:52)
[2024-03-21] VITALS (12 sets, daily range): BP systolic 111–139; BP diastolic 59–97; PULSE 59–119; RESP 12–20; TEMP 36.4–36.9; O2SAT 93–99; BMI 28.0
--- NOTE | 2024-03-21 01:00 | PC.NURSE ---
Pt biba, from home with shortness of breath and chest tightness. Pt was seen here yesterday morning for asthma exacerbation. Pt has hx of asthma exacerbation and being intubated. Pt reports he woke up from a nap and started to feel worse. He tried to medicate at home with no relief. During transport to hospital pt received 125mg of solumedrol, 2g of mag, duoneb, and IM epi. Pt received IV doxycycline 100mg and ativan 0.5mg PO. Pt has 18G field IV in LAC and 20G IV in left hand. Pt is a&ox4, speaking in full clear sentences, and able to stand pivot to the wheelchair.
--- NOTE | 2024-03-21 04:20 | PC.NURSE ---
Pt requesting breahting tx. O2 sat is 93% on RA. Called respiratory for breathing tx. Placed pt on 4L NC for comfort.
[2024-03-21] MEDS: Albuterol Sulfate (0.083%) 2.5 MG/3 ML VIAL.NEB INHALE (04:30)
[2024-03-21] MEDS: LORazepam 0.5 MG TABLET PO (04:57)
--- NOTE | 2024-03-21 05:45 | PC.NURSE ---
Addendum entered by Demetrice Santiago 03/21/24 06:11: O2 switched to 5L on oxymask. Original Note: Pt reports difficulty breathing, SpO2 91% while receiving breathing tx. Pt requesting Ativan or morphine to help with breathing . Provider Dell made aware, new order given per MAY.
[2024-03-21 06:19] LABS: MANUAL DIFF FLAG NO
[2024-03-21 06:25] LABS: Basophils Percent Auto 0.2 % (0-2); Hematocrit 41.2 % (42.0-52.0); Hemoglobin 13.4 g/dl (14.0-18.0); Imm Gran Abs Auto 0.12 X10*3/uL (0.00-0.03); Imm Gran Pct Auto 1.2 % (0.0-0.4); Lymphocytes Absolute Auto 0.9 X10*3/uL (1.2-4.9); Lymphocytes Percent Auto 9.5 % (20-40); Mean Corpuscular HGB Conc 32.5 g/dl (31.0-36.0); Mean Corpuscular Hemoglobin 30.1 pg (27.0-33.0); Mean Corpuscular Volume 92.6 fL (80.0-98.0); Monocytes Absolute Auto 0.6 X10*3/uL (0.1-1.2); Monocytes Percent Auto 6.3 % (2-11); Neutrophils Absolute Auto 8.1 x10*3/uL (2.0-8.3); Neutrophils Percent Auto 82.8 % (45-73); Platelet Count 238 X10*3/uL (160-400); Red Blood Count 4.45 X10*6/uL (4.60-5.80); Red Cell Distribution Width 13.2 % (11.0-16.0); White Blood Count 9.7 X10*3/uL (4.8-10.8)
[2024-03-21 06:39] LABS: Anion Gap 12 (12-20); Blood Urea Nitrogen 13 mg/dL (9-16); Calcium 9.1 mg/dL (8.4-10.2); Carbon Dioxide 25 mmol/L (22-29); Chloride 112 mmol/L (96-108); Creatinine Clr Calc Pharmacy 143.4; Estimated Glomerular Filt Rate > 60; Glucose Random 135 mg/dL (60-115); Magnesium 2.3 mg/dL (1.6-2.6); Potassium 4.2 mmol/L (3.3-5.1); Sodium 145 mmol/L (135-145)
[2024-03-21 06:48] LABS: Lactic Acid 2.9 mmol/L (0.5-2.0)
[2024-03-21 07:41] LABS: Cancel Lactic Acid Canceled
[2024-03-21] MEDS: 0.9 % Sodium Chloride Flush 3 ML SYRINGE IVFLUSH ×3 (08:08→19:38)
[2024-03-21] MEDS: LORazepam 2 MG/ML VIAL 0.5 MG IVPUSH (08:08)
[2024-03-21] MEDS: Loratadine 10 MG TABLET PO (08:10)
[2024-03-21] MEDS: methylPREDNISolone Sod Succ 40 MG/ML VIAL IVPUSH ×2 (08:11→23:12)
[2024-03-21] MEDS: Albuterol/Iprat 2.5/0.5MG 3 ML AMPUL.NEB INHALE ×3 (08:45→15:25)
[2024-03-21] MEDS: Doxycycline Hyclate 100 MG in 0.9 % Sodium Chloride 250 ML 166.67 MG IV ×2 (09:21→23:18)
--- NOTE | 2024-03-21 11:05 | P.PNIM_ITS ---
Subjective Subjective Date of Service: 03/21/24 Interval History: f/u for asthma exacerbtion no hypoxia, overall feeling better but still tight and wheezing Physical Exam 2 Vital Signs: Vital Signs: Last Vital Signs Temp 98.4 F 03/21/24 06:36 Pulse 78 03/21/24 08:45 Resp 20 03/21/24 08:45 BP 115/59 L 03/21/24 06:36 Pulse Ox 97 03/21/24 06:36 O2 Del Method Room Air 03/21/24 06:36 Oxygen Flow Rate 6 03/20/24 21:02 BMI result Body Mass Index 24.4 HEENT: Other: General: AO X 3, no acute distress Resp: kennedy ins/exp wheexzing, normal effort CVS: S1,S2,RRR GI: +BS, NT, no distention Skin: No rash Neuro: motor grossly intact Psych: appropriate affect Objective Data Active Medications Acetaminophen (Acetaminophen 325 Mg Tablet) 975 mg PO Q6H PRN PRN Reason: Pain, Mild 1-3,fever,headache Albuterol Sulfate (Albuterol Sulfate (0.083%) 2.5 Mg/3 Ml Vial.Neb) 2.5 mg INHALE Q2H PRN PRN Reason: Shortness of Breath/Wheezing Last Admin: 03/21/24 04:30 Dose: 2.5 mg Documented By: REESE Albuterol/Ipratropium (Albuterol/Iprat 2.5/0.5mg 3 Ml Ampul.Neb) 3 ml INHALE RQ4H WHILE AWAKE [facility] Last Admin: 03/21/24 08:45 Dose: 3 ml Documented By: CRISTIANA Calcium Carbonate (Calcium Carbonate 750 Mg Tab.Chew) 750 mg PO Q4H PRN PRN Reason: Heartburn Enoxaparin Sodium (Enoxaparin Sodium 40 Mg/0.4 Ml Syringe) 40 mg SUBCUT Q24H [facility] Last Admin: 03/21/24 08:09 Dose: Not Given Documented By: LISANDRA Non-Admin Reason: Patient Refused Doxycycline Hyclate 100 mg/ (Sodium Chloride) 250 mls @ 166.67 mls/hr IV Q12H [facility] Last Admin: 03/21/24 09:21 Dose: 166.67 mls/hr Documented By: LISANDRA Loratadine (Loratadine 10 Mg Tablet) 10 mg PO DAILY [facility] Last Admin: 03/21/24 08:10 Dose: 10 mg Documented By: LISANDRA Magnesium Hydroxide (Milk Of Magnesia 30 Ml Oral.Susp) 30 ml PO DAILY PRN PRN Reason: Constipation Melatonin (Melatonin 3 Mg Tablet) 6 mg PO BEDTIME PRN PRN Reason: Insomnia Methylprednisolone Sodium Succinate (Methylprednisolone Sod Succ 40 Mg/Ml Vial) 40 mg IVPUSH BID [facility] Last Admin: 03/21/24 08:11 Dose: 40 mg Documented By: LISANDRA Sodium Chloride (0.9 % Sodium Chloride Flush 3 Ml Syringe) 3 ml IVFLUSH QSHIFT [facility] Last Admin: 03/21/24 08:08 Dose: 3 ml Documented By: LISANDRA Labs 03/21/24 06:02 03/21/24 06:02 Labs: Laboratory Results - last 24 hr 03/21/24 06:02 MCV 92.6 MCH 30.1 MCHC 32.5 RDW 13.2 Plt Count 238 MPV 10.0 Immature Gran % (Auto) 1.2 H Neut % (Auto) 82.8 H Lymph % (Auto) 9.5 L [place] % (Auto) 6.3 Eos % (Auto) 0.0 Baso % (Auto) 0.2 Lymph # (Auto) 0.9 L [place] # (Auto) 0.6 Eos # (Auto) 0.0 Baso # (Auto) 0.0 Abs Immat Gran (auto) 0.12 H Absolute Neuts (auto) 8.1 Absolute Nucleated RBC 0.000 Nucleated RBC % (auto) 0.0 Anion Gap 12 Estim Creat Clear Calc 143.4 Estimated GFR > 60 Random Glucose 135 H Lactic Acid 2.9 H* Calcium 9.1 Magnesium 2.3 Assessment and Plan (1) Asthma with acute exacerbation: Status: Acute Plan 44-year-old male with a past medical history of anxiety, asthma, history of status asthmaticus, 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 Acute lactic acidosis, not due to sepsis, d/t breathing treatment VTE ppx --Lovenox Quality Stroke Does the patient have a stroke diagnosis?: No VTE Prior VTE?: No VTE Risk Level:: Medical - moderate - high VTE Device Contraindication: Treatment Not Indicated VTE Drug Contraindication: N/A - Med Ordered
--- NOTE | 2024-03-21 11:21 | PHA.MEDREC ---
Addendum entered by Jil Wilson RPh 03/21/24 11:49: reviewed by [facility]. Original Note: Pharmacy Consult ? Medication Reconciliation Pharmacy has completed the medication reconciliation. [facility]. [facility] is only currently on psuedophedrine, levalbuterol neb, cetirizine, azelastine nasal spray, flonase, epi-pen, and prednisone. Chronic prednisone is also mentioned in prior documentation from Dr. Khalil as well. [facility] did not mention Spiriva.
[2024-03-21] MEDS: Fluticasone Propionate Nasal 16 GM SPRAY 2 SPRAY NOSTRIL-B (13:04)
[2024-03-21] MEDS: levalbuterol HCL 1.25 MG/3 ML VIAL.NEB INHALE ×2 (18:30→22:46)
--- NOTE | 2024-03-21 18:32 | PC.NURSE ---
Pt complained of feeling tight and SOB. O2 sats 0n room air 96-97% . MD Perez notified , PRN dose of Xopenex ordered and given via nebulizer. will monitor
[2024-03-21] MEDS: Morphine Sulfate 2 MG/ML CARTRIDGE IVPUSH (19:39)
[2024-03-22] VITALS (12 sets, daily range): BP systolic 119–142; BP diastolic 65–90; PULSE 72–103; RESP 12–20; TEMP 36.3–36.8; O2SAT 92–98
[2024-03-22] MEDS: LORazepam 0.5 MG TABLET PO ×3 (01:10→23:17)
[2024-03-22] MEDS: levalbuterol HCL 1.25 MG/3 ML VIAL.NEB INHALE ×4 (06:10→23:25)
--- NOTE | 2024-03-22 08:54 | HO.PM.IMPN ---
Subjective Subjective Date of Service: 03/22/24 Interval History: f/u on asthma exacerbation still feeling sob, and had hard time breathing last night Physical Exam Vital Signs: Vital Signs: Last Vital Signs Temp 97.4 F 03/22/24 08:00 Pulse 77 03/22/24 08:00 Resp 16 03/22/24 08:00 BP 119/65 03/22/24 08:00 Pulse Ox 96 03/22/24 08:00 O2 Del Method Nasal Cannula 03/22/24 08:00 O2 Flow Rate 2.0 03/22/24 08:00 Oxygen Flow Rate 6 03/20/24 21:02 BMI result Body Mass Index 28.0 General: AO X 3, no acute distress Resp: kennedy exp/insp wheezing CVS: S1,S2,RRR GI: +BS, NT, no distention Skin: No rash Neuro: motor grossly intact Psych: appropriate affect Objective Data Active Medications Acetaminophen (Acetaminophen 325 Mg Tablet) 975 mg PO Q6H PRN PRN Reason: Pain, Mild 1-3,fever,headache Albuterol Sulfate (Albuterol Sulfate (0.083%) 2.5 Mg/3 Ml Vial.Neb) 2.5 mg INHALE Q2H PRN PRN Reason: Shortness of Breath/Wheezing Last Admin: 03/21/24 04:30 Dose: 2.5 mg Documented By: REESE Albuterol/Ipratropium (Albuterol/Iprat 2.5/0.5mg 3 Ml Ampul.Neb) 3 ml INHALE RQ4H WHILE AWAKE [facility] Last Admin: 03/21/24 15:25 Dose: 3 ml Documented By: CRISTIANA Comments: Azelastine HCl (Azelastine Hcl Nasal 137 Mcg/[place] 30 Ml) 2 spray NOSTRIL-B BID PRN PRN Reason: Allergy Symptoms Calcium Carbonate (Calcium Carbonate 750 Mg Tab.Chew) 750 mg PO Q4H PRN PRN Reason: Heartburn Enoxaparin Sodium (Enoxaparin Sodium 40 Mg/0.4 Ml Syringe) 40 mg SUBCUT Q24H [facility] Last Admin: 03/21/24 08:09 Dose: Not Given Documented By: LISANDRA Non-Admin Reason: Patient Refused Fluticasone Propionate (Fluticasone Propionate Nasal 16 Gm [place]) 2 spray NOSTRIL-B DAILY [facility] Last Admin: 03/21/24 13:04 Dose: 2 spray Documented By: YEYO Doxycycline Hyclate 100 mg/ (Sodium Chloride) 250 mls @ 166.67 mls/hr IV Q12H [facility] Last Infusion: 03/22/24 00:59 Dose: Infused Documented By: NESTOR Levalbuterol HCl (Levalbuterol Hcl 1.25 Mg/3 Ml Vial.Neb) 1.25 mg INHALE Q2H PRN PRN Reason: Shortness of Breath/Wheezing Last Admin: 03/22/24 06:10 Dose: 1.25 mg Documented By: ARTEMIO Levalbuterol HCl (Levalbuterol Hcl 1.25 Mg/3 Ml Vial.Neb) 1.25 mg INHALE Q3H PRN PRN Reason: Shortness of Breath/Wheezing Loratadine (Loratadine 10 Mg Tablet) 10 mg PO DAILY [facility] Last Admin: 03/21/24 08:10 Dose: 10 mg Documented By: LISANDRA Lorazepam (Lorazepam 0.5 Mg Tablet) 0.5 mg PO Q8H PRN PRN Reason: Anxiety Last Admin: 03/22/24 01:10 Dose: 0.5 mg Documented By: NESTOR Magnesium Hydroxide (Milk Of Magnesia 30 Ml Oral.Susp) 30 ml PO DAILY PRN PRN Reason: Constipation Melatonin (Melatonin 3 Mg Tablet) 6 mg PO BEDTIME PRN PRN Reason: Insomnia Methylprednisolone Sodium Succinate (Methylprednisolone Sod Succ 40 Mg/Ml Vial) 40 mg IVPUSH BID [facility] Last Admin: 03/21/24 23:12 Dose: 40 mg Documented By: NESTOR Pseudoephedrine HCl (Pseudoephedrine Hcl 30 Mg Tablet) 60 mg PO Q6H PRN PRN Reason: nasal congestion Sodium Chloride (0.9 % Sodium Chloride Flush 3 Ml Syringe) 3 ml IVFLUSH QSHIFT [facility] Last Admin: 03/21/24 19:38 Dose: 3 ml Documented By: NESTOR Labs 03/21/24 06:02 03/21/24 06:02 Microbiology Microbiology Results: Microbiology 03/20/24 22:51 Blood Culture - Preliminary Blood - Venous No growth after 24 hours. 03/20/24 22:49 Blood Culture - Preliminary Blood - Venous No growth after 24 hours. Assessment and Plan (1) Asthma with acute exacerbation: Status: Acute Plan 44-year-old male with a past medical history of anxiety, asthma, history of status asthmaticus, constrictive bronchitis due to toxic exposure while serving in [place], PTSD, recurrent admissions for asthma but not seen here since 2021 here with exacerbation of severe persistent asthma Severe persistent asthma with acute exacerbation, overall improving but still -CT chest no acute finding -No hypoxia, except for when anxious IV Solu-Medrol and ultimately to PO with slow jim Continue breathing treatments, scheduled and p.r.n. Acute lactic acidosis, not due to sepsis, d/t breathing treatment VTE ppx --Lovenox Quality Stroke Does the patient have a stroke diagnosis?: No VTE Prior VTE?: No VTE Risk Level:: Medical - moderate - high VTE Device Contraindication: Treatment Not Indicated VTE Drug Contraindication: N/A - Med Ordered
[2024-03-22] MEDS: Doxycycline Hyclate 100 MG in 0.9 % Sodium Chloride 250 ML 166.67 MG IV (09:33)
[2024-03-22] MEDS: Enoxaparin Sodium 40 MG/0.4 ML SYRINGE SUBCUT (09:33)
[2024-03-22] MEDS: methylPREDNISolone Sod Succ 40 MG/ML VIAL IVPUSH ×2 (09:33→22:23)
[2024-03-22] MEDS: Fluticasone Propionate Nasal 16 GM SPRAY 2 SPRAY NOSTRIL-B (09:33)
[2024-03-22] MEDS: 0.9 % Sodium Chloride Flush 3 ML SYRINGE IVFLUSH ×3 (09:34→22:23)
[2024-03-22] MEDS: Loratadine 10 MG TABLET PO (09:34)
--- NOTE | 2024-03-22 11:00 | MHC.CM.PN ---
PT REPORTS HE LIVES ALONE AND IS MOSTLY INDEPENDENT WITH SELF CARE, FAMILY HELPS PRN PT REPORTS HE HAS NO SERVICES PT HAS A WHEEL CHAIR, PROSTHETICS, A NEBULIZER AND HOME MODIFICATIONS. PT HAS A HCP ON FILE AND CONFIRMS HIS PCP IS PHYLLIS BULL. CURRENT DC PLAN IS HOME WITH NO SERVICES PT WILL SELF ARRANGE TRANSPORT
[2024-03-22] MEDS: Morphine Sulfate 2 MG/ML CARTRIDGE IVPUSH (17:32)
[2024-03-22] MEDS: Doxycycline Monohydrate 100 MG CAPSULE PO (22:22)
[2024-03-23 03:11] VITALS: BP 125/83; PULSE 80; RESP 18; TEMP 36.6; O2SAT 96
[2024-03-23] MEDS: levalbuterol HCL 1.25 MG/3 ML VIAL.NEB INHALE ×2 (06:04→09:12)
[2024-03-23 06:06] VITALS: PULSE 75; O2SAT 95
[2024-03-23 07:11] VITALS: BP 127/74; PULSE 76; RESP 15; TEMP 36.2; O2SAT 94
[2024-03-23] MEDS: Fluticasone Propionate Nasal 16 GM SPRAY 2 SPRAY NOSTRIL-B (09:10)
[2024-03-23] MEDS: LORazepam 0.5 MG TABLET PO (09:10)
[2024-03-23] MEDS: methylPREDNISolone Sod Succ 40 MG/ML VIAL IVPUSH (09:10)
[2024-03-23] MEDS: Doxycycline Monohydrate 100 MG CAPSULE PO (09:10)
[2024-03-23] MEDS: Loratadine 10 MG TABLET PO (09:10)
[2024-03-23] MEDS: 0.9 % Sodium Chloride Flush 3 ML SYRINGE IVFLUSH (09:10)
[2024-03-23 09:12] VITALS: PULSE 76; RESP 17; O2SAT 94
--- NOTE | 2024-03-23 09:21 | PM.DS ---
DS: Providers Provider Date of Service: 03/23/24 Date of admission: 03/20/24 21:32 Date of discharge: 03/23/24 Primary care physician: Earle Montano DS: Diagnosis Discharge Diagnosis (1) Asthma with acute exacerbation: Status: Acute DS: Summary Hospital Course Hospital Course: admission hpi Chief Complaint: Shortness on breath Tk Castro is a 44 years old man with past medical history significant for asthma presents to the emergency department complaining of shortness of breath over the last few days associated with dry cough and chest tightness. He reported some occasional headache and dizziness. He denies fevers or chills. He denies any acute gastrointestinal genitourinary symptoms. He denied tobacco or marijuana smoking (he ingests it only). There is no history of alcohol abuse or illicit drug use. This is the 2nd visit to the emergency department due to same symptoms. He uses ceterizine, asthma and Xopenex. In the ED, he was found to have tachypnea and tachycardia. There is no fever and oxygen saturation is normal on room air. Blood workup is remarkable for leukocytosis of 14.6. Hemoglobin and platelets are normal. Venous blood gas showed no respiratory acidosis. There are no significant electrolyte imbalances. Creatinine is 0.86 and BUN 23. Lactic acid is trending up 2.1--> 2.2--> and 3.3. Viral testing for COVID-19, influenza and RSV is negative. CXR showed small pleural effusion with bibasilar subsegmental atelectasis or infiltrates. EMS tx: Solu-Medrol, nebs and magnesium Hospital course: Patient presents with shortness of breath workup was negative for RSV influenza or COVID. Checks x-ray shows small pleural effusion with bibasilar subsegmental atelectasis or infiltrate. He was admitted and treated with IV Solu-Medrol bronchodilators via nebulizers and empiric doxycycline. Over the course of hospitalization he has recovered well and is presently doing well his lungs are without wheezes is breathing without any difficulty and a desire to go home. He will be prescribed prednisone taper with 40 mg taper by 10 mg every 3 days and to return his baseline chronic prednisone of 10 mg. He is also to complete a course of 5 days of doxycycline. To follow-up with his primary care physician Time Attestation Discharge Coordination Time (in mins): 35 Quality: Safe Use of Opioids Does Pt have an Active Cancer Diagnosis on the Problem List?: No Quality: Stroke Does the patient have a stroke diagnosis?: No Physical Exam Vital Signs: Vital Signs: Last Vital Signs Temp 97.1 F 03/23/24 07:11 Pulse 76 03/23/24 09:12 Resp 17 03/23/24 09:12 BP 127/74 03/23/24 07:11 Pulse Ox 94 03/23/24 07:11 O2 Del Method Room Air 03/23/24 07:11 O2 Flow Rate 2 03/23/24 03:11 Oxygen Flow Rate 6 03/20/24 21:02 BMI result Body Mass Index 28.0 General: AO X 3, no acute distress Resp: CTA bilateral, no wheezes CVS: S1,S2,RRR GI: +BS, NT, no distention Skin: No rash Neuro: motor grossly intact Psych: appropriate affect DS: Data Data Completed and Pending Completed studies during hospitalization [Text1]: Procedures Assistance with Respiratory Ventilation, Less than 24 Consecutive Hours, Continuous Positive Airway Pressure (05/23/21) Labs on day of discharge: Preliminary micro results at discharge 03/20/24 22:51 Blood Culture - Preliminary Blood - Venous No growth after 48 hours. 03/20/24 22:49 Blood Culture - Preliminary Blood - Venous No growth after 24 hours. Discharge Plan Discharge Anticipated Discharge Date/Time: 03/23/24 09:17 Patient Disposition: Home, Self-Care Discharge Diagnosis: Acute asthma exacerbation Referrals: Earle Montano [Primary Care Provider] - 1 Week Discharge Medications: New prednisone 10 mg tablet See Taper PO DAILY Qty: 20 0RF Taper: Prednisone 40 mg daily for 3 Days and 0 Hour 30 mg daily for 3 Days and 0 Hour 20 mg daily for 3 Days and 0 Hour 10 mg daily for 3 Days and 0 Hour doxycycline monohydrate 100 mg Capsule 100 mg PO Q12H Qty: 7 0RF Continued pseudoephedrine HCl 60 mg tablet 60 mg PO Q6H PRN (Reason: nasal congestion) 30 Days Qty: 120 1RF Rx Instructions: DNExceed 4 doses/24h cetirizine 10 mg Tablet 10 mg PO DAILY epinephrine 0.3 mg/0.3 mL Auto-Injector 0.3 mg IM Q15M PRN (Reason: Anaphylaxis) Rx Instructions: for 2 doses levalbuterol HCl 0.31 mg/3 mL Solution For Nebulization 0.31 mg INHALATION Q4H PRN (Reason: Shortness Of Breath Or Wheezing) prednisone 10 mg Tablet 10 mg PO DAILY (DME) nebulizers Misc See Rx Instructions .ROUTE Rx Instructions: As directed (DME) CPAP Machine/Device Device See Rx Instructions .ROUTE Rx Instructions: As directed fluticasone propionate 50 mcg/actuation spray,suspension 2 spray intranasal DAILY 30 Days Qty: 15.8 11RF azelastine 137 mcg (0.1 %) spray,non-aerosol 2 spray intranasal BID PRN (Reason: Allergy Symptoms) Rx Instructions: administer into each nostril Discharge Orders: Discharge Order (Routine); Ordered 03/23/24 Ordered By: Reilly Patterson Diet: Advance to usual diet Activity on Discharge: As tolerated Stand Alone Forms: Patient Portal Discharge page Print Language: Kazakh Care Plan Goals: Recovery from asthma exacerbation Health Concerns: Asthma with frequent exacerbation Plan of Treatment: Take prednisone jim and return to daily dose of 10 mg daily take doxycyline for bronchitis Follow-up with your primary care doctor within a week. Assessment: see above
--- NOTE | 2024-03-23 09:27 | MHC.CM.PN ---
pt dcd home self care
[2024-03-23 11:10] VITALS: BP 140/77; PULSE 77; RESP 16; TEMP 36; O2SAT 93
== END 2024-03-23 14:02 | disposition home or self-care (01) | DRG 202 ==
LOC: HO.ED 21:41 → HO.EDOVER 21:51 → HO.S3 03-21 13:15
PROVIDERS: Admitting Provider Internal Medicine; Emergency Provider Emergency Medicine; PCP Internal Medicine; Visit Provider Internal Medicine
DX: J45.51 Severe persistent asthma with (acute) exacerbation (principal); E87.21 Acute metabolic acidosis; J91.8 Pleural effusion in other conditions classified elsewhere; J98.11 Atelectasis; J68.4 Chronic respiratory conditions due to chemicals, gases, fumes and vapors; Z87.891 Personal history of nicotine dependence; Y37.90XS Military operations, unspecified, sequela; F43.10 Post-traumatic stress disorder, unspecified; Z79.51 Long term (current) use of inhaled steroids; Z79.52 Long term (current) use of systemic steroids; Z79.899 Other long term (current) drug therapy
CPT/HCPCS: 36415; 71250; 80048; 83605; 83735; 85025; 87040; 94640; 94660; 99285; J1650; J2060; J2270; J2919; Q9967

== ENCOUNTER → 2024-03-20 21:32 | Outpatient (BNV) | payer OTHER, SELFPAY | PROVIDERS: Admitting Provider Internal Medicine; Emergency Provider Emergency Medicine; PCP Internal Medicine; Visit Provider Internal Medicine | DX: J45.51 Severe persistent asthma with (acute) exacerbation (principal) | CPT/HCPCS: 99222; 99232 ==

== ENCOUNTER 2024-05-12 10:20 | Outpatient (AMB) | payer OTHER, SELFPAY ==
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
[2024-05-12 10:39] VITALS: BP 116/80; PULSE 84; O2SAT 95
== END 2024-05-12 11:01 | disposition home or self-care (01) ==
PROVIDERS: PCP Internal Medicine; Visit Provider Hospitalist
DX: J45.51 Severe persistent asthma with (acute) exacerbation (principal); J44.89 Other specified chronic obstructive pulmonary disease; J44.81 Bronchiolitis obliterans and bronchiolitis obliterans syndrome; Z79.52 Long term (current) use of systemic steroids; J68.3 Other acute and subacute respiratory conditions due to chemicals, gases, fumes and vapors; J33.9 Nasal polyp, unspecified; T78.40XD Allergy, unspecified, subsequent encounter
CPT/HCPCS: 99214; G2211

== ENCOUNTER → 2024-05-12 10:20 | Outpatient (BNVA) | payer OTHER, SELFPAY | PROVIDERS: PCP Internal Medicine; Visit Provider Hospitalist | DX: J45.51 Severe persistent asthma with (acute) exacerbation (principal); J33.9 Nasal polyp, unspecified; J44.89 Other specified chronic obstructive pulmonary disease; J44.81 Bronchiolitis obliterans and bronchiolitis obliterans syndrome; J68.3 Other acute and subacute respiratory conditions due to chemicals, gases, fumes and vapors; T78.40XD Allergy, unspecified, subsequent encounter; Z79.52 Long term (current) use of systemic steroids | CPT/HCPCS: 99212 ==

== ENCOUNTER 2024-06-01 22:06 | Emergency (ER) | payer OTHER, SELFPAY ==
--- NOTE | ~2024-06-01 | XR_ITS ---
CLINICAL HISTORY: sob, hx asthma copd 1 view chest x-ray Comparison: CR - XR CHEST 1V - 03/20/24 02:31 EST Findings: The lungs are clear. Normal size heart. No acute fracture. IMPRESSION: 1. No acute findings. This document has been electronically signed by: Cass Edward MD on 06/01/2024 22:50:54
[2024-06-01 22:17] VITALS: BP 136/84; PULSE 62; RESP 22; TEMP 36.6; O2SAT 90; BMI 26.7
--- NOTE | 2024-06-01 22:20 | ECG_ITS ---
Test Reason : SOB Blood Pressure : */* mmHG Vent. Rate : 107 BPM Atrial Rate : 107 BPM P-R Int : 158 ms QRS Dur : 78 ms QT Int : 324 ms P-R-T Axes : 70 -4 48 degrees QTcB Int : 432 ms Sinus tachycardia Otherwise normal ECG When compared with ECG of 13-Oct-2022 04:49, Vent. rate has increased by 39 bpm Questionable change in QRS axis Referred By: Ruthie Rosales Electronically Signed By: KHURRAM SALAZAR MD
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
[2024-06-01 22:36] VITALS: PULSE 118; RESP 20; O2SAT 92
[2024-06-01] MEDS: levalbuterol HCL 2.5 MG, Ipratropium Bromide 0.5 MG INHALE (22:36)
[2024-06-01] MEDS: methylPREDNISolone Sod Succ 125 MG/2 ML VIAL IVPUSH (22:47)
[2024-06-01] MEDS: Magnesium Sulfate/H2O 2 GM/50 ML PIGGYBACK IV (22:52)
[2024-06-01 22:54] LABS: MANUAL DIFF FLAG NO
[2024-06-01 22:56] LABS: Basophils Absolute Auto 0.1 X10*3/uL (0.0-0.2); Basophils Percent Auto 0.8 % (0-2); Eosinophils Absolute Auto 0.8 X10*3/uL (0.0-0.4); Eosinophils Percent Auto 5.3 % (0-4); Hematocrit 43.7 % (42.0-52.0); Hemoglobin 15.4 g/dl (14.0-18.0); Imm Gran Abs Auto 0.13 X10*3/uL (0.00-0.03); Imm Gran Pct Auto 0.9 % (0.0-0.4); Lymphocytes Absolute Auto 3.2 X10*3/uL (1.2-4.9); Lymphocytes Percent Auto 21.5 % (20-40); Mean Corpuscular HGB Conc 35.2 g/dl (31.0-36.0); Mean Corpuscular Hemoglobin 30.4 pg (27.0-33.0); Mean Corpuscular Volume 86.2 fL (80.0-98.0); Mean Platelet Volume 9.8 fL (9.4-12.4); Monocytes Absolute Auto 1.1 X10*3/uL (0.1-1.2); Monocytes Percent Auto 7.7 % (2-11); Neutrophils Absolute Auto 9.3 x10*3/uL (2.0-8.3); Neutrophils Percent Auto 63.8 % (45-73); Platelet Count 262 X10*3/uL (160-400); Red Blood Count 5.07 X10*6/uL (4.60-5.80); Red Cell Distribution Width 12.6 % (11.0-16.0); White Blood Count 14.6 X10*3/uL (4.8-10.8)
[2024-06-01 22:59] VITALS: PULSE 120; RESP 12; O2SAT 95
[2024-06-01 22:59] LABS: VBG pH 7.44 (7.32-7.43)
[2024-06-01 23:00] LABS: VBG Base Excess 1.9 mmol/L; VBG HCO3 25 mmol/L (22-26); VBG pCO2 37 mmHg; VBG pO2 83 mmHg; Venous Blood Gas Refer to POC result
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
[2024-06-01 23:13] LABS: Alanine Aminotransferase 24 U/L (0-40); Albumin Level 4.2 g/dL (3.5-5.0); Alkaline Phosphatase 51 U/L (39-117); Anion Gap 14 (12-20); Aspartate Amino Transferase 18 U/L (5-37); Bilirubin Direct < 0.2 mg/dL (0.0-0.5); Bilirubin Total 0.2 mg/dL (0.0-1.0); Blood Urea Nitrogen 16 mg/dL (9-16); Calcium 9.8 mg/dL (8.4-10.2); Carbon Dioxide 24 mmol/L (22-29); Chloride 108 mmol/L (96-108); Creatinine Clr Calc Pharmacy 108.8; Estimated Glomerular Filt Rate > 60; Glucose Random 127 mg/dL (60-115); Lactic Acid 1.4 mmol/L (0.5-2.0); Potassium 3.5 mmol/L (3.3-5.1); Sodium 142 mmol/L (135-145); Total Protein 6.7 g/dL (6.5-8.0)
[2024-06-01 23:18] LABS: B Type Natriuretic Peptide < 10 pg/mL (<100); Troponin-I High Sensitivity 3.8 ng/L (<3.5-35.0)
[2024-06-01 23:50] LABS: Influenza A PCR NEGATIVE (Negative); Influenza B PCR NEGATIVE (Negative); Resp Syncy Virus RNA Qual PCR NEGATIVE (Negative); SARS COV2 PCR INHOUSE NEGATIVE (Negative)
[2024-06-02 00:22] VITALS: BP 136/86; PULSE 109; RESP 18; O2SAT 96
[2024-06-02 00:34] VITALS: BP 136/86; PULSE 109; RESP 18; TEMP 37.2; O2SAT 96
== END 2024-06-02 00:36 | disposition home or self-care (01) ==
PROVIDERS: Emergency Provider Emergency Medicine; PCP Internal Medicine
DX: J45.51 Severe persistent asthma with (acute) exacerbation (principal); R06.02 Shortness of breath; Z79.899 Other long term (current) drug therapy; Z03.818 Encounter for observation for suspected exposure to other biological agents ruled out
CPT/HCPCS: 0241U; 36415; 71045; 80048; 80076; 82803; 83605; 83880; 84484; 85025; 87040; 93005; 94640; 96365; 96375; 99284; 99285; J2919; J3475

== ENCOUNTER → 2024-06-01 22:20 | Outpatient (BNV) | payer OTHER, SELFPAY | PROVIDERS: Emergency Provider Emergency Medicine; PCP Internal Medicine; Visit Provider Student in an Organized Health Care Education/Training Program | DX: R06.02 Shortness of breath (principal); J44.9 Chronic obstructive pulmonary disease, unspecified; J45.901 Unspecified asthma with (acute) exacerbation | CPT/HCPCS: 71045 ==

== ENCOUNTER → 2024-06-01 22:20 | Outpatient (BNV) | payer OTHER, SELFPAY | PROVIDERS: Emergency Provider Emergency Medicine; PCP Internal Medicine; Visit Provider Internal Medicine Cardiovascular Disease | DX: R06.02 Shortness of breath (principal); R00.0 Tachycardia, unspecified | CPT/HCPCS: 93010 ==